=== PATIENT | female | born 2000 | race Caucasian/White ===

== ENCOUNTER 2019-08-15 07:00 | Outpatient (RCR) | payer OTHER, SELFPAY ==
[2019-08-13 15:00] LABS: Hematocrit 34.7 % (37.0-47.0); Hemoglobin 11.7 g/dL (12.0-15.0)
[2019-08-13 15:10] LABS: Glucose 1 Hour PP 50gm Dose 132 mg/dL
[2019-08-13 15:51] LABS: HIV 1/2 Ab P24 Ag Result Negative (Negative)
[2019-08-14 10:48] LABS: Rapid Plasma Reagin Non-Reactive (NonReactive)
[2019-08-15] MEDS: RHO(D) IMMUNE GLOBULIN 300 MCG SYRINGE IM (14:37)
== END 2019-11-11 23:59 | disposition home or self-care (01) ==
LOC: ANHLAB 07:00
PROVIDERS: Visit Provider Obstetrics & Gynecology
DX: Z36.89 Encounter for other specified antenatal screening (principal); Z29.13 Encounter for prophylactic Rho(D) immune globulin; O36.0990 Maternal care for other rhesus isoimmunization, unspecified trimester, not applicable or unspecified; Z3A.00 Weeks of gestation of pregnancy not specified
CPT/HCPCS: 36415; 82947; 85014; 85018; 86592; 86703; 90384; 96372; G0432; J2790

== ENCOUNTER 2019-11-01 03:20 | Inpatient (IN) | payer OTHER, SELFPAY ==
[2019-11-01] VITALS (190 sets, daily range): BP systolic 60–144; BP diastolic 40–96; PULSE 55–256; RESP 15; TEMP 36.6–38.8; O2SAT 95–100; BMI 34.4
[2019-11-01 06:09] LABS: Basophils Percent Auto 0.3 % (0.2-1.2); Eosinophils Absolute Auto 0.1 K/mm3 (0-0.3); Eosinophils Percent Auto 0.7 % (0-4.4); Hematocrit 34.1 % (37.0-47.0); Hemoglobin 11.1 g/dL (12.0-15.0); Immature Granulocyte Absolute 0.06 K/mm3 (0.00-0.031); Immature Granulocyte Percent A 0.5 % (0-0.5); Lymphocytes Absolute Auto 2.37 K/mm3 (0.9-3.2); Lymphocytes Percent Auto 20.1 % (18.3-44.2); Mean Corpuscular HGB Conc 32.6 g/dl (32-36); Mean Corpuscular Hemoglobin 27.2 pg (26-34); Mean Corpuscular Volume 83.6 fl (80-100); Mean Platelet Volume 9.8 fl (7.4-10.4); Monocytes Absolute Auto 0.9 K/mm3 (0.1-0.6); Monocytes Percent Auto 7.5 % (2.6-8.5); Neutrophils Absolute Auto 8.4 K/mm3 (1.3-6.7); Neutrophils Percent Auto 70.9 % (45.5-73.1); Platelet Count Result 259 k/mm3 (150-375); Red Blood Count 4.08 M/mm3 (4.2-5.4); Red Cell Distribution Width 13.4 % (11.5-14.5); White Blood Count 11.8 K/mm3 (4.5-10.0)
[2019-11-01 06:37] LABS: Amphetamine Screen Urine Negative (Negative); Barbiturate Screen Urine Negative (Negative); Benzodiazepines Screen Urine Negative (Negative); Cannabinoid Screen Urine Positive (Negative); Cocaine Screen Urine Negative (Negative); Methadone Screen Urine Negative (Negative); Opiate Screen Urine Negative (Negative); Phencyclidine Screen Urine Negative (Negative)
[2019-11-01] MEDS: LACTATED RINGERS 1,000 ML 125 ML IV CONT ×4 (07:47→11:30)
--- NOTE | 2019-11-01 08:18 | WPDOBADMIT ---
Obstetrics - Admit Note Admission Note: record reviewed. No pertinent additions to the history and/or any subsequent changes in the physical findings that are not consistent with the expected course of the were found. Pt admitted to , regular contractions 1 cm /80/-3. Additions to the history and/or subsequent changes in the physical findings follow. None.
[2019-11-01] MEDS: OXYTOCIN 30 UNITS/NS 500 ML 30 UNITS/500 ML BAG 6 UNITS IV CONT (08:32)
[2019-11-01] MEDS: ONDANSETRON INJ 4 MG/2 ML VIAL IV PUSH ×2 (09:01→18:30)
--- NOTE | 2019-11-01 09:47 | WPDANESEPP ---
Anes - Eval Pre Procedure Procedure: labor pain management Date/Time: 11/01/19 09:47 Surgeon: Tita Preop Diagnosis: Pain during labor Pre Op Diagnosis: Contractions Patient Data Age: 19 Gender: F Height: 5 ft 9 in Weight: 106 kg Last Vital Signs Temp 97.8 F 11/01/19 07:13 Pulse 77 11/01/19 09:01 BP 144/62 H 11/01/19 09:01 Pulse Ox 100 11/01/19 09:43 Allergies Allergy/AdvReac Type Severity Reaction Status Date / Time clarithromycin Allergy Unknown HIVES, Verified 11/01/19 06:44 HEART RASING, DIFFICULTY BREATHING Penicillins Allergy Unknown HIVES, Verified 11/01/19 06:44 HEART RACING, DIFFICULTY BREATHING Sulfa (Sulfonamide Allergy Unknown HIVES, Verified 11/01/19 06:44 Antibiotics) HEART RACING, AND DIFFICULTY BREATHING. Home Medications Medication Instructions Recorded Confirmed Type PNV cmb#95-ferrous fumarate-FA 1 tablet PO DAILY 09/25/19 09/25/19 History [] Laboratory Tests 11/01/19 11/01/19 11/01/19 05:55 05:55 05:55 WBC 11.8 K/mm3 H K/mm3 (4.5-10.0) RBC 4.08 M/mm3 L M/mm3 (4.2-5.4) Hgb 11.1 g/dL L g/dL (12.0-15.0) Hct 34.1 % L % (37.0-47.0) MCV 83.6 fl fl (80-100) MCH 27.2 pg pg (26-34) MCHC 32.6 g/dl g/dl (32-36) RDW 13.4 % % (11.5-14.5) Plt Count 259 k/mm3 k/mm3 (150-375) MPV 9.8 fl fl (7.4-10.4) Immature Gran % (Auto) 0.5 % % (0-0.5) Neut % (Auto) 70.9 % % (45.5-73.1) Lymph % (Auto) 20.1 % % (18.3-44.2) [place] % (Auto) 7.5 % % (2.6-8.5) Eos % (Auto) 0.7 % % (0-4.4) Baso % (Auto) 0.3 % % (0.2-1.2) Lymph # (Auto) 2.37 K/mm3 K/mm3 (0.9-3.2) [place] # (Auto) 0.9 K/mm3 H K/mm3 (0.1-0.6) Eos # (Auto) 0.1 K/mm3 K/mm3 (0-0.3) Baso # (Auto) 0.0 K/mm3 K/mm3 (0.0-0.1) Abs Immat Gran (auto) 0.06 K/mm3 H K/mm3 (0.00-0.031) Absolute Neuts (auto) 8.4 K/mm3 H K/mm3 (1.3-6.7) Absolute Nucleated RBC 0.0 K/mm3 K/mm3 (0.0-0.012) Nucleated RBC % 0.0 % % (0.0-0.2) Urine Opiates Screen Urine Methadone Screen Ur Barbiturates Screen Ur Phencyclidine Scrn Ur Amphetamine Screen U Benzodiazepines Scrn Urine Cocaine Screen U Cannabinoids Screen RPR Pending Blood Type O Negative Antibody Screen Negative 11/01/19 05:55 WBC RBC Hgb Hct MCV MCH MCHC RDW Plt Count MPV Immature Gran % (Auto) Neut % (Auto) Lymph % (Auto) [place] % (Auto) Eos % (Auto) Baso % (Auto) Lymph # (Auto) [place] # (Auto) Eos # (Auto) Baso # (Auto) Abs Immat Gran (auto) Absolute Neuts (auto) Absolute Nucleated RBC Nucleated RBC % Urine Opiates Screen Negative (Negative) Urine Methadone Screen Negative (Negative) Ur Barbiturates Screen Negative (Negative) Ur Phencyclidine Scrn Negative (Negative) Ur Amphetamine Screen Negative (Negative) U Benzodiazepines Scrn Negative (Negative) Urine Cocaine Screen Negative (Negative) U Cannabinoids Screen Positive A (Negative) RPR Blood Type Antibody Screen : gestational age (edc 11/02/19) Patient hx anesthesia problems: none Family hx anesthesia problems: none Prior Surgeries: myringotomy [facility] Past Medical History Medical History (Updated 11/01/19 @ 09:47 by Ngozi Lozano CRNA) History of skull fracture Surgical History Surgical History (Updated 11/01/19 @ 09:47 by Ngozi Lozano CRNA) History of myringotomy Family History Family History (Upd
--- NOTE | 2019-11-01 20:45 | PM.OBPRVD ---
OB - Delivery Note Procedure Delivery date: 11/01/19 Procedure: vaginal delivery events: No Care Intrapartal events: Febrile Induction method: AROM and per pitocin protocol Delivery monitor: external FHT and internal uterine Route of delivery: Laceration description: Perineal - 1st Degree (left) Delivery repair: vicryl Specimen: Yes Estimated blood loss (mL): 146 Anesthesia type: Epidural Narrative: mother and baby skin to skin Baby Date of : 11/01/19 Time of : 20:29 Weeks of gestation at delivery: 39 Infant gender: Female Weight (pounds): 7 Weight (ounces): 8 presentation: vertex position: Left Occiput Anterior Placenta delivery description: Spontaneous cord vessel description: 3 Vessels, Nuchal Cord, Loose, Reduced and Clamped/Cut score one minute: 8 score five minutes: 9
[2019-11-01] MEDS: OXYTOCIN 30 UNITS/NS 500 ML 30 UNITS/500 ML BAG 125 UNITS IV CONT (20:58)
[2019-11-01] MEDS: BENZOCAINE 20% AER SPR (*SP) 56 GM CAN 1 SPRAY TOPICAL (22:32)
[2019-11-01] MEDS: WITCH HAZEL 40 PADS 1 PAD TOPICAL (22:32)
[2019-11-01] MEDS: IBUPROFEN 600 MG TABLET PO (22:39)
[2019-11-02 05:17] LABS: Hematocrit 31.3 % (37.0-47.0); Hemoglobin 10.1 g/dL (12.0-15.0)
[2019-11-02] MEDS: IBUPROFEN 600 MG TABLET PO ×2 (07:25→21:01)
[2019-11-02 07:40] LABS: Rapid Plasma Reagin Non-Reactive (NonReactive)
[2019-11-02 08:10] VITALS: BP 126/53; PULSE 85; RESP 18; TEMP 36.3; O2SAT 99
--- NOTE | 2019-11-02 08:15 | P.PNOB_ITS ---
OB - PN: Subj Subjective Date/time seen: 11/02/19 08:15 Patient comments: no complaints, pain well controlled and other (Lochia similar to menses) [place] baby status: doing well OB - PN: Obj Data Labs CBC & Chem 7: 11/02/19 04:23 Labs: Laboratory Results - last 24 hr 11/01/19 11/02/19 05:55 04:23 Hgb 10.1 L Hct 31.3 L RPR Non-reactive OB - PN A/P Plan day: 1 (s/p vaginal delivery, doing well) Plan: routine care Time Spent With Patient Time: Total time spent is greater than 50% in coordination of care (as documented) at patient's floor/unit and/or counseling patient: Exam Const: General: no acute distress GI: Inspection: other (Fundus firm and nontender at umbilicus) GI Palp: Yes Soft to palpation and No Tenderness to palpation present (GI) Extrem: General: no edema
[2019-11-02] MEDS: ACETAMINOPHEN 325 MG TABLET 650 MG PO ×2 (12:16→21:01)
--- NOTE | 2019-11-02 17:35 | WPDANLDPN2 ---
Anes-Prog Note L&D Date/Time: 11/02/19 17:35 Comfortable throughout: labor and delivery Neuraxial method: epidural Epidural/Spinal procedure site: clean & non-tender Neuro status: Neuro function grossly intact. Cardiovascular status: normal Respiratory status: normal Airway patency: baseline Mental status: baseline Post-Op hydration status: normal Vital Signs: Last Vital Signs Temp 36.3 C L 11/02/19 08:10 Pulse 85 11/02/19 08:10 Resp 18 11/02/19 08:10 BP 126/53 L 11/02/19 08:10 Pulse Ox 99 11/02/19 08:10 Post-procedural complaints: none Patient feedback: Patient satisfied with anesthetic care.
[2019-11-02 20:50] VITALS: BP 135/73; PULSE 81; RESP 14; TEMP 36.6; O2SAT 96
[2019-11-03] MEDS: BENZOCAINE 20% AER SPR (*SP) 56 GM CAN 1 SPRAY TOPICAL (07:22)
[2019-11-03] MEDS: IBUPROFEN 600 MG TABLET PO (07:22)
[2019-11-03] MEDS: WITCH HAZEL 40 PADS 1 PAD TOPICAL (07:22)
--- NOTE | 2019-11-03 07:31 | PM.OBPNVD ---
OB - PN: Subj Subjective Date/time seen: 11/03/19 07:31 Patient comments: no complaints, pain well controlled and other (Lochia similar to menses) [place] baby status: doing well OB - PN: Obj Data Labs CBC & Chem 7: 11/02/19 04:23 Labs: Laboratory Results - last 24 hr 11/01/19 05:55 RPR Non-reactive OB - PN A/P Plan day: 2 (s/p vaginal delivery, doing well) Plan: routine care, discharge home and other (Follow up in office in 4 weeks) Time Spent With Patient Time: Total time spent is greater than 50% in coordination of care (as documented) at patient's floor/unit and/or counseling patient: Exam Const: General: no acute distress GI: Inspection: other (Fundus firm and nontender below umbilicus) GI Palp: Yes Soft to palpation and No Tenderness to palpation present (GI) Extrem: General: no edema
[2019-11-03 08:00] VITALS: BP 140/78; PULSE 93; RESP 18; TEMP 36.6
--- NOTE | 2019-11-03 09:58 | PC.NURSE ---
Patient viewed the discharge video Mother & Baby Care, The First Two Weeks . Patient was given the opportunity and encouraged to ask questions. Patient verbalized understanding of information shared and has been given the mother/baby guide for home reference.
--- NOTE | 2019-11-03 11:14 | PC.NURSE ---
Self care and infant care discharge instructions given including follow up visit date and time. Mother verbalized understanding. Very pleasant and cooperative. FOB at side.
[2019-11-04 11:42] VITALS: BP 111/51; PULSE 66; RESP 16; TEMP 36.9
--- NOTE | 2019-11-05 01:09 | P.DS_ITS ---
OB - DS: Summary OB Procedures : None OB Procedures Intrapartum: Spontaneous Vag Delivery OB Procedures: : None Time Spent with Patient Time attestation: Total time spent providing and/or coordinating discharge services: Discharge Plan Discharge Attending physician on discharge: Gustavo Rivers Consulting providers: Josee Vazquez Discharging Clinician: Jyoti Hernandez Patient Disposition: Home, Self-Care Activity: may shower and pelvic rest Diet: regular Discharge Instructions: Education: Mom and Baby Guide Given to: Mother Follow-Up: Call your delivering provider's office for an appointment to be seen in: 6 Weeks Mom and baby should come to the [place] [facility] for the follow-up appointment. Appointment Date/Time: November 04, 2019 at 11:00 am What to expect at your follow-up visit: Blood Pressure Check Physical Assessment Call [phone] if you are unable to keep your appointment time. BREAST CARE: 1. Wear a snug supportive bra. Bottle Feeding: A. May apply ice packs EPISIOTOMY/PERINEAL CARE: 1. Until bleeding stops, use your teresa bottle after urinating 2. Change your pad frequently throughout the day 3. You may take sitz baths several times a day (fill your bathtub with warm water and soak for 20 minutes.) Do NOT bathe in the water 4. No tub baths until seen by your physician - You may shower ACTIVITY: 1. Rest as much as possible. 2. Do not exercise or lift anything heavier than your baby (such as laundry or other children.) 3. Avoid stairs or driving as much as possible. 4. Do not put anything into the vagina. No douching, tampons, or sexual activity until seen by physician. NOTIFY PHYSICIAN IF YOU HAVE ANY QUESTIONS OR IF ANY OF THE FOLLOWING SYMPTOMS OCCUR: 1. If your episiotomy becomes red, swollen, or more painful than what you have experienced in the hospital. 2. If your vaginal bleeding becomes foul smelling. 3. If your vaginal bleeding becomes more heavy than a period or if your bleeding changes from pink to bright red. However, you may pass an occasional walnut- sized clot once or twice for the first week . 4. If you experience a sharp, shooting pain in you calves. 5. If you discover a hard, reddened area on your breast or if you experience flu-like symptoms. DIET: 1. Eat regular, well-balanced meals. 2. Drink plenty of fluids daily. If , drink to thirst. Stand Alone Forms: General Discharge Information Follow-up/Referrals: Josee Vazquez CNM [Certified Nurse Institutional Asset Manager] - 4 Weeks Discharge Medications: New ibuprofen 600 mg Tablet 600 mg PO Q6H PRN (Reason: Cramping) Qty: 60 RF: 0 Continued PNV cmb#95-ferrous fumarate-FA [] 28 mg iron- 800 mcg Tablet 1 tablet PO DAILY RF: 0 Date of admission: 11/01/19 03:20 Primary Care Provider: UNKNOWN,DOCTOR Admitting Provider: Gustavo Rivers Discharge Date/Time: 11/03/19 12:10 Attending physician on admission: Jyoti Hernandez
--- NOTE | 2019-11-06 07:15 | P.DS_ITS ---
DS: Diagnosis Admitting Diagnosis Admitting Diagnosis: Encounter for supervision of normal , unspecified, third trimester OB - DS: Summary OB Procedures : None OB Procedures Intrapartum: Spontaneous Vag Delivery OB Procedures: : None Time Spent with Patient Time attestation: Total time spent providing and/or coordinating discharge services: Discharge Plan Discharge Attending physician on discharge: Gustavo Rivers Consulting providers: Josee Vazquez Discharging Clinician: Jyoti Hernandez Patient Disposition: Home, Self-Care Activity: may shower and pelvic rest Diet: regular Discharge Instructions: Education: Mom and Baby Guide Given to: Mother Follow-Up: Call your delivering provider's office for an appointment to be seen in: 6 Weeks Mom and baby should come to the [place] [facility] for the follow-up appointment. Appointment Date/Time: November 04, 2019 at 11:00 am What to expect at your follow-up visit: Blood Pressure Check Physical Assessment Call [phone] if you are unable to keep your appointment time. BREAST CARE: 1. Wear a snug supportive bra. Bottle Feeding: A. May apply ice packs EPISIOTOMY/PERINEAL CARE: 1. Until bleeding stops, use your teresa bottle after urinating 2. Change your pad frequently throughout the day 3. You may take sitz baths several times a day (fill your bathtub with warm water and soak for 20 minutes.) Do NOT bathe in the water 4. No tub baths until seen by your physician - You may shower ACTIVITY: 1. Rest as much as possible. 2. Do not exercise or lift anything heavier than your baby (such as laundry or other children.) 3. Avoid stairs or driving as much as possible. 4. Do not put anything into the vagina. No douching, tampons, or sexual activity until seen by physician. NOTIFY PHYSICIAN IF YOU HAVE ANY QUESTIONS OR IF ANY OF THE FOLLOWING SYMPTOMS OCCUR: 1. If your episiotomy becomes red, swollen, or more painful than what you have experienced in the hospital. 2. If your vaginal bleeding becomes foul smelling. 3. If your vaginal bleeding becomes more heavy than a period or if your bleeding changes from pink to bright red. However, you may pass an occasional walnut- sized clot once or twice for the first week . 4. If you experience a sharp, shooting pain in you calves. 5. If you discover a hard, reddened area on your breast or if you experience flu-like symptoms. DIET: 1. Eat regular, well-balanced meals. 2. Drink plenty of fluids daily. If , drink to thirst. Stand Alone Forms: General Discharge Information Follow-up/Referrals: Josee Vazquez CNM [Certified Nurse Marriage And Family Therapist] - 4 Weeks Discharge Medications: New ibuprofen 600 mg Tablet 600 mg PO Q6H PRN (Reason: Cramping) Qty: 60 RF: 0 Continued PNV cmb#95-ferrous fumarate-FA [] 28 mg iron- 800 mcg Tablet 1 tablet PO DAILY RF: 0 Date of admission: 11/01/19 03:20 Primary Care Provider: UNKNOWN,DOCTOR Admitting Provider: Gustavo Rivers Discharge Date/Time: 11/03/19 12:10 Attending physician on admission: Jyoti Hernandez
== END 2019-11-03 12:10 | disposition home or self-care (01) | DRG 560 ==
LOC: ANHLDR 05:26 → ANHOB2 11-03 07:34 → ANHLDR 11-04 10:30 → ANHOB2 11-04 10:30
PROVIDERS: Advanced Practice Midwife; Admitting Provider Obstetrics & Gynecology; Visit Provider Obstetrics & Gynecology
DX: O99.52 Diseases of the respiratory system complicating childbirth (principal); Z37.0 Single live birth; Z3A.39 39 weeks gestation of pregnancy; J45.909 Unspecified asthma, uncomplicated; O70.0 First degree perineal laceration during delivery; O36.8330 Maternal care for abnormalities of the fetal heart rate or rhythm, third trimester, not applicable or unspecified; O69.81X0 Labor and delivery complicated by cord around neck, without compression, not applicable or unspecified
CPT/HCPCS: 36415; 80307; 85014; 85018; 85025; 86592; 86850; 86900; 86901; A9270; J2405; J2590; J2795; J3010; J7120

== ENCOUNTER 2020-10-19 16:46 | Outpatient (CLI) | payer OTHER, SELFPAY ==
[2020-10-19 18:04] LABS: Hematocrit 32.2 % (37.0-47.0); Hemoglobin 10.5 g/dL (12.0-15.0)
[2020-10-19 18:17] LABS: Glucose 1 Hour PP 50gm Dose 124 mg/dL
[2020-10-19 18:59] LABS: HIV 1/2 Ab P24 Ag Result Negative (Negative)
[2020-10-20 09:27] LABS: Rapid Plasma Reagin Non-Reactive (NonReactive)
[2020-10-20] MEDS: RHO(D) IMMUNE GLOBULIN 300 MCG/2 ML SYRINGE IM (18:49)
== END 2020-10-19 16:47 | disposition home or self-care (01) ==
LOC: ANHLAB 16:48
PROVIDERS: Visit Provider Obstetrics & Gynecology
DX: O36.0130 Maternal care for anti-D [Rh] antibodies, third trimester, not applicable or unspecified (principal); Z36.89 Encounter for other specified antenatal screening; Z3A.00 Weeks of gestation of pregnancy not specified
CPT/HCPCS: 36415; 82947; 85014; 85018; 85461; 86592; 86703; 90384; 96372; G0432; J2790

== ENCOUNTER 2020-12-19 13:53 | Inpatient (IN) | payer OTHER, SELFPAY ==
[2020-12-19] VITALS (79 sets, daily range): BP systolic 78–134; BP diastolic 34–93; PULSE 25–161; RESP 16; TEMP 36.6–36.7; O2SAT 81–100; BMI 32.8
[2020-12-19] MEDS: LACTATED RINGERS 1,000 ML 125 ML IV CONT ×2 (16:45→17:32)
[2020-12-19 16:59] LABS: Basophils Percent Auto 0.2 % (0.2-1.2); Eosinophils Absolute Auto 0.1 K/mm3 (0-0.3); Eosinophils Percent Auto 0.6 % (0-4.4); Hematocrit 35.8 % (37.0-47.0); Hemoglobin 11.6 g/dL (12.0-15.0); Immature Granulocyte Absolute 0.05 K/mm3 (0.00-0.031); Immature Granulocyte Percent A 0.4 % (0-0.5); Lymphocytes Absolute Auto 2.14 K/mm3 (0.9-3.2); Lymphocytes Percent Auto 16.7 % (18.3-44.2); Mean Corpuscular HGB Conc 32.4 g/dl (32-36); Mean Corpuscular Hemoglobin 27.9 pg (26-34); Mean Corpuscular Volume 86.1 fl (80-100); Mean Platelet Volume 10.4 fl (7.4-10.4); Monocytes Absolute Auto 0.9 K/mm3 (0.1-0.6); Monocytes Percent Auto 6.9 % (2.6-8.5); Neutrophils Absolute Auto 9.6 K/mm3 (1.3-6.7); Neutrophils Percent Auto 75.2 % (45.5-73.1); Platelet Count Result 210 k/mm3 (150-375); Red Blood Count 4.16 M/mm3 (4.2-5.4); Red Cell Distribution Width 13.9 % (11.5-14.5); White Blood Count 12.8 K/mm3 (4.5-10.0)
--- NOTE | 2020-12-19 17:55 | LDADM ---
This patient, Lashanda James, was admitted to Labor/Delivery/Recovery 106 on 12/19/20 at 13:53. Plans for labor, pain management and were discussed with patient. Patient/family oriented to hospital policies and general routines including ID bracelet, bed and alarms, visiting hours, pain management, procedures, bathroom and other care routines, personal items, smoking policy, room service/diet and guest tray routines, security routines, and visiting hours. Patient/Family are encouraged to report perceived risks to care and to ask questions if they do not understand what they are told or what they should do. See OBIX for further documentation.
--- NOTE | 2020-12-19 18:18 | WPDOBADMIT ---
Obstetrics - Admit Note Admission Note: 20 y/o @ 38w4d here in active labor. record reviewed. No pertinent additions to the history and/or any subsequent changes in the physical findings that are not consistent with the expected course of the were found. Additions to the history and/or subsequent changes in the physical findings follow. None.
[2020-12-19 19:08] LABS: Barbiturate Screen Urine Negative (Negative); Benzodiazepines Screen Urine Negative (Negative)
[2020-12-19 19:12] LABS: Amphetamine Screen Urine Negative (Negative); Cannabinoid Screen Urine Positive (Negative); Cocaine Screen Urine Negative (Negative); Methadone Screen Urine Negative (Negative)
[2020-12-19 19:33] LABS: Phencyclidine Screen Urine Negative (Negative)
[2020-12-19 19:42] LABS: Opiate Screen Urine Negative (Negative)
[2020-12-19] MEDS: OXYTOCIN 30 UNITS/NS 500 ML 30 UNITS/500 ML BAG 999 UNITS IV CONT (20:15)
--- NOTE | 2020-12-19 20:37 | P.PCNOB_ITS ---
OB - Delivery Note Procedure Delivery date: 12/19/20 Procedure: Intrapartal events: None Induction method: none Delivery monitor: external FHT and external uterine Route of delivery: Laceration Description: Perineal - 1st Degree Delivery repair: vicryl Quantitative Blood Loss (ml): 224 Anesthesia type: Epidural Narrative: Mother and baby in stable condition. Cord gasses collected and handed off to staff. [place] Baby Date of : 12/19/20 Weeks of gestation at delivery: 20 Infant gender: Male Weight (pounds): 9 Weight (ounces): 8 presentation: vertex position: Left Occiput Posterior Placenta delivery description: Spontaneous score one minute: 8 score five minutes: 9
[2020-12-19] MEDS: IBUPROFEN 600 MG TABLET PO (21:10)
[2020-12-19] MEDS: OXYTOCIN 30 UNITS/NS 500 ML 30 UNITS/500 ML BAG 125 UNITS IV CONT (21:11)
[2020-12-19] MEDS: LORATADINE 10 MG TABLET PO (22:54)
[2020-12-19] MEDS: BENZOCAINE 20% AER SPR (*SP) 56 GM CAN 1 SPRAY TOPICAL (22:55)
[2020-12-19] MEDS: WITCH HAZEL 40 PADS 1 PAD TOPICAL (22:56)
[2020-12-20] VITALS (7 sets, daily range): BP systolic 118–127; BP diastolic 47–72; PULSE 73–80; RESP 16–18; TEMP 36.4–36.8; O2SAT 99–100
--- NOTE | 2020-12-20 00:35 | PC.NURSE ---
This patient, Lashanda James, was received from Labor and delivery on 12/19/20 at 2312. Patient/family oriented to unit policies and routines
[2020-12-20] MEDS: IBUPROFEN 600 MG TABLET PO ×2 (04:35→17:08)
[2020-12-20] MEDS: ACETAMINOPHEN 325 MG TABLET 650 MG PO (04:36)
[2020-12-20 06:22] LABS: Hematocrit 30.4 % (37.0-47.0)
--- NOTE | 2020-12-20 07:40 | PM.OBPNVD ---
OB - PN: Subj Subjective Date/time seen: 12/20/20 07:40 Patient comments: no complaints [place] baby status: doing well OB - PN: Obj Data Labs CBC & Chem 7: 12/20/20 04:42 Labs: Laboratory Results - last 24 hr 12/19/20 12/19/20 12/19/20 16:44 16:44 18:35 WBC 12.8 H RBC 4.16 L Hgb 11.6 L Hct 35.8 L MCV 86.1 MCH 27.9 MCHC 32.4 RDW 13.9 Plt Count 210 MPV 10.4 Immature Gran % (Auto) 0.4 Neut % (Auto) 75.2 H Lymph % (Auto) 16.7 L [place] % (Auto) 6.9 Eos % (Auto) 0.6 Baso % (Auto) 0.2 Lymph # (Auto) 2.14 [place] # (Auto) 0.9 H Eos # (Auto) 0.1 Baso # (Auto) 0.0 Abs Immat Gran (auto) 0.05 H Absolute Neuts (auto) 9.6 H Absolute Nucleated RBC 0.0 Nucleated RBC % 0.0 Urine Opiates Screen Negative Urine Methadone Screen Negative Ur Barbiturates Screen Negative Ur Phencyclidine Scrn Negative Ur Amphetamine Screen Negative U Benzodiazepines Scrn Negative Urine Cocaine Screen Negative U Cannabinoids Screen Positive A Blood Type O Negative Antibody Screen Positive Antibody Identification Passive Due to RH Imm Glob Antigen Identification D Antigen - NEGATIVE ALBER, IgG Interpret Not Performed ALBER, Poly Interpret Negative ALBER, Complement Interp Not Performed 12/20/20 04:42 WBC RBC Hgb 10.0 L Hct 30.4 L MCV MCH MCHC RDW Plt Count MPV Immature Gran % (Auto) Neut % (Auto) Lymph % (Auto) [place] % (Auto) Eos % (Auto) Baso % (Auto) Lymph # (Auto) [place] # (Auto) Eos # (Auto) Baso # (Auto) Abs Immat Gran (auto) Absolute Neuts (auto) Absolute Nucleated RBC Nucleated RBC % Urine Opiates Screen Urine Methadone Screen Ur Barbiturates Screen Ur Phencyclidine Scrn Ur Amphetamine Screen U Benzodiazepines Scrn Urine Cocaine Screen U Cannabinoids Screen Blood Type Antibody Screen Antibody Identification Antigen Identification ALBER, IgG Interpret ALBER, Poly Interpret ALBER, Complement Interp OB - PN A/P Plan day: 1 Plan: routine care Time Spent With Patient Time: Total time spent is greater than 50% in coordination of care (as documented) at patient's floor/unit and/or counseling patient: Time with patient: less than 15 minutes Review of Systems Review of Systems: All systems reviewed & are unremarkable except as noted in HPI and below Exam Narrative: Exam Narrative: Fundus firm and vaginal flow controlled. No lower ext redness, warmth, or edema. Negative homans. Const: General: comfortable Chest: Breast/axilla inspection: normal inspection of the breasts Resp: Effort & Inspection: normal respiratory effort Cardio: Rate: regular rate GI: GI Palp: Yes Soft to palpation Psych: Appearance: grossly normal Affect: normal affect Attitude: cooperative Thought content: Yes Normal thought content present Judgement: Good judgement present (Psych)
[2020-12-20 10:09] LABS: Rapid Plasma Reagin Non-Reactive (NonReactive)
--- NOTE | 2020-12-20 11:04 | WPDANLDPN2 ---
Anes-Prog Note L&D Date/Time: 12/20/20 11:04 Comfortable throughout: labor and delivery Neuraxial method: epidural Epidural/Spinal procedure site: clean & non-tender Neuro status: Neuro function grossly intact. Cardiovascular status: normal Respiratory status: normal Airway patency: baseline Mental status: baseline Post-Op hydration status: normal Vital Signs: Last Vital Signs Temp 36.7 C 12/20/20 07:50 Pulse 80 12/20/20 09:15 Resp 16 12/20/20 09:15 BP 119/47 L 12/20/20 07:50 Pulse Ox 100 12/20/20 09:15 Pain score (VAS): 0/10. Patient resting in bed at time of assessment, appears comfortable. Support person at bedside. I/O: Intake & Output 12/19/20 12/20/20 12/20/20 23:59 07:59 15:59 Intake Total 1000 Output Total 302 Balance 698 Post-procedural complaints: none Patient feedback: Patient satisfied with anesthetic care.
--- NOTE | 2020-12-20 12:51 | PCCCNOTE ---
Received referral for marijuana use with . Pt. urine drug screen positive for THC. No urine drug screen ordered on baby. Meconium ordered and pending. Met with pt. and father of baby at bedside. Pt. 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 She purchases marijuana from dispensary. She denies any history with DCFS. She states having current counselor that she sees and is aware of how to reach resources if experiences post depression again. She lives with her mother, siblings, father of baby, her 1 year old child and plans to return home with baby as well. She states her mother being supportive and has support from a friend. Her grandmother recently and she becomes tearful during conversation. Provided support and encouragement; again encouraged regular counseling visits. She states being current with WIC. She has all needed items to care for baby at return home. Provided additional resources and she accepted same. Reported pt. situation to DCFS and it does not meet criteria for investigation; information to be kept on file. Nursing indicates no further concerns at this time.
[2020-12-20] MEDS: RHO(D) IMMUNE GLOBULIN 300 MCG/2 ML SYRINGE IM (13:03)
--- NOTE | 2020-12-31 10:12 | PM.OBDSVD ---
DS: Admitting Diagnosis Admitting Diagnosis Admitting Diagnosis: Labor OB - DS: Summary OB Procedures : None OB Procedures Intrapartum: Spontaneous Vag Delivery OB Procedures: : None Time Spent with Patient Time attestation: Total time spent providing and/or coordinating discharge services: Discharge Plan Discharge Consulting providers: Tiff Alvarez Discharging Clinician: Glendy Aiken Anticipated Discharge Date/Time: 12/20/20 21:30 Patient Disposition: Home, Self-Care Activity: pelvic rest Diet: regular Discharge Instructions: Education: Mom and Baby Guide Given to: Mother Follow-Up: Call your delivering provider's office for an appointment to be seen in: 4 Weeks Mom and baby should come to the [place] [facility] for the follow-up appointment. Appointment Date/Time: December 22, 2020 at 10:00 am What to expect at your follow-up visit: Physical Assessment Call [phone] if you are unable to keep your appointment time. BREAST CARE: * Wear a snug supportive bra. * For engorgement discomfort: Breast Feeding: * Apply warm moist washcloths * Express milk as needed to relieve engorgement * Wear loose clothing Bottle Feeding: * May apply ice pack EPISIOTOMY/PERINEAL CARE: * Until bleeding stops, use your teresa bottle after urinating * Change your pad frequently throughout the day * You may take sitz baths several times a day (fill your bathtub with warm water and soak for 20 minutes.) Do NOT bathe in the water * No tub baths until seen by your physician - You may shower ACTIVITY: * Rest as much as possible. * Do not exercise or lift anything heavier than your baby (such as laundry or other children.) * Avoid stairs or driving as much as possible. * Do not put anything into the vagina. No douching, tampons, or sexual activity until seen by physician. NOTIFY PHYSICIAN IF YOU HAVE ANY QUESTIONS OR IF ANY OF THE FOLLOWING SYMPTOMS OCCUR: * If your episiotomy or incision becomes red, swollen, or more painful than what you have experienced in the hospital. * If your vaginal bleeding becomes foul smelling. * If your vaginal bleeding becomes more heavy than a period or if your bleeding changes from pink to bright red. However, you may pass an occasional walnut-sized clot once or twice for the first week . * If you experience a sharp, shooting pain in you calves. * If you discover a hard, reddened area on your breast or if you experience flu-like symptoms. DIET: * Eat regular, well-balanced meals. * Drink plenty of fluids daily. If , drink to thirst. Stand Alone Forms: General Discharge Information Follow-up/Referrals: Gustavo Rivers MD [Physician] - Discharge Medications: New acetaminophen [Mapap (acetaminophen)] 325 mg Tablet 650 mg PO Q6H PRN (Reason: Mild Pain (1-3) Or Headache) RF: 0 ibuprofen 600 mg Tablet 600 mg PO Q6H PRN (Reason: Cramping) RF: 0 aripiprazole [Abilify] 5 mg Tablet 5 mg PO DAILY RF: 0 Continued ibuprofen 600 mg Tablet 600 mg PO Q6H PRN (Reason: Cramping) Qty: 60 RF: 0 escitalopram oxalate 10 mg tablet 10 mg QAM RF: 0 aripiprazole 5 mg tablet 5 mg QAM RF: 0 Discontinued PNV cmb#95-ferrous fumarate-FA [] 28 mg iron- 800 mcg Tablet 1 tablet PO DAILY RF: 0 Date of admission: 12/19/20 13:53 Primary Care Provider: PHYSICIAN,CHEMISTRY LABORATORY TECHNICIAN Admitting Provider: Gustavo Rivers Attending physician on admission: Glendy Aiken Condition: Stable
== END 2020-12-20 20:30 | disposition home or self-care (01) | DRG 560 ==
LOC: ANHOB2 12-20 20:50 → ANHLDR 12-21 10:14 → ANHOB2 12-21 10:14
PROVIDERS: Advanced Practice Midwife; Admitting Provider Obstetrics & Gynecology; Visit Provider Obstetrics & Gynecology
DX: O70.0 First degree perineal laceration during delivery (principal); Z3A.38 38 weeks gestation of pregnancy; Z37.0 Single live birth
CPT/HCPCS: 36415; 80307; 85014; 85018; 85025; 85461; 86592; 86850; 86880; 86900; 86901; 86902; 90384; A9270; J2590; J2790; J2795; J7120

== ENCOUNTER 2021-11-13 14:30 | Outpatient (RCR) | payer OTHER, SELFPAY ==
[2021-11-13 16:33] LABS: Hematocrit 29.9 % (37.0-47.0)
[2021-11-13 16:36] LABS: Glucose 1 Hour PP 50gm Dose 143 mg/dL
[2021-11-13 17:15] LABS: HIV 1/2 Ab P24 Ag Result Negative (Negative)
[2021-11-16] MEDS: RHO(D) IMMUNE GLOBULIN 300 MCG/2 ML SYRINGE IM (15:35)
== END 2022-02-11 23:59 | disposition home or self-care (01) ==
LOC: ANHLAB 14:30
PROVIDERS: Visit Provider Obstetrics & Gynecology
DX: Z11.4 Encounter for screening for human immunodeficiency virus [HIV] (principal); Z29.13 Encounter for prophylactic Rho(D) immune globulin; O36.0130 Maternal care for anti-D [Rh] antibodies, third trimester, not applicable or unspecified; Z3A.00 Weeks of gestation of pregnancy not specified
CPT/HCPCS: 36415; 82947; 85014; 85018; 85461; 86703; 90384; 96372; G0432; J2790

== ENCOUNTER 2022-01-29 06:42 | Inpatient (IN) | payer OTHER, SELFPAY ==
[2022-01-29] VITALS (73 sets, daily range): BP systolic 90–135; BP diastolic 40–92; PULSE 58–148; RESP 16; TEMP 36.4–37.2; O2SAT 92–100; BMI 33.2
--- OUTSIDE RECORDS SUMMARY | 2022-01-29 06:50 | XMS_ITS | Encounter Summary ---
:2000 Author Care Team Providers Name Role Phone Fortino Hoffman Primary Care Provider [phone] Reason for Visit None recorded. Assessment and Plan 1. Reduced movement ? non-stress test Discussion Note: None recorded.Patient educational handouts: No information available. Plan of Care Reminders Provider Appointments None recorded. ? ? Lab None recorded. ? ? Referral None recorded. ? ? Procedures None recorded. ? ? Surgeries None recorded. ? ? Imaging Non-stress Test 01/26/2022 [place] Medications Name Start Date ? ? aripiprazole 2 mg tablet ? TAKE 1 TABLET BY MOUTH EVERY DAY escitalopram 5 mg tablet ? TAKE 1 TABLET BY MOUTH EVERY DAY omeprazole 20 mg capsule,delayed release ? TAKE 1 CAPSULE BY MOUTH EVERY DAY Prilosec OTC 20 mg tablet,delayed release ? Take 1 tablet by oral route. Medications Administered None recorded. Vitals None recorded. Results Lab Results None recorded. Allergies Code Code System Name Reaction Severity Onset 723 RxNorm Amoxicillin ? ? ? Penicillins ? ? ? Sulfa (Sulfonamide Antibiotics) ? ? ? Problems Name Status Onset Date Source ? Bipolar Disorder Active 03/30/2019 History Active 08/01/2021 ? Procedures Date Name Performed by ? 07/15/2005 Tonsilectomy/adenoids Information not av ailable 07/15/2004 Adenoid Excision Information not avai lable 07/15/2001 Myringotomy and Insertion of Tympanic In formation not available
--- OUTSIDE RECORDS SUMMARY | 2022-01-29 06:50 | XMS_ITS | Encounter Summary ---
:2000 Author Care Team Providers Name Role Phone Fortino Hoffman Primary Care Provider [phone] Reason for Visit OB visit OB [id number] EDC 02/03/2022 LMP 04/26/2021 Assessment and Plan Assessment Note Patient is __36_weeks . Discuss ed plan. 1. Routine care Discussion Note: None recorded.Patient educational handouts: No information available. Plan of Care Reminders Provider Appointments None recorded. ? ? Lab None recorded. ? ? Referral None recorded. ? ? Procedures None recorded. ? ? Surgeries None recorded. ? ? Imaging None recorded. ? ? Medications Name Start Date ? ? aripiprazole 2 mg tablet ? TAKE 1 TABLET BY MOUTH EVERY DAY escitalopram 5 mg tablet ? TAKE 1 TABLET BY MOUTH EVERY DAY omeprazole 20 mg capsule,delayed release ? TAKE 1 CAPSULE BY MOUTH EVERY DAY Prilosec OTC 20 mg tablet,delayed release ? Take 1 tablet by oral route. Medications Administered None recorded. Vitals Height Weight BMI Blood Pressure 5 ft 7.25 in 222 lbs 34.5 kg/m2 99/59 mm[Hg] Results Lab Results None recorded. Allergies Code Code System Name Reaction Severity Onset 723 RxNorm Amoxicillin ? ? ? Penicillins ? ? ? Sulfa (Sulfonamide Antibiotics) ? ? ? Problems Name Status Onset Date Source ? Bipolar Disorder Active 03/30/2019 History Active 08/01/2021 ? Procedures Date Name
--- OUTSIDE RECORDS SUMMARY | 2022-01-29 06:50 | XMS_ITS | Encounter Summary ---
:2000 Author Care Team Providers Name Role Phone Fortino Hoffman Primary Care Provider [phone] Reason for Visit OB visit OB [id number] EDC 02/03/2022 LMP 04/26/2021 Assessment and Plan 1. Routine care Discussion Note: None recorded.Patient [...] BMI Blood Pressure 5 ft 7.25 in 218 lbs 33.9 kg/m2 100/58 mm[Hg] Results Lab Results None recorded. Allergies [...]
--- OUTSIDE RECORDS SUMMARY | 2022-01-29 06:50 | XMS_ITS | Encounter Summary ---
:2000 Author Care Team Providers Name Role Phone Fortino Hoffman Primary Care Provider [phone] Reason for Visit OB visit OB [id number] EDC 02/03/2022 LMP 04/26/2021 Assessment and Plan [...] BMI Blood Pressure 5 ft 7.25 in 220 lbs 34.2 kg/m2 125/68 mm[Hg] Results Lab Results None recorded. Allergies [...]
--- OUTSIDE RECORDS SUMMARY | 2022-01-29 06:50 | XMS_ITS | Encounter Summary ---
:2000 Author Care Team Providers Name Role Phone Fortino Hoffman Primary Care Provider [phone] Reason for Visit OB visit OB [id number] EDC 02/03/2022 LMP 04/26/2021 Assessment and Plan Assessment Note Patient is ___weeks . Discussed plan. Discussion Note: None recorded.Patient educational handouts: No [...] BMI Blood Pressure 5 ft 7.25 in 219 lbs 34 kg/m2 130/60 mm[Hg] Results Lab Results None recorded. Allergies Code Code System Name Reaction Severity Onset 723 RxNorm Amoxicillin ? ? ? Penicillins ? ? ? Sulfa (Sulfonamide Antibiotics) ? ? ? Problems Name Status Onset Date Source ? Bipolar Disorder Active 03/30/2019 History Active 08/01/2021 ? Procedures Date Name Performed by ? 07/15/2005 Tons
--- OUTSIDE RECORDS SUMMARY | 2022-01-29 06:50 | XMS_ITS | Encounter Summary ---
:2000 Author Care Team Providers Name Role Phone Fortino Hoffman Primary Care Provider [phone] Reason for Visit OB visit OB [id number] EDC 02/03/2022 LMP 04/26/2021 Assessment and Plan [...] BMI Blood Pressure 5 ft 7.25 in 216 lbs 33.6 kg/m2 109/64 mm[Hg] Results Lab Results None recorded. Allergies [...]
--- OUTSIDE RECORDS SUMMARY | 2022-01-29 06:50 | XMS_ITS ---
:2000 Author Care Team Providers Name Role Phone AARTI VILLA Primary Care Provider [phone] Allergies Code Code System Name Reaction Severity Status Onset 723 RxNorm Amoxicillin ? ? Active ? Penicillins ? ? Active ? Sulfa (Sulfonamide Antibiotics) ? ? Active ? Medications Name Status Start Date Stop Date ? ? Abilify Completed ? 09/08/2020 Augmentin 875 mg-125 mg tablet Active 09/23/2019 N ot available take 1 tablet by oral route every 12 hours aripiprazole 2 mg tablet Active ? Not dorothea ilable TAKE 1 TABLET BY MOUTH EVERY DAY aripiprazole 5 mg tablet Completed ? 021 TAKE 1 TABLET BY MOUTH EVERY DAY azithromycin 500 mg tablet Completed ? 08/24 TAKE 2 TABLETS BY MOUTH FOR 1 DAY escitalopram 10 mg tablet Completed ? 2020 escitalopram 5 mg tablet Active ? Not dorothea ilable TAKE 1 TABLET BY MOUTH EVERY DAY ibuprofen 600 mg tablet Completed ? 06/01/20 20 omeprazole 20 mg capsule,delayed release Active ? Not available ondansetron HCl 4 mg tablet Completed ? 08/16 Vitamins Plus Low Iron 27 mg iron-1 mg Completed ? 07/04/2021 tablet Prilosec OTC 20 mg tablet,delayed release Active ? Not available Take 1 tablet by oral route. Reglan 5 mg tablet Completed ? 08/24/2020 take 1 tablet by oral route 4 times paolo day 30 minutes before meals and at bedtime triamcinolone acetonide 0.5 % topical cream Active 09/13 Not available apply by topical route 2 times every day a thin layer to th e affected area(s)
--- NOTE | 2022-01-29 07:18 | LDADM ---
This patient, Lashanda James, was admitted to Labor/Delivery/Recovery 104 on 01/29/22 at 06:42. Plans for labor, pain management and were discussed with patient. Patient/family oriented to hospital policies and general routines including ID bracelet, bed and alarms, visiting hours, pain management, procedures, bathroom and other care routines, personal items, smoking policy, room service/diet and guest tray routines, security routines, and visiting hours. Patient/Family are encouraged to report perceived risks to care and to ask questions if they do not understand what they are told or what they should do. See OBIX for further documentation.
[2022-01-29 07:39] LABS: Basophils Percent Auto 0.3 % (0.2-1.2); Eosinophils Absolute Auto 0.1 K/mm3 (0-0.3); Eosinophils Percent Auto 0.8 % (0-4.4); Hematocrit 29.8 % (37.0-47.0); Hemoglobin 9.4 g/dL (12.0-15.0); Immature Granulocyte Absolute 0.04 K/mm3 (0.00-0.031); Immature Granulocyte Percent A 0.5 % (0-0.5); Lymphocytes Absolute Auto 1.75 K/mm3 (0.9-3.2); Lymphocytes Percent Auto 19.9 % (18.3-44.2); Mean Corpuscular HGB Conc 31.5 g/dl (32-36); Mean Corpuscular Hemoglobin 25.3 pg (26-34); Mean Corpuscular Volume 80.3 fl (80-100); Mean Platelet Volume 10.1 fl (7.4-10.4); Monocytes Absolute Auto 0.7 K/mm3 (0.1-0.6); Monocytes Percent Auto 7.5 % (2.6-8.5); Neutrophils Absolute Auto 6.2 K/mm3 (1.3-6.7); Platelet Count Result 224 k/mm3 (150-375); Red Blood Count 3.71 M/mm3 (4.2-5.4); Red Cell Distribution Width 14.5 % (11.5-14.5); White Blood Count 8.8 K/mm3 (4.5-10.0)
--- NOTE | 2022-01-29 07:46 | WPDANESEPP ---
Anes - Eval Pre Procedure Procedure: labor epidural Date/Time: 01/29/22 07:46 Surgeon: pancho Pre Op Diagnosis: Induction of Labor Patient Data Age: 21 Gender: F Height: 1.75 m Weight: 102 kg Last Vital Signs Pulse 75 01/29/22 07:30 BP 112/61 01/29/22 07:30 O2 Del Method Room Air 01/29/22 07:16 Allergies Allergy/AdvReac Type Severity Reaction Status Date / Time clarithromycin Allergy Unknown HIVES, Verified 12/16/20 12:33 HEART RASING, DIFFICULTY BREATHING Penicillins Allergy Unknown HIVES, Verified 12/16/20 12:33 HEART RACING, DIFFICULTY BREATHING Sulfa (Sulfonamide Allergy Unknown HIVES, Verified 12/16/20 12:33 Antibiotics) HEART RACING, AND DIFFICULTY BREATHING. Home Medications Medication Instructions Recorded Confirmed Type ibuprofen 600 mg tablet 600 mg PO Q6H PRN Cramping #60 tabs 11/03/19 Rx aripiprazole 5 mg tablet 5 mg QAM 12/19/20 12/19/20 History escitalopram oxalate 10 mg tablet 10 mg QAM 12/19/20 12/19/20 History acetaminophen 325 mg tablet (Mapap 650 mg PO Q6H PRN Mild Pain (1-3) 12/20/20 Rx (acetaminophen)) Or Headache aripiprazole 5 mg tablet (Abilify) 5 mg PO DAILY 12/20/20 Rx ibuprofen 600 mg tablet 600 mg PO Q6H PRN Cramping 12/20/20 Rx Laboratory Tests 01/29/22 01/29/22 07:30 07:30 WBC 8.8 K/mm3 K/mm3 (4.5-10.0) RBC 3.71 M/mm3 L M/mm3 (4.2-5.4) Hgb 9.4 g/dL L g/dL (12.0-15.0) Hct 29.8 % L % (37.0-47.0) MCV 80.3 fl fl (80-100) MCH 25.3 pg L pg (26-34) MCHC 31.5 g/dl L g/dl (32-36) RDW 14.5 % % (11.5-14.5) Plt Count 224 k/mm3 k/mm3 (150-375) MPV 10.1 fl fl (7.4-10.4) Immature Gran % (Auto) 0.5 % % (0-0.5) Neut % (Auto) 71.0 % % (45.5-73.1) Lymph % (Auto) 19.9 % % (18.3-44.2) [place] % (Auto) 7.5 % % (2.6-8.5) Eos % (Auto) 0.8 % % (0-4.4) Baso % (Auto) 0.3 % % (0.2-1.2) Lymph # (Auto) 1.75 K/mm3 K/mm3 (0.9-3.2) [place] # (Auto) 0.7 K/mm3 H K/mm3 (0.1-0.6) Eos # (Auto) 0.1 K/mm3 K/mm3 (0-0.3) Baso # (Auto) 0.0 K/mm3 K/mm3 (0.0-0.1) Abs Immat Gran (auto) 0.04 K/mm3 H K/mm3 (0.00-0.031) Absolute Neuts (auto) 6.2 K/mm3 K/mm3 (1.3-6.7) Absolute Nucleated RBC 0.0 K/mm3 K/mm3 (0.0-0.012) Nucleated RBC % 0.0 % % (0.0-0.2) RPR Pending Patient hx anesthesia problems: none Family hx anesthesia problems: none Results Review: All pre-operative results and documents have been reviewed as part of the pre-operative evaluation. [facility]LY [facility] Past Medical History Medical History (Updated 11/01/19 @ 09:47 by Ngozi Lozano CRNA) History of skull fracture Surgical History Surgical History (Updated 11/01/19 @ 09:47 by Ngozi Lozano CRNA) History of myringotomy Family History Family History Other No pertinent family history Social History Social History Smoking status: Never smoker Second hand tobacco smoke exposure: Yes Substance use: never Last use: November Gender identity (if verbalized by the patient): Female Spiritual care concerns: No Exam Day of Procedure 01/29/22 07:46
[2022-01-29] MEDS: OXYTOCIN 30 UNITS/NS 500 ML 30 UNITS/500 ML BAG IV CONT (07:54)
[2022-01-29] MEDS: LACTATED RINGERS 1,000 ML 125 ML IV CONT ×3 (07:54→12:48)
--- NOTE | 2022-01-29 08:18 | WPDOBADMIT ---
Obstetrics - Admit Note Admission Note: record reviewed. No pertinent additions to the history and/or any subsequent changes in the physical findings that are not consistent with the expected course of the were found. IOL, plan pitocin. anticipate vaginal delivery Additions to the history and/or subsequent changes in the physical findings follow. None.
[2022-01-29 09:01] LABS: Amphetamine Screen Urine Negative (Negative); Barbiturate Screen Urine Negative (Negative); Benzodiazepines Screen Urine Negative (Negative); Cannabinoid Screen Urine Positive (Negative); Cocaine Screen Urine Negative (Negative); Methadone Screen Urine Negative (Negative); Opiate Screen Urine Negative (Negative); Phencyclidine Screen Urine Negative (Negative)
--- NOTE | 2022-01-29 13:04 | P.PNAN_ITS ---
Anes - Eval Final PreProcedure Day of Procedure 01/29/22 13:04 Patient weight: obese Neurological: alert and oriented ASA classification: III Emergent: no Anesthetic plan: proceed Anesthesia type and monitoring: regional epidural and standard monitoring Other findings: obesity bipolar anemia Results Review: All pre-operative results and documents have been reviewed as part of the pre- operative evaluation. Informed Consent: The patient's anesthetic plan and its attendant risks and benefits were discussed with the patient/family/POA. Questions were solicited and answers provided to the satisfaction of the patient/family/POA.
[2022-01-29] MEDS: ONDANSETRON INJ 4 MG/2 ML VIAL IV PUSH (13:05)
--- NOTE | 2022-01-29 13:44 | PM.OBPNLAB ---
Pain Control Date/time seen: 01/29/22 13:44 sve /-2 arom moderate amount of clear odorless fluid
--- NOTE | 2022-01-29 16:41 | PM.OBPRVD ---
OB - Delivery Note Procedure Delivery date: 01/29/22 Procedure: vaginal delivery Induction method: AROM and Per Pitocin Protocol Delivery monitor: External FHT and External Uterine Route of delivery: Episiotomy description: None Laceration Description: None Specimen: No Quantitative Blood Loss (ml): 188 Anesthesia type: Epidural Baby Date of : 01/29/22 Time of : 16:30 Weeks of gestation at delivery: 39 gender: Female Weight (pounds): 8 Weight (ounces): 9 presentation: vertex position: Left Occiput Anterior Placenta delivery description: Spontaneous Cord Vessel Description: 3 Vessels, Clamped/Cut and Delayed Cord Clamping Narrative: head delivered, pt without pushing effort, anterior shoulder unable to be delivered, javier and suprapubic pressure easily resolved dystocia and pt was able to then push for delivery, mother and baby skin to skin in stable condition
[2022-01-29] MEDS: OXYTOCIN 30 UNITS/NS 500 ML 30 UNITS/500 ML BAG 125 UNITS IV CONT (17:00)
[2022-01-29] MEDS: BENZOCAINE 20% AER SPR (*SP) 56 GM CAN 1 SPRAY TOPICAL (19:02)
[2022-01-29] MEDS: WITCH HAZEL 40 PADS 1 PAD TOPICAL (19:02)
--- NOTE | 2022-01-29 19:34 | ADMGEN ---
This patient, Lashanda James, was admitted to OB 2nd Floor Room 285-00. Patient/family oriented to hospital policies and general routines including ID bracelet, bed and alarms, visiting hours, pain management, procedures, bathroom and other care routines, personal items, smoking policy, room service/diet, and visiting hours. Information on how to activate the Rapid Response Team has been discussed. Patient/Family are encouraged to report perceived risks to care and to ask questions if they do not understand what they are told or what they should do.
[2022-01-29] MEDS: ACETAMINOPHEN 325 MG TABLET 650 MG PO (19:59)
[2022-01-29] MEDS: POLYSACCHARIDE IRON COMPLEX 150 MG CAPSULE PO (19:59)
[2022-01-29] MEDS: IBUPROFEN 600 MG TABLET PO (20:00)
[2022-01-29] MEDS: LANOLIN (LANSINOH) 7.5 GM CREAM 1 APPLIC TOPICAL (20:01)
[2022-01-29] MEDS: TETANUS,DIPHTHERIA,AC PERTUSSIS ADULT (0.5 ML) BOOSTRIX IM (22:00)
[2022-01-30 03:40] VITALS: BP 113/63; PULSE 63; RESP 16; TEMP 36.6
[2022-01-30] MEDS: ACETAMINOPHEN 325 MG TABLET 650 MG PO (03:40)
[2022-01-30] MEDS: IBUPROFEN 600 MG TABLET PO ×2 (03:41→09:20)
[2022-01-30 05:12] LABS: Hematocrit 27.1 % (37.0-47.0); Hemoglobin 8.8 g/dL (12.0-15.0)
[2022-01-30 06:15] LABS: Rapid Plasma Reagin Non-Reactive (NonReactive)
[2022-01-30 07:35] VITALS: BP 95/48; PULSE 69; RESP 18; TEMP 36.5; O2SAT 100
--- NOTE | 2022-01-30 07:36 | PM.OBDSVD ---
DS: Admitting Diagnosis Discharge Date 01/30/22 Admitting Diagnosis term OB - DS: Summary OB Procedures : None OB Procedures Intrapartum: Spontaneous Vag Delivery OB Procedures: : None Time Spent with Patient Time attestation: Total time spent providing and/or coordinating discharge services: DS: Data Data Completed and Pending Labs on day of discharge: Labs from last 24 hours 01/30/22 01/30/22 01/29/22 03:31 03:31 08:25 WBC RBC Hgb 8.8 L Hct 27.1 L MCV MCH MCHC RDW Plt Count MPV Immature Gran % (Auto) Neut % (Auto) Lymph % (Auto) [place] % (Auto) Eos % (Auto) Baso % (Auto) Lymph # (Auto) [place] # (Auto) Eos # (Auto) Baso # (Auto) Abs Immat Gran (auto) Absolute Neuts (auto) Absolute Nucleated RBC Nucleated RBC % Urine Opiates Screen Negative Urine Methadone Screen Negative Ur Barbiturates Screen Negative Ur Phencyclidine Scrn Negative Ur Amphetamine Screen Negative U Benzodiazepines Scrn Negative Urine Cocaine Screen Negative U Cannabinoids Screen Positive A RPR Blood Type O Negative Antibody Screen Negative Screen Negative Baby's Blood Type O pos Baby's ALBER Negative Doses of RhIg Required 1 01/29/22 01/29/22 01/29/22 07:30 07:30 07:30 WBC 8.8 RBC 3.71 L Hgb 9.4 L Hct 29.8 L MCV 80.3 MCH 25.3 L MCHC 31.5 L RDW 14.5 Plt Count 224 MPV 10.1 Immature Gran % (Auto) 0.5 Neut % (Auto) 71.0 Lymph % (Auto) 19.9 [place] % (Auto) 7.5 Eos % (Auto) 0.8 Baso % (Auto) 0.3 Lymph # (Auto) 1.75 [place] # (Auto) 0.7 H Eos # (Auto) 0.1 Baso # (Auto) 0.0 Abs Immat Gran (auto) 0.04 H Absolute Neuts (auto) 6.2 Absolute Nucleated RBC 0.0 Nucleated RBC % 0.0 Urine Opiates Screen Urine Methadone Screen Ur Barbiturates Screen Ur Phencyclidine Scrn Ur Amphetamine Screen U Benzodiazepines Scrn Urine Cocaine Screen U Cannabinoids Screen RPR Non-reactive Blood Type O Negative Antibody Screen Negative Screen Baby's Blood Type Baby's ALBER Doses of RhIg Required Discharge Plan Discharge Discharging Clinician: Gustavo Rivers Patient Disposition: Home, Self-Care Activity: pelvic rest Diet: regular Patient Instructions: Antibiotic Form Stand Alone Forms: General Discharge Information Follow-up/Referrals: Gustavo Rivers MD [Physician] - Discharge Medications: Continued ibuprofen 600 mg Tablet 600 mg PO Q6H PRN (Reason: Cramping) Qty: 60 0RF escitalopram oxalate 10 mg tablet 10 mg QAM aripiprazole 5 mg tablet 5 mg QAM acetaminophen [Mapap (acetaminophen)] 325 mg Tablet 650 mg PO Q6H PRN (Reason: Mild Pain (1-3) Or Headache) 0RF aripiprazole [Abilify] 5 mg Tablet 5 mg PO DAILY 0RF Date of admission: 01/29/22 06:42 Primary Care Provider: UNKNOWN,DOCTOR Admitting Provider: Glendy Aiken Attending physician on admission: Glendy Aiken Condition: Stable
--- NOTE | 2022-01-30 07:42 | PM.OBPNVD ---
OB - PN: Subj Subjective Date/time seen: 01/30/22 07:42 Patient comments: no complaints, pain well controlled, incisional pain, tolerating diet and flatus present OB - PN: Obj Data Labs CBC & Chem 7: 01/30/22 03:31 Labs: Laboratory Results - last 24 hr 01/29/22 01/29/22 01/29/22 07:30 07:30 08:25 Hgb Hct Urine Opiates Screen Negative Urine Methadone Screen Negative Ur Barbiturates Screen Negative Ur Phencyclidine Scrn Negative Ur Amphetamine Screen Negative U Benzodiazepines Scrn Negative Urine Cocaine Screen Negative U Cannabinoids Screen Positive A RPR Non-reactive Blood Type O Negative Antibody Screen Negative Screen Baby's Blood Type Baby's ALBER Doses of RhIg Required 01/30/22 01/30/22 03:31 03:31 Hgb 8.8 L Hct 27.1 L Urine Opiates Screen Urine Methadone Screen Ur Barbiturates Screen Ur Phencyclidine Scrn Ur Amphetamine Screen U Benzodiazepines Scrn Urine Cocaine Screen U Cannabinoids Screen RPR Blood Type O Negative Antibody Screen Negative Screen Negative Baby's Blood Type O pos Baby's ALBER Negative Doses of RhIg Required 1 OB - PN A/P Plan day: 1 Plan: routine care Comments: No problems, routine care, to d/c Time Spent With Patient Time: Total time spent is greater than 50% in coordination of care (as documented) at patient's floor/unit and/or counseling patient: Exam Const: General: comfortable, no acute distress and alert Resp: Effort & Inspection: normal respiratory effort Auscultation: no crackles, no rales and no rhonchi Cardio: Rate: regular rate Heart sounds: no click, no murmurs and no rubs GI: Inspection: non-distended GI Palp: No Tenderness to palpation present (GI) Auscultation: normal bowel sounds Other: Incision - CDI Extrem: General: normal to inspection, no pedal edema and no calf tenderness
[2022-01-30] MEDS: DOCUSATE SODIUM 100 MG CAPSULE PO (08:25)
[2022-01-30] MEDS: MULTIVIT/MIN/PREN/FOL AC/IRON TABLET 1 TAB PO (08:25)
[2022-01-30] MEDS: POLYSACCHARIDE IRON COMPLEX 150 MG CAPSULE PO ×2 (08:26→16:36)
[2022-01-30] MEDS: RHO(D) IMMUNE GLOBULIN 300 MCG/2 ML SYRINGE IM (09:17)
[2022-01-30] MEDS: ARIPiprazole 5 MG TABLET BY MOUTH (09:23)
--- NOTE | 2022-01-30 12:00 | PCCCNOTE ---
Care Coordination met with pt., her mother, and baby. Pt. states that when she discharges from [facility], then she will D/C home with her sig other and her other two children. Pt. now has three children all under the age of three. Pt. confirms that she has everything needed to safely bring baby home. She confirms that she has a crib and car seat for baby. Pt. will continue to attempt to breast feed baby. Pt. tested positive for THC during her admission, she states that she has HX of anxiety and bipolar disorder. Pt. had concerns about taking medication while , she states that THC assisted her with her mental health symptoms. Pt. is slowly transitioning back to her usual medications, CC provided pt. with information regarding breast feeding while taking THC. Pt. has also been given resources regarding doctors accepting new pts, resources, psychiatrists, and local counselors. Pt. has been advised to call her assistant case manager through [employer] to get a better representation of providers who accept her insurance. Pt. has no other concerns, she is bonding well with baby. Since baby was not tested during hospitalization, CC will not have anything to report to DCFS at this time.
[2022-01-30 12:10] VITALS: BP 114/66; PULSE 70; RESP 18; TEMP 36.2; O2SAT 100
[2022-01-30 16:30] VITALS: BP 101/62; PULSE 92; RESP 16; TEMP 36.6; O2SAT 96
== END 2022-01-30 18:06 | disposition home or self-care (01) | DRG 560 ==
LOC: ANHLDR 06:49 → ANHOB2 01-30 07:37 → ANHLDR 01-31 12:22 → ANHOB2 01-31 12:22
PROVIDERS: Advanced Practice Midwife; Admitting Provider Obstetrics & Gynecology; Visit Provider Obstetrics & Gynecology
DX: O66.0 Obstructed labor due to shoulder dystocia (principal); Z3A.39 39 weeks gestation of pregnancy; Z37.0 Single live birth; O99.324 Drug use complicating childbirth; F12.90 Cannabis use, unspecified, uncomplicated
CPT/HCPCS: 36415; 80307; 85014; 85018; 85025; 85461; 86592; 86850; 86900; 86901; 90384; 90715; A9270; J2405; J2590; J2790; J2795; J7120

== ENCOUNTER 2024-04-18 15:07 | Outpatient (RCR) | payer OTHER, SELFPAY ==
[2024-04-15 12:56] LABS: Hematocrit 36.6 % (37.0-47.0); Hemoglobin 12.4 g/dL (12.0-15.0)
[2024-04-15 13:07] LABS: Glucose 1 Hour PP 50gm Dose 87 mg/dL
[2024-04-15 13:49] LABS: HIV 1/2 Ab P24 Ag Result Negative (Negative)
[2024-04-16 15:36] LABS: Rapid Plasma Reagin Non-Reactive (NonReactive)
[2024-04-18] MEDS: RHO(D) IMMUNE GLOBULIN 300 MCG/2 ML SYRINGE IM (14:51)
== END 2024-04-18 15:15 | disposition home or self-care (01) ==
LOC: ANHLAB 15:07
PROVIDERS: PCP Obstetrics & Gynecology; Visit Provider Obstetrics & Gynecology
DX: Z11.4 Encounter for screening for human immunodeficiency virus [HIV] (principal); Z11.3 Encounter for screening for infections with a predominantly sexual mode of transmission; Z29.13 Encounter for prophylactic Rho(D) immune globulin; O36.0130 Maternal care for anti-D [Rh] antibodies, third trimester, not applicable or unspecified; Z3A.00 Weeks of gestation of pregnancy not specified
CPT/HCPCS: 36415; 82947; 85014; 85018; 85461; 86592; 86703; 86850; 86900; 86901; 90384; 96372; G0432; J2790

== ENCOUNTER 2024-07-04 12:43 | Outpatient (CLI) | payer OTHER, SELFPAY ==
[2024-07-04 13:03] LABS: Hematocrit 37.7 % (37.0-47.0); Hemoglobin 11.9 g/dL (12.0-15.0); Mean Corpuscular HGB Conc 31.6 g/dl (32-36); Mean Corpuscular Hemoglobin 27.5 pg (26-34); Mean Corpuscular Volume 87.3 fl (80-100); Mean Platelet Volume 10.2 fl (7.4-10.4); Platelet Count Result 225 k/mm3 (150-375); Red Blood Count 4.32 M/mm3 (4.2-5.4); Red Cell Distribution Width 13.2 % (11.5-14.5); White Blood Count 7.6 K/mm3 (4.5-10.0)
[2024-07-04 16:59] LABS: Rapid Plasma Reagin Non-Reactive (NonReactive)
--- OUTSIDE RECORDS SUMMARY | 2024-07-11 19:24 | XMS_ITS | Encounter Summary ---
Author Organization [facility] Address [address] [place] [address]. [place], [place] [id number] [place] [id number] Care Team Providers Care Acid Treater Name Role Phone Rhett Rivers MD Primary Care Provider +1- [phone] Encounter Details Date Type Department Care Team (Latest Contact Info) Description 02/10/2024 Travel Social History Tobacco Use Types Packs/Day Years Used Date Smoking Tobacco: Every Day Cigarettes Smokeless Tobacco: Never Estimated Date of Delivery Comme nts Yes 08/09/2024 Sex and Gender Information Value Date Recorded Sex Assigned at Not on file Legal Sex Female 7:50 AM CDT Gender Identity Not on file Sexual Orientation Not on file documented as of this encounter Plan of Treatment Not on file documented as of this encounter Visit Diagnoses Not on filedocumented in this encounter Care Teams Acid Treater Relationship Specialty Start Date End Date Rhett Rivers MD [address] [place] [address] PCP - General CATALYST IMPREGNATOR ONCOLOGY 02/09/24 documented as of this encounter
--- OUTSIDE RECORDS SUMMARY | 2024-07-11 19:24 | XMS_ITS | Clinical Summary ---
Author Organization [facility] Address [address] [place] [address]. [place] [address] [place] [address] Care Team Providers Care Recovery Room Rn Name Role Phone Rhett Rivers MD Primary Care Provider +1- [phone] Allergies Active Allergy Reactions Criticality Noted Date Comments Clarithromycin Hives,Itching 02/23/2013 Penicillins Anaphylaxis,Unknown High 02/23/2013 Sulfa Antibiotics Anaphylaxis High 02/23/2013 Sulfamethoxazole-Trimethoprim Unknown 2015 Medications sertraline (ZOLOFT) 100 MG tablet Take 1 tablet (100 mg total) by mouth daily. Active risperiDONE (RISPERDAL) 1 MG tablet Take 1 tablet (1 mg total) by mouth daily. Active Social History Tobacco Use Types Packs/Day Years Used Date Smoking Tobacco: Every Day Cigarettes Smokeless Tobacco: Never Tobacco Cessation:Ready to Q uit: Not Asked; Counseling Given: Not Answered Estimated Date of Delivery Comme nts Yes 08/09/2024 Sex and Gender Information Value Date Recorded Sex Assigned at Not on file Legal Sex Female 7:50 AM CDT Gender Identity Not on file Sexual Orientation Not on file Last Filed Vital Signs Vital Sign Reading Time Taken Comments Blood Pressure 114/58 02/10/2024 4:24 AM CDT Pulse 81 02/10/2024 4:24 AM CDT Temperature 36.4 ??C (97.5 ??F) 02/10/2024 4:24 AM CD T Respiratory Rate 18 02/10/2024 4:24 AM CDT Oxygen Saturation 99% 02/10/2024 4:24 AM CDT Inhaled Oxygen Concentration - - Weight 75.8 kg (167 lb) 02/10/2024 4:24 AM CDT Height 175.3 cm (5' 9 ) 02/10/2024 4:24 AM CDT Body Mass Index 24.66 02/10/2024 4:24 AM CDT Plan of Treatment Health Maintenance Due Date Last Done Comments Cervical Cancer Screening Pap Smear (Age 21 to 29) Every 3 Years 1998 Cervical Cancer Screening 1998 Annual Physical 2001 Pneumococcal Vaccine: Pediatrics (0 to 5 Years) and At-Risk Patients (6 to 64 Years) (1 of 2 - PCV) 2004 Hepatitis C 2016 COVID-19 Vaccine ( - season) 2024 Influenza Adult (#1) 2024 04/18/2021, 08/27/2019, 05/19/2007, Additional history exists RSV Immunization or 60+ Years (1 - Risk 1-dose series) 06/14/2024 DTaP, Tdap and Td Vaccines (9 - Td or Tdap) 01/30/2032 01/29/2022, 08/27/2019, 06/06/2010, Additional history exists Hepatitis B Vaccines Completed 01/18/2000, 02/09/1999, 1998 HPV Vaccines Completed 02/18/2013, 05/16, 04/04/2010 Meningococcal Vaccine Completed 03/22/2016, 010 RSV Immunizations Under 20 Months Aged Out No longer eligible based on patient's age to complete this topic Insurance ROSS Care Teams Recovery Room Rn Relationship Specialty Start Date End Date Rhett Rivers MD [address] [place] [address] PCP - General RN PROVIDER RELATIONS ONCOLOGY 02/09/24
--- OUTSIDE RECORDS SUMMARY | 2024-07-11 19:24 | XMS_ITS | Encounter Summary ---
Author Organization [facility] Address [facility] [facility] [place] [address] [place] [address] Care Team Providers Care Speech And Language Specialist Name Role Phone Unavailable Primary Care Provider Unavailabl e Encounter Details Date Type Department Care Team ([facility] st Contact Info) Description 11/07/2016 Abstract [facility] [address] [place], [place] [id number] Marci Shultz CNM [address] [place] [address] Social History Tobacco Use Types Packs/Day Years Used Date Smoking Tobacco: Never Assessed Comments Unknown Sex and Gender Information Value Date Recorded Sex Assigned at Not on file Legal Sex Female 7:50 AM CDT Gender Identity Not on file Sexual Orientation Not on file documented as of this encounter Plan of Treatment Not on file documented as of this encounter Visit Diagnoses Not on filedocumented in this encounter
--- OUTSIDE RECORDS SUMMARY | 2024-07-11 19:24 | XMS_ITS | Encounter Summary ---
Author Organization [facility] Address [facility] [place] [address] [place] [address] Care Team Providers Care Gas Technician Name Role Phone Unavailable Primary Care Provider Unavailabl e Encounter Details Date Type Department Care Team (Late st Contact Info) Description 01/12/2016 Abstract [facility] [address] [place], [place] [id number] Micaela Lopez, [facility] [address] [place] [address] Social History Tobacco Use Types Packs/Day Years [...]
--- OUTSIDE RECORDS SUMMARY | 2024-07-11 19:24 | XMS_ITS | Encounter Summary ---
Author Organization [facility] Address [facility] [place] [address] [place] [address] Care Team Providers Care Crayon Painter Name Role Phone Unavailable Primary Care Provider Unavailabl e Encounter Details Date Type Department Care Team (Late st Contact Info) Description 09/07/2014 Abstract [facility] [address] [place], [place] [id number] Fanny Valiente MD [address] [place] [address] Social History Tobacco Use Types Packs/Day Years [...]
--- OUTSIDE RECORDS SUMMARY | 2024-07-11 19:24 | XMS_ITS | Encounter Summary ---
Author Organization [facility] Address [facility] [address] [place] [address] Care Team Providers Care Character Actor Name Role Phone Unavailable Primary Care Provider Unavailabl e Encounter Details Date Type Department Care Team (Late st Contact Info) Description 12/17/2014 Abstract [facility] Conversion Julia Barron, HARVEY [address] [place] [address] Social History Tobacco Use Types Packs/Day Years Used Date Smoking Tobacco: Never Assessed Comments Unknown Sex and Gender Information Value Date Recorded Sex Assigned at Not on file Legal Sex Female 7:50 AM CDT Gender Identity Not on file Sexual Orientation Not on file documented as of this encounter Last Filed Vital Signs Vital Sign Reading Time Taken Comments Blood Pressure 106/70 12/17/2014 1:07 PM CDT Pulse 70 12/17/2014 1:07 PM CDT Temperature - - Respiratory Rate - - Oxygen Saturation - - Inhaled Oxygen Concentration - - Weight 88.5 kg (195 lb) 12/17/2014 1:07 PM CDT Height - - Body Mass Index - - documented in this encounter Plan of Treatment Not on file documented as of this encounter Visit Diagnoses Not on filedocumented in this encounter
--- OUTSIDE RECORDS SUMMARY | 2024-07-11 19:24 | XMS_ITS | Encounter Summary ---
Author Organization [facility] Address [facility] [facility] [place] [address] [place] [address] Care Team Providers Care Applications Specialist Name Role Phone Unavailable Primary Care Provider Unavailabl e Encounter Details Date Type Department Care Team (Late st Contact Info) Description 05/24/2016 Abstract [facility] Emergency Services [address] [place] [address] Fortino Lugo MD Social History Tobacco Use Types Packs/Day Years [...]
--- OUTSIDE RECORDS SUMMARY | 2024-07-11 19:24 | XMS_ITS | Encounter Summary ---
Author Organization [facility] Address [address] [place] [address]. [place], [place] [id number] [place] [address] Care Team Providers Care Digital Production Manager Name Role Phone Unavailable Primary Care Provider Unavailabl e Encounter Details Date Type Department Care Team (Latest Contact Info) Description 09/01/2015 Abstract [facility] Medical Group Social History Tobacco Use Types Packs/Day Years [...]
--- OUTSIDE RECORDS SUMMARY | 2024-07-11 19:24 | XMS_ITS | Encounter Summary ---
Author Organization [facility] Address [address] [facility] [place] [address] Care Team Providers Care Ham Curer Name Role Phone Unavailable Primary Care Provider Unavailabl e Reason for Visit * Reason Onset Date Comments DRUG SCREEN 12/29/2023 Encounter Details Date Type Department Care Team (Latest Contact Info) Description 12/29/2023 9:45 AM CDT Clinical Support [facility] Express [facility] [address] [place] [address] Health examination of defined subpopulation Social History Tobacco Use Types Packs/Day Years Used Date Smoking Tobacco: Never Assessed Sex and Gender Information Value Date Recorded Sex Assigned at Not on file Gender Identity Not on file Sexual Orientation Not on file documented as of this encounter Progress Notes * Leesa Davis RT(R) - 12/29/2023 10:34 AM CDT Patient referred for [facility] drug screening. documented in this encounter Plan of Treatment Not on file documented as of this encounter Visit Diagnoses Diagnosis Health examination of defined subpopulation- Primary documented in this encounter
--- OUTSIDE RECORDS SUMMARY | 2024-07-11 19:24 | XMS_ITS | Encounter Summary ---
Author Organization [facility] Address [address] [facility] [place] [address] Care Team Providers Care Returned Goods Inspector Name Role Phone Unavailable Primary Care Provider Unavailabl e Encounter Details Date Type Department Care Team (Latest Contact Info) Description 12/29/2023 Travel Social History Tobacco Use Types Packs/Day [...]
--- OUTSIDE RECORDS SUMMARY | 2024-07-11 19:24 | XMS_ITS | Encounter Summary ---
Author Organization [facility] Address [address] [place] [address]. [place] [address] [place] [address] Care Team Providers Care Aircraft Sheet Metal Mechanic Name Role Phone Rhett Rivers MD Primary Care Provider [phone]- [phone] Reason for Visit * Reason Comments Back Pain Encounter Details Date Type Department Care Team (Late st Contact Info) Description 02/09/2024 8:08 AM CDT - 02/09/2024 8:28 AM CDT Emergency [facility] Emergency Services [facility] [place] [address] Christal Bruno MD [address] [place] [address] Back Pain Discharge Disposition: Home or Self Care (Routine Discharge) Social History Tobacco Use Types Packs/Day Years [...] Sign Reading Time Taken Comments Blood Pressure 112/83 02/09/2024 8:15 AM CDT Pulse 88 02/09/2024 8:15 AM CDT Temperature 36.6 ??C (97.8 ??F) 02/09/2024 8:15 AM CD T Respiratory Rate 18 02/09/2024 8:15 AM CDT Oxygen Saturation 98% 02/09/2024 8:15 AM CDT Inhaled Oxygen Concentration - - Weight 75.8 kg (167 lb) 02/09/2024 8:15 AM CDT Height 175.3 cm (5' 9 ) 02/09/2024 8:15 AM CDT Body Mass Index 24.66 02/09/2024 8:15 AM CDT documented in this encounter Discharge Instructions * Discharge Instructions* Christal Bruno MD - 02/09/2024 8:26 AM CDT May use lidocaine patch as needed and directed daily for back pain. May take acetaminophen/Tylenol 1000 mg every 6-8 hours as needed for pain. May use ice/cold pack to help with pain. Call DIRECTOR FAMILY office tomorrow to schedule follow- up appointment and discuss physical therapy referral. Physical therapy will be the best way to treat your back pain both short-term and long-term. May do stretches/exercises in discharge instructions to help with pain as well. * Attachments The following attachments cannot be sent through Care Everywhere. * Sacroiliac Joint Pain Discharge Instructions (Japanese) * PIRIFORMIS STRETCH, SITTING (JAPANESE) * SACROILIAC STRETCH (JAPANESE) documented in this encounter Medications at Time of Discharge risperiDONE (RISPERDAL) 1 MG tablet Take 1 tablet (1 mg total) by mouth daily. sertraline (ZOLOFT) 100 MG tablet Take 1 tablet (100 mg total) by mouth daily. lidocaine (LIDODERM) 5 % Place 1 patch onto the skin daily for 30 days. Remove & Discard patch within 12 hours or as directed by 30 patch 02/09/2024 03/10/2024 documented as of this encounter ED Notes * Gina Keen RN - 02/09/2024 8:50 AM CDT PT reviewed d/c instructions and verbalized understanding. PT ambulated to ED exit. * Christal Bruno MD - 02/09/2024 8:34 AM CDT Chief Complaint Chief Complaint Patient presents with Back Pain History of Present Illness Patient is a 23-year-old female who presents to the emergency department for evaluation of low backpain. Patient reports onset of symptoms last night when she opened the door to the refrigerator. Patient reports pain is in the low back at the midline and off to the right side. Patient states she had a hard time finding a comfortable position last night to sleep. She notes movement is quite painful. It hurts to stand up straight and she feels as though she has to walk slightly hunched over. Patient denies any numbness or weakness in her lower extremities. Patient notes she has had multiple episodes like this before in the past and states the pain usually last about a week at a time. Patienthas not had this evaluated by a physician previously. Patient reports she is currently 17 weeks . She notes she was supposed to see her OB a few days ago, but missed her appointment. She seesDr. Rivers in [place]. Medical History ALLERGIES: Review of patient's allergies indicates: Allergen Reactions Penicillins Anaphylaxis and Unknown Sulfa Antibiotics Anaphylaxis Clarithromycin Hives and Itching Sulfamethoxazole-Trimethoprim Unknown MEDICATIONS: Prior to Admission medications Medication Sig Start Date End Date Taking? Authorizing Provider lidocaine (LIDODERM) 5 % Place 1 patch onto the skin daily for 30 days. Remove & Discard patch within 12 hours or as directed by 02/09/24 03/10/24 Yes Christal Bruno MD risperiDONE (RISPERDAL) 1 MG tablet Take 1 tablet (1 mg total) by mouth daily. Default History Genericprovider sertraline (ZOLOFT) 100 MG tablet Take 1 tablet (100 mg total) by mouth daily. Default History Genericprovider PAST MEDICAL HISTORY: History reviewed. No pertinent past medical history. PAST SURGICAL HISTORY: History reviewed. No pertinent surgical history. FAMILY HISTORY: No family history on file. SOCIAL HISTORY: Social History Tobacco Use Smoking status: Every Day Types: Cigarettes Smokeless tobacco: Never Review of Systems Review of Systems Physical Exam Filed Vitals: 02/09/24 0815 BP: 112/83 Pulse: 88 Resp: 18 Temp: 97.8 ??F (36.6 ??C) TempSrc: Temporal SpO2: 98% Weight: 75.8 kg (167 lb) Height: 1.753 m (5' 9 ) Physical Exam Vitals and nursing note reviewed. Constitutional: Appearance: She is not ill-appearing or toxic-appearing. Pulmonary: Effort: Pulmonary effort is normal. Musculoskeletal: General: Normal range of motion. Comments: Tenderness over bilateral sacroiliac joints. Patient unable to stand up completely straight due to pain and spasm and does bend forward slightly when standing and walking. Skin: General: Skin is warm and dry. Neurological: Mental Status: She is alert and oriented to person, place, and time. Gait: Gait is intact. Psychiatric: Mood and Affect: Mood and affect normal. Behavior: Behavior normal. Diagnostic Studies / Procedures ELECTROCARDIOGRAMS: No results found for this visit on 02/09/24. LABORATORY STUDIES: No results found for this visit on 02/09/24. IMAGING STUDIES No orders to display ED Course / Medical Decision Making Medical Decision Making Patient with findings of sacroiliac pain and inflammation on exam. Discussed with patient conservative management with lidocaine patches and acetaminophen as no other medications currently appropriate during . Discussed importance of DIRECTOR FAMILY follow-up and to discuss physical therapy referral with DIRECTOR FAMILY. Patient given information on some stretches and exercises that she can initiate at home while arranging further care with DIRECTOR FAMILY. Problems Addressed: Sacroiliac pain during (HHS/HCC): acute illness or injury Risk OTC drugs. Prescription drug management. Medications lidocaine 4 % patch 1 patch (1 patch Transdermal Patch Applied 02/09/24 0835) acetaminophen (TYLENOL) tablet 1,000 mg (1,000 mg Oral Given 02/09/24 0835) New Prescriptions LIDOCAINE (LIDODERM) 5 % Place 1 patch onto the skin daily for 30 days. Remove & Discard patch within 12 hours or as directed by MD Clinical Impression Sacroiliac pain during (HHS/HCC) (Primary) Disposition: Discharge Christal Bruno MD 02/09/24 0846 * Gina Keen RN - 02/09/2024 8:09 AM CDT Pt comes to ED with pain to lower middle back pt reports that she opened fridge last night and sinethen back has been hurting. Pt reports being . documented in this encounter Plan of Treatment Not on file documented as of this encounter Visit Diagnoses Diagnosis Sacroiliac pain during (HHS/HCC)- Primary documented in this encounter Administered Medications Inactive Administered Medications - up to 3 most recent administrations Medication Order MAR Action Action Date Dose Rate Site acetaminophen (TYLENOL) tablet 1,000 mg 1,000 mg, Oral, Once, 1 dose, On 02/09/24 at 0830, Maximum dose of acetaminophen is 4000 mg from all sources in 24 hours. Given 02/09/2024 8:35 AM CDT 1,000 mg lidocaine 4 % patch 1 patch 1 patch, Transdermal, Administer over 12 Hours, Once, 1 dose, On 02/09/24 at 0830 Patch Applied 02/09/2024 8:35 AM CDT 1 patch Back documented in this encounter Active and Recently Administered Medications Times are shown in CDT. Scheduled Medication Order 02/07/2024 02/08/2024 02/09/2024 acetaminophen (TYLENOL) tablet 1,000 mg (COMPLETED) 1,000 mg, Oral, Once, 1 dose, On 02/09/24 at 0830, Maximum dose of acetaminophen is 4000 mg from all sources in 24 hours. 0835 (Given - Provid er: Gina Keen RN) lidocaine 4 % patch 1 patch 1 patch, Transdermal, Administer over 12 Hours, Once, 1 dose, On 02/09/24 at 0830 0835 (Patch Applied - Provider: Gina Keen RN)0836 (Due: Patch Removed - Provider: Automatic Discharge Provider - Comment: Time automatically adjusted from order being discontinued) documented in this encounter Care Teams Aircraft Sheet Metal Mechanic Relationship Specialty Start Date End Date Rhett Rivers MD [address] [employer] [place] [id number] PCP - General CONSTRUCTION FRAMER ONCOLOGY 02/09/24 documented as of this encounter
--- OUTSIDE RECORDS SUMMARY | 2024-07-11 19:24 | XMS_ITS | Encounter Summary ---
Author Organization [facility] Address [address] [place] [address]. [place] [address] [place] [address] Care Team Providers Care Junior Account Executive Name Role Phone Rhett Rivers MD Primary Care Provider +1- [phone] Reason for Visit * Reason Comments Back Pain Encounter Details Date Type Department Care Team (Late st Contact Info) Description 02/10/2024 4:14 AM CDT - 02/10/2024 4:38 AM CDT Emergency [facility] Emergency Services [facility] [place] [address] Richard Weir MD [address] [place] [address] Back Pain Discharge Disposition: Home or Self [...] Mass Index 24.66 02/10/2024 4:24 AM CDT documented in this encounter Discharge Instructions * Attachments The following attachments cannot be sent through Care Everywhere. * Low Back Pain Discharge Instructions (French) documented in this encounter Medications at Time [...] as of this encounter ED Notes * Xuan Patel RN - 02/10/2024 4:22 AM CDT Back pain. Started 2 days ago. Seen here yesterday for same. Middle low back pain. . * Richard Weir MD - 02/10/2024 4:21 AM CDT Chief Complaint Chief Complaint Patient presents with Back Pain History of Present Illness Back Pain Medical History ALLERGIES: Review of patient's allergies [...] hours or as directed by 02/09/24 03/10/24 Christal Bruno MD risperiDONE (RISPERDAL) 1 MG [...] Never Review of Systems Review of Systems Musculoskeletal: Positive for back pain. Physical Exam Filed Vitals: 02/10/24 0424 BP: 114/58 Pulse: 81 Resp: 18 Temp: 97.5 ??F (36.4 ??C) TempSrc: Temporal SpO2: 99% Weight: 75.8 kg (167 lb) Height: 1.753 m (5' 9 ) Physical Exam Vitals and nursing note reviewed. Constitutional: General: She is not in acute distress. Appearance: Normal appearance. HENT: Head: Normocephalic and atraumatic. Mouth/Throat: Mouth: Mucous membranes are moist. Cardiovascular: Rate and Rhythm: Normal rate and regular rhythm. Heart sounds: No murmur heard. Pulmonary: Effort: Pulmonary effort is normal. No respiratory distress. Breath sounds: Normal breath sounds. Abdominal: General: Abdomen is flat. Bowel sounds are normal. There is no distension. Palpations: Abdomen is soft. Tenderness: There is no abdominal tenderness. Musculoskeletal: General: Normal range of motion. Cervical back: Normal range of motion and neck supple. Comments: Back No midline tenderness Skin: General: Skin is warm and dry. Capillary Refill: Capillary refill takes less than 2 seconds. Neurological: General: No focal deficit present. Mental Status: She is alert and oriented to person, place, and time. Sensory: No sensory deficit. Motor: No weakness. Gait: Gait normal. Diagnostic Studies / Procedures ELECTROCARDIOGRAMS: No results found for this visit on 02/10/24. LABORATORY STUDIES: No results found for this visit on 02/10/24. IMAGING STUDIES No orders to display ED Course / Medical Decision Making Medical Decision Making Based on my history and physical examination I have considered life and limb threatening diseases and will order appropriate diagnostic testing to narrow my differential diagnosis and arrive at a final diagnosis. Risk OTC drugs. Prescription drug management. Decision regarding hospitalization. ED Course as of 02/10/24 0431 SatFeb 10, 2024 0429 23-year-old female presents complaining of back pain such that the other day when she reached to open her fridge. No fall or trauma. No fever chest pain abdominal pain nausea vomiting urinary complaints saddle anesthesia numbness or weakness distally. Patient is 17 weeks . Was seen here the other day and given Lidoderm without relief. [MC] ED Course User Index [MC] Richard Weir MD Clinical Impression Back pain (Primary) Disposition: Discharge Richard Weir MD 02/10/24 0431 documented in this encounter Plan of Treatment Not on file documented as of this encounter Visit Diagnoses Diagnosis Back pain- Primary Backache, unspecified documented in this encounter Care Teams Junior Account Executive Relationship Specialty Start Date End Date Rhett Rivers MD [address] [place] [phone] PCP - General SYSTEM DEVELOPMENT ENGINEER ONCOLOGY 02/09/24 documented as of this encounter
--- OUTSIDE RECORDS SUMMARY | 2024-07-11 19:24 | XMS_ITS | Encounter Summary ---
Author Organization [facility] Address [facility] [place] [place] [address] [place] [address] Care Team Providers Care Tab Builder Name Role Phone Unavailable Primary Care Provider Unavailabl e Encounter Details Date Type Department Care Team (Late st Contact Info) Description 12/12/2020 Abstract [facility] Emergency Services [address] [place] [address] Chanel Cooney MD [address] [place] [address] [place] [address] Social History Tobacco Use Types Packs/Day Years [...]
--- OUTSIDE RECORDS SUMMARY | 2024-07-11 19:24 | XMS_ITS | Encounter Summary ---
Author Organization [facility] Address [address] [place] [address]. [place], [place] [address] [place] [address] Care Team Providers Care Flight Line Service Attendant Name Role Phone Unavailable Primary Care Provider Unavailabl e Encounter Details Date Type Department Care Team (Late st Contact Info) Description 09/10/2014 Abstract [facility] Conversion Md, Generic Conversion, Social History Tobacco Use Types Packs/Day Years [...]
--- OUTSIDE RECORDS SUMMARY | 2024-07-11 19:24 | XMS_ITS | Encounter Summary ---
Author Organization [facility] Address [address] [place] [address]. [place] [address] [place] [address] Care Team Providers Care Pipe Insulator Helper Name Role Phone Unavailable Primary Care Provider Unavailabl e Encounter Details Date Type Department Care Team (Late st Contact Info) Description 09/07/2014 Abstract [facility] Conversion Fanny Valiente MD [address] [place] [address] Social History Tobacco Use Types Packs/Day Years Used Date Smoking Tobacco: Never Assessed Comments Unknown Sex and Gender Information Value Date Recorded Sex Assigned at Not on file Legal Sex Female 7:50 AM CDT Gender Identity Not on file Sexual Orientation Not on file documented as of this encounter Last Filed Vital Signs Vital Sign Reading Time Taken Comments Blood Pressure 112/62 09/07/2014 3:46 PM BISTRO SERVER Pulse 68 09/07/2014 3:46 PM BISTRO SERVER Temperature - - Respiratory Rate - - Oxygen Saturation - - Inhaled Oxygen Concentration - - Weight 87.1 kg (192 lb) 09/07/2014 3:46 PM BISTRO SERVER Height 170.2 cm (5' 7 ) 09/07/2014 3:46 PM BISTRO SERVER Body Mass Index 30.07 09/07/2014 3:46 PM BISTRO SERVER Body Mass Index Percentile 95.77% 09/07/2014 3:4 6 PM BISTRO SERVER Growth Chart: CDC (Girls, 2- 20 Years) documented in this encounter Plan of Treatment Not on file documented as of this encounter Procedures Procedure Name Priority Date/Time Associated Diagnosis Comments CULTURE ROUTINE Routine 09/07/2014 4:52 PM BISTRO SERVER SMEAR, STAIN, WET PREP Routine 09/07/2014 4:52 PM BISTRO SERVER C.TRACHOMATIS RNA TMA Routine 09/07/2014 4:52 PM BISTRO SERVER documented in this encounter Results * C.TRACHOMATIS RNA TMA (09/07/2014 4:52 PM BISTRO SERVER) CHLAMYDIA TRACHOMATIS RNA TMA NOT DETECTED NOT DETECTED [facility] TO EPIC CONVERSION N.GONORRHOEAE RNA TMA (QST) NOT DETECTED NOT DETECTED [facility] TO EPIC CONVERSION Comment: This test was performed using the APTIMA COMBO2 Assay ([employer] The analytical performance characteristics of this assay, when used to test SurePath specimens have been determined by [employer]. MARINA CAPUTODO,MPH REPORT STATUS Not required [facility] TO EPIC CONVERSION Comment: THIS TEST WAS PERFORMED AT [facility] [address] [place] [address] 09/07/2014 4:52 PM BISTRO SERVER 09/07/2014 4:52 PM BISTRO SERVER Narrative [facility] TO EPIC CONVERSION - 09/10/2014 1:49 PM BISTRO SERVER This lab was migrated from [employer] and may be missing annotations or result text, please check the Media tab for the most complete results. us Fanny Valiente MD MICROBIOLOGY - GENERAL ORDERABL ES Final Result Performing Organization Address City/State/[facility] Co de Phone Number [facility] TO EPIC CONVERSION * SMEAR, STAIN, WET PREP (09/07/2014 4:52 PM BISTRO SERVER) GARDNERELLA VAGINALIS Negative NR: NEGATIVE [facility] TO EPIC CONVERSION TRICHOMONAS Negative NR: NEGATIVE [facility] TO EPIC CONVERSION FARAZ SPECIES Negative NR: NEGATIVE [facility] TO EPIC CONVERSION lot number [id number] EXP [facility] TO EPIC CONVERSION Internal Control: passed [facility] TO EPIC CONVERSION 09/07/2014 4:52 PM BISTRO SERVER 09/07/2014 4:52 PM BISTRO SERVER Narrative [facility] TO EPIC CONVERSION - 09/07/2014 6:10 PM BISTRO SERVER This lab was migrated from [facility] and may be missing annotations or result text, please check the Media tab for the most complete results. us Fanny Valiente MD MICROBIOLOGY - GENERAL ORDERABL ES Final Result [facility] TO EPIC CONVERSION * CULTURE ROUTINE (09/07/2014 4:52 PM BISTRO SERVER) COMMENT ALSO RARE GROUP B STREP REPORTED IN CASE MIKKI [facility] TO EPIC CONVERSION Comment:ENT IS 09/07/2014 4:52 PM BISTRO SERVER 09/07/2014 4:52 PM BISTRO SERVER Narrative [facility] TO EPIC CONVERSION - 09/10/2014 4:34 PM BISTRO SERVER This lab was migrated from [facility] and may be missing annotations or result text, please check the Media tab for the most complete results. us Fanny Valiente MD MICROBIOLOGY - GENERAL ORDERABL ES Final Result Performing Organization Address [facility] Co de Phone Number [facility] TO EPIC CONVERSION documented in this encounter Visit Diagnoses Not on filedocumented in this encounter
--- OUTSIDE RECORDS SUMMARY | 2024-07-11 19:24 | XMS_ITS | Encounter Summary ---
Author Organization [facility] Address [facility] [place] [address] [place] [address] Care Team Providers Care Jukebox Operator Name Role Phone Unavailable Primary Care Provider Unavailabl e Encounter Details Date Type Department Care Team (Latest Contact Info) Description 08/25/2015 Abstract [facility] , Maru Hogan MD Social History Tobacco Use Types Packs/Day Years Used Date Smoking Tobacco: Never Assessed Comments Unknown Sex and Gender Information Value Date Recorded Sex Assigned at Not on file Legal Sex Female 7:50 AM CDT Gender Identity Not on file Sexual Orientation Not on file documented as of this encounter Progress Notes * Maru Hogan Md, MD - 08/25/2015 3:43 PM CST Message Message: Called and spoke to Mother, Dr. Robbins spoke to Dr. Acosta last night and he is not comfortable treating bipolar, would recommend seeing psychiatrist. Mother informed and appt for tomorrow w/ Dr. Acosta cancelled, mother will try to figure out different provider to see. Signatures Electronically signed by : Vidhya Matthew R.N.; Aug 25 2015 3:44PM LENS GENERATOR (Author) * Maru Hogan Md, MD - 08/25/2015 10:59 AM CST Message Message: Spoke with Gifty, Lashanda's mother, regarding Lashanda's A[employer]ODU[employer] SALES ENGINEER office visit on 08/24. Gifty states that their experience in our office was very good. She explained that Dr. Uribe believes that Lashanda's needs will best be met by Dr. Acosta because of her age and some of the medications she takes. Gifty loved that Dr. Uribe explained everything thoroughly and she felt that she had her children's best interest in mind and she loved that. Signatures Electronically signed by : Elizabeth Singh MA; Aug 25 2015 11:00AM LENS GENERATOR (Author) documented in this encounter Plan of Treatment Not on file documented as of this encounter Visit Diagnoses Not on filedocumented in this encounter
--- OUTSIDE RECORDS SUMMARY | 2024-07-11 19:24 | XMS_ITS | Encounter Summary ---
Author Organization [facility] Address [address] [place] [address]. [place], [place] [address] [place] [address] Care Team Providers Care Artificial Insemination Technician Name Role Phone Unavailable Primary Care Provider Unavailabl e Encounter Details Date Type Department Care Team (Latest Contact Info) Description 09/02/2015 Abstract [facility] Medical Group Social History Tobacco Use Types [...]
--- OUTSIDE RECORDS SUMMARY | 2024-07-11 19:24 | XMS_ITS | Encounter Summary ---
Author Organization [facility] Address [address] [place] [address]. [place], [place] [address] [place] [address] Care Team Providers Care Assistant Terminal Manager Name Role Phone Unavailable Primary Care Provider Unavailabl e Encounter Details Date Type Department Care Team (Latest Contact Info) Description 08/29/2015 Abstract [facility] Social History Tobacco Use [...]
--- OUTSIDE RECORDS SUMMARY | 2024-07-11 19:24 | XMS_ITS | Encounter Summary ---
Author Organization [facility] Address [facility] [place] [address] [place] [address] Care Team Providers Care Global Marketing Operations Manager Name Role Phone Unavailable Primary Care Provider Unavailabl e Encounter Details Date Type Department Care Team (Late st Contact Info) Description 09/09/2014 Abstract [facility] Emergency Services [address] [place] [address] Olegario Romano MD [address] [place] [id number] Social History Tobacco Use Types Packs/Day Years [...]
--- OUTSIDE RECORDS SUMMARY | 2024-07-11 19:24 | XMS_ITS | Patient Health Summary ---
Author Organization [facility] Address [address] [place] [address] Care Team Providers Care Butcher Apprentice Name Role Phone Unavailable Primary Care Provider Unavailabl e Note from [facility],non-owned Affiliates and Associated Physician Practices is amultiple site organization consisting of ambulatory clinics and hospital sitesin [place], [place], [place] and [place]. This disclosure is being madepursuant to the Care Everywhere program and may not contain all information available regarding this patient. Last updated 18.[facility] Social History Tobacco Use Types Packs/Day Years Used Date Smoking Tobacco: Never Assessed Sex and Gender Information Value Date Recorded Sex Assigned at Not on file Gender Identity Not on file Sexual Orientation Not on file
--- OUTSIDE RECORDS SUMMARY | 2024-07-11 19:24 | XMS_ITS | Clinical Summary ---
Author Organization [facility] [employer] Address [address] [place] [address] Care Team Providers Care Cement Finishing Supervisor Name Role Phone Unavailable Primary Care Provider Unavailabl e Source Comments [facility],non-owned Affiliates and Associated Physician Practices is amultiple site organization consisting of ambulatory clinics and hospital sitesin [place], [place], [place] and [place]. This disclosure is being madepursuant to the Care Everywhere program and may not contain all information available regarding this patient. Last updated 18.[facility] [employer] Social History Tobacco Use Types Packs/Day Years Used Date Smoking Tobacco: Never Assessed Sex and Gender Information Value Date Recorded Sex Assigned at Not on file Gender Identity Not on file Sexual Orientation Not on file Plan of Treatment Health Maintenance Due Date Last Done Comments PAP SMEAR 1998 HIV SCREENING 2013 HPV VACCINE (1 - 3-dose series) 2013 CHLAMYDIA/GONORRHEA SCREENING 2014 HEPATITIS C SCREENING 10/02/2016 DTAP/TDAP/TD VACCINES (1 - Tdap) 2017 HEPATITIS B VACCINE (1 of 3 - 19+ 3-dose series) 2017 DEPRESSION SCREENING 07/15/2023 COVID-19 VACCINE ( - 2023-2 5 season) 2024 INFLUENZA VACCINE (#1) 2024 ZOSTER VACCINE (1 of 2) 2048 HIB VACCINE Aged Out No longer eligi ble based on patient's age to complete this topic MENINGOCOCCAL VACCINE Aged Out No elise jose luis eligible based on patient's age to complete this topic PNEUMOCOCCAL VACCINE Aged Out No long er eligible based on patient's age to complete this topic
--- OUTSIDE RECORDS SUMMARY | 2024-07-11 19:24 | XMS_ITS | Encounter Summary ---
Author Organization [facility] Address [address] [place] [address] Care Team Providers Care Accounting Instructor Name Role Phone Unavailable Primary Care Provider Unavailabl e Reason for Visit * Reason Onset Date Comments DRUG SCREEN 09/03/2018 Encounter Details Date Type Department Care Team (Latest Contact Info) Description 09/03/2018 2:15 PM OPERATIONS INTELLIGENCE Clinical Support [id number] [place] [phone] Health examination of defined subpopulation Social History Tobacco Use Types Packs/Day Years Used Date Smoking Tobacco: Never Assessed Sex and Gender Information Value Date Recorded Sex Assigned at Not on file Gender Identity Not on file Sexual Orientation Not on file documented as of this encounter Progress Notes * Inés Garcia RT - 09/03/2018 2:59 PM CST Patient referred for drug screening for LEXIS DIRECTOR OF FOOD AND NUTRITION SERVICES. ATIONS INTELLIGENCE documented in this encounter Plan of Treatment Not on file documented as of this encounter Visit Diagnoses Diagnosis Health examination of defined subpopulation- Primary documented in this encounter
--- OUTSIDE RECORDS SUMMARY | 2024-07-11 19:24 | XMS_ITS | Encounter Summary ---
Author Organization [facility] Address [address] [place] [address]. [place] [address] [place] [address] Care Team Providers Care Interlacer Name Role Phone Unavailable Primary Care Provider Unavailabl e Encounter Details Date Type Department Care Team (Late st Contact Info) Description 08/24/2015 Abstract [facility] Family & Internal Medicine [facility] [address] [place] [address] [place] [id number] [place] [address] Social History Tobacco Use Types Packs/Day Years Used Date Smoking Tobacco: Never Assessed Comments Unknown Sex and Gender Information Value Date Recorded Sex Assigned at Not on file Legal Sex Female 7:50 AM CDT Gender Identity Not on file Sexual Orientation Not on file documented as of this encounter Last Filed Vital Signs Vital Sign Reading Time Taken Comments Blood Pressure 110/70 08/24/2015 3:02 PM FACILITY MECHANIC Pulse 71 08/24/2015 3:02 PM FACILITY MECHANIC Temperature - - Respiratory Rate - - Oxygen Saturation - - Inhaled Oxygen Concentration - - Weight 83 kg (183 lb) 08/24/2015 3:02 PM FACILITY MECHANIC Height 172.7 cm (5' 8 ) 08/24/2015 3:02 PM FACILITY MECHANIC Body Mass Index 27.83 08/24/2015 3:02 PM FACILITY MECHANIC Body Mass Index Percentile 92.61% 08/24/2015 3:0 2 PM FACILITY MECHANIC Growth Chart: [facility] (Girls, 2- 20 Years) documented in this encounter Progress Notes * Jojo Robbins MD - 08/24/2015 3:00 PM CST Reason For Visit New Patient Visit Chief Complaint pt here to get established as a new patient h/o bipolar and meds were dc. History of Present Illness HPI Free Text: A 14-year-old white female who has a long psych history of bipolar, oppositional behavior, history of suicide attempts in the past. Has been off of her medicines. The last 2 psychiatrists she quit seeing so she did not have any refills. The mother usually states that when she starts talking to the p sychiatrist and then she shuts down, does not want to see a psychiatrist but is having issues againsince she is off her medications. She wants to establish with this practice and have her primary care manage her psychiatric issues and refill her medications. She just wants to be on the Lexapro, perhaps medication for attention deficit. Active Problems 1. Bipolar affective disorder (296.80) (F31.9) Past Medical History 1. History of Bipolar depression (296.50) (F31.30) 2. History of Dyslexia (784.61) (R48.0) 3. History of attention deficit hyperactivity disorder (ADHD) (V11.8) (Z86.59) Surgical History 1. History of Inner Ear Surgery 2. History of Sinus Surgery 3. History of Tonsillectomy With Adenoidectomy Family History Mother 1. No pertinent family history Family History 2. Family history of cardiac disorder (V17.49) (Z82.49) 3. Family history of malignant neoplasm of cervix (V16.49) (Z80.49) 4. Family history of multiple sclerosis (V17.2) (Z82.0) 5. Family history of patent ductus arteriosus (V17.49) (Z82.79) Social History ?? Caffeine use (V49.89) (F15.90) ?? Former smoker (V15.82) (Z87.891) ?? No alcohol use ?? Single ?? Student Current Meds 1. No Reported Medications Recorded Allergies 1. Bactrim 2. Penicillins 3. Sulfa Drugs Vitals Recorded: [id number] 03:02PM Heart Rate 71 Systolic 110 Diastolic 70 O2 Saturation 99 Height 5 ft 8 in 2-20 Stature Percentile 93 % Weight 183 lb 2-20 Weight Percentile 96 % BMI Calculated 27.83 BMI Percentile 92 % BSA Calculated 1.97 Assessment 1. Bipolar affective disorder (296.80) (F31.9) Plan FamHx: Family history of cardiac disorder 1. Follow-up PRN Outpatient Follow-up NEEDS APPT WITH DR CRUZ (to see if he is comfortable with her medications) Status: Complete Done: 24Aug2015 03:53PM Ordered; For: FamHx: Family history of cardiac disorder; Ordered By: Jojo Robbins Performed: Due: 07Sep2015 Discussion/Summary When explained to the mother and daughter that she needs to be under the care of a specialist, thatmedications she had been on before were not appropriate for primary care and that it would also notbe appropriate care to treat someone with bipolar disease with an antidepressant or amphetamines which either one alone could trigger a manic episode, patient became belligerent stating she was too cr azy for me to manage and the mother became tearful that she is a single mother of 3, her daughter has similar psychiatric issues and she needs to find a primary care who can manage her and all her children. At the end, it was decided that I would not be the PCP for her, that also she might do better with the travel registered nurse nicu, more comfortable in managing those medications in that age group. The travel registered nurse nicu in this practice states that he would also refer to psych. No relationship established. Patient recommended to find a physician that is a better fit for them. Signatures Electronically signed by : Jojo Robbins M.D.; Aug 30 2015 5:51AM FACILITY MECHANIC (Author) documented in this encounter Plan of Treatment Not on file documented as of this encounter Visit Diagnoses Not on filedocumented in this encounter
--- OUTSIDE RECORDS SUMMARY | 2024-07-11 19:24 | XMS_ITS | Referral Summary ---
Author Organization [facility] Address [address] [facility] [place] [address] Care Team Providers Care Stock Replenisher Name Role Phone Unavailable Primary Care Provider Unavailabl e Source Comments [facility],non-owned Affiliates and Associated Physician Practices is amultiple site organization consisting of ambulatory clinics and hospital sitesin [place], [place] and [place]. This disclosure is being madepursuant to the Care Everywhere program and may not contain all information available regarding this patient. Last updated 18.[facility] [employer] Social History Tobacco Use Types Packs/Day Years Used Date Smoking Tobacco: Never Assessed Sex and Gender Information Value Date Recorded Sex Assigned at Not on file Gender Identity Not on file Sexual Orientation Not on file Plan of Treatment Not on file
--- OUTSIDE RECORDS SUMMARY | 2024-07-11 19:24 | XMS_ITS | Encounter Summary ---
Author Organization [facility] Address [address] [place] [address]. [place], [place] [address] [place] [address] Care Team Providers Care Windows Support Engineer Name Role Phone Rhett Rivers MD Primary Care Provider [phone] Encounter Details Date Type Department Care Team (Latest Contact Info) Description 02/09/2024 Travel Social History Tobacco Use Types Packs/Day [...] on filedocumented in this encounter Care Teams Windows Support Engineer Relationship Specialty Start Date End Date Rhett Rivers MD [address] [email or web address] [address] PCP - General UTILITY SYSTEMS REPAIRER OPERATOR ONCOLOGY 02/09/24 documented as of this encounter
--- OUTSIDE RECORDS SUMMARY | 2024-07-11 19:24 | XMS_ITS | Encounter Summary ---
Author Organization [facility] Address [facility] [facility] [place] [address] [place] [address] Care Team Providers Care Tube Filler Name Role Phone Unavailable Primary Care Provider Unavailabl e Encounter Details Date Type Department Care Team ([facility] st Contact Info) Description 03/06/2017 Abstract [facility] [address] [place] [address] Marci Shultz CNM [address] [place] [address] Social History Tobacco Use Types Packs/Day Years [...]
--- OUTSIDE RECORDS SUMMARY | 2024-07-11 19:25 | XMS_ITS | Encounter Summary ---
Author Organization [facility] Address [facility] [place] [address] [place] [address] Care Team Providers Care Acquisitions Analyst Name Role Phone Unavailable Primary Care Provider Unavailabl e Encounter Details Date Type Department Care Team (Late st Contact Info) Description 12/01/2013 Abstract [facility] Emergency Services [address] [place], [place] [id number] Drake Moody Jr., MD [address] [place] [address] Social History Tobacco Use Types Packs/Day Years [...]
--- OUTSIDE RECORDS SUMMARY | 2024-07-11 19:25 | XMS_ITS | Encounter Summary ---
Author Organization [facility] Address [facility] [place] [address] [place] [address] Care Team Providers Care Bar Finish Operator Name Role Phone Unavailable Primary Care Provider Unavailabl e Encounter Details Date Type Department Care Team (Late st Contact Info) Description 09/16/2001 Abstract [facility] Emergency Services [address] [place] [address] Maru Day MD Social History Tobacco Use Types Packs/Day [...]
--- OUTSIDE RECORDS SUMMARY | 2024-07-11 19:25 | XMS_ITS | Encounter Summary ---
Author Organization [facility] Address [facility] [place] [address] [place] [address] Care Team Providers Care Oven Technician Name Role Phone Unavailable Primary Care Provider Unavailabl e Encounter Details Date Type Department Care Team (Late st Contact Info) Description 08/14/2001 Abstract [facility] Diagnostic Imaging [address] [place], [place] [id number] Mariela Nuno MD [address] [place] [address], [facility] [address] [place], [place] [id number] Social History Tobacco Use Types Packs/Day Years [...]
--- OUTSIDE RECORDS SUMMARY | 2024-07-11 19:25 | XMS_ITS | Encounter Summary ---
Author Organization [facility] Address [facility] [place] [address] [place] [address] Care Team Providers Care Welfare Eligibility Worker Name Role Phone Unavailable Primary Care Provider Unavailabl e Encounter Details Date Type Department Care Team (Late st Contact Info) Description 12/05/2009 Abstract [facility] Emergency Services [address] [place] [address] Lacie Riley MD [address] [place] [address] [place] [address] Social History Tobacco Use Types Packs/Day Years [...]
--- OUTSIDE RECORDS SUMMARY | 2024-07-11 19:25 | XMS_ITS | Encounter Summary ---
Author Organization [facility] Address [facility]6 [facility] [place] [address] [place] [address] Care Team Providers Care Over The Road Driver Name Role Phone Unavailable Primary Care Provider Unavailabl e Encounter Details Date Type Department Care Team (Late st Contact Info) Description 09/01/1999 Abstract [facility] CONVERSION [address] [place] [address] Henry Ibarra MD [address] [place] [address] Social History Tobacco Use Types Packs/Day Years [...]
--- OUTSIDE RECORDS SUMMARY | 2024-07-11 19:25 | XMS_ITS | Encounter Summary ---
Author Organization [facility] Address [facility] [place] [address] [place] [address] Care Team Providers Care Linen Supply Load Builder Name Role Phone Unavailable Primary Care Provider Unavailabl e Encounter Details Date Type Department Care Team (Late st Contact Info) Description 07/06/1999 Abstract [facility] [address] [place] [address] Henry Ibarra MD [address] [place] [address] Social History Tobacco Use Types [...]
--- OUTSIDE RECORDS SUMMARY | 2024-07-11 19:25 | XMS_ITS | Encounter Summary ---
Author Organization [facility] Address [facility] [place] [address] [place] [address] Care Team Providers Care Insulating Machine Operator Name Role Phone Unavailable Primary Care Provider Unavailabl e Encounter Details Date Type Department Care Team (Late st Contact Info) Description 10/06/1999 Abstract [facility] [address] [place] [address] Henry Ibarra MD [address] [place] [address] Social History Tobacco Use Types [...]
--- OUTSIDE RECORDS SUMMARY | 2024-07-11 19:25 | XMS_ITS | Encounter Summary ---
Author Organization [facility] Address [address] [place] [address]. [place], [place] [address] [place] [address] Care Team Providers Care Sketch Artist Name Role Phone Unavailable Primary Care Provider Unavailabl e Encounter Details Date Type Department Care Team (Late st Contact Info) Description 07/30/2014 Abstract [facility] Conversion Md, Generic Conversion, Social History [...]
--- OUTSIDE RECORDS SUMMARY | 2024-07-11 19:25 | XMS_ITS | Encounter Summary ---
Author Organization [facility] Address [facility]. [place], [place] [address] [place] [address] Care Team Providers Care Director Of Strategic Sourcing Name Role Phone Unavailable Primary Care Provider Unavailabl e Encounter Details Date Type Department Care Team (Late st Contact Info) Description 09/20/2001 Abstract [facility] CONVERSION [address] [place] [address] , Generic Conversion, Social History Tobacco Use Types [...]
--- OUTSIDE RECORDS SUMMARY | 2024-07-11 19:25 | XMS_ITS | Encounter Summary ---
Author Organization [facility] Address [address] [place] [address]. [place], [place] [address] [place] [address] Care Team Providers Care Senior Dynamics Crm Developer Name Role Phone Unavailable Primary Care Provider Unavailabl e Encounter Details Date Type Department Care Team (Late st Contact Info) Description 02/24/2014 Abstract [facility] Conversion Md, Generic Conversion, Social [...]
--- OUTSIDE RECORDS SUMMARY | 2024-07-11 19:25 | XMS_ITS | Encounter Summary ---
Author Organization [facility] Address [address] [place] [address]. [place] [address] [place] [address] Care Team Providers Care Medical Office Scheduler Name Role Phone Unavailable Primary Care Provider Unavailabl e Encounter Details Date Type Department Care Team (Late st Contact Info) Description 07/30/2013 Abstract [facility] Conversion Fanny Valiente MD [address] [place] [address] Social History Tobacco Use Types Packs/Day Years Used Date Smoking Tobacco: Never Assessed Comments Unknown Sex and Gender Information Value Date Recorded Sex Assigned at Not on file Legal Sex Female 7:50 AM CDT Gender Identity Not on file Sexual Orientation Not on file documented as of this encounter Last Filed Vital Signs Vital Sign Reading Time Taken Comments Blood Pressure 116/74 07/30/2013 11:08 AM FRESH FOODS CAKE DECORATOR Pulse 80 07/30/2013 11:08 AM FRESH FOODS CAKE DECORATOR Temperature - - Respiratory Rate - - Oxygen Saturation - - Inhaled Oxygen Concentration - - Weight 83.5 kg (184 lb) 07/30/2013 11:08 AM FRESH FOODS CAKE DECORATOR Height 171.5 cm (5' 7.5 ) 07/30/2013 11:08 AM CS T Body Mass Index 28.39 07/30/2013 11:08 AM FRESH FOODS CAKE DECORATOR Body Mass Index Percentile 95.30% 07/30/2013 11: 08 AM FRESH FOODS CAKE DECORATOR Growth Chart: CDC (Girls, 2- 20 Years) documented in this encounter Plan of Treatment Not on file documented as of this encounter Visit Diagnoses Not on filedocumented in this encounter
--- OUTSIDE RECORDS SUMMARY | 2024-07-11 19:25 | XMS_ITS | Encounter Summary ---
Author Organization [facility] Address [facility]6 [facility] [place] [address] [place] [address] Care Team Providers Care Sole Layer Name Role Phone Unavailable Primary Care Provider Unavailabl e Encounter Details Date Type Department Care Team (Late st Contact Info) Description 07/31/2001 Abstract [facility] [address] [place] [address] Fortino Hoffman MD [address] [place] [address] Social History Tobacco Use Types Packs/Day Years [...]
--- OUTSIDE RECORDS SUMMARY | 2024-07-11 19:25 | XMS_ITS | Encounter Summary ---
Author Organization [facility] Address [facility]6 [facility] [place] [address] [place] [address] Care Team Providers Care Carbide Powder Processor Name Role Phone Unavailable Primary Care Provider Unavailabl e Encounter Details Date Type Department Care Team (Late st Contact Info) Description 10/11/2002 Abstract [facility] Emergency Services [address] [place] [address] Richard Villa, DO [address] [place] [address] Social History Tobacco Use Types Packs/Day Years [...]
--- OUTSIDE RECORDS SUMMARY | 2024-07-11 19:25 | XMS_ITS | Encounter Summary ---
Author Organization [facility] Address [facility] [address] [place] [address] Care Team Providers Care Grades 9 Through 12 Teacher Name Role Phone Unavailable Primary Care Provider Unavailabl e Encounter Details Date Type Department Care Team (Late st Contact Info) Description 06/22/1999 Abstract [facility] [address] [place] [address] , Maru Hogan MD Social History Tobacco [...]
--- OUTSIDE RECORDS SUMMARY | 2024-07-11 19:25 | XMS_ITS | Encounter Summary ---
Author Organization [facility] Address [facility]6 [facility] [place] [address] [place] [address] Care Team Providers Care Feed Manager Name Role Phone Unavailable Primary Care Provider Unavailabl e Encounter Details Date Type Department Care Team (Late st Contact Info) Description 09/20/2004 Abstract [facility] CONVERSION [address] [place] [address] Henry Ibarra MD [address] [place] [address] Social History Tobacco Use Types [...]
--- OUTSIDE RECORDS SUMMARY | 2024-07-11 19:25 | XMS_ITS | Encounter Summary ---
Author Organization [facility] Address [facility]6 [facility] [place] [address] [place] [address] Care Team Providers Care Manager University Name Role Phone Unavailable Primary Care Provider Unavailabl e Encounter Details Date Type Department Care Team (Late st Contact Info) Description 09/23/2007 Abstract [facility] CONVERSION [address] [place], [place] [id number] Sabine Ramirez DO [address] [address] Social History Tobacco Use Types Packs/Day Years [...]
--- OUTSIDE RECORDS SUMMARY | 2024-07-11 19:25 | XMS_ITS | Encounter Summary ---
Author Organization [facility] Address [facility]6 [facility] [place] [address] [place] [address] Care Team Providers Care Building Custodial Supervisor Name Role Phone Unavailable Primary Care Provider Unavailabl e Encounter Details Date Type Department Care Team (Late st Contact Info) Description 11/22/2009 Abstract [facility] Emergency Services [address] [place] [address] Olegario Romano MD [address] [place] [id number] Social History Tobacco Use Types Packs/Day Years [...]
--- OUTSIDE RECORDS SUMMARY | 2024-07-11 19:25 | XMS_ITS | Encounter Summary ---
Author Organization [facility] Address [facility]6 [facility] [place] [address] [place] [address] Care Team Providers Care Manager Mall Name Role Phone Unavailable Primary Care Provider Unavailabl e Encounter Details Date Type Department Care Team (Late st Contact Info) Description 10/18/2000 Abstract [facility] Surgical Services [address] [place] [address] Henry Ibarra MD [address] [place] [address] Social History Tobacco Use Types Packs/Day [...]
--- OUTSIDE RECORDS SUMMARY | 2024-07-11 19:25 | XMS_ITS | Encounter Summary ---
Author Organization [facility] Address [facility]6 [facility] [place] [address] [place] [address] Care Team Providers Care Industrial Sewer Name Role Phone Unavailable Primary Care Provider Unavailabl e Encounter Details Date Type Department Care Team (Late st Contact Info) Description 06/27/2001 Abstract [facility] [address] [place] [address] Fortino Hoffman MD [address] [place] [address] Social History Tobacco Use Types Packs/Day Years [...]
--- OUTSIDE RECORDS SUMMARY | 2024-07-11 19:25 | XMS_ITS | Encounter Summary ---
Author Organization [facility] Address [facility]6 [facility] [place] [address] [place] [address] Care Team Providers Care Air Conditioning Specialist Name Role Phone Unavailable Primary Care Provider Unavailabl e Encounter Details Date Type Department Care Team (Late st Contact Info) Description 05/18/2007 Abstract [facility] Emergency Room [address] [place] [address] Social History Tobacco Use Types Packs/Day Years [...]
--- OUTSIDE RECORDS SUMMARY | 2024-07-11 19:25 | XMS_ITS | Encounter Summary ---
Author Organization [facility] Address Critical access hospital6 [facility] [place] [address] [place] [address] Care Team Providers Care Corn Husker Name Role Phone Unavailable Primary Care Provider Unavailabl e Encounter Details Date Type Department Care Team (Late st Contact Info) Description 11/17/2002 Abstract [facility] Emergency Services [address] [place], [place] [phone] Maru Day MD Social History Tobacco Use [...]
--- OUTSIDE RECORDS SUMMARY | 2024-07-11 19:25 | XMS_ITS | Encounter Summary ---
Author Organization [facility] Address [address] [place] [address]. [place] [address] [place] [address] Care Team Providers Care Res Counselor Name Role Phone Unavailable Primary Care Provider Unavailabl e Encounter Details Date Type Department Care Team (Late st Contact Info) Description 01/07/2008 Abstract [facility] CONVERSION [address] [place] [address] Micaela Zepeda MD [address] [place] [address] Social History Tobacco Use Types Packs/Day Years [...]
--- OUTSIDE RECORDS SUMMARY | 2024-07-11 19:25 | XMS_ITS | Encounter Summary ---
Author Organization [facility] Address [facility] [place] [address] [place] [address] Care Team Providers Care Director Of Enterprise Applications Name Role Phone Unavailable Primary Care Provider Unavailabl e Encounter Details Date Type Department Care Team (Late st Contact Info) Description 12/03/2000 Abstract [facility] Emergency Services [address] [place], [place] [phone] Henry Casillas MD Social History Tobacco Use Types Packs/Day [...]
--- OUTSIDE RECORDS SUMMARY | 2024-07-11 19:25 | XMS_ITS | Encounter Summary ---
Author Organization [facility] Address [facility]6 [facility] [place] [address] [place] [address] Care Team Providers Care Tool Planer Set Up Operator Name Role Phone Unavailable Primary Care Provider Unavailabl e Encounter Details Date Type Department Care Team (Late st Contact Info) Description 06/22/1999 Abstract [facility] Medical/Surgical [address] [place], [place] [phone] Maru Day MD Social History Tobacco Use [...]
--- OUTSIDE RECORDS SUMMARY | 2024-07-11 19:25 | XMS_ITS | Encounter Summary ---
Author Organization [facility] Address [facility]6 [facility] [place] [address] [place] [address] Care Team Providers Care Trauma Nurse Name Role Phone Unavailable Primary Care Provider Unavailabl e Encounter Details Date Type Department Care Team (Late st Contact Info) Description 06/30/2007 Abstract [facility] CONVERSION [address] [place] [address] Henry Ibarra MD [address] [place] [address] Social History Tobacco Use Types [...]
--- OUTSIDE RECORDS SUMMARY | 2024-07-11 19:25 | XMS_ITS | Encounter Summary ---
Author Organization [facility] Address [facility]6 [facility] [address] [place] [address] Care Team Providers Care Sterile Products Processor Name Role Phone Unavailable Primary Care Provider Unavailabl e Encounter Details Date Type Department Care Team (Late st Contact Info) Description 08/27/2008 Abstract [facility] Emergency Services [address] [place] [address] Maru Day MD Social History Tobacco Use [...]
--- OUTSIDE RECORDS SUMMARY | 2024-07-11 19:25 | XMS_ITS | Encounter Summary ---
Author Organization [facility] Address [facility]6 [facility] [place] [address] [place] [address] Care Team Providers Care Insurance Customer Service Specialist Name Role Phone Unavailable Primary Care Provider Unavailabl e Encounter Details Date Type Department Care Team (Late st Contact Info) Description 12/24/2007 Abstract [facility] Emergency Services [address] [place] [address] Richard Rodas Jr., MD [address] [place] [address] Social History Tobacco Use Types Packs/Day Years [...]
--- OUTSIDE RECORDS SUMMARY | 2024-07-11 19:25 | XMS_ITS | Encounter Summary ---
Author Organization [facility] Address [facility]6 [facility] [place] [address] [place] [address] Care Team Providers Care Shipwright Helper Name Role Phone Unavailable Primary Care Provider Unavailabl e Encounter Details Date Type Department Care Team (Late st Contact Info) Description 08/25/2006 Abstract [facility] Emergency Services [address] [place] [address] Olegario Romano MD [address] [place] [phone] Social History Tobacco Use Types Packs/Day Years [...]
--- OUTSIDE RECORDS SUMMARY | 2024-07-11 19:25 | XMS_ITS | Encounter Summary ---
Author Organization [facility] Address Critical access hospital6 [facility] [place] [address] [place] [address] Care Team Providers Care Home Health Physical Therapist Name Role Phone Unavailable Primary Care Provider Unavailabl e Encounter Details Date Type Department Care Team (Late st Contact Info) Description 10/30/2002 Abstract [facility] Surgical Services [address] [place] [address] Henry Ibarra MD [address] [place] [phone] Social History Tobacco Use Types Packs/Day [...]
--- OUTSIDE RECORDS SUMMARY | 2024-07-11 19:25 | XMS_ITS | Encounter Summary ---
Author Organization [facility] Address [facility]6 [facility] [place] [address] [place] [address] Care Team Providers Care Mixer Operator Hot Metal Name Role Phone Unavailable Primary Care Provider Unavailabl e Encounter Details Date Type Department Care Team (Late st Contact Info) Description 01/29/2001 Abstract [facility] Medical/Surgical [address] [place] [address] Fortino Hoffman MD [address] [place] [address] Social History Tobacco Use Types Packs/Day Years [...]
--- OUTSIDE RECORDS SUMMARY | 2024-07-11 19:25 | XMS_ITS | Encounter Summary ---
Author Organization [facility] Address [address] [place] [address]. [place], [place] [address] [place] [address] Care Team Providers Care Fuselage Framer Name Role Phone Unavailable Primary Care Provider Unavailabl e Encounter Details Date Type Department Care Team (Late st Contact Info) Description 02/25/2014 Abstract [facility] Clinics Conversion Md, Generic Conversion, Social History [...]
--- OUTSIDE RECORDS SUMMARY | 2024-07-11 19:25 | XMS_ITS | Encounter Summary ---
Author Organization [facility] Address [address] [place] [address]. [place], [place] [address] [place] [address] Care Team Providers Care City Editor Name Role Phone Unavailable Primary Care Provider Unavailabl e Encounter Details Date Type Department Care Team (Late st Contact Info) Description 07/29/2014 Abstract [facility] Clinics Conversion Md, Generic Conversion, Social [...]
--- OUTSIDE RECORDS SUMMARY | 2024-07-11 19:25 | XMS_ITS | Encounter Summary ---
Author Organization [facility] Address [facility]6 [place] [address] [place] [address] Care Team Providers Care Dining Room Hostess Name Role Phone Unavailable Primary Care Provider Unavailabl e Encounter Details Date Type Department Care Team (Late st Contact Info) Description 02/23/2014 Abstract [facility] Conversion Md, Generic Conversion, Social History Tobacco [...] Sign Reading Time Taken Comments Blood Pressure 102/66 02/23/2014 10:13 AM CDT Pulse 72 02/23/2014 10:13 AM CDT Temperature - - Respiratory Rate - - Oxygen Saturation - - Inhaled Oxygen Concentration - - Weight 79.8 kg (176 lb) 02/23/2014 10:13 AM CDT Height 170.2 cm (5' 7 ) 02/23/2014 10:13 AM CDT Body Mass Index 27.57 02/23/2014 10:13 AM CDT Body Mass Index Percentile 93.88% 02/23/2014 10: 13 AM CDT Growth Chart: CDC (Girls, 2- 20 Years) documented in this encounter Plan of Treatment Not on file documented as of this encounter Procedures Procedure Name Priority Date/Time Associated Diagnosis Comments SMEAR, STAIN, WET PREP Routine 02/23/2014 2:46 PM CDT C.TRACHOMATIS RNA TMA Routine 02/23/2014 2:46 PM CDT documented in this encounter Results * C.TRACHOMATIS RNA TMA (02/23/2014 2:46 PM CDT) REPORT STATUS Not required [facility] TO EPIC CONVERSION Comment: THIS TEST WAS PERFORMED AT [facility] [address] [place] [address] 02/23/2014 2:46 PM CDT 02/23/2014 2:46 PM CDT Narrative [facility] TO EPIC CONVERSION - 02/25/2014 8:12 AM CDT This lab was migrated from [facility] and may be missing annotations or result text, please check the Media tab for the most complete results. Yudy BELLA MICROBIOLOGY - GENERAL ORD NIKA Final Result Performing Organization Address City/[facility]/ZIP Co de Phone Number [facility] TO EPIC CONVERSION * SMEAR, STAIN, WET PREP (02/23/2014 2:46 PM CDT) GARDNERELLA VAGINALIS Negative NR: NEGATIVE [facility] TO [facility] CONVERSION TRICHOMONAS Negative NR: NEGATIVE [facility] TO [facility] CONVERSION FARAZ SPECIES Negative NR: NEGATIVE [facility] TO EP[facility] CONVERSION lot number [id number] 09/10/14 [facility] TO [facility] CONVERSION Internal Control: passed [facility] TO EP[facility] CONVERSION 02/23/2014 2:46 PM CDT 02/23/2014 2:46 PM CDT Narrative [facility] TO EPIC CONVERSION - 02/24/2014 8:32 AM CDT This lab was migrated from [facility] and may be missing annotations or result text, please check the Media tab for the most complete results. Yudy BELLA MICROBIOLOGY - GENERAL ORDElisabet RABKEELEY Final Result [facility] TO EPIC CONVERSION documented in this encounter Visit Diagnoses Not on filedocumented in this encounter
--- OUTSIDE RECORDS SUMMARY | 2024-07-11 19:25 | XMS_ITS | Encounter Summary ---
Author Organization [facility] Address Critical access hospital6 [facility] [address] [place] [address] Care Team Providers Care Director Of Public Safety Name Role Phone Unavailable Primary Care Provider Unavailabl e Encounter Details Date Type Department Care Team ([facility] st Contact Info) Description 05/25/2009 Abstract [facility] Emergency Services [address] [place] [address] Brendan Singh MD [address] [phone] Social History Tobacco Use Types Packs/Day Years [...]
--- OUTSIDE RECORDS SUMMARY | 2024-07-11 19:25 | XMS_ITS | Encounter Summary ---
Author Organization [facility] Address On license of [facility]6 [facility] [place] [address] [place] [address] Care Team Providers Care Truck Despatcher Name Role Phone Unavailable Primary Care Provider Unavailabl e Encounter Details Date Type Department Care Team (Late st Contact Info) Description 07/04/2007 Abstract [facility] Surgical Services [address] [place] [address] Henry Ibarra MD [address] [place] [phone] Social History Tobacco Use Types Packs/Day [...]
--- OUTSIDE RECORDS SUMMARY | 2024-07-11 19:25 | XMS_ITS | Encounter Summary ---
Author Organization [facility] Address [facility]6 [facility] [place] [address] [place] [address] Care Team Providers Care Buffing Machine Tender Name Role Phone Unavailable Primary Care Provider Unavailabl e Encounter Details Date Type Department Care Team (Late st Contact Info) Description 06/24/2001 Abstract [facility] [address] [place], [place] [id number] Henry Ibarra MD 9 [place] [address] Social History Tobacco Use Types [...]
--- OUTSIDE RECORDS SUMMARY | 2024-07-11 19:25 | XMS_ITS | Encounter Summary ---
Author Organization [facility] Address [facility]6 [facility] [place] [address] [place] [address] Care Team Providers Care Emergency Room Nurse Name Role Phone Unavailable Primary Care Provider Unavailabl e Encounter Details Date Type Department Care Team (Late st Contact Info) Description 07/03/2009 Abstract [facility] Emergency Services [address] [place], [place] [phone] Maur Day MD Social History Tobacco Use Types [...]
--- OUTSIDE RECORDS SUMMARY | 2024-07-11 19:25 | XMS_ITS | Encounter Summary ---
Author Organization [facility] Address [facility]6 [facility] [place] [address] [place] [address] Care Team Providers Care Manager Environmental Services Name Role Phone Unavailable Primary Care Provider Unavailabl e Encounter Details Date Type Department Care Team (Late st Contact Info) Description 07/28/2014 Abstract [facility] Clinics Conversion Ayana Pastor, APNP [address] [place], [place] [phone] Social History Tobacco Use Types Packs/Day Years Used Date Smoking Tobacco: Never Assessed Comments Unknown Sex and Gender Information Value Date Recorded Sex Assigned at Not on file Legal Sex Female 7:50 AM CDT Gender Identity Not on file Sexual Orientation Not on file documented as of this encounter Last Filed Vital Signs Vital Sign Reading Time Taken Comments Blood Pressure 110/65 07/28/2014 4:40 PM CAN DOFFER Pulse 92 07/28/2014 4:40 PM CAN DOFFER Temperature - - Respiratory Rate - - Oxygen Saturation - - Inhaled Oxygen Concentration - - Weight - - Height - - Body Mass Index - - documented in this encounter Plan of Treatment Not on file documented as of this encounter Procedures Procedure Name Priority Date/Time Associated Diagnosis Comments INFLUENZA A & B Routine 07/28/2014 5:05 PM CAN DOFFER documented in this encounter Results * INFLUENZA A & B (07/28/2014 5:05 PM CAN DOFFER) INFLUENZA A Negative(Q C+) [facility] TO EPIC CONVERSION INFLUENZA B Negative(Q C+) [facility] CONVERSION 07/28/2014 5:05 PM CAN DOFFER 07/28/2014 5:05 PM CAN DOFFER Narrative [facility] TO EPIC CONVERSION - 07/28/2014 5:05 PM CAN DOFFER This lab was migrated from [facility] and may be missing annotations or result text, please check the Media tab for the most complete results. Ayana GABRIEL MICROBIOLOGY - GENERAL ORDER ANTHONY Final Result [facility] TO EPIC CONVERSION documented in this encounter Visit Diagnoses Not on filedocumented in this encounter
--- OUTSIDE RECORDS SUMMARY | 2024-07-11 19:25 | XMS_ITS | Encounter Summary ---
Author Organization [facility] Address [facility]6 [facility] [place] [address] [place] [address] Care Team Providers Care Entry Level Sales Representative Name Role Phone Unavailable Primary Care Provider Unavailabl e Encounter Details Date Type Department Care Team (Late st Contact Info) Description 02/19/2013 Abstract [facility] Emergency Services [address] [place], [place] [id number] Drake Moody Jr., MD [address] [place] [address] Social History Tobacco Use Types [...]
--- OUTSIDE RECORDS SUMMARY | 2024-07-11 19:25 | XMS_ITS | Encounter Summary ---
Author Organization [facility] Address Critical access hospital6 [facility] [place] [address] [place] [address] Care Team Providers Care Deli Manager Name Role Phone Unavailable Primary Care Provider Unavailabl e Encounter Details Date Type Department Care Team (Late st Contact Info) Description 11/04/2004 Abstract [facility] Emergency Services [address] [place] [address] Richard Villa, DO [address] [place] [phone] Social History Tobacco Use Types Packs/Day Years [...]
--- OUTSIDE RECORDS SUMMARY | 2024-07-11 19:25 | XMS_ITS | Encounter Summary ---
Author Organization [facility] Address [facility]6 [facility] [place] [address] [place] [address] Care Team Providers Care American Indian Studies Professor Name Role Phone Unavailable Primary Care Provider Unavailabl e Encounter Details Date Type Department Care Team (Late st Contact Info) Description 07/05/2007 Abstract [facility] Emergency Services [address] [place] [address] Maru Day MD Social History Tobacco Use [...]
--- OUTSIDE RECORDS SUMMARY | 2024-07-11 19:25 | XMS_ITS | Encounter Summary ---
Author Organization [facility] Address [facility]6 [place] [address] [place] [address] Care Team Providers Care Button Decorating Machine Operator Name Role Phone Unavailable Primary Care Provider Unavailabl e Encounter Details Date Type Department Care Team (Late st Contact Info) Description 02/14/2007 Abstract [facility] Emergency Services [address] [place] [address] Richard Villa, DO [address] [place] [phone] Social History Tobacco Use Types Packs/Day Years [...]
--- OUTSIDE RECORDS SUMMARY | 2024-07-11 19:25 | XMS_ITS | Encounter Summary ---
Author Organization [facility] Address [facility]6 [facility] [place] [address] [place] [address] Care Team Providers Care Windows Server Architect Name Role Phone Unavailable Primary Care Provider Unavailabl e Encounter Details Date Type Department Care Team (Late st Contact Info) Description 12/29/2006 Abstract [facility] Emergency Services [address] [place] [address] Fortino Hoffman MD [address] [place] [address] Social History Tobacco Use Types Packs/Day Years [...]
--- OUTSIDE RECORDS SUMMARY | 2024-07-11 19:25 | XMS_ITS | Encounter Summary ---
Author Organization [facility] Address [facility]6 [facility] [place] [address] [place] [address] Care Team Providers Care Cooker Helper Name Role Phone Unavailable Primary Care Provider Unavailabl e Encounter Details Date Type Department Care Team (Late st Contact Info) Description 06/27/2003 Abstract [facility] Medical/Surgical [address] [place] [address] Fortino Hoffman MD [address] [place] [address] [place] [address] Social History Tobacco Use Types Packs/Day Years [...]
--- OUTSIDE RECORDS SUMMARY | 2024-07-11 19:25 | XMS_ITS | Encounter Summary ---
Author Organization [facility] Address [facility]6 [place] [address] [place] [address] Care Team Providers Care Professor Of Marketing Name Role Phone Unavailable Primary Care Provider Unavailabl e Encounter Details Date Type Department Care Team (Late st Contact Info) Description 02/20/2014 Abstract [facility] Emergency Services [address] [place] [address] Olegario Romano MD [address] [place] [phone] Social History Tobacco Use Types Packs/Day Years [...]
--- OUTSIDE RECORDS SUMMARY | 2024-07-11 19:25 | XMS_ITS | Encounter Summary ---
Author Organization [facility] Address [facility]6 [facility] [place] [address] [place] [address] Care Team Providers Care Roof Panel Hanger Name Role Phone Unavailable Primary Care Provider Unavailabl e Encounter Details Date Type Department Care Team (Late st Contact Info) Description 12/20/2000 Abstract [facility] Diagnostic Imaging [address] [place] [address] Henry Ibarra MD [address] [place] [phone] Social History Tobacco Use Types Packs/Day [...]
--- OUTSIDE RECORDS SUMMARY | 2024-07-11 19:25 | XMS_ITS | Encounter Summary ---
Author Organization [facility] Address [facility]6 [place] [address] [place] [address] Care Team Providers Care Locum Tenens Name Role Phone Unavailable Primary Care Provider Unavailabl e Encounter Details Date Type Department Care Team (Late st Contact Info) Description 02/11/2004 Abstract [facility] Emergency Services [address] [place] [address] Richard Villa, DO [address] [place] [phone] Social History Tobacco Use Types Packs/Day Years [...]
--- OUTSIDE RECORDS SUMMARY | 2024-07-11 19:25 | XMS_ITS | Encounter Summary ---
Author Organization [facility] Address [facility]6 [facility] [place] [address] [place] [address] Care Team Providers Care General Merchandise Salesperson Name Role Phone Unavailable Primary Care Provider Unavailabl e Encounter Details Date Type Department Care Team (Late st Contact Info) Description 03/04/2008 Abstract [facility] CONVERSION [address] [place] [address] Sabine Ramirez DO [address] [phone] Social History Tobacco Use Types [...]
--- OUTSIDE RECORDS SUMMARY | 2024-07-11 19:25 | XMS_ITS | Encounter Summary ---
Author Organization [facility] Address [facility]6 [facility] [place] [address] [place] [address] Care Team Providers Care Drilling Field Professional Name Role Phone Unavailable Primary Care Provider Unavailabl e Encounter Details Date Type Department Care Team (Late st Contact Info) Description 01/21/2014 Abstract [facility] Emergency Services [address] [place] [address] Richard Villa, DO [address] [place] [phone] Social History Tobacco Use Types Packs/Day Years [...]
--- OUTSIDE RECORDS SUMMARY | 2024-07-11 19:25 | XMS_ITS | Encounter Summary ---
Author Organization [facility] Address [facility]6 [facility] [place] [address] [place] [address] Care Team Providers Care Lime Kiln Worker Helper Name Role Phone Unavailable Primary Care Provider Unavailabl e Encounter Details Date Type Department Care Team (Late st Contact Info) Description 04/19/2000 Abstract [facility] CONVERSION [address] [place] [address] Henry Ibarra MD [address] [place] [phone] Social History Tobacco Use Types [...]
--- OUTSIDE RECORDS SUMMARY | 2024-07-11 19:25 | XMS_ITS | Encounter Summary ---
Author Organization [facility] Address [facility]6 [facility] [place] [address] [place] [address] Care Team Providers Care Piece Marker Small Arms Name Role Phone Unavailable Primary Care Provider Unavailabl e Encounter Details Date Type Department Care Team (Late st Contact Info) Description 12/25/2007 Abstract [facility] CONVERSION [address] [place] [address] Sabine Ramriez DO [address] [phone] Social History Tobacco Use Types [...]
--- OUTSIDE RECORDS SUMMARY | 2024-07-11 19:25 | XMS_ITS | Encounter Summary ---
Author Organization [facility] Address [facility]6 [place] [address] [place] [address] Care Team Providers Care Social Contact Worker Name Role Phone Unavailable Primary Care Provider Unavailabl e Encounter Details Date Type Department Care Team (Late st Contact Info) Description 06/23/1999 Abstract [facility] CONVERSION [address] [place] [address] Henry Ibarra MD [address] [place] [address] Social History Tobacco Use Types [...]
--- OUTSIDE RECORDS SUMMARY | 2024-07-11 19:25 | XMS_ITS | Encounter Summary ---
Author Organization [facility] Address [facility]6 [facility] [place] [address] [place] [address] Care Team Providers Care Manager Diesel Name Role Phone Unavailable Primary Care Provider Unavailabl e Encounter Details Date Type Department Care Team (Late st Contact Info) Description 07/29/2001 Abstract [facility] Emergency Services [address] [place] [address] Maru Day MD Social History Tobacco Use [...]
--- OUTSIDE RECORDS SUMMARY | 2024-07-11 19:25 | XMS_ITS | Encounter Summary ---
Author Organization [facility] Address [facility]6 [place] [address] [place] [address] Care Team Providers Care Clerical Investigator Name Role Phone Unavailable Primary Care Provider Unavailabl e Encounter Details Date Type Department Care Team (Late st Contact Info) Description 02/23/2014 Abstract [facility] [address] [place], [place] [id number] Yudy Carpenter, [facility] [address] [place] [address] Social History Tobacco Use Types Packs/Day Years [...]
--- OUTSIDE RECORDS SUMMARY | 2024-07-11 19:25 | XMS_ITS | Encounter Summary ---
Author Organization [facility] Address [facility]6 [facility] [place] [address] [place] [address] Care Team Providers Care Book Cleaner Name Role Phone Unavailable Primary Care Provider Unavailabl e Encounter Details Date Type Department Care Team (Late st Contact Info) Description 11/25/2007 Abstract [facility] CONVERSION [address] [place], [place] [id number] Sabine Ramirez DO [address] [phone] Social History Tobacco Use Types [...]
--- OUTSIDE RECORDS SUMMARY | 2024-07-11 19:25 | XMS_ITS | Encounter Summary ---
Author Organization [facility] Address [facility]6 [place] [address] [place] [address] Care Team Providers Care Top Printing Press Operator Name Role Phone Unavailable Primary Care Provider Unavailabl e Encounter Details Date Type Department Care Team (Late st Contact Info) Description 09/14/1999 Abstract [facility] Emergency Services [address] [place] [address] Elliot Ibarra MD [address] [place] [address] [place], [place] [id number] Social History Tobacco Use Types Packs/Day Years [...]
--- OUTSIDE RECORDS SUMMARY | 2024-07-11 19:25 | XMS_ITS | Encounter Summary ---
Author Organization [facility] Address [facility] [place] [address] [place] [address] Care Team Providers Care Qa Lead Name Role Phone Unavailable Primary Care Provider Unavailabl e Encounter Details Date Type Department Care Team (Late st Contact Info) Description 06/30/1999 Abstract [facility] Surgical Services [address] [place] [address] Henry Ibarra MD [address] [place] [phone] Social History Tobacco Use Types Packs/Day [...]
--- OUTSIDE RECORDS SUMMARY | 2024-07-11 19:25 | XMS_ITS | Encounter Summary ---
Author Organization [facility] Address [facility]6 [place] [address] [place] [address] Care Team Providers Care Seam Sewer Name Role Phone Unavailable Primary Care Provider Unavailabl e Encounter Details Date Type Department Care Team (Late st Contact Info) Description 09/22/2004 Abstract [facility] Surgical Services [address] [place] [address] Henry Ibarra MD [address] [place] [phone] Social History Tobacco Use Types Packs/Day [...]
--- OUTSIDE RECORDS SUMMARY | 2024-07-11 19:25 | XMS_ITS | Encounter Summary ---
Author Organization [facility] Address On license of [facility]6 [place] [address] [place] [address] Care Team Providers Care Vasc Tech Name Role Phone Unavailable Primary Care Provider Unavailabl e Encounter Details Date Type Department Care Team (Late st Contact Info) Description 05/19/2012 Abstract [facility] Emergency Services [address] [place] [address] Catina Pickett MD [address] [address] Social History Tobacco Use Types Packs/Day Years [...]
--- OUTSIDE RECORDS SUMMARY | 2024-07-11 19:25 | XMS_ITS | Encounter Summary ---
Author Organization [facility] Address [facility] [place] [address] [place] [address] Care Team Providers Care Wire Spiral Binder Name Role Phone Unavailable Primary Care Provider Unavailabl e Encounter Details Date Type Department Care Team (Late st Contact Info) Description 01/19/2008 Abstract [facility] CONVERSION [address] [place] [address] Sabine Ramirez DO [address] [phone] Social History Tobacco Use Types [...]
--- OUTSIDE RECORDS SUMMARY | 2024-07-11 19:25 | XMS_ITS | Encounter Summary ---
Author Organization [facility] Address [facility] [place] [address] [place] [address] Care Team Providers Care Call Center Manager Name Role Phone Unavailable Primary Care Provider Unavailabl e Encounter Details Date Type Department Care Team (Late st Contact Info) Description 11/07/2009 Abstract [facility] Emergency Services [address] [place] [address] Richard Villa, DO [address] [place] [id number] Social History Tobacco Use Types Packs/Day Years [...]
--- OUTSIDE RECORDS SUMMARY | 2024-07-11 19:25 | XMS_ITS | Encounter Summary ---
Author Organization [facility] Address [address] [place] [address]. [place] [address] [place] [address] Care Team Providers Care Cigarette Inspector Name Role Phone Unavailable Primary Care Provider Unavailabl e Encounter Details Date Type Department Care Team (Late st Contact Info) Description 02/23/2013 Abstract [facility] Conversion Dalila Vickers MD [address] [facility] [place] [address] Social History Tobacco Use Types Packs/Day Years Used Date Smoking Tobacco: Never Assessed Comments Unknown Sex and Gender Information Value Date Recorded Sex Assigned at Not on file Legal Sex Female 7:50 AM CDT Gender Identity Not on file Sexual Orientation Not on file documented as of this encounter Last Filed Vital Signs Vital Sign Reading Time Taken Comments Blood Pressure 100/76 02/23/2013 1:20 PM CDT Pulse 72 02/23/2013 1:20 PM CDT Temperature - - Respiratory Rate - - Oxygen Saturation - - Inhaled Oxygen Concentration - - Weight 79.8 kg (176 lb) 02/23/2013 1:20 PM CDT Height 171.5 cm (5' 7.5 ) 02/23/2013 1:20 PM CDT Body Mass Index 27.16 02/23/2013 1:20 PM CDT Body Mass Index Percentile 94.47% 02/23/2013 1:2 0 PM CDT Growth Chart: CDC (Girls, 2- 20 Years) documented in this encounter Plan of Treatment Not on file documented as of this encounter Visit Diagnoses Not on filedocumented in this encounter
--- OUTSIDE RECORDS SUMMARY | 2024-07-11 19:25 | XMS_ITS | Encounter Summary ---
Author Organization [facility] Address [facility] [place] [address] [place] [address] Care Team Providers Care Magnaflux Operator Name Role Phone Unavailable Primary Care Provider Unavailabl e Encounter Details Date Type Department Care Team (Late st Contact Info) Description 10/15/2004 Abstract [facility] Emergency Services [address] [place] [address] Maru Day MD Social History Tobacco Use [...]
--- OUTSIDE RECORDS SUMMARY | 2024-07-11 19:25 | XMS_ITS | Encounter Summary ---
Author Organization [facility] Address [facility] [place] [address] [place] [address] Care Team Providers Care Seam Hammerer Name Role Phone Unavailable Primary Care Provider Unavailabl e Encounter Details Date Type Department Care Team (Late st Contact Info) Description 10/20/2000 Abstract [facility] Emergency Services [address] [place] [address] Jerel Wiggins MD Social History Tobacco Use Types Packs/Day [...]
--- OUTSIDE RECORDS SUMMARY | 2024-07-11 19:25 | XMS_ITS | Encounter Summary ---
Author Organization [facility] Address [facility]6 [place] [address] [place] [address] Care Team Providers Care Breaker Up Machine Operator Name Role Phone Unavailable Primary Care Provider Unavailabl e Encounter Details Date Type Department Care Team (Late st Contact Info) Description 02/08/2000 Abstract [facility] Emergency Services [address] [place], [place] [id number] Henry Casillas MD Social History Tobacco Use [...]
--- OUTSIDE RECORDS SUMMARY | 2024-07-11 19:25 | XMS_ITS | Encounter Summary ---
Author Organization [facility] Address [facility] [place] [address] [place] [address] Care Team Providers Care Flight Surgeon Name Role Phone Unavailable Primary Care Provider Unavailabl e Encounter Details Date Type Department Care Team (Late st Contact Info) Description 11/20/2007 Abstract [facility] CONVERSION [address] [place] [address] Sabine Ramirez DO [address] [phone] Social History Tobacco Use Types [...]
--- OUTSIDE RECORDS SUMMARY | 2024-07-11 19:25 | XMS_ITS | Encounter Summary ---
Author Organization [facility] Address [facility]6 [place] [address] [place] [address] Care Team Providers Care Journalism Instructor Name Role Phone Unavailable Primary Care Provider Unavailabl e Encounter Details Date Type Department Care Team (Late st Contact Info) Description 05/29/2007 Abstract [facility] Diagnostic Imaging [address] [place] [address] Henry Ibarra MD [address] [place] [phone] Social History Tobacco Use Types Packs/Day [...]
--- OUTSIDE RECORDS SUMMARY | 2024-07-11 19:25 | XMS_ITS | Encounter Summary ---
Author Organization [facility] Address [facility]6 [place] [address] [place] [address] Care Team Providers Care Consumer Loan Officer Name Role Phone Unavailable Primary Care Provider Unavailabl e Encounter Details Date Type Department Care Team (Late st Contact Info) Description 09/08/2006 Abstract [facility] Emergency Services [address] [place] [address] John Elena MD [address] [place] [address] Social History Tobacco Use Types Packs/Day Years [...]
--- OUTSIDE RECORDS SUMMARY | 2024-07-11 19:25 | XMS_ITS | Encounter Summary ---
Author Organization [facility] Address [facility]6 [facility] [place] [address] [place] [address] Care Team Providers Care Purchasing Agent Name Role Phone Unavailable Primary Care Provider Unavailabl e Encounter Details Date Type Department Care Team (Late st Contact Info) Description 04/12/2005 Abstract [facility] Emergency Services [address] [place], [place] [id number] Maru Day MD Social History Tobacco Use [...]
--- OUTSIDE RECORDS SUMMARY | 2024-07-11 19:25 | XMS_ITS | Encounter Summary ---
Author Organization [facility] Address [facility]6 [facility] [place] [address] [place] [address] Care Team Providers Care Live Truck Operator Name Role Phone Unavailable Primary Care Provider Unavailabl e Encounter Details Date Type Department Care Team (Late st Contact Info) Description 10/20/1999 Abstract [facility] CONVERSION [address] [place] [address] Henry Ibarra MD [address] [place] [address] Social History Tobacco Use Types [...]
--- OUTSIDE RECORDS SUMMARY | 2024-07-11 19:25 | XMS_ITS | Encounter Summary ---
Author Organization [facility] Address [facility]6 [place] [address] [place] [address] Care Team Providers Care Health Care / Medical Job Titles Name Role Phone Unavailable Primary Care Provider Unavailabl e Encounter Details Date Type Department Care Team (Late st Contact Info) Description 12/29/2013 Abstract [facility] Emergency Services [address] [place] [address] Danis Ni MD [place] [address] Social History Tobacco Use Types Packs/Day Years [...]
--- OUTSIDE RECORDS SUMMARY | 2024-07-11 19:25 | XMS_ITS | Encounter Summary ---
Author Organization [facility] Address [facility]6 [facility] [place] [address] [place] [address] Care Team Providers Care Card Sorter Name Role Phone Unavailable Primary Care Provider Unavailabl e Encounter Details Date Type Department Care Team (Late st Contact Info) Description 06/27/2001 Abstract [facility] Surgical Services [address] [place] [address] Henry Ibarra MD [address] [place] [phone] Social History Tobacco Use Types Packs/Day [...]
--- OUTSIDE RECORDS SUMMARY | 2024-07-11 19:26 | XMS_ITS | Encounter Summary ---
Author Organization [facility] Address [facility]6 [place] [address] [place] [address] Care Team Providers Care Back Hanger Name Role Phone Unavailable Primary Care Provider Unavailabl e Encounter Details Date Type Department Care Team (Late st Contact Info) Description 06/21/1999 Abstract [facility] Emergency Services [address] [place] [address] Maru Day MD Social History Tobacco Use [...]
--- OUTSIDE RECORDS SUMMARY | 2024-07-11 19:26 | XMS_ITS | Encounter Summary ---
Author Organization [facility] Address [facility]6 [facility] [place] [address] [place] [address] Care Team Providers Care Tuna Purse Seiner Name Role Phone Unavailable Primary Care Provider Unavailabl e Encounter Details Date Type Department Care Team (Late st Contact Info) Description 1998 Abstract [facility] CONVERSION [address] [place] [address] , Generic Conversion, Social History Tobacco Use [...]
--- OUTSIDE RECORDS SUMMARY | 2024-07-11 19:31 | XMS_ITS | Continuity of Care Document ---
Author Organization [facility] Address [address] [place] [address] Assessment No assessment recorded. Plan of Treatment Reminders Order Date Submit Date Provider Last Modified By Organization Details Last Modified Time Details Appointments SURG POST OP 025 11:45AM LINDSEY ESTRADA MD Not available Not available Not available Lab None record ed. Referral None record ed. Procedures None record ed. Surgeries None record ed. Imaging None record ed. Medication Orders None record ed. Patient TargetsNo targets recorded. Patient InstructionsNo instructions recorded. Reason for Referral None Reported. Results Created Date Observation Date Name Description Value Unit Range Abnormal Flag Note LastModifiedBy Organization Detail LastModifiedTime 01/02/20 24 01/02/2024 US, obste tric, nucha l trans lucen cy No observ ation record ed. [facility] [address], [place], [address], 01/02/2024 17:39:14 01/02/20 24 01/02/2024 US, obste tric, nucha l trans lucen cy No observ ation record ed. [email or web address] [address], [place], [address], 01/02/2024 19:40:21 02/27/20 24 02/27/2024 US, obste tric, 2nd or 3rd trime ster No observ ation record ed. [facility] [address], [place], [address], 02/27/2024 18:06:05 02/27/20 24 02/27/2024 US, obste tric, follo w-up No observ ation record ed. [email or web address] [address], [place], [address], 02/28/2024 13:07:39 03/26/20 24 03/26/2024 US, obste tric, follo w-up No observ ation record ed. [email or web address] [facility] [address], [place], [address], 03/26/2024 13:46:07 03/26/20 24 03/26/2024 US, obste tric, follo w-up No observ ation record ed. JOHNNIE [address], [place], [address], 04/03/2024 14:52:29 04/23/20 24 04/23/2024 US, obste tric, follo w-up No observ ation record ed. [email or web address] [facility] [address], [place], [address], 04/23/2024 12:39:24 04/23/20 24 04/23/2024 US, obste tric, follo w-up No observ ation record ed. JOHNNIE [address], [place], [address], 04/24/2024 11:29:28 05/18/20 24 05/18/2024 US, obste tric, follo w-up No observ ation record ed. [email or web address] [facility] [address], [place], [address], 05/18/2024 10:41:38 05/18/20 24 05/18/2024 US, obste tric, follo w-up No observ ation record ed. [email or web address] [address], [place], [address], 05/18/2024 13:10:19 Result Notes None recorded. Problems Name Problem SNOMED Code Status Onset Date Resolution Date Notes Provider Name and Address Organization Details Recorded Time Normal pregnanc y in multigra bautista 2928223866 10190 Completed 201908/24/2020 Encounte r for suprvsn of normal pregnanc y, third trimeste r;Record ed Elsewher e: No Locat ion: [facility] S ource: EHR Physical Fitness Teacher yulia: N Benedictoti ce ID: 0001 Olaf lable Time: 10:45:00 AM Tamra jennings, [facility] 17:20:59 Antenata l screenin g Completed 201808/24/2020 Encounte r for antenata l screenin g for nuchal transluc ency;Rec orded Elsewher e: No Locat ion: [facility] S ource: EHR Physical Fitness Teacher yulia: N Benedictoti ce ID: 0001 Olaf lable Time: 10:30:00 AM Tamra Malik jennings, [facility] 17:20:51 Pregnanc y, childbir th and puerperi um finding Completed 201908/24/2020 Encounte r for supervis ion of normal 1st pregnanc y;Record ed Elsewher e: No Locat ion: [facility] S ource: EHR Physical Fitness Teacher yulia: N Benedictoti ce ID: 0001 Olaf lable Time: 09:30:00 AM Tamra jennings, [facility] 17:21:03 Gestatio n period, 9 weeks 244610 Completed 201808/24/2020 9 weeks gestatio n of pregnanc y;Record ed Elsewher e: No Locat ion: [facility] S ource: EHR Physical Fitness Teacher yulia: N Benedictoti ce ID: 0001 Olaf lable Time: 11:00:00 AM Tamra jennings [facility] 17:20:57 Malforma tion of central nervous system of fetus [id number] 107 Completed 201908/24/2020 Maternal care for (suspect ed) cnsl malform in fetus, unsp;Rec orded Elsewher e: No Locat ion: [facility] S ource: EHR Physical Fitness Teacher yulia: Tom Roe ce ID: 0001 Olaf lable Time: 09:15:00 AM Tamra Gan [facility], [facility] 17:20:58 Pregnanc y detectio n examinat ion Completed 201808/24/2020 Encounte r for pregnanc y test, result positive ;Recorde d Elsewher e: No Locat ion: [facility] S ource: EHR Physical Fitness Teacher yulia: Tom Roe ce ID: 0001 Olaf lable Time: 11:00:00 AM Tamra Gan [facility], [facility] 17:21:01 Gestatio n period, 25 weeks 71893785 Completed 201908/24/2020 25 weeks gestatio n of pregnanc y;Record ed Elsewher e: No Locat ion: [facility] S ource: EHR Physical Fitness Teacher yulia: Tom Roe ce ID: 0001 Olaf lable Time: 09:15:00 AM Tamra Gan [facility], [facility] 17:20:55 Antenata l screenin g for malforma tion Completed 201808/24/2020 Encounte r for antenata l screenin g for malforma tions;Re corded Elsewher e: No Locat ion: [facility] S ource: EHR Physical Fitness Teacher yulia: Tom Roe ce ID: 0001 Olaf lable Time: 10:45:00 AM Tamra Gan [facility], [facility] 17:20:53 Bipolar disorder 42345057 Active 2018 lexapro and abilify ok per [facility] Ayana brambila [facility], [facility] 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 1 17:21:08 Pregnanc y, childbir th and puerperi um finding Completed 201908/24/2020 Encntr for suprvsn of normal first preg, third trimeste r;Record ed Elsewher e: No Locat ion: [facility] S ource: EHR Physical Fitness Teacher yulia: N Practi ce ID: 0001 Olaf lable Time: 09:35:53 AM Tamra jennings, [facility] 1 17:21:05 Pregnanc y 49858139 Completed 201905/27/2020 Lisa jennings, [facility] 4 17:32:23 Pregnanc y 02157332 Completed 202008/24/2020 Lisa jennings, [facility] 4 17:32:23 Corpus luteum cyst 792660394 Completed 2019 RIGHT Ayana jennings [facility] 1 12:38:16 Chlamydi al infectio n [id number] Completed 2020 + - tx'd sent on 07/21 . Neg TREY 08/25/20 Ayana jennings [facility] 1 12:38:16 Pregnanc y 10186261 Completed 202012/23/2020 Lisa jennings [facility] 4 17:32:23 Depressi ve disorder 64933618 Completed Restarte d Abilify & Lexapro 09/12/20. 11/01/20 RPT EPDS 4 Ayana brambila null, [facility] 1 12:38:16 Pregnanc y 05795537 Completed 202103/02/2022 Lisa Rahul [facility], [facility] 4 17:32:23 Bipolar disorder 78385505 Completed 2018 lexapro and abilify ok per [facility] Ayana brambila [facility], [facility] 2 14:23:05 Asthma 242468801 Completed Ayana brambila [facility], [facility] 2 14:23:05 Gastroes ophageal reflux disease 680165237 Completed Ayana brambila [facility], [facility] 2 14:23:05 RhD negative 328726397 Completed ok with Rhogam? Ayana brambila null, [facility] 2 14:23:05 Mixed anxiety and depressi ve disorder 206545540 Active 2023 Dalila Noyola null, [facility] 4 13:06:17 Pregnanc y 51064321 Active 2023 Lisa Rahul [facility], [facility] 4 17:32:23 Shoulder girdle dystocia 64109477 Active With injury to the baby, to perform Shanta Samayoa [facility], [facility] 4 17:53:31 section Active to do for previous shoulder dystocia with injury Rhett Rivers MD [address], [place], [address], [facility] 4 12:21:16 Blood group O Rh(D) negative 911824653 Active Rhogam received 04/18/24 [facility] 4 13:19:07 Problem Notes None recorded. Procedures Surgical History Date Name Laterality Status Provider Name and Address Organization Details Recorded Time 12/11/19 24 Date of Last Pap Smear completed [facility] 12/11/2023 13:10:59 07/15/19 06 tonsilectomy/ad enoids completed [facility] 09/22/2021 16:07:20 07/15/[address] [facility] 09/22/2021 16:07:11 07/15/19 02 myringotomy and insertion of tympanic ventilation tube completed [facility] 09/22/2021 16:07:37 Imaging Results None recorded. Procedure Notes None recorded. Medical Equipment None Reported. Allergies Allergen ID Allergen Name Allergen Category Reaction Reaction Severity Criticality Documentation Date Start Date Code Code System Note Provider Name and Address Organization Details Recorded Time 106 Substance with sulfonami de structure and antibacte rial mechanism of action (substanc e) medicatio n Not available Not available Not available 10/27/2019 43529 8003 SNOMED Dalilamitali Noyola [facility] 0 12:37:04 2772 Medicinal product containin g penicilli n and acting as antibacte rial agent (product) medicatio n Not available Not available Not available 06/01/2020 12859 05 SNOMED Celine Barney [facility] 0 12:54:54 2773 amoxicill in medicatio n Not available Not available Not available 06/01/2020 723 RxNorm Celine Barney [facility] 0 12:54:59 Medications Name Sig Start Date Stop Date Status Note LastModified by Organization Details LastModified Time cyclobenz aprine 10 mg tablet TAKE 1 TABLET 3 TIMES A DAY BY ORAL ROUTE. 03/26 completed Not Available Not Available Not Available triamcino lone acetonide 0.5 % topical cream apply by topical route 2 times every day a thin layer to the affected area(s) 06/01 completed Not Available Not Available Not Available hydrocodo ne 5 mg-acetam inophen 325 mg tablet 2023 active Not Available Not Available Not Avai lable ondansetr on HCl 4 mg tablet Take 1 tablet twice a day by oral route. 09/08 completed Not Available Not Available Not Available famotidin e 20 mg tablet TAKE 1 TABLET BY MOUTH EVERY DAY active Not Available Not Available No t Available lidocaine 5 % topical patch 03/26 completed Not Available Not Available Not Available omeprazol e 20 mg capsule,d elayed release TAKE 1 CAPSULE BY MOUTH EVERY DAY 12/10 completed Not Available Not Available Not Available ibuprofen 600 mg tablet 06/01 completed Not Available Not Available Not Available amoxicill in 875 mg-potass ium clavulana te 125 mg tablet take 1 tablet by oral route every 12 hours 10/26 completed Not Available Not Available Not Available Reglan 5 mg tablet take 1 tablet by oral route 4 times every day 30 minutes before meals and at bedtime 08/24 completed Prescrib ed Elsewher e: Yes Loca tion: [facility] M odify By: hansa zhao DateTime : 04/27/20 11:15:00 AM Not Available Not Available Not Available azithromy alba 500 mg tablet TAKE 2 TABLETS BY MOUTH FOR 1 DAY 08/24 completed Not Available Not Available Not Available medroxypr ogesteron e 150 mg/mL intramusc ular syringe INJECT 1 INTRAMUS CULARLY ONCE EVERY 3 MONTHS 12/10 completed Not Available Not Available Not Available escitalop castillo 10 mg tablet TAKE 1 TABLET BY MOUTH EVERY DAY 07/04 completed Not Available Not Available Not Available aripipraz ole 5 mg tablet TAKE 1 TABLET BY MOUTH EVERY DAY 07/04 completed Not Available Not Available Not Available Prilosec OTC 20 mg tablet,de layed release Take 1 tablet by oral route. 12/10 completed Not Available Not Available Not Available escitalop castillo 5 mg tablet TAKE 1 TABLET BY MOUTH EVERY DAY 12/10 completed Not Available Not Available Not Available nitrofura ntoin monohydra te/macroc rystals 100 mg capsule TAKE 1 CAPSULE BY MOUTH EVERY 12 HOURS 02/26 completed Not Available Not Available Not Available active Not Available Not Avai lable Not Available Abilify 09/08 completed Not Available Not Available Not Available aripipraz ole 2 mg tablet TAKE 1 TABLET BY MOUTH EVERY DAY 12/10 completed Not Available Not Available Not Available Triveen-D uo DHA 29 mg-1 mg-400 mg oral pack TAKE 1 TABLET BY MOUTH DAILY 08/24 completed Not Available Not Available Not Available Vitamins Plus Low Iron 27 mg iron-1 mg tablet TAKE 1 TABLET BY MOUTH EVERY DAY 07/04 completed Not Available Not Available Not Available Vitals Date Recorded Body height Body mass index (BMI) Body weight Systolic blood pressure Diastolic blood pressure Provider Name and Address Organization Details Last Updated DateTime 07/01/2024 170.82 cm 32.8 kg/m2 94882.99 g 107 mm[Hg] 71 mm[Hg] Anu Thompson [facility] 4 10:50:37 Social History Question Answer Notes LastModified by Organizat ion Details LastModified Time Tobacco Smoking Status Former Smoker Dalila jennings, [facility] 10/27/2019 12:41:22 What Is Your Level Of Alcohol Consumption? None [email or web address] Information not available 12/14/2021 If You Are , What Was Your Level Of Alcohol Consumption Prior To ? Occasional [email or web address] Information not available 06/27/2020 Are You Blind Or Do You Have Difficulty Seeing? No [email or web address] Information not available 11/16/2021 What Is Your Level Of Caffeine Consumption? Occasional [email or web address] Information not available 11/16/2021 In The 14 Days Before Symptom Onset, Have You Had Close Contact With A Laboratory-confir med COVID-19 While That Case Was Ill? No [email or web address] Information not available 11/16/2021 In The 14 Days Before Symptom Onset, Have You Had Close Contact With A Person Who Is Under Investigation For COVID-19 While That Person Was Ill? No [email or web address] Information not available 11/16/2021 Have You Been To An Area Known To Be High Risk For COVID-19? No [email or web address] Information not available 11/16/2021 Are You Deaf Or Do You Have Serious Difficulty Hearing? No [email or web address] Information not available 11/16/2021 What Type Of Diet Are You Following? REGULAR [email or web address] Information not available 11/16/2021 Which Illicit Or Recreational Drugs Have You Used? [place] [email or web address] Information not available 10/27/2019 Do You Use Your Seat Belt Or Car Seat Routinely? Yes [email or web address] Information not available 11/16/2021 Do You Have Smoke And Carbon Monoxide Detectors In Your Home? Yes [email or web address] Information not available 11/16/2021 Do You Feel Stressed (tense, Restless, Nervous, Or Anxious, Or Unable To Sleep At Night)? [id number] [email or web address] Information not available 11/16/2021 Do You Use Sunscreen Routinely? Yes [email or web address] Information not available 11/16/2021 Has Tobacco Cessation Counseling Been Provided? No [email or web address] Information not available 11/16/2021 Do You Or Have You Ever Used Any Other Forms Of Tobacco Or Nicotine? No Information not available 11/16/2021 Sex: Unknown Functional Status Question Answer Note LastModified by Organizat ion Details LastModified Time Do you have difficulty walking or climbing stairs? No [email or web address] Information not available 11/16/2021 Are you able to walk? YESWOREST [email or web address] Information not available 11/16/2021 Are you able to care for yourself? Yes [email or web address] Information not available 11/16/2021 Do you have difficulty dressing or bathing? No [email or web address] Information not available 11/16/2021 What is your exercise level? Occasional [email or web address] Information not available 10/27/2019 Mental Status None recorded. Family History Relationship Description Onset Age of this Age Resolved Age Notes LastModified by Organization Details LastModified Time Mother Malignant tumor of cervix [email or web address] Not available 2020 10:18:56 Mother Malignant tumor of ovary [email or web address] Not available 2020 10:18:56 Maternal Grandmother Malignant tumor of colon [email or web address] Not available 2020 10:18:56 Medical History Condition Response Allergies (Food, seasonal, environmental ) N Other Y Breast Cancer N Drug/Latex Allergies/Reactions Y Blood Transfusion N Dermatologic Disorders N Lung Disease N Defects or Inherited Disease N Breast Problem N Gestational Diabetes N Hematologic disorders N Anesthesia Complications N History of STI N Deep Vein Thrombosis N Polycystic ovary syndrome N Anxiety Disorder Y Autoimmune disease N Arthritis N Infertility N Polyps N Acid Reflux (GERD) N History of abnormal pap N Cancer N Stroke N Varicosities N Neurologic/Epilepsy Y Endometriosis N High Cholesterol N Headaches N Fibromyalgia N Kidney Disease N Heart Problems N Kidney or Bladder Problems N Thyroid Problems N GI Problems N Eating Disorder N Anemia N Art (IVF or FET) N Psychiatric Illness Y Ovarian Cancer N Diabetes N Pulmonary (TB, Asthma) N Hepatitis/Liver Disease N No Past Medical History N Eczema N Urinary Tract Infection N Abuse/Domestic Violence N Asthma Y Trauma/Violence N Depression/ depression Y Heart Disease N Pre-Eclampsia N Hypertension N Osteoporosis N Thrombophilias N Gynecological History Statement/Question Response Abnormal Pap N Flow Moderate Date of LMP On BCP's at Conception? N Was last menstrual period normal Y STIs/STDs N HPV Vaccine N Current Control Method Are cycles usually normal Y Sexually Active? Y Menses Monthly Y Date of Last Pap Smear 12/11/2023 Sexual Problems? N Desired Control Method None LMP Unknown Obstetrics History GPAL:G 4 P 3 0 0 3 Type Value Full Term 3 Living 3 Total 4 Past Encounters Encounter ID Performer Location Encounter Start Date Encounter Closed Date Diagnosis/Indication Diagnosis SNOMED-CT Code Diagnosis ICD10 Code [id number] MD Yudith OSCAR [address] [address] 06/02/2024 10:41:46 06/02/2024 11:29:38 Bipolar disorder 65702786 F31.9 Deliveries by [id number] O82 Shoulder g irdle dystocia 61193395 O66.0 Gestation period, 34 weeks 84460896 Z3A.34 [id number] LINDSEY ESTRADA MD [facility] [address],[place] [address] 06/17/2024 10:19:34 06/18/2024 11:31:11 Shoulder girdle dystocia 48321988 O66.0 Gestation period, 36 weeks 17912075 Z3A.36 [id number] LINDSEY ESTRADA MD [facility] [address],[place] [address] 06/23/2024 10:52:40 06/23/2024 11:27:25 Shoulder girdle dystocia 45163339 O66.0 Gestation period, 37 weeks 93283312 Z3A.37 [id number] LINDSEY ESTRADA MD [facility] [address],[place] [address] 07/01/2024 10:45:04 07/01/2024 11:10:41 Shoulder girdle dystocia 92418244 O66.0 Bipolar disorder 6201501 4 F31.9 Gestation period, 38 weeks 64163506 Z3A.38 Health Concerns Section Related Observation LastModified by Organization Detai ls LastModified Time None Recorded Concern Status LastModified by Organization Details LastModified Time None Recorded Payers Encounter Date Sequence Insurance Name Policy Number Policy Kwok Covered Member ID Kwok Member ID Guarantor Name 07/01/2024 1 [facility] (MEDICAID HMO) [id number] Lashanda James [id number] Lashanda James OBGyn Episode Ob Episode Information Episode Created Date Number of Fetuses Patient Bloodtype Patient rh Status Prepregnancy Weight lbs Domestic Partner Domestic Partner Phone Father Name Historical Interpreter Status 01/02/20 24 1 O Negative 164 OPEN Fetus Data First Name Last Name Admitted to NICU Weight (g) Sex Living Outcome Pediatric Complications Fetus ID Race Codes Race Delivery Type [id number] Problems Problem Notes Problem Name Start Date End Date Resolution Snomed Code Not e Blood group O Rh(D) negative 354415940 Rhogam received 04/18/24 Shoulder girdle dystocia 73728398 With injury to the baby, to perform section 57331552 to do for previous shoulder dystocia with injury Balaji Calculation BALAJI Calculation Method Initial Balaji Date Initial Exam Date Initial Exam Provider Initial Ultrasound Date Last Menstrual Period Date Ultra Sound Weeks Gestation Conception by IVF Embryo Age at Transfer Date of Transfer 07/12/20 24 01/02/20 24 11/23/2023 6 Eighteen To Twenty Week Balaji Update Ultra Sound Date Fundal Height At Umbil Quickening Date Ultra Sound Latest Weeks Gestation Final Balaji Confirmed By Final Balaji Confirmed Date Final Balaji Date Ultra Sound Latest Days Gestation 0 07/12/20 24 0 Pre-zoë Flowsheet Flowsheet Date 01/02/2024 Springer Score Blood Edema Fundus Height Fundus Units Glucose Ketones Leukocytes Nitrite Labor Signs Protein Cervic Dilation Cervic Effacement Cervic Station neg none 12 Type Weight in lbs Pre/Post Dialysis Refused Weight 164.10183152697 BP Diastolic BP Location Tested BP Systolic BP Type 75 L arm 114 sitting Fetus Heart Rate Present A 145 Fetus Movement A No Comments this patient is a 23-year-ol d multiparous female at 12 weeks' gestation who presents for initial care. She has a history of term vaginal births. Her medical, surgical, obstetric history is unremarkable. She is vaccinated. She was given precautions recommendations for . We talked about vaccines in . Talked about care in detail. She is having genetic testing. She had a normal 12 week ultrasound. To begin routine care. history of shoulder dystocia with injury to the infant. Clavicle fracture. Oddly she had a 9 lb with no complications. This shoulder dystocia was an 8 lb plus baby Flowsheet Date 02/10/2024 Springer Score Blood Edema Fundus Height Fundus Units Glucose Ketones Leukocytes Nitrite Labor Signs Protein Cervic Dilation Cervic Effacement Cervic Station Type Weight in lbs Pre/Post Dialysis Refused 179.610313132238 BP Diastolic BP Location Tested BP Systolic BP Type 68 L arm 115 sitting Fetus Heart Rate Present A 145 Fetus Movement A No Comments 23-year-old female reports s evere back pain. She was in the emergency department for back pain. She has very strongly positive urine for urinary tract infection. We sent out antibiotics for treatment of urinary tract infection. She was given precautions and instructions on low back pain. We talked about 10s unit. We talked about muscle relaxers. She was prescribed muscle relaxers on these medications. The risks, benefits, and alternatives were explained to the patient. She was given precautions and instructions. The medication for prescribed. Flowsheet Date 02/27/2024 Springer Score Blood Edema Fundus Height Fundus Units Glucose Ketones Leukocytes Nitrite Labor Signs Protein Cervic Dilation Cervic Effacement Cervic Station Type Weight in lbs Pre/Post Dialysis Refused BP Diastolic BP Location Tested BP Systolic BP Type Fetus Heart Rate Present Fetus Movement Comments Flowsheet Date 02/27/2024 Springer Score Blood Edema Fundus Height Fundus Units Glucose Ketones Leukocytes Nitrite Labor Signs Protein Cervic Dilation Cervic Effacement Cervic Station Type Weight in lbs Pre/Post Dialysis Refused 182.688060241523 BP Diastolic BP Location Tested BP Systolic BP Type 57 L arm 122 sitting Fetus Heart Rate Present A 145 Fetus Movement A Yes Comments no complaints, no problems, routine care, no contractions, no vaginal bleeding, no loss of fluid, no cramping, incomplete ultrasound, to repeat in 4 weeks. Flowsheet Date 03/26/2024 Springer Score Blood Edema Fundus Height Fundus Units Glucose Ketones Leukocytes Nitrite Labor Signs Protein Cervic Dilation Cervic Effacement Cervic Station Type Weight in lbs Pre/Post Dialysis Refused BP Diastolic BP Location Tested BP Systolic BP Type Fetus Heart Rate Present Fetus Movement Comments Flowsheet Date 03/26/2024 Springer Score Blood Edema Fundus Height Fundus Units Glucose Ketones Leukocytes Nitrite Labor Signs Protein Cervic Dilation Cervic Effacement Cervic Station Type Weight in lbs Pre/Post Dialysis Refused 188.077763079708 BP Diastolic BP Location Tested BP Systolic BP Type 59 L arm 100 sitting Fetus Heart Rate Present A 144 Fetus Movement A Yes Comments no complaints, no problems, routine care, no contractions, no vaginal bleeding, no loss of fluid, no cramping Flowsheet Date 04/23/2024 Springer Score Blood Edema Fundus Height Fundus Units Glucose Ketones Leukocytes Nitrite Labor Signs Protein Cervic Dilation Cervic Effacement Cervic Station Type Weight in lbs Pre/Post Dialysis Refused BP Diastolic BP Location Tested BP Systolic BP Type Fetus Heart Rate Present Fetus Movement Comments Flowsheet Date 04/23/2024 Springer Score Blood Edema Fundus Height Fundus Units Glucose Ketones Leukocytes Nitrite Labor Signs Protein Cervic Dilation Cervic Effacement Cervic Station 28 cm Type Weight in lbs Pre/Post Dialysis Refused 195.464816284819 BP Diastolic BP Location Tested BP Systolic BP Type 72 L arm 113 sitting Fetus Heart Rate Present A 132 Fetus Movement A Yes Comments no complaints, no problems, routine care, no contractions, no vaginal bleeding, no loss of fluid, no cramping Flowsheet Date 05/18/2024 Springer Score Blood Edema Fundus Height Fundus Units Glucose Ketones Leukocytes Nitrite Labor Signs Protein Cervic Dilation Cervic Effacement Cervic Station Type Weight in lbs Pre/Post Dialysis Refused BP Diastolic BP Location Tested BP Systolic BP Type Fetus Heart Rate Present Fetus Movement Comments Flowsheet Date 06/02/2024 Springer Score Blood Edema Fundus Height Fundus Units Glucose Ketones Leukocytes Nitrite Labor Signs Protein Cervic Dilation Cervic Effacement Cervic Station neg none none trace Type Weight in lbs Pre/Post Dialysis Refused Weight 203.152547862994 BP Diastolic BP Location Tested BP Systolic BP Type 64 L arm 115 sitting Fetus Heart Rate Present A 150 Fetus Movement A Yes Comments Good movement. No cram ping or bleeding. Planning PCS for hx of shoulder dystocia, discussed 07/06 or 07/09 in 39th week. Discussed RSV and Tdap vaccines. Passed GCT and labs at 28 weeks, received Rhogam. RTC 2 weeks. Flowsheet Date 06/17/2024 Springer Score Blood Edema Fundus Height Fundus Units Glucose Ketones Leukocytes Nitrite Labor Signs Protein Cervic Dilation Cervic Effacement Cervic Station neg none Type Weight in lbs Pre/Post Dialysis Refused Weight 207.092598363410 BP Diastolic BP Location Tested BP Systolic BP Type 64 L arm 98 sitting Fetus Heart Rate Present A 145 Fetus Movement A Yes Comments Patient c/o of lower pressur e and cramping. Good movement. No bleeding, LOF, or ctx. Would like PCS on 07/06. GBS collected today. RTC 1 week. Flowsheet Date 06/23/2024 Springer Score Blood Edema Fundus Height Fundus Units Glucose Ketones Leukocytes Nitrite Labor Signs Protein Cervic Dilation Cervic Effacement Cervic Station neg none Type Weight in lbs Pre/Post Dialysis Refused Weight 209.937892167644 BP Diastolic BP Location Tested BP Systolic BP Type 63 L arm 103 sitting Fetus Heart Rate Present A 155 Fetus Movement A Yes Comments Good movement. No cram ping or bleeding. PCS scheduled. GBS negative. Labor precautions reviewed. RTC 1 week. Flowsheet Date 07/01/2024 Springer Score Blood Edema Fundus Height Fundus Units Glucose Ketones Leukocytes Nitrite Labor Signs Protein Cervic Dilation Cervic Effacement Cervic Station neg none Type Weight in lbs Pre/Post Dialysis Refused Weight 211.246523591543 BP Diastolic BP Location Tested BP Systolic BP Type 71 L arm 107 sitting Fetus Heart Rate Present A 140 Fetus Movement A Yes Comments Patient c/o of slight cramps . Good movement. No bleeding or LOF. PCS Saturday. Labor precautions reviewed. Menstrual History Last Menstrual Date Menses Monthly On Bcp Conception Prior Menses Frequency Hcg Plus Date Menarche Onset Age Genetic Screening And Infection History Question Response Note Mental Retardation/Autism false Patient's Age Will Be 35 Years Or Older At Estim ated Date of Delivery false Thalassemia ([place] Citizen, Upper Sorbian, Mediterranean, Or Background): MCV < 80 false Neural Tube Defect (Meningomyelocele, Spina Bifi da, Or Anencephaly) false Congenital Heart Defect false Down Syndrome false Dane-Sachs (eg, Mandaen, Cajun, Azeri-Pierce) f alse Juancarlos Disease false Sickle Cell Disease Or Trait () false Hemophilia Or Other Blood Disorders false Muscular Dystrophy false Cystic Fibrosis false Eulalia's Chorea false Intellectual Disability/Autism false If Yes, Was Person Tested For Fragile X? false Other Inherited Genetic Or Chromosomal Disorder false Maternal Metabolic Disorder (eg, Type 1 Diabetes , PKU) false Patient Or Baby's Father Had A Child With Defects Not Listed Above false Recurrent Loss, Or A Stillbirth false Medications (including Suppl ements, Vitamins, Herbs, OTC Drugs), Illicit/Recreational Drugs, Alcohol false If Yes, Agent(s) And Strength/Dosage false Any Other Genetic History false Live With Someone With TB Or Exposed To TB false Patient Or Partner Has History Of Genital Herpes false Rash Or Viral Illness Since Last Menstrual Perio d false History Of STD, Gonorrhea, Chlamydia, HPV, Syphi lis false Other Infection History false History of HIV false History of Hepatitis false Prior GBS-infected child false Hemoglobinopathy Or Carrier false Other Structural Defect false Recent Travel History Outside of Country false Delivery Information Delivery Date Delivery Type Labor Anesthesia Weeks Gestation Incision Type Labor Labor Length Hrs Delivered By Post Complications Tubal Sterilization Discharge Date Comments Discharge Information Feeding Method Contraceptive Method Maternal HG B and HCT Levels
--- OUTSIDE RECORDS SUMMARY | 2024-07-11 19:31 | XMS_ITS | Continuity of Care Document ---
Author Organization [facility] [place] Address [address] [place] [address] Assessment No assessment recorded. Plan of Treatment [...] lucen cy No observ ation record ed. [facility] [address], [place], [address], 01/02/2024 17:39:14 01/02/20 24 01/02/2024 US, obste tric, nucha l trans lucen cy No observ ation record ed. [email or web address] [address], [place], [address], 01/02/2024 19:40:21 02/27/20 24 02/27/2024 US, obste tric, 2nd or 3rd trime ster No observ ation record ed. [facility] [address], [place], [address], 02/27/2024 18:06:05 02/27/20 24 02/27/2024 US, obste tric, follo w-up No observ ation record ed. [address], [place], [address], 02/28/2024 13:07:39 03/26/20 24 03/26/2024 US, obste tric, follo w-up No observ ation record ed. [email or web address] [place] [address], [place], [address], 03/26/2024 13:46:07 03/26/20 24 03/26/2024 US, obste tric, follo w-up No observ ation record ed. JOHNNIE [address], [place], [address], 04/03/2024 14:52:29 04/23/20 24 04/23/2024 US, obste tric, follo w-up No observ ation record ed. [email or web address] [place] [address], [place], [address], 04/23/2024 12:39:24 04/23/20 24 04/23/2024 US, obste tric, follo w-up No observ ation record ed. JOHNNIE [address], [place], [address], 04/24/2024 11:29:28 05/18/20 24 05/18/2024 US, obste tric, follo w-up No observ ation record ed. [email or web address] [place] [address], [place], [address], 05/18/2024 10:41:38 05/18/20 24 05/18/2024 US, obste tric, follo w-up No observ ation record ed. [email or web address] [address], [place], [address], 05/18/2024 13:10:19 Result Notes None recorded. Problems Name Problem SNOMED Code Status Onset Date Resolution Date Notes Provider Name and Address Organization Details Recorded Time Normal pregnanc y in multigra bautista [id number] 21966 Completed 201908/24/2020 Encounte r for suprvsn of normal pregnanc y, third trimeste r;Record ed Elsewher e: No Locat ion: [facility] S ource: EHR Candy Cutter Hand yulia: N Benedictoti ce ID: 0001 Olaf lable Time: 10:45:00 AM Tamra jennings, [facility] 17:20:59 Antenata l screenin g Completed 201808/24/2020 Encounte r for antenata l screenin g for nuchal transluc ency;Rec orded Elsewher e: No Locat ion: [facility] S ource: E[facility] Candy Cutter Hand yulia: N Benedictoti ce ID: 0001 Olaf lable Time: 10:30:00 AM Tamra Malik jennings, [facility] 17:20:51 Pregnanc y, childbir th and puerperi um finding Completed 201908/24/2020 Encounte r for supervis ion of normal 1st pregnanc y;Record ed Elsewher e: No Locat ion: [facility] S ource: E[facility] Candy Cutter Hand yulia: N Benedictoti ce ID: 0001 Olaf lable Time: 09:30:00 AM Tamra jennings, [facility] 17:21:03 Gestatio n period, 9 weeks 404881 Completed 201808/24/2020 9 weeks gestatio n of pregnanc y;Record ed Elsewher e: No Locat ion: [facility] S ource: EHR Candy Cutter Hand yulia: N Benedictoti ce ID: 0001 Olaf lable Time: 11:00:00 AM Tamra jennings [facility] 17:20:57 Malforma tion of central nervous system of fetus 2444495043 107 Completed 201908/24/2020 Maternal care for (suspect ed) cnsl malform in fetus, unsp;Rec orded Elsewher e: No Locat ion: [facility] S ource: EHR Candy Cutter Hand yulia: Tom Roe ce ID: 0001 Olaf lable Time: 09:15:00 AM Tamra Gan [facility], [facility] 17:20:58 Pregnanc y detectio n examinat ion Completed 201808/24/2020 Encounte r for pregnanc y test, result positive ;Recorde d Elsewher e: No Locat ion: [facility] S ource: EHR Candy Cutter Hand yulia: Tom Roe ce ID: 0001 Olaf lable Time: 11:00:00 AM Tamra Gan [facility], [facility] 17:21:01 Gestatio n period, 25 weeks 07731847 Completed 201908/24/2020 25 weeks gestatio n of pregnanc y;Record ed Elsewher e: No Locat ion: [facility] S ource: E[facility] Candy Cutter Hand yulia: Tom Roe ce ID: 0001 Olaf lable Time: 09:15:00 AM Tamra Gan [facility], [facility] 17:20:55 Antenata l screenin g for malforma tion Completed 201808/24/2020 Encounte r for antenata l screenin g for malforma tions;Re corded Elsewher e: No Locat ion: [facility] S ource: EHR Candy Cutter Hand yulia: Tom Roe ce ID: 0001 Olaf lable Time: 10:45:00 AM Tamra Gan [facility], [facility] 17:20:53 Bipolar disorder 99885149 Active 2018 lexapro and abilify ok per [facility] Ayana brambila [facility], [facility] [address] 14:23:[address] Concept Completed 201808/24/2020 Encntr for hot braider exam (general ) (routine ) w/o abn findings ;Recorde d Elsewher e: No [facility]at [facility] EHR Candy Cutter Hand yulia: N Practi ce ID: 0001 Olaf lable Time: 03:00:00 PM Tamra jennings, [facility] 1 17:21:08 Pregnanc y, childbir th and puerperi um finding Completed 201908/24/2020 Encntr for suprvsn of normal first preg, third trimeste r;Record ed Elsewher e: No Locat ion: [facility] S ource: EHR Candy Cutter Hand yulia: N Practi ce ID: 0001 Olaf lable Time: 09:35:53 AM Tamra jennings, [facility] 1 17:21:05 Pregnanc y 18791556 Completed 201905/27/2020 Lisa jennings, [facility] 4 17:32:23 Pregnanc y 26048727 Completed 202008/24/2020 Lisa jennings, [facility] 4 17:32:23 Corpus luteum cyst 078193240 Completed 2019 RIGHT Ayana jennings [facility] 1 12:38:16 Chlamydi al infectio n [id number] Completed 2020 + - tx'd sent on 07/21 . Neg TREY 08/25/20 Ayana jennings [facility] 1 12:38:16 Pregnanc y 92323248 Completed 202012/23/2020 Lisa jennings [facility] 4 17:32:23 Depressi ve disorder 88199766 Completed Restarte d Abilify & Lexapro 09/12/20. 11/01/20 RPT EPDS 4 Ayana brambila null, [facility] 1 12:38:16 Pregnanc y 66293961 Completed 202103/02/2022 Lisa Rahul [facility], [facility] 4 17:32:23 Bipolar disorder 32786596 Completed 2018 lexapro and abilify ok per [facility] Ayana brambila [facility], [facility] 2 14:23:05 Asthma 404381421 Completed Ayana brambila [facility], [facility] 2 14:23:05 Gastroes ophageal reflux disease 496505096 Completed Ayana brambila [facility], [facility] 2 14:23:05 RhD negative 172199307 Completed ok with Rhogam? Ayana brambila null, [facility] 2 14:23:05 Mixed anxiety and depressi ve disorder 364911927 Active 2023 Dalila Noyola null, [facility] 4 13:06:17 Pregnanc y 28926160 Active 2023 Lisa Rahul [facility], [facility] 4 17:32:23 Shoulder girdle dystocia 70730677 Active With injury to the baby, to perform Shanta Samayoa [facility], [facility] 4 17:53:31 section Active to do for previous shoulder dystocia with injury Rhett Rivers MD [address], [place], [address], [facility] 4 12:21:16 Blood group O Rh(D) negative 062683551 Active Rhogam received 04/18/24 Sanaz Infante [facility] 4 13:19:07 Problem Notes None recorded. Procedures Surgical History Date Name Laterality Status Provider Name and Address Organization Details Recorded Time 12/11/19 24 Date of Last Pap Smear completed [facility] 12/11/2023 13:10:59 07/15/19 06 tonsilectomy/ad enoids completed [facility] 09/22/2021 16:07:20 07/15/19 05 adenoid excision completed [facility] 09/22/2021 16:07:11 07/15/19 02 myringotomy and insertion of tympanic ventilation tube completed [facility] 09/22/2021 16:07:37 Imaging Results None recorded. [...] Not available Not available Not available 10/27/2019 65003 8003 SNOMED Dalilamitali Noyola [facility] 0 12:37:04 2772 Medicinal product containin g penicilli n and acting as antibacte rial agent (product) medicatio n Not available Not available Not available 06/01/2020 73787 05 SNOMED Celine Barney [facility] 0 12:54:54 2773 amoxicill in medicatio n Not available Not available Not available 06/01/2020 723 RxNorm Celine Barney [facility] 0 12:54:59 Medications Name Sig Start [...] Prescrib ed Elsewher e: Yes Loca tion: [facility] M odify By: hansa zhao DateTime [...] and Address Organization Details Last Updated DateTime 06/23/2024 170.82 cm 32.5 kg/m2 45416.81 g 103 mm[Hg] 63 mm[Hg] Anu Thompson [facility] 4 11:01:08 Social History Question Answer Notes LastModified by Organizat ion Details LastModified Time Tobacco Smoking Status Former Smoker Dalila jennings, [facility] 10/27/2019 12:41:22 What Is Your Level Of Alcohol Consumption? None [email or web address] Information not available 12/14/2021 If You Are , What Was Your Level Of Alcohol Consumption Prior To ? Occasional [email or web address] Information not available 06/27/2020 Are You Blind Or Do You Have Difficulty Seeing? No Information not available 11/16/2021 What Is Your Level Of Caffeine Consumption? Occasional [email or web address] Information not available 11/16/2021 In The 14 Days Before Symptom Onset, Have You Had Close Contact With A Laboratory-confir med COVID-19 While That Case Was Ill? No [email or web address] Information not available 11/16/2021 In The 14 Days Before Symptom Onset, Have You Had Close Contact With A Person Who Is Under Investigation For COVID-19 While That Person Was Ill? No [email or web address] Information not available 11/16/2021 Have You Been To An Area Known To Be High Risk For COVID-19? No [email or web address] Information not available 11/16/2021 Are You Deaf Or Do You Have Serious Difficulty Hearing? No [email or web address] Information not available 11/16/2021 What Type Of Diet Are You Following? REGULAR [email or web address] Information not available 11/16/2021 Which Illicit Or Recreational Drugs Have You Used? [place] [email or web address] Information not available 10/27/2019 Do You Use Your Seat Belt Or Car Seat Routinely? Yes [email or web address] Information not available 11/16/2021 Do You Have Smoke And Carbon Monoxide Detectors In Your Home? Yes [email or web address] Information not available 11/16/2021 Do You Feel Stressed (tense, Restless, Nervous, Or Anxious, Or Unable To Sleep At Night)? [id number] [email or web address] Information not available 11/16/2021 Do You Use Sunscreen Routinely? Yes [email or web address] Information not available 11/16/2021 Has Tobacco Cessation Counseling Been Provided? No [email or web address] Information not available 11/16/2021 Do You Or Have You Ever Used Any Other Forms Of Tobacco Or Nicotine? No [email or web address] Information not available 11/16/2021 Sex: Unknown Functional Status Question Answer Note LastModified by Organizat ion Details LastModified Time Do you have difficulty walking or climbing stairs? No [email or web address] Information not available 11/16/2021 Are you able to walk? YESWOREST [email or web address] Information not available 11/16/2021 Are you able to care for yourself? Yes [email or web address] Information not available 11/16/2021 Do you have difficulty dressing or bathing? No [email or web address] Information not available 11/16/2021 What is your exercise level? Occasional [email or web address] Information not available 10/27/2019 Mental Status None [...] (Food, seasonal, environmental ) N Other Y Blood Transfusion N Drug/Latex Allergies/Reactions Y Breast Cancer N Dermatologic Disorders N Lung Disease N [...] Diagnosis/Indication Diagnosis SNOMED-CT Code Diagnosis ICD10 Code [id number] LINDSEY ESTRADA MD [place] [address] [address] 06/02/2024 10:41:46 06/02/2024 11:29:38 Bipolar disorder 66126452 F31.9 Deliveries by [id number] O82 Shoulder g irdle dystocia 51500227 O66.0 Gestation period, 34 weeks 06963625 Z3A.34 [id number] LINDSEY ESTRADA MD [place] [address] [address] 06/17/2024 10:19:34 06/18/2024 11:31:11 Shoulder girdle dystocia 86775341 O66.0 Gestation period, 36 weeks 52132799 Z3A.36 [id number] LINDSEY ESTRADA MD [place] [address] [address] 06/23/2024 10:52:40 06/23/2024 11:27:25 Shoulder girdle dystocia 94333263 O66.0 Gestation period, 37 weeks 79489053 Z3A.37 Health Concerns Section Related Observation LastModified by Organization Detai ls LastModified Time None Recorded Concern Status LastModified by Organization Details LastModified Time None Recorded Payers Encounter Date Sequence Insurance Name Policy Number Policy Kwok Covered Member ID Kwok Member ID Guarantor Name 06/23/2024 1 [facility] (MEDICAID HMO) [id number] Lashanda James [id number] Lashanda James OBGyn Episode Ob Episode Information Episode Created Date Number of Fetuses Patient Bloodtype Patient rh Status Prepregnancy Weight lbs Domestic Partner Domestic Partner Phone Father Name Operator Engineer Status 01/02/20 24 1 O Negative 164 OPEN Fetus Data First Name Last Name Admitted to NICU Weight (g) Sex Living Outcome Pediatric Complications Fetus ID Race Codes Race Delivery Type [id number] Problems Problem Notes Problem Name Start Date End Date Resolution Snomed Code Not e Blood group O Rh(D) negative 733153336 Rhogam received 04/18/24 Shoulder girdle dystocia 74502555 With injury to the baby, to perform section 88892225 to do for previous shoulder dystocia with [...] Weight in lbs Pre/Post Dialysis Refused Weight 164.82827102560 BP Diastolic BP Location Tested BP Systolic [...] Type Weight in lbs Pre/Post Dialysis Refused 179.401496161316 BP Diastolic BP Location Tested BP Systolic [...] Type Weight in lbs Pre/Post Dialysis Refused 182.844089209775 BP Diastolic BP Location Tested BP Systolic [...] Type Weight in lbs Pre/Post Dialysis Refused 188.898710545273 BP Diastolic BP Location Tested BP Systolic [...] Type Weight in lbs Pre/Post Dialysis Refused 195.954740270259 BP Diastolic BP Location Tested BP Systolic [...] Weight in lbs Pre/Post Dialysis Refused Weight 203.284526511200 BP Diastolic BP Location Tested BP Systolic [...] Weight in lbs Pre/Post Dialysis Refused Weight 207.911142093416 BP Diastolic BP Location Tested BP Systolic [...] Weight in lbs Pre/Post Dialysis Refused Weight 209.665211242638 BP Diastolic BP Location Tested BP Systolic [...] Weight in lbs Pre/Post Dialysis Refused Weight 211.696644835533 BP Diastolic BP Location Tested BP Systolic BP Type 71 L arm 107 sitting Fetus Heart Rate Present A 140 Fetus Movement A Yes Comments Patient c/o of slight cramps . Good movement. No bleeding or LOF. PCS Mike. Labor precautions reviewed. Menstrual History Last Menstrual Date Menses Monthly On Bcp Conception Prior Menses Frequency Hcg Plus Date Menarche Onset Age Genetic Screening And Infection History Question Response Note Mental Retardation/Autism false Patient's Age Will Be 35 Years Or Older At Estim ated Date of Delivery false Thalassemia (Bangladeshi, Armenian, Mediterranean, Or Background): MCV < 80 false Neural Tube Defect (Meningomyelocele, Spina Bifi da, Or Anencephaly) false Congenital Heart Defect false Down Syndrome false Dane-Sachs (eg, Buddhist, Cajun, Burundian-[place]) f alse Juancarlos Disease false Sickle Cell Disease Or Trait () false Hemophilia Or Other Blood Disorders false Muscular Dystrophy false Cystic Fibrosis false [place]'s Chorea false Intellectual Disability/Autism false If Yes, [...]
--- OUTSIDE RECORDS SUMMARY | 2024-07-11 19:31 | XMS_ITS | Data Portability ---
Author Organization [facility] Address [address] [place] [address] [place] [address] Assessment Encounter Date Assessment Date Assessment LastModified by Organization Details LastModified Time 06/17/2024 06/17/2024 Patient is ___weeks . Discussed plan. [email or web address] Not available 06/17/2024 10:26:07 Plan of Treatment Reminders Order Date Submit Date Provider Last Modified By Organization Details Last Modified Time Details Appointments SURG POST OP 2024 11:45A Reji ESTRADA MD Not available Not available Not available Lab None recorded. Referral None recorded. Procedures None recorded. Surgeries section (SURG) 2023 024 [facility] [place] [facility], [facility] [address], [place], [address], 06/18/2024 09:48:49 Imaging US, obstetric , follow-up 2023 024 [email or web address] [place], [facility] [address], [place], [address], 05/18/2024 17:52:16 Medication Orders None recorded. Patient TargetsNo targets recorded. Patient InstructionsNo instructions recorded. Reason for Referral None Reported. Results Created Date Observation Date Name Description Value Unit Range Abnormal Flag Note LastModifiedBy Organization Detail LastModifiedTime 06/17/20 24 06/17/2024 CULTU RE: GROUP B STREP SCREE N, REFLE X SUSCE PTIBI LITY result report SEE RESULT S BELOW Test: Cultu re: Group B Strep , Refle x Susce ptibi lity ([facility]/ [facility]/K H/[facility] ) Speci men Sourc e: Vagin a/Rec edwin Speci men Type: Vagin al/Re ctal Speci men Date: 2023 1019 Resul t Date: 2023 1410 Resul t Statu s: Final resul t Abnor mal: No Resul ting Lab: [facility] [address] [facility] [address] Tel: CULTU RE ----- ----- ----- --- No Group B strep isola danelle at 2 days (anjali ctive broth enhan cemen t) Not Available [facility] (Lab) [address], [place], [address], 06/20/2024 15:13:33 04/23/20 24 04/23/2024 US, obste tric, follo w-up No observ ation record ed. [email or web address] [place] [address], [place], [address], 04/23/2024 12:39:24 04/23/20 24 04/23/2024 US, obste tric, follo w-up No observ ation record ed. JOHNNIE Kate [address], [place], [address], 04/24/2024 11:29:28 05/18/20 24 05/18/2024 US, obste tric, follo w-up No observ ation record ed. [email or web address] [place] [address], [place], [address], 05/18/2024 10:41:38 05/18/20 24 05/18/2024 US, obste tric, follo w-up No observ ation record ed. [email or web address] [address], [place], [address], 05/18/2024 13:10:19 Result Notes None recorded. Problems Name Problem SNOMED Code Status Onset Date Resolution Date Notes Provider Name and Address Organization Details Recorded Time Normal pregnanc y in nikolaygra bautista [id number] 73672 Completed 201908/24/2020 Encounte r for suprvsn of normal pregnanc y, third trimeste r;Record ed Elsewher e: No [facility] EHR Wire Winding Machine Tender yulia: N Benedictoti ce ID: 0001 Olaf lable Time: 10:45:00 AM Tamra Malik jennings [facility] 17:20:59 Antenata l screenin g Completed 201808/24/2020 Encounte r for antenata l screenin g for nuchal transluc ency;Rec orded Elsewher e: No Locat ion: [facility] S ource: EHR Wire Winding Machine Tender yulia: N Benedictoti ce ID: 0001 Olaf lable Time: 10:30:00 AM Tamra Malik jennings, [facility] 17:20:51 Pregnanc y, childbir th and puerperi um finding Completed 201908/24/2020 Encounte r for supervis ion of normal 1st pregnanc y;Record ed Elsewher e: No Locat ion: [facility] S ource: EHR Wire Winding Machine Tender yulia: N Benedictoti ce ID: 0001 Olaf lable Time: 09:30:00 AM Tamra Malik jennings, [facility] 17:21:03 Gestatio n period, 9 weeks 329777 Completed 201808/24/2020 9 weeks gestatio n of pregnanc y;Record ed Elsewher e: No Locat ion: [facility] S ource: EHR Wire Winding Machine Tender yulia: N Practi ce ID: 0001 Olaf lable Time: 11:00:00 AM Tamra Malik jennings [facility] 17:20:57 Malforma tion of central nervous system of fetus [id number] 107 Completed 01/07/ 2020 08/24/2020 Maternal care for (suspect ed) cnsl malform in fetus, unsp;Rec orded Elsewher e: No Locat ion: [facility] S ource: EHR Wire Winding Machine Tender yulia: N Practi ce ID: 0001 Olaf lable Time: 09:15:00 AM Tamra jennings, [facility] 17:20:58 Pregnanc y detectio n examinat ion Completed 201808/24/2020 Encounte r for pregnanc y test, result positive ;Recorde d Elsewher e: No Locat ion: [facility] S ource: EHR Wire Winding Machine Tender yulia: N Practi ce ID: 0001 Olaf lable Time: 11:00:00 [facility] 17:21:01 Gestatio n period, 25 weeks 12331905 Completed 201908/24/2020 25 weeks gestatio n of pregnanc y;Record ed Elsewher e: No Locat ion: [facility] S ource: EHR Wire Winding Machine Tender yulia: N Practi ce ID: 0001 Olaf lable Time: 09:15:00 AM Tamra jennings, [facility] 17:20:55 Antenata l screenin g for malforma tion Completed 201808/24/2020 Encounte r for antenata l screenin g for malforma tions;Re corded Elsewher e: No Locat ion: [facility] S ource: EHR Wire Winding Machine Tender yulia: N Practi ce ID: 0001 Olaf lable Time: 10:45:00 AM Tamra Gan [facility], [facility] 17:20:53 Bipolar disorder 69629772 Active 2018 lexapro and abikyra ok per M Ayana brambila [facility], [facility] 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 1 17:21:08 Pregnanc y, childbir th and puerperi um finding Completed 201908/24/2020 Encntr for suprvsn of normal first preg, third trimeste r;Record ed Elsewher e: No Locat ion: Sylvia payne [facility] S ource: EHR Wire Winding Machine Tender yulia: N Practi ce ID: 0001 Olaf lable Time: 09:35:53 AM Tamra Gan michaela, [facility] 1 17:21:05 Pregnanc y 23321192 Completed 201905/27/2020 Lisa Rahul jennings, [facility] 4 17:32:23 Pregnanc y 09331430 Completed 202008/24/2020 Lisa jennings, [facility] 4 17:32:23 Corpus luteum cyst 466703312 Completed 2019 RIGHT Ayana jennings [facility] 1 12:38:16 Chlamydi al infectio n 125545861 Completed 2020 + - tx'd sent on 07/21 . Neg TREY 08/25/20 Ayana jennings, [facility] 1 12:38:16 Pregnanc y 06794574 Completed 202012/23/2020 Lisa jennings, [facility] 4 17:32:23 Depressi ve disorder 06360335 Completed Restarte d Abilify & Lexapro 3/1/21. 11/01/20 RPT EPDS 4 Ayana brambila null, [facility] 1 12:38:16 Pregnanc y 01647353 Completed 202103/02/2022 Lisa Abner null, [facility] 4 17:32:23 Bipolar disorder 17526488 Completed 2018 lexapro and abilify ok per [facility] Ayana brambila null, [facility] 2 14:23:05 Asthma 975646946 Completed Ayana brambila null, [facility] 2 14:23:05 Gastroes ophageal reflux disease 649954514 Completed Ayana brambila null, [facility] 2 14:23:05 RhD negative 911622660 Completed ok with Rhogam? Ayana brambila null, [facility] 2 14:23:05 Mixed anxiety and depressi ve disorder 695001410 Active 2023 Dalila Noyola null, [facility] 4 13:06:17 Pregnanc y 59681417 Active 2023 Lisa Rahul null, [facility] 4 17:32:23 Shoulder girdle dystocia 48887564 Active With injury to the baby, to perform Shanta Samayoa null, [facility] 4 17:53:31 section Active to do for previous shoulder dystocia with injury Rhett Rivers MD [address], [place], [address], [facility] 4 12:21:16 Blood group O Rh(D) negative 747398759 Active Rhogam received 04/18/24 Sanaz jennings [facility] 13:19:07 Problem Notes None recorded. Procedures Surgical History Date Name Laterality Status Provider Name and Address Organization Details Recorded Time 12/11/19 24 Date [facility] 12/11/2023 13:10:59 07/15/19 06 tonsilectomy/ad enoids completed [facility] 09/22/2021 16:07:20 07/15/19 05 adenoid excision completed [facility] 09/22/2021 16:07:11 07/15/19 02 myringotomy and insertion of tympanic ventilation tube completed [facility] 09/22/2021 16:07:37 Imaging Results Imaging Date Name Status LastModified by Organiz ation Details LastModified Time 04/23/2024 US, obstetric, follow-up completed [email or web address] [place] [address], [place], [address], 04/23/2024 12:39:24 04/23/2024 US, obstetric, follow-up completed JOHNNIE Kate [address], [place], [address], 04/24/2024 11:29:28 05/18/2024 US, obstetric, follow-up completed [email or web address] [place] [address], [place], [address], 05/18/2024 10:41:38 05/18/2024 US, obstetric, follow-up completed [email or web address] [address], [place], [address], 05/18/2024 13:10:19 Procedure Notes None recorded. Medical Equipment None Reported. Allergies Allergen ID Allergen Name Allergen Category Reaction Reaction Severity Criticality Documentation Date Start Date Code Code System Note Provider Name and Address Organization Details Recorded Time 106 Substance with sulfonami de structure and antibacte rial mechanism of action (substanc e) medicatio n Not available Not available Not available 10/27/2019 14795 8003 SNOMED Dalila Noyola [facility], [facility] 0 12:37:04 2772 Medicinal product containin g penicilli n and acting as antibacte rial agent (product) medicatio n Not available Not available Not available 06/01/2020 82156 05 SNOMED Celine Barney [facility], [facility] 0 12:54:54 2773 amoxicill in medicatio n Not available Not available Not available 06/01/2020 723 RxNorm Celine Barney [facility] 0 12:54:59 Medications Name Sig Start [...] meals and at bedtime 08/24 completed Prescrib chitra Enriquez e: Yes Loca tion: Mitchellpao kerry [facility] Reji odfredo By: [email or web address] Encounte r DateTime : 04/27/20 11:15:00 AM Not Available [...] and Address Organization Details Last Updated DateTime 06/02/2024 170.82 cm 31.6 kg/m2 74676.25 g 115 mm[Hg] 64 mm[Hg] [facility] 4 10:53:25 Date Recorded Body height Body mass index (BMI) Body weight Systolic blood pressure Diastolic blood pressure Provider Name and Address Organization Details Last Updated DateTime 06/17/2024 170.82 cm 32.2 kg/m2 08127.62 g 98 mm[Hg] 64 mm[Hg] [facility] 4 10:27:03 Date Recorded Body height Body mass index (BMI) Body weight Systolic blood pressure Diastolic blood pressure Provider Name and Address Organization Details Last Updated DateTime 06/23/2024 170.82 cm 32.5 kg/m2 68536.81 g 103 mm[Hg] 63 mm[Hg] [facility] 4 11:01:08 Date Recorded Body height Body mass index (BMI) Body weight Systolic blood pressure Diastolic blood pressure Provider Name and Address Organization Details Last Updated DateTime 07/01/2024 170.82 cm 32.8 kg/m2 25884.99 g 107 mm[Hg] 71 mm[Hg] [facility] 4 10:50:37 Social History Question Answer Notes LastModified by Organizat ion Details LastModified Time Tobacco Smoking Status Former Smoker Dalila jennings, [facility] 10/27/2019 12:41:22 What Is Your Level Of Alcohol Consumption? None [email or web address] Information not available 12/14/2021 If You Are , What Was Your Level Of Alcohol Consumption Prior To ? Occasional [email or web address] Information not available 06/27/2020 Are You Blind Or Do You Have Difficulty Seeing? No Information not available 11/16/2021 What Is Your Level Of Caffeine Consumption? Occasional [email or web address] Information not available 11/16/2021 In The 14 Days Before Symptom Onset, Have You Had Close Contact With A Laboratory-confir med COVID-19 While That Case Was Ill? No [email or web address] Information not available 11/16/2021 In The 14 Days Before Symptom Onset, Have You Had Close Contact With A Person Who Is Under Investigation For COVID-19 While That Person Was Ill? No [email or web address] Information not available 11/16/2021 Have You Been To An Area Known To Be High Risk For COVID-19? No Information not available 11/16/2021 Are You Deaf Or Do You Have Serious Difficulty Hearing? No [email or web address] Information not available 11/16/2021 What Type Of Diet Are You Following? REGULAR [email or web address] Information not available 11/16/2021 Which Illicit Or Recreational Drugs Have You Used? [place] [email or web address] Information not available 10/27/2019 Do You Use Your Seat Belt Or Car Seat Routinely? Yes [email or web address] Information not available 11/16/2021 Do You Have Smoke And Carbon Monoxide Detectors In Your Home? Yes [email or web address] Information not available 11/16/2021 Do You Feel Stressed (tense, Restless, Nervous, Or Anxious, Or Unable To Sleep At Night)? [id number] [email or web address] Information not available 11/16/2021 Do You Use Sunscreen Routinely? Yes [email or web address] Information not available 11/16/2021 Has Tobacco Cessation Counseling Been Provided? No [email or web address] Information not available 11/16/2021 Do You Or Have You Ever Used Any Other Forms Of Tobacco Or Nicotine? No [email or web address] Information not available 11/16/2021 Sex: Unknown Functional Status Question Answer Note LastModified by Organizat ion Details LastModified Time Do you have difficulty walking or climbing stairs? No [email or web address] Information not available 11/16/2021 Are you able to walk? YESWOREST [email or web address] Information not available 11/16/2021 Are you able to care for yourself? Yes [email or web address] Information not available 11/16/2021 Do you have difficulty dressing or bathing? No [email or web address] Information not available 11/16/2021 What is your exercise level? Occasional [email or web address] Information not available 10/27/2019 Mental Status None [...] N Drug/Latex Allergies/Reactions Y Blood Transfusion N Lung Disease N Dermatologic Disorders N Defects or Inherited Disease N Breast [...] Diagnosis/Indication Diagnosis SNOMED-CT Code Diagnosis ICD10 Code 656 Josee Vazquez CNM [place] [address] [address] 10/27/2019 10:51:33 10/28/2019 15:18:53 67755 Tiff Alvarez [place] [address] [address] 06/01/2020 11:58:26 06/01/2020 17:05:51 test positive 954892701 Z32.01 Gynecologi c examination 04212942 Z01.419 Amenorrhea 20051184 N91. 2 Mixed anxi ety and depressive disorder 075312841 F41.8 00238 [facility]3] [address],[place] [address] 06/01/2020 11:58:59 06/02/2020 10:32:51 23609 Vidhya Kaufman [place] [address],[place] [address] 06/27/2020 14:02:09 06/27/2020 14:39:03 screening 531616168 Z36.82 Z36.89 Z36.0 96093 Shelley Alva [place] [address],[place] [address] 07/18/2020 09:37:43 07/19/2020 10:03:28 89384 Rhett Rivers MD [place] [address],[place] [address] 07/18/2020 09:38:14 07/18/2020 14:23:42 Routine care 798499505 Z34.92 05580 [facility] [address],[place] [address] 08/25/2020 12:29:16 08/29/2020 15:05:17 73483918 Z33.1 Mixed anxi ety and depressive disorder 405497798 F41.8 94056 [facility] [address],[place] [address] 09/08/2020 09:26:35 09/09/2020 15:33:11 Routine care 144561747 Z34.92 97012 [facility]3] [address],[place] [address] 09/08/2020 09:27:14 09/08/2020 10:52:26 screening for malformation 893519944 Z36.3 23404 [facility] [address],[place] [address] 10/17/2020 16:25:47 10/17/2020 16:55:56 Routine care 538722631 Z34.92 [id number] [facility] [address],[place] [address] 11/01/2020 12:55:01 11/01/2020 13:48:37 Routine care 392272770 Z34.92 63775 [facility] [address],[place] [address] 11/01/2020 14:18:06 11/01/2020 15:02:48 Uterine size for dates discrepancy 500230351 O26.843 O40.3XX0 Z3A.31 78717 [facility] [address],[place] [address] 11/10/2020 14:53:14 11/10/2020 16:08:28 Routine care 393344328 Z34.92 13113 [facility] [address],[place] [address] 11/10/2020 14:52:49 11/10/2020 15:30:17 Polyhydramnios 42303203 O40.3XX0 Z3A.33 70697 [facility]3] [address],[place] [address] 11/17/2020 10:04:14 11/17/2020 11:04:48 Polyhydramnios 06907076 O40.3XX0 Z3A.34 00808 [facility]3] [address],[place] [address] 11/24/2020 15:58:53 11/24/2020 16:51:03 Polyhydramnios 67160964 O40.3XX0 O36.63X0 Z3A.35 78858 Rhett Rivres MD [place] [address],[place] [address] 11/24/2020 15:59:32 11/25/2020 10:54:01 Routine care 364076409 Z34.92 97118 Glendy Aiken MD [place] [address],[place] [address] 12/02/2020 14:34:02 12/02/2020 15:19:47 Routine care 983006980 Z34.83 Depressive disorder 3548 9007 F32.9 95405 [facility] [address],[place] [address] 12/15/2020 12:06:30 12/15/2020 12:46:02 Routine care 273953029 Z34.92 16139 [facility] [address],[place] [address] 07/04/2021 13:53:20 07/05/2021 19:08:38 Acid reflux 565117449 K21.9 Gynecologi c examination 05078546 Z01.419 Z11.3 Z11.8 test positive 956821312 Z32.01 Mixed anxi ety and depressive disorder 479348885 F41.8 11678 [facility] [address],[place] [address] 07/04/2021 13:52:52 07/04/2021 14:14:14 69610 Gifty Irving [place] [address],[place] [address] 08/01/2021 14:45:26 08/01/2021 15:38:53 screening 685309960 Z36.82 50424 Glendy Aiken MD [place] [address],[place] [address] 08/01/2021 14:45:54 08/02/2021 16:09:18 Routine care 498196288 Z34.83 50695 [facility] [address],[place] [address] 09/22/2021 15:00:10 09/26/2021 20:03:12 Routine care 435897762 Z34.92 06518 [facility] [address],[place] [address] 09/22/2021 14:59:12 09/22/2021 16:07:07 screening for malformation 404187525 Z36.3 16040 Glendy Aiken MD [place] [address],[place] [address] 10/24/2021 15:04:55 10/24/2021 17:20:45 Routine care 175534908 Z34.83 RhD negative 988748793 Z 01.83 84404 Vidhya Kaufman [place] [address],[place] [address] 10/24/2021 15:05:47 10/24/2021 15:34:01 screening 777889692 Z36.2 29773 [facility] [address],[place] [address] 11/16/2021 14:56:50 11/17/2021 16:00:25 Routine care 613975796 Z34.92 [id number] [facility] [address],[place] [address] 11/28/2021 11:47:15 11/29/2021 17:11:16 [id number] [facility] [address],[place] [address] 12/14/2021 13:41:35 12/15/2021 16:38:44 Routine care 777906673 Z34.92 [id number] [facility] [address],[place] [address] 12/25/2021 11:39:07 12/25/2021 12:40:22 Routine care 394267997 Z34.92 [id number] Josee Vazquez CNM [place] [address],[place] [address] 01/10/2022 11:52:29 01/10/2022 12:54:00 Routine care 160033228 Z34.92 375624 Josee Vazquez CNM [place] [address],[place] [address] 01/26/2022 09:24:00 01/26/2022 10:08:04 Routine care 616952587 Z34.92 [id number] Ciera Leslie [place] [address],[place] [address] 01/26/2022 10:24:23 01/26/2022 11:07:13 Reduced movement 246666982 O36.8199 [id number] [facility]3] [address],[place] [address] 11/22/2023 12:06:11 11/22/2023 12:32:07 Uterine size for dates discrepancy 914966016 O26.841 Z3A.01 [id number] [facility]3] [address],[place] [address] 12/11/2023 12:10:47 12/11/2023 13:54:35 [id number] Josee Vazquez [facility] [address],[place] [address] 12/11/2023 12:11:12 12/11/2023 13:30:30 Amenorrhea 31906239 N91.2 Venereal d isease screening 781379530 Z11.3 [id number] Vidhya [facility] [address],[place] [address] 01/02/2024 16:59:34 01/02/2024 17:28:02 screening 728153000 Z36.82 Z3A.12 [id number] Rhett Rivers MD [place] [address],[place] [address] 01/02/2024 17:00:54 01/02/2024 18:00:33 screening 150981869 Z36.89 Routine an tenatal care 328613236 Z34.92 [id number] Rhett Rivers MD [place] [address],[place] [address] 02/10/2024 16:52:54 02/10/2024 17:26:06 Urinary symptoms 983835474 R39.9 Spasm 81260838 R25.2 Low back pain 654425305 M54.50 [id number] [facility]3] [address],[place] [address] 02/27/2024 10:02:50 02/27/2024 11:16:10 screening for malformation 257023844 Z36.3 Z3A.20 285172 Rhett Rivers MD [place] [address],[place] [address] 02/27/2024 10:03:09 02/27/2024 12:14:28 Routine care 990894001 Z34.92 768309 [facility] [address],[place] [address] 03/26/2024 11:28:44 03/26/2024 13:45:56 screening 454048035 Z36.2 Z3A.24 957693 Rhett Rivers MD [place] [address],[place] [address] 03/26/2024 11:26:32 03/26/2024 13:45:39 Routine care 572766422 Z34.92 [id number] [facility] [address],[place] [address] 04/23/2024 12:09:12 04/23/2024 12:41:35 condition affecting obstetrical care of mother 836706561 O35.00X0 Z3A.28 843808 Rhett Rivers MD [place] [address],[place] [address] 04/23/2024 12:09:28 04/23/2024 14:54:09 Routine care 489449600 Z34.92 186086 [facility] [address],[place] [address] 05/18/2024 09:41:39 05/18/2024 10:10:12 Medical examination for suspected condition 218399232 Z03.74 Z3A.32 [id number] MD Yudith OSCAR [address],[place] [address] 06/02/2024 10:41:46 06/02/2024 11:29:38 Bipolar disorder 51848808 F31.9 Deliveries by 845221171 O82 Shoulder g irdle dystocia 37681421 O66.0 Gestation period, 34 weeks 51297274 Z3A.34 [id number] LINDSEY ESTRADA MD [facility] [address],[place] [address] 06/17/2024 10:19:34 06/18/2024 11:31:11 Shoulder girdle dystocia [id number] O66.0 Gestation period, 36 weeks 10168469 Z3A.36 [id number] MD Yudith OSCAR [address],[place] [address] 06/23/2024 10:52:40 06/23/2024 11:27:25 Shoulder girdle dystocia 87511738 O66.0 Gestation period, 37 weeks [id number] Z3A.37 [id number] LINDSEY ESTRADA MD [facility] [address],[place] [address] 07/01/2024 10:45:04 07/01/2024 11:10:41 Shoulder girdle dystocia 87419047 O66.0 Bipolar disorder 7781636 4 F31.9 Gestation period, 38 weeks 43960196 Z3A.38 Health Concerns Section Related Observation LastModified by Organization Detai ls LastModified Time None Recorded Concern Status LastModified by Organization Details LastModified Time None Recorded Advance Directives Directive None Recorded Payers Encounter Date Sequence Insurance Name Policy Number Policy Kwok Covered Member ID Kwok Member ID Guarantor Name 05/18/2024 1 [facility] ([employer] H[facility]) [id number] Lashanda James [id number] Lashanda James 06/02/2024 1 [facility] ([employer] HMO) [id number] Adamason James [id number] Lashanda James 06/17/2024 1 [facility] ([employer] HMO) [id number] Lashanda James [id number] Lashanda James 06/23/2024 1 [facility] ([employer] HMO) [id number] Lashanda James [id number] Lashanda James 07/01/2024 1 [facility] ([employer] HMO) [id number] Lashanda James [id number] Lashanda James OBGyn Episode Ob Episode Information Episode Created Date Number of Fetuses Patient Bloodtype Patient rh Status Prepregnancy Weight lbs Domestic Partner Domestic Partner Phone Father Name Accounts Specialist Status 10/27/19 20 1 208 CLOSED Fetus Data First Name Last Name Admitted to NICU Weight (g) Sex Living Outcome Pediatric Complications Fetus ID Race Codes Race Delivery Type 328 Balaji Calculation BALAJI Calculation Method Initial Balaji Date Initial Exam Date Initial Exam Provider Initial Ultrasound Date Last Menstrual Period Date Ultra Sound Weeks Gestation Conception by IVF Embryo Age at Transfer Date of Transfer 11/02/19 20 10/27/19 20 01/26/2019 0 Eighteen To Twenty Week Balaji Update Ultra Sound Date Fundal Height At Umbil Quickening Date Ultra Sound Latest Weeks Gestation Final Balaji Confirmed By Final Balaji Confirmed Date Final Balaji Date Ultra Sound Latest Days Gestation 0 10/27/2019 11/02/19 20 0 Pre- Flowsheet Flowsheet Date 10/27/2019 Springer Score Blood Edema Fundus Height Fundus Units Glucose Ketones Leukocytes Nitrite Labor Signs Protein Cervic Dilation Cervic Effacement Cervic Station trace trace Type Weight in lbs Pre/Post Dialysis Refused Weight 236.259885229805 BP Diastolic BP Location Tested BP Systolic BP Type 70 130 Fetus Heart Rate Present Fetus Movement Comments pt states that having back p ain and swelling in feet Menstrual History Last Menstrual Date Menses Monthly On Bcp Conception Prior Menses Frequency Hcg Plus Date Menarche Onset Age 0701/26/2019 Delivery Information Delivery Date Delivery Type Labor Anesthesia Weeks Gestation Incision Type Labor Labor Length Hrs Delivered By Post Complications Tubal Sterilization Discharge Date Comments 0 39.6 [id number] Discharge Information Feeding Method Contraceptive Method Maternal HG B and HCT Levels Ob Episode Information Episode Created Date Number of Fetuses Patient Bloodtype Patient rh Status Prepregnancy Weight lbs Domestic Partner Domestic Partner Phone Father Name Accounts Specialist Status 12/10/19 20 1 DELETED Balaji Calculation BALAJI Calculation Method Initial Balaji Date Initial Exam Date Initial Exam Provider Initial Ultrasound Date Last Menstrual Period Date Ultra Sound Weeks Gestation Conception by IVF Embryo Age at Transfer Date of Transfer 0 Eighteen To Twenty Week Balaji Update Ultra Sound Date Fundal Height At Umbil Quickening Date Ultra Sound Latest Weeks Gestation Final Balaji Confirmed By Final Balaji Confirmed Date Final Balaji Date Ultra Sound Latest Days Gestation 0 0 Menstrual History Last Menstrual Date Menses Monthly On Bcp Conception Prior Menses Frequency Hcg Plus Date Menarche Onset Age Delivery Information Delivery Date Delivery Type Labor Anesthesia Weeks Gestation Incision Type Labor Labor Length Hrs Delivered By Post Complications Tubal Sterilization Discharge Date Comments 0 39.6 Discharge Information Feeding Method Contraceptive Method Maternal HG B and HCT Levels Ob Episode Information Episode Created Date Number of Fetuses Patient Bloodtype Patient rh Status Prepregnancy Weight lbs Domestic Partner Domestic Partner Phone Father Name Accounts Specialist Status 07/18/19 21 1 O Negative 202 CLOSED Fetus Data First Name Last Name Admitted to NICU Weight (g) Sex Living Outcome Pediatric Complications Fetus ID Race Codes Race Delivery Type 4309.12 4 M true Full Term 6797 Vaginal Delivery Problems Problem Notes Problem Name Start Date End Date Resolution Snomed Code Not e Corpus luteum cyst 06/01/2020 810020731 RIGHT Chlamydial infection 07/18/2020 07455817 0 + - tx'd sent on 07/21 . Neg TREY 08/25/20 Depressive disorder [id number] Restarted Abilify & Lexapro 09/12/20. 11/01/20 RPT EPDS 4 Balaji Calculation BALAJI Calculation Method Initial Balaji Date Initial Exam Date Initial Exam Provider Initial Ultrasound Date Last Menstrual Period Date Ultra Sound Weeks Gestation Conception by IVF Embryo Age at Transfer Date of Transfer 12/30/19 19 07/18/19 21 06/01/2020 9 Eighteen To Twenty Week Balaji Update Ultra Sound Date Fundal Height At Umbil Quickening Date Ultra Sound Latest Weeks Gestation Final Balaji Confirmed By Final Balaji Confirmed Date Final Balaji Date Ultra Sound Latest Days Gestation 0 [email or web address] 07/18/2020 12/30/19 21 0 Pre-zoë Flowsheet Flowsheet Date 07/18/2020 Springer Score Blood Edema Fundus Height Fundus Units Glucose Ketones Leukocytes Nitrite Labor Signs Protein Cervic Dilation Cervic Effacement Cervic Station Type Weight in lbs Pre/Post Dialysis Refused BP Diastolic BP Location Tested BP Systolic BP Type Fetus Heart Rate Present Fetus Movement Comments Flowsheet Date 07/18/2020 Springer Score Blood Edema Fundus Height Fundus Units Glucose Ketones Leukocytes Nitrite Labor Signs Protein Cervic Dilation Cervic Effacement Cervic Station 16 Type Weight in lbs Pre/Post Dialysis Refused Weight 204.082063616119 BP Diastolic BP Location Tested BP Systolic BP Type 69 L arm 124 sitting Fetus Heart Rate Present A 156 Fetus Movement Comments Patient is a 19-year-old gra bautista 2 para 1001 at 16 weeks gestation who presents for initial visit. She was treated for Chlamydia. Test of cure performed today. We will begin routine care. She had a term vaginal delivery previously. she will begin routine care. Flowsheet Date 08/25/2020 Springer Score Blood Edema Fundus Height Fundus Units Glucose Ketones Leukocytes Nitrite Labor Signs Protein Cervic Dilation Cervic Effacement Cervic Station neg Type Weight in lbs Pre/Post Dialysis Refused Weight 208.496368424919 BP Diastolic BP Location Tested BP Systolic BP Type 72 136 Fetus Heart Rate Present Fetus Movement A Yes Comments Flowsheet Date 09/08/2020 Springer Score Blood Edema Fundus Height Fundus Units Glucose Ketones Leukocytes Nitrite Labor Signs Protein Cervic Dilation Cervic Effacement Cervic Station trace Type Weight in lbs Pre/Post Dialysis Refused Weight 211.521879654841 BP Diastolic BP Location Tested BP Systolic BP Type 67 108 Fetus Heart Rate Present Fetus Movement A Yes Comments Pt did not go to [facility] for p sych evaluation as she had agreed to at her last visit. States her mother told her they would not let her leave and would keep her there for 14-30 days. I explained that is not true. They would evaluate her and discuss options. Her epds has improved this week and she is feeling better but does want to restart her lexapro and abilify. States she did take them last but wanted to try without this time. She feels the biggest stressor at this time is her mother. She feels that her mother is trying to help but has her own problems to deal with. She feels safe and denies any suicidal/homicidal thoughts. I have expressed my concerns to Lashanda and her friend who was present at this visit and the last visit. I have explained if she has any thoughts of harming herself or others she absolutely needs to be evaluated in the ER even if it means calling 911. They have again verbalized understanding. We have discussed importance of psych eval and Lashanda agrees. Will have OB nurse send a referral. I have still strongly encouraged going to [facility]. Flowsheet Date 09/08/2020 Springer Score Blood Edema Fundus Height Fundus Units Glucose Ketones Leukocytes Nitrite Labor Signs Protein Cervic Dilation Cervic Effacement Cervic Station Type Weight in lbs Pre/Post Dialysis Refused BP Diastolic BP Location Tested BP Systolic BP Type Fetus Heart Rate Present Fetus Movement Comments Flowsheet Date 10/17/2020 Springer Score Blood Edema Fundus Height Fundus Units Glucose Ketones Leukocytes Nitrite Labor Signs Protein Cervic Dilation Cervic Effacement Cervic Station trace 30 neg Type Weight in lbs Pre/Post Dialysis Refused Weight 217.551222108979 BP Diastolic BP Location Tested BP Systolic BP Type 72 106 Fetus Heart Rate Present A 135 Fetus Movement A Yes Comments Pt states she is doing much better since restarting medication. EPDS 3. Her mood seems very appropriate. Order given for 28 week labs. She will go tomorrow. Flowsheet Date 11/01/2020 Springer Score Blood Edema Fundus Height Fundus Units Glucose Ketones Leukocytes Nitrite Labor Signs Protein Cervic Dilation Cervic Effacement Cervic Station none 36 Type Weight in lbs Pre/Post Dialysis Refused Weight 224.092716256373 BP Diastolic BP Location Tested BP Systolic BP Type 77 121 Fetus Heart Rate Present A 145 Fetus Movement A Yes Comments Doing well. Occasional braxt on reed. Discussed precautions. Encouraged tdap. Size greater than dates. U/S to be scheduled. Pt has started counseling. Feels like it is helping. EPDS 4. Pt states she did have her labs and Rhogam. Flowsheet Date 11/01/2020 Springer Score Blood Edema Fundus Height Fundus Units Glucose Ketones Leukocytes Nitrite Labor Signs Protein Cervic Dilation Cervic Effacement Cervic Station Type Weight in lbs Pre/Post Dialysis Refused BP Diastolic BP Location Tested BP Systolic BP Type Fetus Heart Rate Present Fetus Movement Comments Flowsheet Date 11/10/2020 Springer Score Blood Edema Fundus Height Fundus Units Glucose Ketones Leukocytes Nitrite Labor Signs Protein Cervic Dilation Cervic Effacement Cervic Station Type Weight in lbs Pre/Post Dialysis Refused BP Diastolic BP Location Tested BP Systolic BP Type Fetus Heart Rate Present Fetus Movement Comments Flowsheet Date 11/10/2020 Springer Score Blood Edema Fundus Height Fundus Units Glucose Ketones Leukocytes Nitrite Labor Signs Protein Cervic Dilation Cervic Effacement Cervic Station trace 35 trace Type Weight in lbs Pre/Post Dialysis Refused Weight 229.665856516159 BP Diastolic BP Location Tested BP Systolic BP Type 66 110 Fetus Heart Rate Present A 146 Fetus Movement A Yes Comments Doing well. Considering 39 w [place] induction. Labor precautions discussed. Flowsheet Date 11/17/2020 Springer Score Blood Edema Fundus Height Fundus Units Glucose Ketones Leukocytes Nitrite Labor Signs Protein Cervic Dilation Cervic Effacement Cervic Station Type Weight in lbs Pre/Post Dialysis Refused BP Diastolic BP Location Tested BP Systolic BP Type Fetus Heart Rate Present Fetus Movement Comments Flowsheet Date 11/24/2020 Springer Score Blood Edema Fundus Height Fundus Units Glucose Ketones Leukocytes Nitrite Labor Signs Protein Cervic Dilation Cervic Effacement Cervic Station Type Weight in lbs Pre/Post Dialysis Refused BP Diastolic BP Location Tested BP Systolic BP Type Fetus Heart Rate Present Fetus Movement Comments Flowsheet Date 11/24/2020 Springer Score Blood Edema Fundus Height Fundus Units Glucose Ketones Leukocytes Nitrite Labor Signs Protein Cervic Dilation Cervic Effacement Cervic Station 35 2cm 40% -3 Type Weight in lbs Pre/Post Dialysis Refused Weight 228.025386193043 BP Diastolic BP Location Tested BP Systolic BP Type 68 R arm 112 sitting Fetus Heart Rate Present A 145 Fetus Movement A Yes Comments gbs done Flowsheet Date 12/02/2020 Springer Score Blood Edema Fundus Height Fundus Units Glucose Ketones Leukocytes Nitrite Labor Signs Protein Cervic Dilation Cervic Effacement Cervic Station neg none 36 trace 2cm 40% Type Weight in lbs Pre/Post Dialysis Refused Weight 224.959902065339 BP Diastolic BP Location Tested BP Systolic BP Type 67 114 Fetus Heart Rate Present A 155 Fetus Movement A Yes Comments Doing well. Some BH, nothing regular GBS neg. Mood is good on meds. Will get Tdap this week. Flowsheet Date 12/15/2020 Springer Score Blood Edema Fundus Height Fundus Units Glucose Ketones Leukocytes Nitrite Labor Signs Protein Cervic Dilation Cervic Effacement Cervic Station none 39 trace 2cm 50% -3 Type Weight in lbs Pre/Post Dialysis Refused Weight 228.561599660677 BP Diastolic BP Location Tested BP Systolic BP Type 81 106 Fetus Heart Rate Present A 146 Fetus Movement A Yes Comments 2-3cm. Pt desires 39 week el ective induction. Labor precautions discussed. Menstrual History Last Menstrual Date Menses Monthly On Bcp Conception Prior Menses Frequency Hcg Plus Date Menarche Onset Age Genetic Screening And Infection History Question Response Note Mental Retardation/Autism false Patient's Age Will Be 35 Years Or Older At Estim ated Date of Delivery false Thalassemia (Grenadian, Cameroonian, Mediterranean, Or Background): MCV < 80 false Neural Tube Defect (Meningomyelocele, Spina Bifi da, Or Anencephaly) false Congenital Heart Defect false Down Syndrome false Dane-Sachs (eg, Shinto, Cajun, South Sudanese-Tajik) f alse Juancarlos Disease false Sickle Cell [...] Post Complications Tubal Sterilization Discharge Date Comments [facility] idural 38.4 false T[facility]varez [facility] Discharge Information Feeding Method Contraceptive Method Maternal HG B and HCT Levels Ob Episode Information Episode Created Date Number of Fetuses Patient Bloodtype Patient rh Status Prepregnancy Weight lbs Domestic Partner Domestic Partner Phone Father Name Accounts Specialist Status 08/01/19 22 1 O Negative 194 CLOSED Fetus Data First Name Last Name Admitted to NICU Weight (g) Sex Living Outcome Pediatric Complications Fetus ID Race Codes Race Delivery Type 3883.88 15 F true Full Term terminal meconium 33040 Vaginal Delivery Problems Problem Notes CF/SMA - Negative Jul 2020no blood products Problem Name Start Date End Date Resolution Snomed Code Not e Bipolar disorder 03/30/2019 [id number] le xapro and abilify ok per [facility] Asthma 236185673 Gastroesophageal reflux disease [id number] RhD negative 232554924 ok with Rhogam? Balaji Calculation BALAJI Calculation Method Initial Balaji Date Initial Exam Date Initial Exam Provider Initial Ultrasound Date Last Menstrual Period Date Ultra Sound Weeks Gestation Conception by IVF Embryo Age at Transfer Date of Transfer 02/04/2008/01/19 20 07/04/2021 04/29/2021 9 Eighteen To Twenty Week Balaji Update Ultra Sound Date Fundal Height At Umbil Quickening Date Ultra Sound Latest Weeks Gestation Final Balaji Confirmed By Final Balaji Confirmed Date Final Balaji Date Ultra Sound Latest Days Gestation 0 [email or web address] 08/02/2021 02/04/20 22 0 Pre-zoë Flowsheet Flowsheet Date 08/01/2021 Springer Score Blood Edema Fundus Height Fundus Units Glucose Ketones Leukocytes Nitrite Labor Signs Protein Cervic Dilation Cervic Effacement Cervic Station neg none none trace Type Weight in lbs Pre/Post Dialysis Refused Weight 195.197988182061 BP Diastolic BP Location Tested BP Systolic BP Type 74 115 Fetus Heart Rate Present A 150 Fetus Movement A No Comments Lashanda is a 20yo at 13.4 for care. She has bipolar and per M may stay on her lexapro and abilify. She also has asthma, stable, and GERD- discussed OTCs. US today normal NT. her previous pregnancies were uncomplicated except having poly last . DOing NIPT and labs today. Mood precautions given. Flowsheet Date 09/22/2021 Springer Score Blood Edema Fundus Height Fundus Units Glucose Ketones Leukocytes Nitrite Labor Signs Protein Cervic Dilation Cervic Effacement Cervic Station Type Weight in lbs Pre/Post Dialysis Refused BP Diastolic BP Location Tested BP Systolic BP Type Fetus Heart Rate Present Fetus Movement Comments Flowsheet Date 09/22/2021 Springer Score Blood Edema Fundus Height Fundus Units Glucose Ketones Leukocytes Nitrite Labor Signs Protein Cervic Dilation Cervic Effacement Cervic Station neg none trace Type Weight in lbs Pre/Post Dialysis Refused Weight 201.018024778550 BP Diastolic BP Location Tested BP Systolic BP Type 74 131 Fetus Heart Rate Present Fetus Movement A Yes Comments anatomy scan incomplete EFW 33%, reviewed precautions , tsh drawn today f/u 4 weeks Flowsheet Date 10/24/2021 Springer Score Blood Edema Fundus Height Fundus Units Glucose Ketones Leukocytes Nitrite Labor Signs Protein Cervic Dilation Cervic Effacement Cervic Station Type Weight in lbs Pre/Post Dialysis Refused BP Diastolic BP Location Tested BP Systolic BP Type Fetus Heart Rate Present Fetus Movement Comments Flowsheet Date 10/24/2021 Springer Score Blood Edema Fundus Height Fundus Units Glucose Ketones Leukocytes Nitrite Labor Signs Protein Cervic Dilation Cervic Effacement Cervic Station 27 none trace Type Weight in lbs Pre/Post Dialysis Refused Weight 209.983487542460 BP Diastolic BP Location Tested BP Systolic BP Type 65 111 Fetus Heart Rate Present A 150 Fetus Movement A Yes Comments Doing well. RH neg, given or ders for Rhogam and GCT for 28w. US today anatomy now complete and wnl. Good FM. Precautions given. Flowsheet Date 11/16/2021 Springer Score Blood Edema Fundus Height Fundus Units Glucose Ketones Leukocytes Nitrite Labor Signs Protein Cervic Dilation Cervic Effacement Cervic Station neg none 30 none trace Type Weight in lbs Pre/Post Dialysis Refused Weight 216.459664979601 BP Diastolic BP Location Tested BP Systolic BP Type 64 109 Fetus Heart Rate Present A 145 Fetus Movement A Yes Comments Doing well. 1 hour gtt quiana [place]. Will schedule 3 hour gtt. Going for rhogam after visit. Encouraged TDAP. Flowsheet Date 11/28/2021 Springer Score Blood Edema Fundus Height Fundus Units Glucose Ketones Leukocytes Nitrite Labor Signs Protein Cervic Dilation Cervic Effacement Cervic Station neg none 31 none trace Type Weight in lbs Pre/Post Dialysis Refused Weight 219.587389601670 BP Diastolic BP Location Tested BP Systolic BP Type 60 130 Fetus Heart Rate Present A 142 Fetus Movement A Yes Comments Doing well. Occasional contr actions. precautions given. States mood is good. Flowsheet Date 12/14/2021 Springer Score Blood Edema Fundus Height Fundus Units Glucose Ketones Leukocytes Nitrite Labor Signs Protein Cervic Dilation Cervic Effacement Cervic Station neg none 33 none trace Type Weight in lbs Pre/Post Dialysis Refused Weight 218.356085836139 BP Diastolic BP Location Tested BP Systolic BP Type 58 100 Fetus Heart Rate Present A 141 Fetus Movement A Yes Comments Doing well. Encouraged to sc hedule pre admit. States mood is good. Flowsheet Date 12/25/2021 Springer Score Blood Edema Fundus Height Fundus Units Glucose Ketones Leukocytes Nitrite Labor Signs Protein Cervic Dilation Cervic Effacement Cervic Station neg none 35 none trace Type Weight in lbs Pre/Post Dialysis Refused Weight 220.236855901305 BP Diastolic BP Location Tested BP Systolic BP Type 68 125 Fetus Heart Rate Present A 135 Fetus Movement A Yes Comments Doing good. No contractions. Labor precautions. Mood is good. Flowsheet Date 01/10/2022 Springer Score Blood Edema Fundus Height Fundus Units Glucose Ketones Leukocytes Nitrite Labor Signs Protein Cervic Dilation Cervic Effacement Cervic Station neg none none trace 1cm 50% -3 Type Weight in lbs Pre/Post Dialysis Refused Weight 222.93296733752 BP Diastolic BP Location Tested BP Systolic BP Type 59 99 Fetus Heart Rate Present A 140 Fetus Movement A Yes Comments doing well, gbs today no com plaints, desires 39 week IOL, will schedule at next visit precautions reviewed Flowsheet Date 01/26/2022 Springer Score Blood Edema Fundus Height Fundus Units Glucose Ketones Leukocytes Nitrite Labor Signs Protein Cervic Dilation Cervic Effacement Cervic Station neg none none trace 2cm 50% -2 Type Weight in lbs Pre/Post Dialysis Refused Weight 225.881277606442 BP Diastolic BP Location Tested BP Systolic BP Type 65 107 Fetus Heart Rate Present Fetus Movement A Yes Comments patient is having pain, pres sure, and contractions. precautions reviewed, IOL 01/29, NST for decreased movement Flowsheet Date 01/26/2022 Springer Score Blood Edema Fundus Height Fundus Units Glucose Ketones Leukocytes Nitrite Labor Signs Protein Cervic Dilation Cervic Effacement Cervic Station Type Weight in lbs Pre/Post Dialysis Refused BP Diastolic BP Location Tested BP Systolic BP Type Fetus Heart Rate Present Fetus Movement Comments Menstrual History Last Menstrual Date Menses Monthly On Bcp Conception Prior Menses Frequency Hcg Plus Date Menarche Onset Age 1004/29/2021 Genetic Screening And Infection History Question Response Note Mental Retardation/Autism false Patient's Age Will Be 35 Years Or Older At Estim ated Date of Delivery false Thalassemia (Grenadian, Cameroonian, Mediterranean, Or Background): MCV < 80 false Neural Tube Defect (Meningomyelocele, Spina Bifi da, Or Anencephaly) false Congenital Heart Defect false Down Syndrome false Dane-Sachs (eg, Shinto, Cajun, South Sudanese-Tajik) f alse Juancarlos Disease false Sickle Cell [...] Post Complications Tubal Sterilization Discharge Date Comments 2 Induce d [facility] idural 39.2 false Josee Vazquez CNM +UDS Discharge Information Feeding Method Contraceptive Method Maternal HG B and HCT Levels Breast Ob Episode Information Episode Created Date Number of Fetuses Patient Bloodtype Patient rh Status Prepregnancy Weight lbs Domestic Partner Domestic Partner Phone Father Name Accounts Specialist Status 01/02/20 24 1 O Negative 164 OPEN Fetus Data First Name Last Name Admitted to NICU Weight (g) Sex Living Outcome Pediatric Complications Fetus ID Race Codes Race Delivery Type 76099 Problems Problem Notes Problem Name Start Date End Date Resolution Snomed Code Not e Blood group O Rh(D) negative 866280458 Rhogam received 04/18/24 Shoulder girdle dystocia 27998611 With injury to the baby, to perform section 94984745 to do for previous shoulder dystocia with injury Balaji Calculation BALAJI Calculation Method Initial Balaji Date Initial Exam Date Initial Exam Provider Initial Ultrasound Date Last Menstrual Period Date Ultra Sound Weeks Gestation Conception by IVF Embryo Age at Transfer Date of Transfer 07/12/2001/02/2011/23/2023 6 Eighteen To Twenty Week Balaji Update Ultra Sound Date Fundal Height At Umbil Quickening Date Ultra Sound Latest Weeks Gestation Final Balaji Confirmed By Final Balaji Confirmed Date Final Balaji Date Ultra Sound Latest Days Gestation 0 07/12/20 24 0 Pre- Flowsheet Flowsheet Date 01/02/2024 Springer Score Blood Edema Fundus Height Fundus Units Glucose Ketones Leukocytes Nitrite Labor Signs Protein Cervic Dilation Cervic Effacement Cervic Station neg none 12 Type Weight in lbs Pre/Post Dialysis Refused Weight 164.49433970998 BP Diastolic BP Location Tested BP Systolic [...] of shoulder dystocia with injury to the . Clavicle fracture. Oddly she had a 9 lb with no complications. This shoulder dystocia was an 8 lb plus baby Flowsheet Date 02/10/2024 Springer Score Blood Edema Fundus Height Fundus Units Glucose Ketones Leukocytes Nitrite Labor Signs Protein Cervic Dilation Cervic Effacement Cervic Station Type Weight in lbs Pre/Post Dialysis Refused 179.049875285755 BP Diastolic BP Location Tested BP Systolic [...] Type Weight in lbs Pre/Post Dialysis Refused 182.364895539459 BP Diastolic BP Location Tested BP Systolic [...] Type Weight in lbs Pre/Post Dialysis Refused 188.388742791725 BP Diastolic BP Location Tested BP Systolic BP Type 59 L arm 100 sitting Fetus Heart Rate Present A 144 Fetus Movement A Yes Comments no complaints, no problems, routine care, no contractions, no vaginal bleeding, no loss of fluid, no cramping Flowsheet Date 04/23/2024 Sprniger Score Blood Edema Fundus Height Fundus Units [...] Type Weight in lbs Pre/Post Dialysis Refused 195.087510117330 BP Diastolic BP Location Tested BP Systolic [...] Weight in lbs Pre/Post Dialysis Refused Weight 203.295726774304 BP Diastolic BP Location Tested BP Systolic [...] Weight in lbs Pre/Post Dialysis Refused Weight 207.925136823679 BP Diastolic BP Location Tested BP Systolic [...] Weight in lbs Pre/Post Dialysis Refused Weight 209.483156262118 BP Diastolic BP Location Tested BP Systolic [...] Weight in lbs Pre/Post Dialysis Refused Weight 211.328754021937 BP Diastolic BP Location Tested BP Systolic [...] Estim ated Date of Delivery false Thalassemia (Grenadian, Cameroonian, Mediterranean, Or Background): MCV < 80 false Neural Tube Defect (Meningomyelocele, Spina Bifi da, Or Anencephaly) false Congenital Heart Defect false Down Syndrome false Dane-Sachs (eg, Shinto, Cajun, South Sudanese-Tajik) f alse Juancarlos Disease false Sickle Cell Disease Or Trait () false Hemophilia Or Other Blood Disorders false Muscular Dystrophy false Cystic Fibrosis false Cabell's Chorea false Intellectual Disability/Autism false If Yes, [...]
--- OUTSIDE RECORDS SUMMARY | 2024-07-11 19:32 | XMS_ITS | Continuity of Care Document ---
Author Organization [facility] Address [address] [place] [address] Assessment No assessment recorded. Plan of Treatment [...] lucen cy No observ ation record ed. [facility] [address], [place], [address], 01/02/2024 17:39:14 01/02/20 24 01/02/2024 US, obste tric, nucha l trans lucen cy No observ ation record ed. [email or web address] [address], [place], [address], 01/02/2024 19:40:21 02/27/20 24 02/27/2024 US, obste tric, 2nd or 3rd trime ster No observ ation record ed. [facility] [address], [place], [address], 02/27/2024 18:06:05 02/27/20 24 02/27/2024 US, obste tric, follo w-up No observ ation record ed. [email or web address] [address], [place], [address], 02/28/2024 13:07:39 03/26/20 24 03/26/2024 US, obste tric, follo w-up No observ ation record ed. [email or web address] [facility] [address], [place], [address], 03/26/2024 13:46:07 03/26/20 24 03/26/2024 US, obste tric, follo w-up No observ ation record ed. JOHNNIE [address], [place], [address], 04/03/2024 14:52:29 04/23/20 24 04/23/2024 US, obste tric, follo w-up No observ ation record ed. [email or web address] [facility] [address], [place], [address], 04/23/2024 12:39:24 04/23/20 24 04/23/2024 US, obste tric, follo w-up No observ ation record ed. JOHNNIE [address], [place], [address], 04/24/2024 11:29:28 05/18/20 24 05/18/2024 US, obste tric, follo w-up No observ ation record ed. [email or web address] [facility] [address], [place], [address], 05/18/2024 10:41:38 05/18/20 24 05/18/2024 US, obste tric, follo w-up No observ ation record ed. [email or web address] [address], [place], [address], 05/18/2024 13:10:19 Result Notes None recorded. Problems Name Problem SNOMED Code Status Onset Date Resolution Date Notes Provider Name and Address Organization Details Recorded Time Normal pregnanc y in multigra bautista [id number] 65896 Completed 201908/24/2020 Encounte r for suprvsn of normal pregnanc y, third trimeste r;Record ed Elsewher e: No [facility] EHR Dermatology Sales Representative yulia: N Benedictoti ce ID: 0001 Olaf lable Time: 10:45:00 AM Tamra jennings, [facility] 17:20:59 Antenata l screenin g Completed 201808/24/2020 Encounte r for antenata l screenin g for nuchal transluc ency;Rec orded Elsewher e: No [facility]: EHR Dermatology Sales Representative yulia: N Benedictoti ce ID: 0001 Olaf lable Time: 10:30:00 AM Tamra Malik jennings, [facility] 17:20:51 Pregnanc y, childbir th and puerperi um finding Completed 201908/24/2020 Encounte r for supervis ion of normal 1st pregnanc y;Record ed Elsewher e: No [facility]: EHR Dermatology Sales Representative yulia: N Benedictoti ce ID: 0001 Olaf lable Time: 09:30:00 AM Tamra jennings, [facility] 17:21:03 Gestatio n period, 9 weeks 082528 Completed 201808/24/2020 9 weeks gestatio n of pregnanc y;Record ed Elsewher e: No [facility]: EHR Dermatology Sales Representative yulia: N Benedictoti ce ID: 0001 Olaf lable Time: 11:00:00 AM Tamra jennings [facility] 17:20:57 Malforma tion of central nervous system of fetus 7407681270 107 Completed 201908/24/2020 Maternal care for (suspect ed) cnsl malform in fetus, unsp;Rec orded Elsewher e: No [facility]: EHR Dermatology Sales Representative yulia: Tom Roe ce ID: 0001 Olaf lable Time: 09:15:00 AM Tamra Gan [facility], [facility] 17:20:58 Pregnanc y detectio n examinat ion Completed 201808/24/2020 Encounte r for pregnanc y test, result positive ;Recorde d Elsewher e: No [facility]: EHR Dermatology Sales Representative yulia: Tom Roe ce ID: 0001 Olaf lable Time: 11:00:00 AM Tamra Gan [facility], [facility] 17:21:01 Gestatio n period, 25 weeks 66337361 Completed 201908/24/2020 25 weeks gestatio n of pregnanc y;Record ed Elsewher e: No [facility]: EHR Dermatology Sales Representative yulia: Tom Roe ce ID: 0001 Olaf lable Time: 09:15:00 AM Tamra Gan [facility], [facility] 17:20:55 Antenata l screenin g for malforma tion Completed 201808/24/2020 Encounte r for antenata l screenin g for malforma tions;Re corded Elsewher e: No [facility]: EHR Dermatology Sales Representative yulia: Tom Roe ce ID: 0001 Olaf lable Time: 10:45:00 AM Tamra Gan [facility], [facility] 17:20:53 Bipolar disorder 11679668 Active 2018 lexapro and abilify ok per [facility] Ayana brambila [facility], [facility] 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 1 17:21:08 Pregnanc y, childbir th and puerperi um finding Completed 201908/24/2020 Encntr for suprvsn of normal first preg, third trimeste r;Record ed Elsewher e: No [facility]: EHR Dermatology Sales Representative yulia: N Practi ce ID: 0001 Olaf lable Time: 09:35:53 AM Tamra jennings, [facility] 1 17:21:05 Pregnanc y 02732427 Completed 201905/27/2020 Lisa jennings, [facility] 4 17:32:23 Pregnanc y 55565596 Completed 202008/24/2020 Lisa jennings, [facility] 4 17:32:23 Corpus luteum cyst 099895468 Completed 2019 RIGHT Ayana jennings [facility] 1 12:38:16 Chlamydi al infectio n [id number] Completed 2020 + - tx'd sent on 07/21 . Neg TREY 08/25/20 Ayana jennings [facility] 1 12:38:16 Pregnanc y 69494062 Completed 202012/23/2020 Lisa jennings [facility] 4 17:32:23 Depressi ve disorder 46954574 Completed Restarte d Abilify & Lexapro 09/12/20. 11/01/20 RPT EPDS 4 Ayana brambila null, [facility] 1 12:38:16 Pregnanc y 83232573 Completed 202103/02/2022 Lisa Rahul [facility], [facility] 4 17:32:23 Bipolar disorder 55227130 Completed 2018 lexapro and abilify ok per [facility] Ayana brambila [facility], [facility] 2 14:23:05 Asthma 467143310 Completed Ayana brambila [facility], [facility] 2 14:23:05 Gastroes ophageal reflux disease 878184402 Completed Ayana brambila [facility], [facility] 2 14:23:05 RhD negative 402092683 Completed ok with Rhogam? Ayana brambila null, [facility] 2 14:23:05 Mixed anxiety and depressi ve disorder 737006439 Active 2023 Dalila Noyola null, [facility] 4 13:06:17 Pregnanc y 54998620 Active 2023 Lisa Rahul [facility], [facility] 4 17:32:23 Shoulder girdle dystocia 25696841 Active With injury to the baby, to perform Shanta Samayoa [facility], [facility] 4 17:53:31 section Active to do for previous shoulder dystocia with injury Rhett Rivers MD [address], [place], [address], , P.C[facility] 4 12:21:16 Blood group O Rh(D) negative 943358333 Active Rhogam received 04/18/24 Sanaz Infante [facility] 4 13:19:07 Problem Notes None recorded. Procedures Surgical History Date Name Laterality Status Provider Name and Address Organization Details Recorded Time 12/11/19 24 Date of Last Pap Smear completed [facility] 12/11/2023 13:10:59 07/15/19 06 tonsilectomy/ad enoids completed [facility] 09/22/2021 16:07:20 07/15/19 05 adenoid excision completed [facility] 09/22/2021 16:07:11 07/15/19 02 myringotomy and insertion of tympanic ventilation tube completed [facility] 09/22/2021 16:07:37 Imaging Results None recorded. [...] Not available Not available Not available 10/27/2019 41251 8003 SNOMED Dalilamitali Noyola [facility] 0 12:37:04 2772 Medicinal product containin g penicilli n and acting as antibacte rial agent (product) medicatio n Not available Not available Not available 06/01/2020 85316 05 SNOMED Celine Barney [facility] 0 12:54:54 2773 amoxicill in medicatio n Not available Not available Not available 06/01/2020 723 RxNorm Celnie Barney [facility] 0 12:54:59 Medications Name [...] Prescrib ed Elsewher e: Yes [facility] By: hansa zhao DateTime : [...] Updated DateTime 06/02/2024 170.82 cm 31.6 kg/m2 17586.25 g 115 mm[Hg] 64 mm[Hg] Anu Thompson [facility] 4 10:53:25 Social History Question Answer Notes LastModified by Organizat ion Details LastModified Time Tobacco Smoking Status Former Smoker Dalila jennings, [facility] 10/27/2019 12:41:22 What Is Your Level Of Alcohol Consumption? None [email or web address] Information not available 12/14/2021 If You Are , What Was Your Level Of Alcohol Consumption Prior To ? Occasional [email or web address] Information not available 06/27/2020 Are You Blind Or Do You Have Difficulty Seeing? No [email or web address] Information not available 11/16/2021 What Is Your Level Of Caffeine Consumption? Occasional [email or web address] Information not available 11/16/2021 In The 14 Days Before Symptom Onset, Have You Had Close Contact With A Laboratory-confir med COVID-19 While That Case Was Ill? No [email or web address] Information not available 11/16/2021 In The 14 Days Before Symptom Onset, Have You Had Close Contact With A Person Who Is Under Investigation For COVID-19 While That Person Was Ill? No [email or web address] Information not available 11/16/2021 Have You Been To An Area Known To Be High Risk For COVID-19? No [email or web address] Information not available 11/16/2021 Are You Deaf Or Do You Have Serious Difficulty Hearing? No [email or web address] Information not available 11/16/2021 What Type Of Diet Are You Following? REGULAR [email or web address] Information not available 11/16/2021 Which Illicit Or Recreational Drugs Have You Used? [place] [email or web address] Information not available 10/27/2019 Do You Use Your Seat Belt Or Car Seat Routinely? Yes [email or web address] Information not available 11/16/2021 Do You Have Smoke And Carbon Monoxide Detectors In Your Home? Yes [email or web address] Information not available 11/16/2021 Do You Feel Stressed (tense, Restless, Nervous, Or Anxious, Or Unable To Sleep At Night)? [id number] [email or web address] Information not available 11/16/2021 Do You Use Sunscreen Routinely? Yes [email or web address] Information not available 11/16/2021 Has Tobacco Cessation Counseling Been Provided? No [email or web address] Information not available 11/16/2021 Do You Or Have You Ever Used Any Other Forms Of Tobacco Or Nicotine? No [email or web address] Information not available 11/16/2021 Sex: Unknown Functional Status Question Answer Note LastModified by Organizat ion Details LastModified Time Do you have difficulty walking or climbing stairs? No [email or web address] Information not available 11/16/2021 Are you able to walk? YESWOREST [email or web address] Information not available 11/16/2021 Are you able to care for yourself? Yes [email or web address] Information not available 11/16/2021 Do you have difficulty dressing or bathing? No [email or web address] Information not available 11/16/2021 What is your exercise level? Occasional [email or web address] Information not available 10/27/2019 Mental Status None [...] Diagnosis/Indication Diagnosis SNOMED-CT Code Diagnosis ICD10 Code 315410 Cherelle Quiroz [facility] [address] [address] 05/18/2024 09:41:39 05/18/2024 10:10:12 Medical examination for suspected condition 684676909 Z03.74 Z3A.32 [id number] LINDSEY ESTRADA MD [facility] [address] [address] 06/02/2024 10:41:46 06/02/2024 11:29:38 Bipolar disorder 61180836 F31.9 Deliveries by [id number] O82 Shoulder g irdle dystocia 71289265 O66.0 Gestation period, 34 weeks 31023056 Z3A.34 Health Concerns Section Related Observation LastModified by Organization Detai ls LastModified Time None Recorded Concern Status LastModified by Organization Details LastModified Time None Recorded Payers Encounter Date Sequence Insurance Name Policy Number Policy Kwok Covered Member ID Kwok Member ID Guarantor Name 06/02/2024 1 [facility] (MEDICAID HMO) [id number] Lashanda James [id number] Lashanda James OBGyn Episode Ob Episode Information Episode Created Date Number of Fetuses Patient Bloodtype Patient rh Status Prepregnancy Weight lbs Domestic Partner Domestic Partner Phone Father Name Window And Siding Craftsman Status 01/02/20 24 1 O Negative 164 OPEN Fetus Data First Name Last Name Admitted to NICU Weight (g) Sex Living Outcome Pediatric Complications Fetus ID Race Codes Race Delivery Type [id number] Problems Problem Notes Problem Name Start Date End Date Resolution Snomed Code Not e Blood group O Rh(D) negative 800329497 Rhogam received 04/18/24 Shoulder girdle dystocia 41659840 With injury to the baby, to perform section 00534883 to do for previous shoulder dystocia with [...] Weight in lbs Pre/Post Dialysis Refused Weight 164.10981328429 BP Diastolic BP Location Tested BP Systolic [...] Type Weight in lbs Pre/Post Dialysis Refused 179.471949371748 BP Diastolic BP Location Tested BP Systolic [...] Type Weight in lbs Pre/Post Dialysis Refused 182.277288454533 BP Diastolic BP Location Tested BP Systolic [...] Type Weight in lbs Pre/Post Dialysis Refused 188.200883401604 BP Diastolic BP Location Tested BP Systolic [...] Type Weight in lbs Pre/Post Dialysis Refused 195.588802246716 BP Diastolic BP Location Tested BP Systolic [...] Weight in lbs Pre/Post Dialysis Refused Weight 203.010519705106 BP Diastolic BP Location Tested BP Systolic [...] Weight in lbs Pre/Post Dialysis Refused Weight 207.483268228639 BP Diastolic BP Location Tested BP Systolic [...] Weight in lbs Pre/Post Dialysis Refused Weight 209.152923760818 BP Diastolic BP Location Tested BP Systolic [...] Weight in lbs Pre/Post Dialysis Refused Weight 211.037062196882 BP Diastolic BP Location Tested BP Systolic [...] Estim ated Date of Delivery false Thalassemia (Mosotho, Uzbek, Mediterranean, Or Background): MCV < 80 false Neural Tube Defect (Meningomyelocele, Spina Bifi da, Or Anencephaly) false Congenital Heart Defect false Down Syndrome false Dane-Sachs (eg, Adventism, Cajun, Nigerian-Circle) f alse Juancarlos Disease false Sickle Cell [...]
--- OUTSIDE RECORDS SUMMARY | 2024-07-11 19:32 | XMS_ITS | Continuity of Care Document ---
Author Organization [facility] Address [address] [place] [address] Assessment Encounter Date Assessment Date Assessment LastModified by Organization Details LastModified Time 06/17/2024 06/17/2024 Patient is ___weeks . Discussed plan. [email or web address] Not available 06/17/2024 10:26:07 Plan of Treatment Reminders Order Date Submit Date Provider Last Modified By Organization Details Last Modified Time Details Appointments SURG POST OP 2024 11:45A M LINDSEY ESTRADA MD Not available Not available Not available Lab None recorded. Referral None recorded. Procedures None recorded. Surgeries section (SURG) [address] [address], [place], [address], 06/18/2024 09:48:49 Imaging None recorded. Medication Orders None recorded. Patient TargetsNo targets recorded. Patient InstructionsNo instructions recorded. Reason for Referral None Reported. Results Created Date Observation Date Name Description Value Unit Range Abnormal Flag Note LastModifiedBy Organization Detail LastModifiedTime 01/02/2001/02/2024 US, obste tric, nucha l trans lucen cy No observ ation record ed. [facility] [address], [place], [address], 01/02/2024 17:39:14 01/02/20 24 01/02/2024 US, obste tric, nucha l trans lucen cy No observ ation record ed. [email or web address] [address], [place], [address], 01/02/2024 19:40:21 02/27/20 24 02/27/2024 US, obste tric, 2nd or 3rd trime ster No observ ation record ed. [email or web address] [facility] [address], [place], [address], 02/27/2024 18:06:05 02/27/20 24 02/27/2024 US, obste tric, follo w-up No observ ation record ed. [email or web address] [address], [place], [address], 02/28/2024 13:07:39 03/26/20 24 03/26/2024 US, obste tric, follo w-up No observ ation record ed. [email or web address] [facility] [address], [place], [address], 03/26/2024 13:46:07 03/26/20 24 03/26/2024 US, obste tric, follo w-up No observ ation record ed. JOHNNIE [address], [place], [address], 04/03/2024 14:52:29 04/23/20 24 04/23/2024 US, obste tric, follo w-up No observ ation record ed. [email or web address] [facility] [address], [place], [address], 04/23/2024 12:39:24 04/23/20 24 04/23/2024 US, obste tric, follo w-up No observ ation record ed. JOHNNIE [address], [place], [address], 04/24/2024 11:29:28 05/18/20 24 05/18/2024 US, obste tric, follo w-up No observ ation record ed. [email or web address] [facility] [address], [place], [address], 05/18/2024 10:41:38 05/18/20 24 05/18/2024 US, obste tric, follo w-up No observ ation record ed. [email or web address] [address], [place], [address], 05/18/2024 13:10:19 Result Notes None recorded. Problems Name Problem SNOMED Code Status Onset Date Resolution Date Notes Provider Name and Address Organization Details Recorded Time Normal pregnanc y in multigra bautista [id number] 96564 Completed 201908/24/2020 Encounte r for suprvsn of normal pregnanc y, third trimeste r;Record ed Elsewher e: No Locat ion: [facility] S ource: EHR Account General Manager yulia: N Jytohi ce ID: 0001 Olaf lable Time: 10:45:00 AM Tamra jennings, [facility] 17:20:59 Antenata l screenin g Completed 201808/24/2020 Encounte r for antenata l screenin g for nuchal transluc ency;Rec orded Elsewher e: No Locat ion: [facility] S ource: EHR Account General Manager yulia: N Benedictoti ce ID: 0001 Olaf lable Time: 10:30:00 AM Tamra jennings, [facility] 17:20:51 Pregnanc y, childbir th and puerperi um finding Completed 201908/24/2020 Encounte r for supervis ion of normal 1st pregnanc y;Record ed Elsewher e: No Locat ion: [facility] S ource: EHR Account General Manager yulia: N Benedictoti ce ID: 0001 Olaf lable Time: 09:30:00 AM Tamra jennings [facility] 17:21:03 Gestatio n period, 9 weeks [id number] Completed 201808/24/2020 9 weeks gestatio n of pregnanc y;Record ed Elsewher e: No Locat ion: [facility] S ource: EHR Account General Manager yulia: N Jyothi ce ID: 0001 Olaf lable Time: 11:00:00 AM Tamra jennings, [facility] 17:20:57 Malforma tion of central nervous system of fetus [id number] 107 Completed 201908/24/2020 Maternal care for (suspect ed) cnsl malform in fetus, unsp;Rec orded Elsewher e: No Locat ion: [facility] S ource: EHR Account General Manager yulia: N Benedictoti ce ID: 0001 Olaf lable Time: 09:15:00 AM Tamra Gan [facility] 17:20:58 Pregnanc y detectio n examinat ion Completed 201808/24/2020 Encounte r for pregnanc y test, result positive ;Recorde d Elsewher e: No Locat ion: [facility] S ource: EHR Account General Manager yulia: Tom Roe ce ID: 0001 Olaf lable Time: 11:00:00 AM Tamra jennings, [facility] 17:21:01 Gestatio n period, 25 weeks [id number] Completed 201908/24/2020 25 weeks gestatio n of pregnanc y;Record ed Elsewher e: No Locat ion: [facility] S ource: EHR Account General Manager yulia: N Benedictoti ce ID: 0001 Olaf lable Time: 09:15:00 AM Tamra jennings, [facility] 17:20:55 Antenata l screenin g for malforma tion Completed 201808/24/2020 Encounte r for antenata l screenin g for malforma tions;Re corded Elsewher e: No Locat ion: [facility] S ource: EHR Account General Manager yulia: N Jyothi ce ID: 0001 Olaf lable Time: 10:45:00 AM Tamra jennings, [facility] 17:20:53 Bipolar disorder 03686489 Active 2018 lexapro and abilify ok per MFM Ayana Sethjen brambila michaela, [facility] [address] 14:23:[address] Concept Completed 201808/24/2020 Encntr for polisher balance screwhead exam (general ) (routine ) w/o abn findings ;Recorde d Elsewher e: No Locat ion: [facility] S ource: EHR Account General Manager yulia: N Jyothi ce ID: 0001 Olaf lable Time: 03:00:00 PM Tamra jennings, [facility] 1 17:21:08 Pregnanc y, childbir th and puerperi um finding Completed 201908/24/2020 Encntr for suprvsn of normal first preg, third trimeste r;Record ed Elsewher e: No Locat ion: [facility] S ource: EHR Account General Manager yulia: N Jyothi ce ID: 0001 Olaf lable Time: 09:35:53 AM Tamra jennings, [facility] 1 17:21:05 Pregnanc y 90444303 Completed 201905/27/2020 Lisa Rahul jennings, [facility] 4 17:32:23 Pregnanc y 26869271 Completed 202008/24/2020 Lisa jennings, [facility] 4 17:32:23 Corpus luteum cyst 536626725 Completed 2019 RIGHT Ayana Jai jennings, [facility] 1 12:38:16 Chlamydi al infectio n [id number] Completed 2020 + - tx'd sent on 07/21 . Neg TREY 08/25/20 Ayana jennings, [facility] 1 12:38:16 Pregnanc y 37781626 Completed 202012/23/2020 Lisa Kay [facility], [facility] 4 17:32:23 Depressi ve disorder 66870486 Completed Restarte d Abilify & Lexapro 09/12/20. 11/01/20 RPT EPDS 4 Ayana brambila null, [facility] 1 12:38:16 Pregnanc y 89440999 Completed 202103/02/2022 Lisa Kay [facility], [facility] 4 17:32:23 Bipolar disorder 10571956 Completed 2018 lexapro and abilify ok per [facility] Ayana brambila null, [facility] 2 14:23:05 Asthma 036680388 Completed Ayana brambila null, [facility] 2 14:23:05 Gastroes ophageal reflux disease 124326121 Completed Ayana brambila null, [facility] 2 14:23:05 RhD negative 901864281 Completed ok with Rhogam? Ayana brambila null, [facility] 2 14:23:05 Mixed anxiety and depressi ve disorder 243261821 Active 2023 Dalila Noyola null, [facility] 4 13:06:17 Pregnanc y 29399349 Active 2023 Lisa Kay [facility], [facility] 4 17:32:23 Shoulder girdle dystocia 35165952 Active With injury to the baby, to perform Shanta Quintana [facility], [facility] 4 17:53:31 section Active to do for previous shoulder dystocia with injury Rhett Rivers MD [address], [place], [address], [facility] 4 12:21:16 Blood group O Rh(D) negative 026604996 Active Rhogam received 04/18/24 Sanaz Infante [facility] 4 13:19:07 Problem Notes None recorded. Procedures Surgical History Date Name Laterality Status Provider Name and Address Organization Details Recorded Time 12/11/19 24 Date of Last Pap Smear completed Dalilamitali Noyola [facility] 12/11/2023 13:10:59 07/15/19 06 tonsilectomy/ad enoids completed [facility] 09/22/2021 16:07:20 07/15/19 05 adenoid excision completed [facility] 09/22/2021 16:07:11 07/15/19 02 myringotomy and insertion of tympanic ventilation tube completed [facility] 09/22/2021 16:07:37 Imaging Results None [...] Not available Not available Not available 10/27/2019 83026 8003 SNOMED Dalila Noyola [facility], [facility] 0 12:37:04 2772 Medicinal product containin g penicilli n and acting as antibacte rial agent (product) medicatio n Not available Not available Not available 06/01/2020 28461 05 SNOMED Celine jennings, [facility] 0 12:54:54 2773 amoxicill in medicatio n Not available Not available Not available 06/01/2020 723 RxNorm Celine jennings, [facility] 0 12:54:59 Medications Name Sig Start [...] Prescrib ed Elsewher e: Yes Loca tion: Sylvia [facility] M odify By: [email or web address] Herson r DateTime : 04/27/20 11:15:00 AM Not [...] completed Not Available Not Available Not Available Mikey-Maximilian uo DHA 29 mg-1 mg-400 mg oral [...] Updated DateTime 06/17/2024 170.82 cm 32.2 kg/m2 00798.62 g 98 mm[Hg] 64 mm[Hg] Anu Thompson [facility] 10:27:03 Social History Question Answer Notes LastModified by Organizat ion Details LastModified Time Tobacco Smoking Status Former Smoker Dalila jennings, [facility] 10/27/2019 12:41:22 What Is Your Level Of Alcohol Consumption? None [email or web address] Information not available 12/14/2021 If You Are , What Was Your Level Of Alcohol Consumption Prior To ? Occasional phewitt Information not available 06/27/2020 Are You Blind Or Do You Have Difficulty Seeing? No [email or web address] Information not available 11/16/2021 What Is Your Level Of Caffeine Consumption? Occasional [email or web address] Information not available 11/16/2021 In The 14 Days Before Symptom Onset, Have You Had Close Contact With A Laboratory-confir med COVID-19 While That Case Was Ill? No Information not available 11/16/2021 In The 14 Days Before Symptom Onset, Have You Had Close Contact With A Person Who Is Under Investigation For COVID-19 While That Person Was Ill? No [email or web address] Information not available 11/16/2021 Have You Been To An Area Known To Be High Risk For COVID-19? No Information not available 11/16/2021 Are You Deaf Or Do You Have Serious Difficulty Hearing? No [email or web address] Information not available 11/16/2021 What Type Of Diet Are You Following? REGULAR [email or web address] Information not available 11/16/2021 Which Illicit Or Recreational Drugs Have You Used? Cord [email or web address] Information not available 10/27/2019 Do You Use Your Seat Belt Or Car Seat Routinely? Yes [email or web address] Information not available 11/16/2021 Do You Have Smoke And Carbon Monoxide Detectors In Your Home? Yes [email or web address] Information not available 11/16/2021 Do You Feel Stressed (tense, Restless, Nervous, Or Anxious, Or Unable To Sleep At Night)? [id number] [email or web address] Information not available 11/16/2021 Do You Use Sunscreen Routinely? Yes [email or web address] Information not available 11/16/2021 Has Tobacco Cessation Counseling Been Provided? No [email or web address] Information not available 11/16/2021 Do You Or Have You Ever Used Any Other Forms Of Tobacco Or Nicotine? No [email or web address] Information not available 11/16/2021 Sex: Unknown Functional Status Question Answer Note LastModified by Organizat ion Details LastModified Time Do you have difficulty walking or climbing stairs? No [email or web address] Information not available 11/16/2021 Are you able to walk? YESWOREST [email or web address] Information not available 11/16/2021 Are you able to care for yourself? Yes [email or web address] Information not available 11/16/2021 Do you have difficulty dressing or bathing? No Information not available 11/16/2021 What is your exercise level? Occasional [email or web address] Information not available 10/27/2019 Mental Status None [...] ) N Other Y Breast Cancer N Blood Transfusion N Drug/Latex Allergies/Reactions Y Dermatologic Disorders N Lung Disease N Defects or Inherited Disease N Breast Problem N Gestational Diabetes N Hematologic disorders N Anesthesia Complications N History of STI N Deep Vein Thrombosis N Polycystic ovary syndrome N Anxiety Disorder Y Autoimmune disease N Arthritis N Polyps N Infertility N Acid Reflux (GERD) N History of abnormal pap N Cancer N Varicosities N Stroke N Neurologic/Epilepsy Y Endometriosis N High Cholesterol N Fibromyalgia N Headaches N Kidney Disease N Heart Problems N Thyroid Problems N Kidney or Bladder Problems N GI Problems N Eating Disorder [...] Diagnosis/Indication Diagnosis SNOMED-CT Code Diagnosis ICD10 Code [id number] Cherelle Quiroz [facility] [address] [address] 05/18/2024 09:41:39 05/18/2024 10:10:12 Medical examination for suspected condition 260262968 Z03.74 Z3A.32 [id number] LINDSEY ESTRADA MD [facility] [address] [address] 06/02/2024 10:41:46 06/02/2024 11:29:38 Bipolar disorder 32722082 F31.9 Deliveries by [id number] O82 Shoulder g irdle dystocia 24163861 O66.0 Gestation period, 34 weeks 67080910 Z3A.34 [id number] LINDSEY ESTRADA MD [facility] [address] [address] 06/17/2024 10:19:34 06/18/2024 11:31:11 Shoulder girdle dystocia 55163669 O66.0 Gestation period, 36 weeks 44238939 Z3A.36 Health Concerns Section Related Observation LastModified by Organization Detai ls LastModified Time None Recorded Concern Status LastModified by Organization Details LastModified Time None Recorded Payers Encounter Date Sequence Insurance Name Policy Number Policy Kwok Covered Member ID Kwok Member ID Guarantor Name 06/17/2024 1 [facility] (MEDICAID HMO) [id number] Lashanda James [id number] Lashanda James OBGyn Episode Ob Episode Information Episode Created Date Number of Fetuses Patient Bloodtype Patient rh Status Prepregnancy Weight lbs Domestic Partner Domestic Partner Phone Father Name Child Care Centre Manager Status 01/02/20 24 1 O Negative 164 OPEN Fetus Data First Name Last Name Admitted to NICU Weight (g) Sex Living Outcome Pediatric Complications Fetus ID Race Codes Race Delivery Type [id number] Problems Problem Notes Problem Name Start Date End Date Resolution Snomed Code Not e Blood group O Rh(D) negative 700718300 Rhogam received 04/18/24 Shoulder girdle dystocia 38667652 With injury to the baby, to perform section 21322443 to do for previous shoulder dystocia with [...] Weight in lbs Pre/Post Dialysis Refused Weight 164.58204297741 BP Diastolic BP Location Tested BP Systolic [...] Type Weight in lbs Pre/Post Dialysis Refused 179.759869068830 BP Diastolic BP Location Tested BP Systolic [...] Type Weight in lbs Pre/Post Dialysis Refused 182.076998109645 BP Diastolic BP Location Tested BP Systolic [...] Type Weight in lbs Pre/Post Dialysis Refused 188.485090265021 BP Diastolic BP Location Tested BP Systolic [...] Type Weight in lbs Pre/Post Dialysis Refused 195.783367916890 BP Diastolic BP Location Tested BP Systolic [...] Weight in lbs Pre/Post Dialysis Refused Weight 203.919215177875 BP Diastolic BP Location Tested BP Systolic [...] Weight in lbs Pre/Post Dialysis Refused Weight 207.981972674689 BP Diastolic BP Location Tested BP Systolic [...] Weight in lbs Pre/Post Dialysis Refused Weight 209.365800731085 BP Diastolic BP Location Tested BP Systolic [...] Weight in lbs Pre/Post Dialysis Refused Weight 211.943813829790 BP Diastolic BP Location Tested BP Systolic [...] Estim ated Date of Delivery false Thalassemia (Tuvaluan, Slovenian, Mediterranean, Or Background): MCV < 80 false Neural Tube Defect (Meningomyelocele, Spina Bifi da, Or Anencephaly) false Congenital Heart Defect false Down Syndrome false Dane-Sachs (eg, Buddhist, Cajun, Finnish-[place]) f alse Juancarlos Disease false Sickle Cell [...]
--- OUTSIDE RECORDS SUMMARY | 2024-07-11 19:32 | XMS_ITS | Continuity of Care Document ---
Author Organization [facility] Address [address] [place] [address] Assessment Encounter Date Assessment Date Assessment LastModified by Organization Details LastModified Time 04/23/2024 04/23/2024 Patient is ___weeks . Discussed plan. [email or web address] Not available 04/23/2024 12:58:55 Plan of Treatment Reminders Order Date Submit [...] lucen cy No observ ation record ed. [facility] [address], [place], [address], 01/02/2024 17:39:14 01/02/20 24 01/02/2024 US, obste tric, nucha l trans lucen cy No observ ation record ed. [email or web address] Ka[address], [place], [address], 01/02/2024 19:40:21 02/27/20 24 02/27/2024 US, obste tric, 2nd or 3rd trime ster No observ ation record ed. kyck [place] [address], [place], [address], 02/27/2024 18:06:05 02/27/20 24 02/27/2024 US, obste tric, follo w-up No observ ation record ed. [email or web address] [address], [place], [address], 02/28/2024 13:07:39 03/26/20 24 03/26/2024 US, obste tric, follo w-up No observ ation record ed. [email or web address] [place] [address], [place], [address], 03/26/2024 13:46:07 03/26/20 24 03/26/2024 US, obste tric, follo w-up No observ ation record ed. JOHNNIE [address], [place], [address], 04/03/2024 14:52:29 04/23/20 24 04/23/2024 US, obste tric, follo w-up No observ ation record ed. [email or web address] [place] [address], [place], [address], 04/23/2024 12:39:24 04/23/20 24 04/23/2024 US, obste tric, follo w-up No observ ation record ed. JOHNNIE [address], [place], [address], 04/24/2024 11:29:28 05/18/20 24 05/18/2024 US, obste tric, follo w-up No observ ation record ed. [email or web address] [place] [address], [place], [address], 05/18/2024 10:41:38 11/0405/18/2024 US, obste tric, follo w-up No observ ation record ed. [email or web address] [address], [place], [address], 05/18/2024 13:10:19 Result Notes None recorded. Problems Name Problem SNOMED Code Status Onset Date Resolution Date Notes Provider Name and Address Organization Details Recorded Time Normal pregnanc y in multigra bautista [id number] 64617 Completed 201908/24/2020 Encounte r for suprvsn of normal pregnanc y, third trimeste r;Record ed Elsewher e: No Locat ion: [facility] [address] S ource: EHR Senior Medical Billing Specialist yulia: Tom Roe ce ID: 0001 Olaf lable Time: 10:45:00 AM Tamra jennings [facility] 17:20:59 Antenata l screenin g Completed 201808/24/2020 Encounte r for antenata l screenin g for nuchal transluc ency;Rec orded Elsewher e: No Locat ion: [facility] [address] S ource: EHR Senior Medical Billing Specialist yulia: N Jyothi ce ID: 0001 Olaf lable Time: 10:30:00 AM Tamra jennings [facility] 17:20:51 Pregnanc y, childbir th and puerperi um finding Completed 201908/24/2020 Encounte r for supervis ion of normal 1st pregnanc y;Record ed Elsewher e: No Locat ion: [facility] [address] S ource: EHR Senior Medical Billing Specialist yulia: N Jyothi ce ID: 0001 Olaf lable Time: 09:30:00 AM Tamra jennings [facility] 17:21:03 Gestatio n period, 9 weeks 645898 Completed 201808/24/2020 9 weeks gestatio n of pregnanc y;Record ed Elsewher e: No Locat ion: [facility] [address] S ource: EHR Senior Medical Billing Specialist yulia: N Practi ce ID: 0001 Olaf lable Time: 11:00:00 AM Tamra jennings [facility] 17:20:57 Malforma tion of central nervous system of fetus [id number] 107 Completed 201908/24/2020 Maternal care for (suspect ed) cnsl malform in fetus, unsp;Rec orded Elsewher e: No Locat ion: [facility] [address] S ource: EHR Senior Medical Billing Specialist yulia: N Bendeictoti ce ID: 0001 Olaf lable Time: 09:15:00 AM Tamra jennings, [facility] 17:20:58 Pregnanc y detectio n examinat ion Completed 201808/24/2020 Encounte r for pregnanc y test, result positive ;Recorde d Elsewher e: No Locat ion: [facility] [address] S ource: EHR Senior Medical Billing Specialist yulia: N Benedictoti ce ID: 0001 Olaf lable Time: 11:00:00 AM Tamra jennings, [facility] 17:21:01 Gestatio n period, 25 weeks 29465466 Completed 201908/24/2020 25 weeks gestatio n of pregnanc y;Record ed Elsewher e: No Locat ion: [facility] [address] S ource: EHR Senior Medical Billing Specialist yulia: N Benedictoti ce ID: 0001 Olaf lable Time: 09:15:00 AM Tamra jennings, [facility] 17:20:55 Antenata l screenin g for malforma tion Completed 201808/24/2020 Encounte r for antenata l screenin g for malforma tions;Re corded Elsewher e: No Locat ion: [facility] [address] S ource: EHR Senior Medical Billing Specialist yulia: N Benedictoti ce ID: 0001 Olaf lable Time: 10:45:00 AM Tamra jennings [facility] 02/10/202 1 17:20:53 Bipolar disorder 75433944 Active 2018 lexapro and abilify ok per MFM Ayana jennings [facility] 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 1 17:21:08 Pregnanc y, childbir th and puerperi um finding Completed 201908/24/2020 Encntr for suprvsn of normal first preg, third trimeste r;Record ed Elsewher e: No Locat ion: Sylvia payne [facility] S ource: EHR Senior Medical Billing Specialist yulia: N Practi ce ID: 0001 Olaf lable Time: 09:35:53 AM Tamra jennings [facility] 1 17:21:05 Pregnanc y 64383434 Completed 201905/27/2020 Lisa jennings, [facility] 4 17:32:23 Pregnanc y 79287578 Completed 202008/24/2020 Lisa jennings, [facility] 4 17:32:23 Corpus luteum cyst 146343521 Completed 2019 RIGHT Ayana jennings [facility] 1 12:38:16 Chlamydi al infectio n [id number] Completed 2020 + - tx'd sent on 07/21 . Neg TREY 08/25/20 Ayana jennings [facility] 1 12:38:16 Pregnanc y 93735611 Completed 202012/23/2020 Lisa Rahul null, [facility] 4 17:32:23 Depressi ve disorder 79820205 Completed Restarte d Abilify & Lexapro 09/12/20. 11/01/20 RPT EPDS 4 Ayana brambila null, [facility] 1 12:38:16 Pregnanc y 57110966 Completed 202103/02/2022 Lisa Rahul null, [facility] 4 17:32:23 Bipolar disorder 27404911 Completed 2018 lexapro and abilify ok per [facility] Ayana brambila null, [facility] 2 14:23:05 Asthma 902142828 Completed Ayana brambila null, [facility] 2 14:23:05 Gastroes ophageal reflux disease 294781072 Completed Ayana brambila null, [facility] 2 14:23:05 RhD negative 726998000 Completed ok with Rhogam? Ayana brambila null, [facility] 2 14:23:05 Mixed anxiety and depressi ve disorder 082392024 Active 2023 Dalila Noyola null, [facility] 4 13:06:17 Pregnanc y 49502855 Active 2023 Lisa Rahul null, [facility] 4 17:32:23 Shoulder girdle dystocia 53855450 Active With injury to the baby, to perform Shanta Samayoa null, [facility] 4 17:53:31 section Active to do for previous shoulder dystocia with injury Rhett Rivers MD [address], [place], [address], [place] [facility] 4 12:21:16 Blood group O Rh(D) negative 504503141 Active Rhogam received 04/18/24 Sanaz Infante [facility], [facility] 4 13:19:07 Problem Notes None recorded. Procedures Surgical History Date Name Laterality Status Provider Name and Address Organization Details Recorded Time 12/11/19 24 Date of Last Pap Smear completed [facility] 12/11/2023 13:10:59 07/15/19 06 tonsilectomy/ad enoids completed [facility] 09/22/2021 16:07:20 07/15/19 05 adenoid excision completed [facility] 09/22/2021 16:07:11 07/15/19 02 myringotomy and insertion of tympanic ventilation tube completed [facility] 09/22/2021 16:07:37 Imaging Results [...] Not available Not available Not available 10/27/2019 32947 8003 SNOMED Dalila Noyola [facility] 0 12:37:04 2772 Medicinal product containin g penicilli n and acting as antibacte rial agent (product) medicatio n Not available Not available Not available 06/01/2020 57938 05 SNOMED Celine Barney [facility] 0 12:54:54 2773 amoxicill in medicatio n Not available Not available Not available 06/01/2020 723 RxNorm Celine Savita [facility], [place] [facility] 0 12:54:59 Medications Name Sig Start [...] Prescrib ed Elsewher e: Yes Loca tion: [facility] [address] [facility] M odify By: [email or web address] Encounte r DateTime : 04/27/20 [...] Not Available Not Avai lable Not Available Abiliy 09/08 completed Not Available Not Available Not [...] and Address Organization Details Last Updated DateTime 04/23/2024 170.82 cm 30.3 kg/m2 13039.51 215 g 113 mm[Hg] 72 mm[Hg] Lisa Kay [facility] 12:59:40 Social History Question Answer Notes LastModified by Organizat ion Details LastModified Time Tobacco Smoking Status Former Smoker Dalila jennings, [facility] 10/27/2019 12:41:22 What Is Your Level Of Alcohol Consumption? None [email or web address] Information not available 12/14/2021 If You Are , What Was Your Level Of Alcohol Consumption Prior To ? Occasional [email or web address] Information not available 06/27/2020 Are You Blind Or Do You Have Difficulty Seeing? No [email or web address] Information not available 11/16/2021 What Is Your Level Of Caffeine Consumption? Occasional [email or web address] Information not available 11/16/2021 In The 14 Days Before Symptom Onset, Have You Had Close Contact With A Laboratory-confir med COVID-19 While That Case Was Ill? No [email or web address] Information not available 11/16/2021 In The 14 Days Before Symptom Onset, Have You Had Close Contact With A Person Who Is Under Investigation For COVID-19 While That Person Was Ill? No [email or web address] Information not available 11/16/2021 Have You Been To An Area Known To Be High Risk For COVID-19? No [email or web address] Information not available 11/16/2021 Are You Deaf Or Do You Have Serious Difficulty Hearing? No [email or web address] Information not available 11/16/2021 What Type Of Diet Are You Following? REGULAR [email or web address] Information not available 11/16/2021 Which Illicit Or Recreational Drugs Have You Used? [place] [email or web address] Information not available 10/27/2019 Do You Use Your Seat Belt Or Car Seat Routinely? Yes [email or web address] Information not available 11/16/2021 Do You Have Smoke And Carbon Monoxide Detectors In Your Home? Yes [email or web address] Information not available 11/16/2021 Do You Feel Stressed (tense, Restless, Nervous, Or Anxious, Or Unable To Sleep At Night)? [id number] [email or web address] Information not available 11/16/2021 Do You Use Sunscreen Routinely? Yes [email or web address] Information not available 11/16/2021 Has Tobacco Cessation Counseling Been Provided? No [email or web address] Information not available 11/16/2021 Do You Or Have You Ever Used Any Other Forms Of Tobacco Or Nicotine? No [email or web address] Information not available 11/16/2021 Sex: Unknown Functional Status Question Answer Note LastModified by Organizat ion Details LastModified Time Do you have difficulty walking or climbing stairs? No [email or web address] Information not available 11/16/2021 Are you able to walk? YESWOREST [email or web address] Information not available 11/16/2021 Are you able to care for yourself? Yes [email or web address] Information not available 11/16/2021 Do you have difficulty dressing or bathing? No [email or web address] Information not available 11/16/2021 What is your exercise level? Occasional [email or web address] Information not available 10/27/2019 Mental Status None recorded. Family History Relationship Description Onset Age of this Age Resolved Age Notes LastModified by Organization Details LastModified Time Mother Malignant tumor of cervix [email or web address] Not available 2020 10:18:56 Mother Malignant tumor of ovary [email or web address] Not available 2020 10:18:56 Maternal Grandmother Malignant tumor of colon [email or web address] Not available 2020 10:18:56 Medical History Condition Response Other Y Blood Transfusion N Dermatologic Disorders N Gestational Diabetes N Anxiety Disorder Y Autoimmune disease N Arthritis N Polyps N Infertility N Acid Reflux (GERD) N Cancer N Varicosities N Stroke N Neurologic/Epilepsy Y Fibromyalgia N Headaches N Kidney Disease N Heart Problems N Kidney or Bladder Problems N Eating Disorder N Art (IVF or FET) N Hepatitis/Liver Disease N No Past Medical History N Urinary Tract Infection N Asthma Y Trauma/Violence N Thrombophilias N Allergies (Food, seasonal, environmental ) N Breast Cancer N Drug/Latex Allergies/Reactions Y Lung Disease N Defects or Inherited Disease N Breast Problem N Hematologic disorders N Anesthesia Complications N History of STI N Deep Vein Thrombosis N Polycystic ovary syndrome N History of abnormal pap N Endometriosis N High Cholesterol N Thyroid Problems N GI Problems N Anemia N Psychiatric Illness Y Ovarian Cancer N Diabetes N Pulmonary (TB, Asthma) N Eczema N Abuse/Domestic Violence N Depression/ depression Y Heart Disease N Pre-Eclampsia N Hypertension N Osteoporosis N Gynecological History Statement/Question Response Abnormal Pap [...] Diagnosis/Indication Diagnosis SNOMED-CT Code Diagnosis ICD10 Code 651973 Vidhya [facility] [address] [address] 03/26/2024 11:28:44 03/26/2024 13:45:56 screening 297004589 Z36.2 Z3A.24 [id number] Rhett Rivers MD [place] [address],[place] [address] 03/26/2024 11:26:32 03/26/2024 13:45:39 Routine care 802120333 Z34.92 [id number] Vidhya Kaufman [place] [address],[place] [address] 04/23/2024 12:09:12 04/23/2024 12:41:35 condition affecting obstetrical care of mother 385482117 O35.00X0 Z3A.28 [id number] Rhett Rivers MD [place] [address],[place] [address] 04/23/2024 12:09:28 04/23/2024 14:54:09 Routine care 451477436 Z34.92 Health Concerns Section Related Observation LastModified by Organization Detai ls LastModified Time None Recorded Concern Status LastModified by Organization Details LastModified Time None Recorded Payers Encounter Date Sequence Insurance Name Policy Number Policy Kwok Covered Member ID Kwok Member ID Guarantor Name 04/23/2024 1 [facility] (MEDICAID HMO) [id number] Lashanda James [id number] Lashanda James OBGyn Episode Ob Episode Information Episode Created Date Number of Fetuses Patient Bloodtype Patient rh Status Prepregnancy Weight lbs Domestic Partner Domestic Partner Phone Father Name Manager Surgical Status 01/02/20 24 1 O Negative 164 OPEN Fetus Data First Name Last Name Admitted to NICU Weight (g) Sex Living Outcome Pediatric Complications Fetus ID Race Codes Race Delivery Type [id number] Problems Problem Notes Problem Name Start Date End Date Resolution Snomed Code Not e Blood group O Rh(D) negative 607225567 Rhogam received 04/18/24 Shoulder girdle dystocia 78013112 With injury to the baby, to perform section 83540504 to do for previous shoulder dystocia with [...] Weight in lbs Pre/Post Dialysis Refused Weight 164.12731140231 BP Diastolic BP Location Tested BP Systolic [...] Type Weight in lbs Pre/Post Dialysis Refused 179.399389223678 BP Diastolic BP Location Tested BP Systolic [...] Type Weight in lbs Pre/Post Dialysis Refused 182.439946825011 BP Diastolic BP Location Tested BP Systolic [...] Type Weight in lbs Pre/Post Dialysis Refused 188.379188466090 BP Diastolic BP Location Tested BP Systolic [...] Type Weight in lbs Pre/Post Dialysis Refused 195.732528587347 BP Diastolic BP Location Tested BP Systolic [...] Weight in lbs Pre/Post Dialysis Refused Weight 203.504742396667 BP Diastolic BP Location Tested BP Systolic [...] Weight in lbs Pre/Post Dialysis Refused Weight 207.872155064884 BP Diastolic BP Location Tested BP Systolic [...] Weight in lbs Pre/Post Dialysis Refused Weight 209.532932134885 BP Diastolic BP Location Tested BP Systolic [...] Weight in lbs Pre/Post Dialysis Refused Weight 211.711875123327 BP Diastolic BP Location Tested BP Systolic [...] Estim ated Date of Delivery false Thalassemia (Thai, Lithuanian, Mediterranean, Or Background): MCV < 80 false Neural Tube Defect (Meningomyelocele, Spina Bifi da, Or Anencephaly) false Congenital Heart Defect false Down Syndrome false Dane-Sachs (eg, Jainism, Cajun, Wolof-Archer) f alse Juancarlos Disease false Sickle Cell [...]
--- OUTSIDE RECORDS SUMMARY | 2024-07-11 19:32 | XMS_ITS | Continuity of Care Document ---
Author Organization [facility] [place] Address [address] [place] [address] Assessment No assessment recorded. Plan of Treatment Reminders Order Date Submit Date Provider Last Modified By Organization Details Last Modified Time Details Appointments SURG POST OP 025 11:45AM LINDSEY ESTRADA MD Not available Not available Not available Lab None record ed. Referral None record ed. Procedures None record ed. Surgeries None record ed. Imaging US, obstet gabriela, follow -up 024 04/23/20 24 [email or web address] [place] [facility] [address], [address] [place], [address], 04/23/2024 14:34:58 Medication Orders None record ed. Patient TargetsNo targets recorded. Patient InstructionsNo instructions recorded. Reason for Referral None Reported. Results Created Date Observation Date Name Description Value Unit Range Abnormal Flag Note LastModifiedBy Organization Detail LastModifiedTime 01/02/20 24 01/02/2024 US, obste tric, nucha l trans lucen cy No observ ation record ed. [facility] [address] [place], [address], 01/02/2024 17:39:14 01/02/20 24 01/02/2024 US, obste tric, nucha l trans lucen cy No observ ation record ed. [email or web address] [address], [place], [address], 01/02/2024 19:40:21 08/15/02/27/2024 US, obste tric, 2nd or 3rd trime ster No observ ation record ed. [facility] [address], [place], [address], 02/27/2024 18:06:05 02/27/20 24 02/27/2024 US, obste tric, follo w-up No observ ation record ed. [email or web address] [address], [place], [address], 02/28/2024 13:07:39 03/26/20 24 03/26/2024 US, obste tric, follo w-up No observ ation record ed. [email or web address] [place] [address], [place], [address], 03/26/2024 13:46:07 03/26/20 24 03/26/2024 US, obste tric, follo w-up No observ ation record ed. JOHNNIE [address], [place], [address], 04/03/2024 14:52:29 04/23/20 24 04/23/2024 US, obste tric, follo w-up No observ ation record ed. [email or web address] [place] [address], [place], [address], 04/23/2024 12:39:24 04/23/20 24 04/23/2024 US, obste tric, follo w-up No observ ation record ed. JOHNNIE [address], [place], [address], 04/24/2024 11:29:28 05/18/20 24 05/18/2024 US, obste tric, follo w-up No observ ation record ed. [email or web address] [place] [address], [place], [address], 05/18/2024 10:41:38 05/18/20 24 05/18/2024 US, obste tric, follo w-up No observ ation record ed. [email or web address] [address], [place], [address], 05/18/2024 13:10:19 Result Notes None recorded. Problems Name Problem SNOMED Code Status Onset Date Resolution Date Notes Provider Name and Address Organization Details Recorded Time Normal pregnanc y in multigra bautista 5746018758 88540 Completed 201908/24/2020 Encounte r for suprvsn of normal pregnanc y, third trimeste r;Record ed Elsewher e: No Locat ion: [facility] S ource: EHR [employer] yulia: N Jyothi ce ID: 0001 Olaf lable Time: 10:45:00 AM Tamra Gan [facility] 17:20:59 Antenata l screenin g Completed 201808/24/2020 Encounte r for antenata l screenin g for nuchal transluc ency;Rec orded Elsewher e: No Locat ion: [facility] S ource: EHR [employer] yulia: Tom Roe ce ID: 0001 Olaf lable Time: 10:30:00 AM Tamra Gan [facility] 17:20:51 Pregnanc y, childbir th and puerperi um finding Completed 201908/24/2020 Encounte r for supervis ion of normal 1st pregnanc y;Record ed Elsewher e: No Locat ion: [facility] S ource: EHR [employer] yulia: N Jyothi ce ID: 0001 Olaf lable Time: 09:30:00 AM Tamra Gan [facility] 17:21:03 Gestatio n period, 9 weeks 645180 Completed 201808/24/2020 9 weeks gestatio n of pregnanc y;Record ed Elsewher e: No Locat ion: [facility] S ource: EHR [employer] yulia: N Practi ce ID: 0001 Olaf lable Time: 11:00:00 AM Tamra jennings, [facility] 17:20:57 Malforma tion of central nervous system of fetus 6488739134 107 Completed 201908/24/2020 Maternal care for (suspect ed) cnsl malform in fetus, unsp;Rec orded Elsewher e: No Locat ion: [facility] S ource: EHR [employer] yulia: N Practi ce ID: 0001 Olaf lable Time: 09:15:00 AM Tamra Gan [facility], [facility] 17:20:58 Pregnanc y detectio n examinat ion Completed 201808/24/2020 Encounte r for pregnanc y test, result positive ;Recorde d Elsewher e: No Locat ion: [facility] S ource: EHR [employer] yulia: N Practi ce ID: 0001 Olaf lable Time: 11:00:00 AM Tamra Gan [facility], [facility] 17:21:01 Gestatio n period, 25 weeks 55580734 Completed 201908/24/2020 25 weeks gestatio n of pregnanc y;Record ed Elsewher e: No Locat ion: [facility] S ource: EHR [employer] yulia: N Practi ce ID: 0001 Olaf lable Time: 09:15:00 AM Tmara jennings, [facility] 17:20:55 Antenata l screenin g for malforma tion Completed 201808/24/2020 Encounte r for antenata l screenin g for malforma tions;Re corded Elsewher e: No Locat ion: [facility] S ource: EHR [employer] yulia: N Practi ce ID: 0001 Olaf lable Time: 10:45:00 AM Tamra jennings, [facility] 1 17:20:53 Bipolar disorder 60374953 Active 2018 lexapro and trevin ok per M Ayana jennings, [facility] 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 1 17:21:08 Pregnanc y, childbir th and puerperi um finding Completed 201908/24/2020 Encntr for suprvsn of normal first preg, third trimeste r;Record ed Elsewher e: No Locat ion: [facility] S ource: EHR [employer] yulia: N Practi ce ID: 0001 Olaf lable Time: 09:35:53 AM Tamra [place] michaela, [facility] 1 17:21:05 Pregnanc y 65366551 Completed 201905/27/2020 Lisa jennings, [facility] 4 17:32:23 Pregnanc y 59180970 Completed 202008/24/2020 Lisa jennings, [facility] 4 17:32:23 Corpus luteum cyst 825580948 Completed 2019 RIGHT Ayana jennings, [facility] 1 12:38:16 Chlamydi al infectio n 926869060 Completed 2020 + - tx'd sent on 07/21 . Neg TREY 08/25/20 Ayana jennings, [facility] 1 12:38:16 Pregnanc y 44524921 Completed 202012/23/2020 Lisa Kay null, [facility] 4 17:32:23 Depressi ve disorder 21855972 Completed Restarte d Abilify & Lexapro 09/12/20. 11/01/20 RPT EPDS 4 Ayana brambila null, [facility] 1 12:38:16 Pregnanc y 30913262 Completed 202103/02/2022 Lisa Kay [facility], [facility] 4 17:32:23 Bipolar disorder 54502965 Completed 2018 lexapro and abilify ok per [facility] Ayana brambila null, [facility] 2 14:23:05 Asthma 843359107 Completed Ayana brambila null, [facility] 2 14:23:05 Gastroes ophageal reflux disease 009588291 Completed [facility] 14:23:05 RhD negative 081043516 Completed ok with Rhogam? Aayna brambila null, [facility] 2 14:23:05 Mixed anxiety and depressi ve disorder 461395385 Active 2023 Dalila Noyola null, [facility] 4 13:06:17 Pregnanc y 13975794 Active 2023 Lisaelvin Kay [facility], [facility] 4 17:32:23 Shoulder girdle dystocia 05374761 Active With injury to the baby, to perform Shanta Samayoa null, [facility] 4 17:53:31 section Active to do for previous shoulder dystocia with injury Rhett Rivers MD [address], [place], [address], [facility] 4 12:21:16 Blood group O Rh(D) negative 229922933 Active Rhogam received 04/18/24 Sanaz Infante null, [facility] 4 13:19:07 Problem Notes None recorded. Procedures Surgical History Date Name Laterality Status Provider Name and Address Organization Details Recorded Time 12/11/19 24 Date of Last Pap Smear completed [facility] 12/11/2023 13:10:59 07/15/19 06 tonsilectomy/ad enoids completed [facility] 09/22/2021 16:07:20 07/15/19 05 adenoid excision completed [facility] 09/22/2021 16:07:11 07/15/19 02 myringotomy and insertion of tympanic ventilation tube completed [facility] 09/22/2021 16:07:37 Imaging Results Imaging Date Name Status LastModified by Organiz ation Details LastModified Time 04/23/2024 US, obstetric, follow-up completed [email or web address] [place] [address] [place], [address], 04/23/2024 12:39:24 04/23/2024 US, obstetric, follow-up completed JOHNNIE [address], [place], [address], 04/24/2024 11:29:28 Procedure Notes None recorded. Medical Equipment None Reported. Allergies Allergen ID Allergen Name Allergen Category Reaction Reaction Severity Criticality Documentation Date Start Date Code Code System Note Provider Name and Address Organization Details Recorded Time 106 Substance with sulfonami de structure and antibacte rial mechanism of action (substanc e) medicatio n Not available Not available Not available 10/27/2019 36552 8003 SNOMED Dalila Noyola [facility] 0 12:37:04 2772 Medicinal product containin g penicilli n and acting as antibacte rial agent (product) medicatio n Not available Not available Not available 06/01/2020 69219 05 SNOMED Celine Barney [facility] 0 12:54:54 2773 amoxicill in medicatio n Not available Not available Not available 06/01/2020 723 RxNorm Celine Barney [facility] 0 12:54:59 Medications Name Sig [...] Prescrib ed Elsewher e: Yes [facility] By: hansa Bains r DateTime : 04/27/20 11:15:00 AM Not [...] Updated DateTime 04/23/2024 170.82 cm 30.3 kg/m2 06180.51 215 g 113 mm[Hg] 72 mm[Hg] Lisa Rahul [facility] 4 12:59:40 Social History Question Answer Notes LastModified by Organizat ion Details LastModified Time Tobacco Smoking Status Former Smoker Dalila Noyola michaela, [facility] 10/27/2019 12:41:22 What Is Your Level Of Alcohol Consumption? None [email or web address] Information not available 12/14/2021 If You Are , What Was Your Level Of Alcohol Consumption Prior To ? Occasional phewitt Information not available 06/27/2020 Are You Blind Or Do You Have Difficulty Seeing? No [email or web address] Information not available 11/16/2021 What Is Your Level Of Caffeine Consumption? Occasional [email or web address] Information not available 11/16/2021 In The 14 Days Before Symptom Onset, Have You Had Close Contact With A Laboratory-confir med COVID-19 While That Case Was Ill? No [email or web address] Information not available 11/16/2021 In The 14 Days Before Symptom Onset, Have You Had Close Contact With A Person Who Is Under Investigation For COVID-19 While That Person Was Ill? No [email or web address] Information not available 11/16/2021 Have You Been To An Area Known To Be High Risk For COVID-19? No [email or web address] Information not available 11/16/2021 Are You Deaf Or Do You Have Serious Difficulty Hearing? No [email or web address] Information not available 11/16/2021 What Type Of Diet Are You Following? REGULAR [email or web address] Information not available 11/16/2021 Which Illicit Or Recreational Drugs Have You Used? [place] [email or web address] Information not available 10/27/2019 Do You Use Your Seat Belt Or Car Seat Routinely? Yes [email or web address] Information not available 11/16/2021 Do You Have Smoke And Carbon Monoxide Detectors In Your Home? Yes [email or web address] Information not available 11/16/2021 Do You Feel Stressed (tense, Restless, Nervous, Or Anxious, Or Unable To Sleep At Night)? [id number] [email or web address] Information not available 11/16/2021 Do You Use Sunscreen Routinely? Yes Information not available 11/16/2021 Has Tobacco Cessation Counseling Been Provided? No Information not available 11/16/2021 Do You Or Have You Ever Used Any Other Forms Of Tobacco Or Nicotine? No [email or web address] Information not available 11/16/2021 Sex: Unknown Functional Status Question Answer Note LastModified by Organizat ion Details LastModified Time Do you have difficulty walking or climbing stairs? No [email or web address] Information not available 11/16/2021 Are you able to walk? YESWOREST [email or web address] Information not available 11/16/2021 Are you able to care for yourself? Yes [email or web address] Information not available 11/16/2021 Do you have difficulty dressing or bathing? No [email or web address] Information not available 11/16/2021 What is your exercise level? Occasional [email or web address] Information not available 10/27/2019 Mental Status None [...] (Food, seasonal, environmental ) N Other Y Drug/Latex Allergies/Reactions Y Breast Cancer N Blood Transfusion N Dermatologic Disorders N Lung [...] Diagnosis/Indication Diagnosis SNOMED-CT Code Diagnosis ICD10 Code [id number] [facility] [address],[place] [address] 03/26/2024 11:28:44 03/26/2024 13:45:56 screening 748015730 Z36.2 Z3A.24 [id number] Rhett Rivers MD [place] [address],[place] [address] 03/26/2024 11:26:32 03/26/2024 13:45:39 Routine care 976532031 Z34.92 [id number] [facility] [address],[place] [address] 04/23/2024 12:09:12 04/23/2024 12:41:35 condition affecting obstetrical care of mother 434421232 O35.00X0 Z3A.28 [id number] Rhett Rivers MD [place] [address],[place] [address] 04/23/2024 12:09:28 04/23/2024 14:54:09 Routine care 662929921 Z34.92 Health Concerns Section Related Observation LastModified by Organization Detai ls LastModified Time None Recorded Concern Status LastModified by Organization Details LastModified Time None Recorded Payers Encounter Date Sequence Insurance Name Policy Number Policy Kwok Covered Member ID Kwok Member ID Guarantor Name 04/23/2024 1 [facility] (MEDICAID HMO) [id number] Lashanda James [id number] Lashanda James OBGyn Episode Ob Episode Information Episode Created Date Number of Fetuses Patient Bloodtype Patient rh Status Prepregnancy Weight lbs Domestic Partner Domestic Partner Phone Father Name 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 Status 01/02/20 24 1 O Negative 164 OPEN Fetus Data First Name Last Name Admitted to NICU Weight (g) Sex Living Outcome Pediatric Complications Fetus ID Race Codes Race Delivery Type [id number] Problems Problem Notes Problem Name Start Date End Date Resolution Snomed Code Not e Blood group O Rh(D) negative 814677026 Rhogam received 04/18/24 Shoulder girdle dystocia 28740702 With injury to the baby, to perform section 23211471 to do for previous shoulder dystocia with [...] Weight in lbs Pre/Post Dialysis Refused Weight 164.46065308505 BP Diastolic BP Location Tested BP Systolic [...] Type Weight in lbs Pre/Post Dialysis Refused 179.815723138126 BP Diastolic BP Location Tested BP Systolic [...] Type Weight in lbs Pre/Post Dialysis Refused 182.955936402625 BP Diastolic BP Location Tested BP Systolic [...] Type Weight in lbs Pre/Post Dialysis Refused 188.753013316389 BP Diastolic BP Location Tested BP Systolic [...] Type Weight in lbs Pre/Post Dialysis Refused 195.215889216006 BP Diastolic BP Location Tested BP Systolic [...] Weight in lbs Pre/Post Dialysis Refused Weight 203.337856640038 BP Diastolic BP Location Tested BP Systolic [...] Rhogam. RTC 2 weeks. Flowsheet Date 06/17/2024 Springre Score Blood Edema Fundus Height Fundus Units Glucose Ketones Leukocytes Nitrite Labor Signs Protein Cervic Dilation Cervic Effacement Cervic Station neg none Type Weight in lbs Pre/Post Dialysis Refused Weight 207.627538025173 BP Diastolic BP Location Tested BP Systolic [...] Weight in lbs Pre/Post Dialysis Refused Weight 209.252704097001 BP Diastolic BP Location Tested BP Systolic [...] Weight in lbs Pre/Post Dialysis Refused Weight 211.072078883222 BP Diastolic BP Location Tested BP Systolic [...] Estim ated Date of Delivery false Thalassemia (Korean, Turkmen, Mediterranean, Or Background): MCV < 80 false Neural Tube Defect (Meningomyelocele, Spina Bifi da, Or Anencephaly) false Congenital Heart Defect false Down Syndrome false Dane-Sachs (eg, Adventist, Cajun, Swedish-Sunburst) f alse Juancarlos Disease false Sickle Cell Disease Or Trait () false Hemophilia Or Other Blood Disorders false Muscular Dystrophy false Cystic Fibrosis false Monroe's Chorea false Intellectual Disability/Autism false If Yes, [...]
--- OUTSIDE RECORDS SUMMARY | 2024-07-11 19:32 | XMS_ITS | Continuity of Care Document ---
Author Organization [facility] [place] Address [address] [place] [address] [place] [address] Assessment No assessment recorded. Plan of Treatment Reminders Order Date Submit Date Provider Last Modified By Organization Details Last Modified Time Details Appointments SURG POST OP 025 11:45AM LINDSEY ESTRADA MD Not available Not available Not available Lab None record ed. Referral None record ed. Procedures None record ed. Surgeries None record ed. Imaging US, obstet gabriela, follow -up 024 05/18/20 24 [email or web address] [place], [address], [place], [address], 05/18/2024 17:52:16 Medication Orders None record ed. Patient TargetsNo targets recorded. Patient InstructionsNo instructions recorded. Reason for Referral None Reported. Results Created Date Observation Date Name Description Value Unit Range Abnormal Flag Note LastModifiedBy Organization Detail LastModifiedTime 01/02/20 24 01/02/2024 US, obste tric, nucha l trans lucen cy No observ ation record ed. [facility] [address], [place], [address], 01/02/2024 17:39:14 01/02/20 24 01/02/2024 US, obste tric, nucha l trans lucen cy No observ ation record ed. [email or web address] [address], [place], [address], 01/02/2024 19:40:21 02/27/20 24 02/27/2024 US, obste tric, 2nd or 3rd trime ster No observ ation record ed. [facility] [address], [place], [address], 02/27/2024 18:06:05 02/27/20 24 02/27/2024 US, obste tric, follo w-up No observ ation record ed. [email or web address] [address], [place], [address], 02/28/2024 13:07:39 03/26/20 24 03/26/2024 US, obste tric, follo w-up No observ ation record ed. [email or web address] [place] [address], [place], [address], 03/26/2024 13:46:07 03/26/20 24 03/26/2024 US, obste tric, follo w-up No observ ation record ed. JOHNNIE [address], [place], [address], 04/03/2024 14:52:29 04/23/2004/23/2024 US, obste tric, follo w-up No observ ation record ed. [email or web address] [place] [address], [place], [address], 04/23/2024 12:39:24 04/23/2004/23/2024 US, obste tric, follo w-up No observ ation record ed. JOHNNIE [address], [place], [address], 04/24/2024 11:29:28 05/18/20 24 05/18/2024 US, obste tric, follo w-up No observ ation record ed. [email or web address] [place] [address], [place], [address], 05/18/2024 10:41:38 05/18/20 24 05/18/2024 US, obste tric, follo w-up No observ ation record ed. [email or web address] [address], [place], [address], 05/18/2024 13:10:19 Result Notes None recorded. Problems Name Problem SNOMED Code Status Onset Date Resolution Date Notes Provider Name and Address Organization Details Recorded Time Normal pregnanc y in multigra bautista [id number] 58653 Completed 201908/24/2020 Encounte r for suprvsn of normal pregnanc y, third trimeste r;Record ed Elsewher e: No Locat ion: [facility] S ource: EHR Sodium Chlorite Operator yulia: N Jyothi ce ID: 0001 Olaf lable Time: 10:45:00 AM Tamra Gan [facility] 17:20:59 Antenata l screenin g Completed 201808/24/2020 Encounte r for antenata l screenin g for nuchal transluc ency;Rec orded Elsewher e: No Locat ion: [facility] S ource: EHR Sodium Chlorite Operator yulia: N Jyothi ce ID: 0001 Olaf lable Time: 10:30:00 AM Tamra Malik [facility] 17:20:51 Pregnanc y, childbir th and puerperi um finding Completed 201908/24/2020 Encounte r for supervis ion of normal 1st pregnanc y;Record ed Elsewher e: No Locat ion: [facility] S ource: EHR Sodium Chlorite Operator yulia: N Benedictoti ce ID: 0001 Olaf lable Time: 09:30:00 AM Tamra Malik [facility] 17:21:03 Gestatio n period, 9 weeks 925869 Completed 201808/24/2020 9 weeks gestatio n of pregnanc y;Record ed Elsewher e: No Locat ion: [facility] S ource: EHR Sodium Chlorite Operator yulia: N Practi ce ID: 0001 Olaf lable Time: 11:00:00 AM Tamra jennings, [facility] 17:20:57 Malforma tion of central nervous system of fetus [id number] 107 Completed 201908/24/2020 Maternal care for (suspect ed) cnsl malform in fetus, unsp;Rec orded Elsewher e: No [facility] Sodium Chlorite Operator yulia: N Practi ce ID: 0001 Olaf lable Time: 09:15:00 AM Tamra Gan [facility], [facility] 17:20:58 Pregnanc y detectio n examinat ion Completed 201808/24/2020 Encounte r for pregnanc y test, result positive ;Recorde d Elsewher e: No Locat ion: [facility] S ource: EHR Sodium Chlorite Operator yulia: N Benedictoti ce ID: 0001 Olaf lable Time: 11:00:00 AM Tamra Gan [facility], [facility] 17:21:01 Gestatio n period, 25 weeks 01402150 Completed 201908/24/2020 25 weeks gestatio n of pregnanc y;Record ed Elsewher e: No [facility]: EHR Sodium Chlorite Operator yulia: N Practi ce ID: 0001 Olaf lable Time: 09:15:00 AM Tamra jennings, [facility] 17:20:55 Antenata l screenin g for malforma tion Completed 201808/24/2020 Encounte r for antenata l screenin g for malforma tions;Re corded Elsewher e: No [facility]: EHR Sodium Chlorite Operator yulia: N Practi ce ID: 0001 Olaf lable Time: 10:45:00 AM Tamra jennings [facility] 1 17:20:53 Bipolar disorder 37573428 Active 2018 lexapro and abikyra ok per MFM Ayana brambila [facility], [facility] [address] 14:23:[address] Concept Completed 201808/24/2020 Encntr for analog ic design engineer exam (general ) (routine ) w/o abn findings ;Recorde d Elsewher e: No Locat ion: [facility] S ource: EHR Sodium Chlorite Operator yulia: N Practi ce ID: 0001 Olaf lable Time: 03:00:00 PM Tamra jennings, [facility] 1 17:21:08 Pregnanc y, childbir th and puerperi um finding Completed 201908/24/2020 Encntr for suprvsn of normal first preg, third trimeste r;Record ed Elsewher e: No Locat ion: [facility] S ource: EHR Sodium Chlorite Operator yulia: N Practi ce ID: 0001 Olaf lable Time: 09:35:53 AM Tamra jennings, [facility] 1 17:21:05 Pregnanc y 35924552 Completed 201905/27/2020 Lisa Rahul [facility], [facility] 4 17:32:23 Pregnanc y 78502037 Completed 202008/24/2020 Lisa jennings, [facility] 4 17:32:23 Corpus luteum cyst 409050037 Completed 2019 RIGHT Ayana brambila [facility] 1 12:38:16 Chlamydi al infectio n [id number] Completed 2020 + - tx'd sent on 07/21 . Neg TREY 08/25/20 Ayana jennings [facility] 1 12:38:16 Pregnanc y 56778045 Completed 202012/23/2020 Lisa Kay null, [facility] 4 17:32:23 Depressi ve disorder 58593846 Completed Restarte d Abilify & Lexapro 09/12/20. 11/01/20 RPT EPDS 4 Ayana brambila null, [facility] 1 12:38:16 Pregnanc y 94096342 Completed 202103/02/2022 Lisa Kay null, [facility] 4 17:32:23 Bipolar disorder 29419287 Completed 2018 lexapro and abilify ok per [facility] Ayana brambila null, [facility] 2 14:23:05 Asthma 618582464 Completed Ayana brambila null, [facility] 2 14:23:05 Gastroes ophageal reflux disease 015777730 Completed Ayana brambila null, [facility] 2 14:23:05 RhD negative 865000569 Completed ok with Rhogam? Ayana brambila null, [facility] 2 14:23:05 Mixed anxiety and depressi ve disorder 555495183 Active 2023 Dalila Noyola null, [facility] 4 13:06:17 Pregnanc y 19604536 Active 2023 Lisaelvin Kay null, [facility] 4 17:32:23 Shoulder girdle dystocia 36326923 Active With injury to the baby, to perform Shanta jennings, [facility] 4 17:53:31 section Active to do for previous shoulder dystocia with injury Rhett Rivers MD [address], [place], [address], [facility] 4 12:21:16 Blood group O Rh(D) negative 035639419 Active Rhogam received 04/18/24 Sanaz Infante null, [facility] 4 13:19:07 Problem Notes None recorded. Procedures Surgical History Date Name Laterality Status Provider Name and Address Organization Details Recorded Time 12/11/19 24 Date of Last Pap Smear completed [facility] 12/11/2023 13:10:59 07/15/19 06 tonsilectomy/ad enoids completed [facility] 09/22/2021 16:07:20 07/15/19 05 adenoid excision completed [facility] 09/22/2021 16:07:11 07/15/19 02 myringotomy and insertion of tympanic ventilation tube completed [facility] 09/22/2021 16:07:37 Imaging Results Imaging Date Name Status LastModified by Organiz ation Details LastModified Time 05/18/2024 US, obstetric, follow-up completed [email or web address] [place] [address], [place], [address], 05/18/2024 10:41:38 05/18/2024 US, obstetric, follow-up completed [email or web address] [address], [place], [address], 05/18/2024 13:10:19 Procedure Notes None recorded. Medical Equipment None Reported. Allergies Allergen ID Allergen Name Allergen Category Reaction Reaction Severity Criticality Documentation Date Start Date Code Code System Note Provider Name and Address Organization Details Recorded Time 106 Substance with sulfonami de structure and antibacte rial mechanism of action (substanc e) medicatio n Not available Not available Not available 10/27/2019 05079 8003 SNOMED Dalila Noyola [facility] 0 12:37:04 2772 Medicinal product containin g penicilli n and acting as antibacte rial agent (product) medicatio n Not available Not available Not available 06/01/2020 96619 05 SNOMED Celine Barney [facility] 0 12:54:54 2773 amoxicill in medicatio n Not available Not available Not available 06/01/2020 723 RxNorm Celine Barney [facility] 0 12:54:59 Medications Name Sig [...] Prescrib ed Elsewher e: Yes Loca tion: [facility] M odify By: hansa Bains r DateTime [...] Not Available Not Available Not Available Vitals None Recorded Social History Question Answer Notes LastModified by Organizat ion Details LastModified Time Tobacco Smoking Status Former Smoker Dalila Noyola [facility] [place] - [facility] 10/27/2019 12:41:22 What Is Your Level Of Alcohol Consumption? None Information not available 12/14/2021 If You Are , What Was Your Level Of Alcohol Consumption Prior To ? Occasional phewitt Information not available 06/27/2020 Are You Blind Or Do You Have Difficulty Seeing? No [email or web address] Information not available 11/16/2021 What Is Your Level Of Caffeine Consumption? Occasional [email or web address] Information not available 11/16/2021 In The 14 Days Before Symptom Onset, Have You Had Close Contact With A Laboratory-confir med COVID-19 While That Case Was Ill? No [email or web address] Information not available 11/16/2021 In The 14 Days Before Symptom Onset, Have You Had Close Contact With A Person Who Is Under Investigation For COVID-19 While That Person Was Ill? No [email or web address] Information not available 11/16/2021 Have You Been To An Area Known To Be High Risk For COVID-19? No [email or web address] Information not available 11/16/2021 Are You Deaf Or Do You Have Serious Difficulty Hearing? No [email or web address] Information not available 11/16/2021 What Type Of Diet Are You Following? REGULAR Information not available 11/16/2021 Which Illicit Or Recreational Drugs Have You Used? [place] [email or web address] Information not available 10/27/2019 Do You Use Your Seat Belt Or Car Seat Routinely? Yes [email or web address] Information not available 11/16/2021 Do You Have Smoke And Carbon Monoxide Detectors In Your Home? Yes [email or web address] Information not available 11/16/2021 Do You Feel Stressed (tense, Restless, Nervous, Or Anxious, Or Unable To Sleep At Night)? [id number] [email or web address] Information not available 11/16/2021 Do You Use Sunscreen Routinely? Yes [email or web address] Information not available 11/16/2021 Has Tobacco Cessation Counseling Been Provided? No [email or web address] Information not available 11/16/2021 Do You Or Have You Ever Used Any Other Forms Of Tobacco Or Nicotine? No Information not available 11/16/2021 Sex: Unknown Functional Status Question Answer Note LastModified by Organizat ion Details LastModified Time Do you have difficulty walking or climbing stairs? No [email or web address] Information not available 11/16/2021 Are you able to walk? YESWOREST [email or web address] Information not available 11/16/2021 Are you able to care for yourself? Yes [email or web address] Information not available 11/16/2021 Do you have difficulty dressing or bathing? No [email or web address] Information not available 11/16/2021 What is your exercise level? Occasional Information not available 10/27/2019 Mental Status None [...] ) N Other Y Blood Transfusion N Breast Cancer N Drug/Latex Allergies/Reactions Y Dermatologic Disorders N [...] Diagnosis/Indication Diagnosis SNOMED-CT Code Diagnosis ICD10 Code [id number] Vidhya Kaufman [place] [address],[facility] [place] [address] 04/23/2024 12:09:12 04/23/2024 12:41:35 condition affecting obstetrical care of mother 138087035 O35.00X0 Z3A.28 [id number] Rhett Rivers MD [place] [address],[facility] [place] [address] 04/23/2024 12:09:28 04/23/2024 14:54:09 Routine care 351586160 Z34.92 [id number] Cherelle Quiroz [place] [address],[facility] [place] [address] 05/18/2024 09:41:39 05/18/2024 10:10:12 Medical examination for suspected condition 172819331 Z03.74 Z3A.32 Health Concerns Section Related Observation LastModified by Organization Detai ls LastModified Time None Recorded Concern Status LastModified by Organization Details LastModified Time None Recorded Payers Encounter Date Sequence Insurance Name Policy Number Policy Kwok Covered Member ID Kwok Member ID Guarantor Name 05/18/2024 1 [facility] (MEDICAID HMO) [id number] Lashanda James [id number] Lashanda James OBGyn Episode Ob Episode Information Episode Created Date Number of Fetuses Patient Bloodtype Patient rh Status Prepregnancy Weight lbs Domestic Partner Domestic Partner Phone Father Name Shim Plug Cutter Status 01/02/20 24 1 O Negative 164 OPEN Fetus Data First Name Last Name Admitted to NICU Weight (g) Sex Living Outcome Pediatric Complications Fetus ID Race Codes Race Delivery Type [id number] Problems Problem Notes Problem Name Start Date End Date Resolution Snomed Code Not e Blood group O Rh(D) negative 500894566 Rhogam received 04/18/24 Shoulder girdle dystocia 27971715 With injury to the baby, to perform section 09700751 to do for previous shoulder dystocia with [...] Weight in lbs Pre/Post Dialysis Refused Weight 164.93601193167 BP Diastolic BP Location Tested BP Systolic [...] Type Weight in lbs Pre/Post Dialysis Refused 179.209095999402 BP Diastolic BP Location Tested BP Systolic [...] Type Weight in lbs Pre/Post Dialysis Refused 182.190944664870 BP Diastolic BP Location Tested BP Systolic [...] Type Weight in lbs Pre/Post Dialysis Refused 188.981947773804 BP Diastolic BP Location Tested BP Systolic [...] Type Weight in lbs Pre/Post Dialysis Refused 195.563476950593 BP Diastolic BP Location Tested BP Systolic [...] Weight in lbs Pre/Post Dialysis Refused Weight 203.842563201904 BP Diastolic BP Location Tested BP Systolic [...] Weight in lbs Pre/Post Dialysis Refused Weight 207.289443684761 BP Diastolic BP Location Tested BP Systolic [...] Weight in lbs Pre/Post Dialysis Refused Weight 209.311906770022 BP Diastolic BP Location Tested BP Systolic [...] Weight in lbs Pre/Post Dialysis Refused Weight 211.839328147320 BP Diastolic BP Location Tested BP Systolic [...] Estim ated Date of Delivery false Thalassemia (Monegasque, Liberian, Mediterranean, Or Background): MCV < 80 false Neural Tube Defect (Meningomyelocele, Spina Bifi da, Or Anencephaly) false Congenital Heart Defect false Down Syndrome false Dane-Sachs (eg, Hoahaoism, Cajun, Northern Irish-Luxembourger) f alse Juancarlos Disease false Sickle Cell Disease Or Trait () false Hemophilia Or Other Blood Disorders false Muscular Dystrophy false Cystic Fibrosis false Leon's Chorea false Intellectual Disability/Autism false If Yes, [...]
== END 2024-07-04 12:44 | disposition home or self-care (01) ==
LOC: ANHLAB 12:44
PROVIDERS: PCP Obstetrics & Gynecology; Visit Provider Obstetrics & Gynecology
DX: Z01.818 Encounter for other preprocedural examination (principal)
CPT/HCPCS: 36415; 85027; 86592; 86850; 86880; 86900; 86901

== ENCOUNTER 2024-07-06 05:20 | Inpatient (IN) | payer OTHER, SELFPAY ==
[2024-07-06] VITALS (61 sets, daily range): BP systolic 65–124; BP diastolic 30–90; PULSE 53–138; RESP 16–19; TEMP 36.2–36.8; O2SAT 94–100; BMI 31.1
[2024-07-06] MEDS: ACETAMINOPHEN 500 MG TABLET 1000 MG PO (06:04)
[2024-07-06] MEDS: LACTATED RINGERS 1,000 ML 125 ML IV CONT ×2 (06:06→06:40)
--- NOTE | 2024-07-06 06:28 | LDADM ---
This patient, Lashanda James, was admitted to Labor/Delivery/Recovery 119 on 07/06/24 at 05:20. Plans for labor, pain management and were discussed with patient. Patient/family oriented to hospital policies and general routines including ID bracelet, bed and alarms, visiting hours, pain management, procedures, bathroom and other care routines, personal items, smoking policy, room service/diet and guest tray routines, security routines, and visiting hours. Patient/Family are encouraged to report perceived risks to care and to ask questions if they do not understand what they are told or what they should do. See OBIX for further documentation.
[2024-07-06] MEDS: CLINDAMYCIN 900 MG/D5W 50 ML 900 MG/50 ML PIGGYBACK 50 MG IVPB (06:44)
[2024-07-06 07:03] LABS: HIV 1/2 Ab P24 Ag Result Negative (Negative)
[2024-07-06] MEDS: ONDANSETRON INJ 4 MG/2 ML VIAL IV PUSH (07:11)
[2024-07-06] MEDS: FAMOTIDINE 20 MG/2 ML VIAL IV PUSH (07:13)
[2024-07-06] MEDS: DEXTROSE 5% IVPB (07:15)
[2024-07-06] MEDS: GENTAMICIN SULFATE IVPB (07:15)
--- NOTE | 2024-07-06 07:25 | WPDANESEPPF ---
Anes - Initial Pre Proc Eval Procedure: Operation Date: 07/06/24 07:30 Proposed Procedures p Section - Khai Sheth MD Date/Time: 07/06/24 07:25 Surgeon: Khai Sheth MD Pre Op Diagnosis: C/S Patient Data Age: 23 Gender: F Height: 1.75 m Weight: 95.5 kg Last Vital Signs Pulse 70 07/06/24 07:15 BP 104/53 L 07/06/24 07:15 Allergies Allergy/AdvReac Type Severity Reaction Status Date / Time clarithromycin Allergy Unknown HIVES, Verified 12/16/20 12:33 HEART RASING, DIFFICULTY BREATHING Penicillins Allergy Unknown HIVES, Verified 12/16/20 12:33 HEART RACING, DIFFICULTY BREATHING Sulfa (Sulfonamide Allergy Unknown HIVES, Verified 12/16/20 12:33 Antibiotics) HEART RACING, AND DIFFICULTY BREATHING. Home Medications ?Medication ?Instructions ?Recorded ?Confirmed ?Type ibuprofen 600 mg tablet 600 mg PO Q6H PRN Cramping #60 tabs 11/03/19 07/06/24 Rx aripiprazole 5 mg tablet 5 mg QAM 12/19/20 01/29/22 History escitalopram oxalate 10 mg tablet 10 mg QAM 12/19/20 01/29/22 History acetaminophen 325 mg tablet (Mapap 650 mg (2 x 325 mg) PO Q6H PRN 12/20/20 07/06/24 Rx (acetaminophen)) Mild Pain (1-3) Or Headache aripiprazole 5 mg tablet (Abilify) 5 mg PO DAILY 12/20/20 07/06/24 Rx Laboratory Tests 07/06/24 06:06 HIV 1&2 Ab/P24 Ag 4thGn Negative (Negative) Patient hx anesthesia problems: none Family hx anesthesia problems: none Results Review: All pre-operative results and documents have been reviewed as part of the pre-operative evaluation. FORMERLY [facility] Past Medical History Medical History (Updated 11/01/19 @ 09:47 by Ngozi Lozano CRNA) History of skull fracture Surgical History Surgical History (Updated 11/01/19 @ 09:47 by Ngozi Lozano CRNA) History of myringotomy Family History Family History (Updated 06/24/24 @ 14:51 by Hao Dukes RN) Son Asthma Sickle cell trait Social History Social History Smoking status: Current every day smoker Tobacco type: e-cigarettes/vaping Second hand tobacco smoke exposure: Yes Substance use: current Last use: November Do You Feel Safe in your Home?: Yes Lack of Transportation: No Lack of Food: Never True Current Housing: I Have Housing Concerned About Future Housing: No Difficulty Paying Gas/Electric Bills: No Difficulty Paying for Meds: No Currently Unemployed: No Education: Trade/Vocational Certificate Difficulty w/ Childcare or Family Care: No Gender identity (if verbalized by the patient): Female Spiritual care concerns: No Anes - Eval Final PreProcedure Day of Procedure 07/06/24 07:25 Patient weight: obese Heart: regular rate and rhythm Lungs: clear to auscultation Airway: Mallampati scale class II Neurological: alert and oriented Last oral intake: >/= 8 hours ASA classification: II Emergent: no Anesthetic plan: proceed Anesthesia type and monitoring: regional Results Review: All pre-operative results and documents have been reviewed as part of the pre-operative evaluation. Informed Consent: The patient's anesthetic plan and its attendant risks and benefits were discussed with the patient/family/POA. Questions were solicited and answers provided to the satisfaction of the patient/family/POA.
--- NOTE | 2024-07-06 07:26 | PM.IMHP ---
H&P: HPI History of Present Illness Date/Time: 07/06/24 07:26 Chief Complaint: primary c section, hx of shoulder dystocia Narrative: Patient is a 23 year old at 39 weeks who presents for primary c section, indicated for hx of shoulder dystocia in her most recent vaginal delivery with clavicle fracture. Risks of recurrent shoulder dystocia vs risks and benefits of primary c section discussed with patient who desires to proceed with primary c section. She denies strong contractions, leakage of fluid, or vaginal bleeding. Good movement. otherwise uncomplicated. Review of Systems Review of Systems: All systems reviewed & are unremarkable except as noted in HPI and below PMFSH Past Medical History Medical History History of skull fracture Surgical History Surgical History History of myringotomy Family History Family History Son Asthma Sickle cell trait Social History Social History Smoking status: Current every day smoker Tobacco type: e-cigarettes/vaping Second hand tobacco smoke exposure: Yes Substance use: current Last use: November Do You Feel Safe in your Home?: Yes Lack of Transportation: No Lack of Food: Never True Current Housing: I Have Housing Concerned About Future Housing: No Difficulty Paying Gas/Electric Bills: No Difficulty Paying for Meds: No Currently Unemployed: No Education: Trade/Vocational Certificate Difficulty w/ Childcare or Family Care: No Gender identity (if verbalized by the patient): Female Spiritual care concerns: No Meds Home Medications and Allergies Home Medications ?Medication ?Instructions ?Recorded ?Confirmed ?Type ibuprofen 600 mg tablet 600 mg PO Q6H PRN Cramping #60 tabs 11/03/19 07/06/24 Rx aripiprazole 5 mg tablet 5 mg QAM 12/19/20 01/29/22 History escitalopram oxalate 10 mg tablet 10 mg QAM 12/19/20 01/29/22 History acetaminophen 325 mg tablet (Mapap 650 mg (2 x 325 mg) PO Q6H PRN 12/20/20 07/06/24 Rx (acetaminophen)) Mild Pain (1-3) Or Headache aripiprazole 5 mg tablet (Abilify) 5 mg PO DAILY 12/20/20 07/06/24 Rx Allergies Allergy/AdvReac Type Severity Reaction Status Date / Time clarithromycin Allergy Unknown HIVES, Verified 12/16/20 12:33 HEART RASING, DIFFICULTY BREATHING Penicillins Allergy Unknown HIVES, Verified 12/16/20 12:33 HEART RACING, DIFFICULTY BREATHING Sulfa (Sulfonamide Allergy Unknown HIVES, Verified 12/16/20 12:33 Antibiotics) HEART RACING, AND DIFFICULTY BREATHING. Vital Signs Vital Signs - 24 hr 07/06/24 06:07 07/06/24 06:16 07/06/24 06:32 Pulse Rate 73 77 82 Blood Pressure 99/55 L 71/54 L 113/58 L 07/06/24 06:45 07/06/24 07:00 07/06/24 07:15 Pulse Rate 77 69 70 Blood Pressure 117/71 104/57 L 104/53 L Exam Const: General: comfortable and no acute distress HENMT: Mouth: Yes moist mucous membranes Resp: Effort & Inspection: normal respiratory effort Cardio: Rate: regular rate Rhythm: regular rhythm GI: GI Palp: Yes Soft to palpation and No Tenderness to palpation present (GI) Skin: General skin exam: normal color Extrem: General: normal to inspection Psych: Mental Status: mental status grossly normal Assessment and Plan Assessment and plan (1) Hx of shoulder dystocia with result of fractured clavicle of infant in prior , currently : Code(s): O09.299 - Supervision of with other poor reproductive or obstetric history, unspecified trimester Status: Acute Assessment and Plan: - risks of recurrent shoulder dystocia vs risks and benefits of primary c section discussed with patient who voices understanding - desires to proceed with primary c section - gent/clinda for severe PCN allergy - FHR category I
--- NOTE | 2024-07-06 07:31 | WPDHPUPDATE1 ---
History and Physical Update Update Date/Time: 07/06/24 07:31 History and Physical has been reviewed, including an updated exam of the patient. There are NO changes in the patient's condition. Risks, benefits, and alternatives have been discussed and questions answered. Patient agrees to proceed with procedure.
--- NOTE | 2024-07-06 07:33 | W.PM.OBCSD ---
OB - Delivery Note Procedure Delivery date: 07/06/24 Pre-op diagnosis: Other (hx of shoulder dystocia) Post-op Diagnosis: Same Delivery monitor: External FHT Prior to decision for section, ACOG/SMFM labor guidelines were considered and discussed with the patient and staff. Decision made to proceed with the section.: Yes Procedure Performed: Primary Primary branch: low cervical, transverse Surgeon: Khai Sheth MD Anesthesia type: Epidural Description of Procedure/Findings: The patient was taken to the operating room where she was placed in the dorsal supine position with a leftward tilt. The electronic monitor was placed and heart rate was found to be reassuring. She was prepped and draped in the normal sterile fashion, and anesthesia was checked to be adequate. A Pfannenstiel skin incision was made with the scalpel and carried through to the underlying layer of fascia with the scalpel. The fascia was incised in the midline and the incision extended laterally with the Wnag scissors. The superior aspect of the fascial incision was then grasped with Estrada clamps, elevated, and the underlying rectus muscles dissected off bluntly and with Wang scissors. Attention was then turned to the inferior aspect of the fascial incision, which in similar fashion was grasped, elevated, and the rectus muscles dissected off.? The rectus muscles were then in the midline, and the peritoneum entered bluntly. The peritoneal incision was extended superiorly and inferiorly with good visualization of the bladder. With the bladder blade providing retraction and visualization, the lower uterine segment was incised in a transverse fashion with the scalpel. The uterine incision was then extended laterally. The bladder blade was removed and the infant's head was elevated and delivered atraumatically. The remainder of the infant was then delivered without difficulty, and the infant's nose and mouth were suctioned with the bulb suction. The umbilical cord was doubly clamped and cut. The infant was then handed off to the waiting nursing staff. Specimens then obtained as listed below. The placenta was then removed manually and the uterus was exteriorized and cleared of all clots and debris. The uterine incision was repaired with 0-Monocryl in a running, interlocked fashion. A second layer of the same suture imbricated the incision and ensured hemostasis. The posterior cul-de-sac was manually cleared of all clots and debris. The uterus was returned to the abdomen. The gutters were then manually cleared of all clots and debris.? The uterine incision was visualized to be hemostatic. The fascia was reapproximated with 0-Vicryl in a running fashion. The subcutaneous tissues were irrigated with warmed normal saline, and hemostasis was assured. The skin was closed with 4-0 monocryl in a running subcuticular stitch. Fundal pressure was applied to express remaining intrauterine clots and debris. The patient tolerated the procedure well. Sponge, lap, and needle counts were correct times three per nursing. The patient was taken to the recovery room in stable condition. Specimen: No Estimated Blood Loss: 820 Pathology: None sent Complications: No immediate complications Condition: Stable Disposition: Floor Fischer Baby Date of : 07/06/24 Gestational Age by Date: 39 presentation: vertex Placenta delivery description: Expressed
[2024-07-06] MEDS: OXYTOCIN 30 UNITS/NS 500 ML 30 UNITS/500 ML BAG 125 UNITS IV CONT (09:16)
[2024-07-06] MEDS: LIDOCAINE 5% PATCH 1 PATCH TRANSDERM (09:55)
[2024-07-06] MEDS: HYDROmorphone HCL INJ (*CRX) 1 MG/ML SYR 0.5 MG IV PUSH (10:33)
[2024-07-06] MEDS: DEXTROSE 5%/0.45% SOD CHL 1,000 ML 125 ML IV CONT (12:14)
[2024-07-06] MEDS: KETOROLAC 15 MG/ML VIAL (*BKC) IV PUSH ×2 (12:15→17:34)
[2024-07-06] MEDS: MULTIVIT/MIN/PREN/FOL AC/IRON TABLET 1 TAB PO (12:15)
[2024-07-06] MEDS: ACETAMINOPHEN 325 MG TABLET 650 MG PO ×2 (12:15→17:32)
[2024-07-06] MEDS: SIMETHICONE 80 MG TAB.CHEW PO ×2 (12:16→17:35)
--- NOTE | 2024-07-06 15:00 | OBPPTRN ---
Patient transferred to post room #285 via (stretcher ). Support person present. Oriented to unit, room, information board, rooming in, admission packet and security measures. Patient verbalizes understanding.
--- NOTE | 2024-07-06 17:05 | PC.NURSE ---
1430. Called to patient room to assist with feeding . Mom reports she is bottle feeding and was only able to get infant to take 5ml, and her last feeding was at time of at 0830. is taking enfamil. Infant was fed by nurse using the paced bottle feeding method. took 13ml with ease, and was burped after. mom was given education on proper bottle feeding technique using the paced bottle feeding method. She verbalized understanding after education. Reported to primary RN .
[2024-07-06] MEDS: HYDROcodone/acetaminophen (*CRX) 5-325 MG TABLET 1 TAB PO (17:32)
[2024-07-07] MEDS: ACETAMINOPHEN 325 MG TABLET 650 MG PO ×4 (00:15→17:34)
[2024-07-07] MEDS: KETOROLAC 15 MG/ML VIAL (*BKC) IV PUSH ×2 (00:16→05:23)
[2024-07-07 01:58] VITALS: BP 98/60; PULSE 69; RESP 16; TEMP 36.4; O2SAT 100
[2024-07-07 05:39] LABS: Basophils Percent Auto 0.2 % (0.2-1.2); Eosinophils Absolute Auto 0.1 K/mm3 (0-0.3); Eosinophils Percent Auto 1.5 % (0-4.4); Hematocrit 28.6 % (37.0-47.0); Hemoglobin 9.3 g/dL (12.0-15.0); Immature Granulocyte Absolute 0.05 K/mm3 (0.00-0.031); Immature Granulocyte Percent A 0.5 % (0-0.5); Lymphocytes Absolute Auto 1.63 K/mm3 (0.9-3.2); Lymphocytes Percent Auto 17.6 % (18.3-44.2); Mean Corpuscular HGB Conc 32.5 g/dl (32-36); Mean Corpuscular Hemoglobin 28.5 pg (26-34); Mean Corpuscular Volume 87.7 fl (80-100); Mean Platelet Volume 10.8 fl (7.4-10.4); Monocytes Absolute Auto 0.6 K/mm3 (0.1-0.6); Monocytes Percent Auto 6.1 % (2.6-8.5); Neutrophils Absolute Auto 6.8 K/mm3 (1.3-6.7); Neutrophils Percent Auto 74.1 % (45.5-73.1); Platelet Count Result 179 k/mm3 (150-375); Red Blood Count 3.26 M/mm3 (4.2-5.4); Red Cell Distribution Width 13.5 % (11.5-14.5); White Blood Count 9.2 K/mm3 (4.5-10.0)
[2024-07-07 07:55] VITALS: BP 103/55; PULSE 68; RESP 16; TEMP 36.6; O2SAT 100
--- NOTE | 2024-07-07 08:13 | PM.OBPNVD ---
OB - PN: Subj Subjective Date/time seen: 07/07/24 08:13 Interval history: pp day 1 voiding and passing flatus doing well OB - PN: Obj Data Labs 07/07/24 04:22 Labs: Laboratory Results - last 24 hr 07/07/24 04:22 WBC 9.2 RBC 3.26 L Hgb 9.3 L Hct 28.6 L MCV 87.7 MCH 28.5 MCHC 32.5 RDW 13.5 Plt Count 179 MPV 10.8 H Immature Gran % (Auto) 0.5 Neut % (Auto) 74.1 H Lymph % (Auto) 17.6 L Pennington % (Auto) 6.1 Eos % (Auto) 1.5 Baso % (Auto) 0.2 Lymph # (Auto) 1.63 Pennington # (Auto) 0.6 Eos # (Auto) 0.1 Baso # (Auto) 0.0 Abs Immat Gran (auto) 0.05 H Absolute Neuts (auto) 6.8 H Absolute Nucleated RBC 0.000 Nucleated RBC % 0.0 Blood Type O Negative Antibody Screen TNP OB - PN A/P Time Spent With Patient Time: Total time spent is greater than 50% in coordination of care (as documented) at patient's floor/unit and/or counseling patient: Exam Const: General: cooperative and healthy appearing Chest: Chest palpation & inspection: normal inspection of the chest Resp: Effort & Inspection: normal respiratory effort Cardio: Rate: regular rate GI: Other: incision CDI Back/Spine/Pelvis: Back: no CVA tenderness Neuro: General: patient oriented x3 Psych: Appearance: grossly normal
[2024-07-07] MEDS: POLYSACCHARIDE IRON COMPLEX 150 MG CAPSULE PO ×2 (09:55→17:34)
[2024-07-07] MEDS: SIMETHICONE 80 MG TAB.CHEW PO ×2 (09:56→13:56)
[2024-07-07] MEDS: IBUPROFEN 600 MG TABLET PO ×2 (11:41→17:34)
[2024-07-07] MEDS: HYDROcodone/acetaminophen (*CRX) 5-325 MG TABLET 1 TAB PO (13:56)
[2024-07-07] MEDS: RHO(D) IMMUNE GLOBULIN 300 MCG/2 ML SYRINGE IM (14:33)
[2024-07-07] MEDS: DOCUSATE SODIUM 100 MG CAPSULE PO (17:34)
[2024-07-07] MEDS: HYDROcodone/acetaminophen (*CRX) 10-325 MG TABLET 1 TAB PO (17:34)
[2024-07-07 19:26] VITALS: BP 116/68; PULSE 72; RESP 16; TEMP 36.8; O2SAT 100
[2024-07-08] MEDS: IBUPROFEN 600 MG TABLET PO ×2 (00:54→07:19)
[2024-07-08] MEDS: ACETAMINOPHEN 325 MG TABLET 650 MG PO ×2 (00:54→07:19)
[2024-07-08] MEDS: HYDROcodone/acetaminophen (*CRX) 5-325 MG TABLET 1 TAB PO (06:10)
--- NOTE | 2024-07-08 06:16 | P.PNOB_ITS ---
OB - PN: Subj Subjective Date/time seen: 07/08/24 06:16 Interval history: pp day 2 voiding and passing flatus doing well OB - PN: Obj Data Labs 07/07/24 04:22 Labs: Laboratory Results - last 24 hr 07/07/24 04:22 Blood Type O Negative Antibody Screen TNP Screen Negative Baby's Blood Type O pos Baby's ALBER Negative Doses of RhIg Required 1 OB - PN A/P Plan day: 2 Plan: routine care and discharge home Time Spent With Patient Time: Total time spent is greater than 50% in coordination of care (as documented) at patient's floor/unit and/or counseling patient: Review of Systems 2 Review of Systems: All systems reviewed & are unremarkable except as noted in HPI and below Exam 2 Const: General: cooperative and healthy appearing GI: Other: incision CDI Skin: General skin exam: normal color Neuro: General: patient oriented x3
--- NOTE | 2024-07-08 06:20 | PM.OBDSVD ---
DS: Admitting Diagnosis Discharge Date 07/08/24 Admitting Diagnosis section DS: Discharge Diagnosis Discharge Diagnosis (1) Delivery by section: Status: Acute OB - DS: Summary OB Procedures : None OB Procedures Intrapartum: OB Procedures: : None Peripartum Data Procedures: Procedures Operation Date: 07/06/24 07:30 Actual Procedure Side Surgeon p Section Khai Sheth MD Time Spent with Patient Time attestation: Total time spent providing and/or coordinating discharge services: DS: Data Data Completed and Pending Labs on day of discharge: Labs from last 24 hours 07/07/24 04:22 Blood Type O Negative Antibody Screen TNP Screen Negative Baby's Blood Type O pos Baby's ALBER Negative Doses of RhIg Required 1 Discharge Plan Discharge Attending physician on discharge: Khai Sheth Discharging Clinician: Josee Vazquez Activity: pelvic rest Diet: regular Patient Language: Setswana Follow-up/Referrals: Khai Sheth MD [Physician] - 1 Week Discharge Medications: New hydrocodone-acetaminophen 5-325 mg Tablet 1 tablet PO Q3H PRN (Reason: Breakthrough Pain Rated 4-6) Qty: 25 0RF Discontinued escitalopram oxalate 10 mg tablet 10 mg QAM aripiprazole 5 mg tablet 5 mg QAM acetaminophen [Mapap (acetaminophen)] 325 mg Tablet 650 mg PO Q6H PRN (Reason: Mild Pain (1-3) Or Headache) 0RF aripiprazole [Abilify] 5 mg Tablet 5 mg PO DAILY 0RF No Action ibuprofen 600 mg Tablet 600 mg PO Q6H PRN (Reason: Cramping) Qty: 60 0RF Date of admission: 07/06/24 05:20 Primary Care Provider: UNKNOWN,DOCTOR Admitting Provider: Khai Sheth Attending physician on admission: Khai Sheth Condition: Stable
[2024-07-08] MEDS: SIMETHICONE 80 MG TAB.CHEW PO (07:19)
[2024-07-08] MEDS: DOCUSATE SODIUM 100 MG CAPSULE PO (07:19)
[2024-07-08] MEDS: POLYSACCHARIDE IRON COMPLEX 150 MG CAPSULE PO (07:19)
[2024-07-08] MEDS: LIDOCAINE 5% PATCH 1 PATCH TRANSDERM (07:19)
[2024-07-08 07:20] VITALS: BP 105/58; PULSE 65; RESP 18; TEMP 36.7; O2SAT 99
[2024-07-08] MEDS: MULTIVIT/MIN/PREN/FOL AC/IRON TABLET 1 TAB PO (07:20)
--- NOTE | 2024-07-08 08:25 | WPDANLDPN2 ---
Anes-Prog Note L&D Date/Time: 07/08/24 08:25 Comfortable throughout: section Neuraxial method: spinal Epidural/Spinal procedure site: clean & non-tender Neuro status: Neuro function grossly intact. Cardiovascular status: normal Respiratory status: normal Airway patency: baseline Mental status: baseline Post-Op hydration status: normal Vital Signs: Last Vital Signs Temp 36.7 C 07/08/24 07:20 Pulse 65 07/08/24 07:20 Resp 18 07/08/24 07:20 BP 105/58 L 07/08/24 07:20 Pulse Ox 99 07/08/24 07:20 O2 Del Method Room Air 07/07/24 19:26 Pain score (VAS): 0/10 Post-procedural complaints: none Patient feedback: Patient satisfied with anesthetic care.
--- NOTE | 2024-07-08 08:25 | WPDANLDNPN2 ---
Anes-Prog Note L&D-Neuraxial Date/Time: 07/08/24 08:25 Neuraxial medications: intrathecal PF morphine Opiod-related complaints: none Patient feedback: Patient satisfied with post-operative pain management.
[2024-07-11 10:19] VITALS: BP 122/67; PULSE 85; RESP 18; TEMP 36.4; O2SAT 100
--- OUTSIDE RECORDS SUMMARY | 2024-07-13 06:12 | XMS_ITS | Encounter Summary ---
Author Organization [facility] Address [address] [place] [address] Care Team Providers Care Radiotelegraphist Name Role Phone Unavailable Primary Care Provider [...]
--- OUTSIDE RECORDS SUMMARY | 2024-07-13 06:12 | XMS_ITS | Encounter Summary ---
Author Organization [facility] Address [address] [place] [address]. [place] [address] [place] [address] Care Team Providers Care Client Relationship Manager Name Role Phone Unavailable Primary Care Provider Unavailabl e Encounter Details Date Type Department Care Team (Late st Contact Info) Description 08/24/2015 Abstract [facility] Family & Internal Medicine [facility] [address] [place] [address] [place] [id number] [place] [address] Social History Tobacco Use Types Packs/Day [...] Comments Blood Pressure 110/70 08/24/2015 3:02 PM MOVE COORDINATOR Pulse 71 08/24/2015 3:02 PM MOVE COORDINATOR Temperature - - Respiratory Rate - - Oxygen Saturation - - Inhaled Oxygen Concentration - - Weight 83 kg (183 lb) 08/24/2015 3:02 PM MOVE COORDINATOR Height 172.7 cm (5' 8 ) 08/24/2015 3:02 PM MOVE COORDINATOR Body Mass Index 27.83 08/24/2015 3:02 PM MOVE COORDINATOR Body Mass Index Percentile 92.61% 08/24/2015 3:0 2 PM MOVE COORDINATOR Growth Chart: [facility] (Girls, 2- 20 Years) documented in this [...] 2. Penicillins 3. Sulfa Drugs Vitals Recorded: [id number] 03:02PM Heart Rate 71 Systolic 110 Diastolic [...] also she might do better with the lime mixer tender, more comfortable in managing those medications in that age group. The lime mixer tender in this practice states that he would also refer to psych. No relationship established. Patient recommended to find a physician that is a better fit for them. Signatures Electronically signed by : Jojo Robbins M.D.; Aug 30 2015 5:51AM MOVE COORDINATOR (Author) documented in this encounter Plan of Treatment Not on file documented as of this encounter Visit Diagnoses Not on filedocumented in this encounter
--- OUTSIDE RECORDS SUMMARY | 2024-07-13 06:12 | XMS_ITS | Encounter Summary ---
Author Organization [facility] Address [address] [place] [address]. [place], [place] [address] [place] [address] Care Team Providers Care Tire Builder Heavy Service Name Role Phone Unavailable Primary Care Provider Unavailabl e Encounter Details Date Type Department Care Team (Latest Contact Info) Description 09/02/2015 Abstract [facility] Social History Tobacco Use Types [...]
--- OUTSIDE RECORDS SUMMARY | 2024-07-13 06:12 | XMS_ITS | Encounter Summary ---
Author Organization [facility] Address [address] [place] [address]. [place] [address] [place] [address] Care Team Providers Care Academic Vice President Name Role Phone Unavailable Primary Care Provider Unavailabl e Encounter Details Date Type Department Care Team (Latest Contact Info) Description 09/01/2015 Abstract [facility] Medical [facility] Social [...]
--- OUTSIDE RECORDS SUMMARY | 2024-07-13 06:12 | XMS_ITS | Encounter Summary ---
Author Organization [facility] Address [facility] [facility] [place] [address] [place] [address] Care Team Providers Care Nnp Name Role Phone Unavailable Primary Care Provider Unavailabl e Encounter Details Date Type Department Care Team (Late st Contact Info) Description 12/12/2020 Abstract [facility] Emergency Services [address] [place] [address] Chanel Cooney MD [address] [place] [address] Social History Tobacco Use Types Packs/Day [...]
--- OUTSIDE RECORDS SUMMARY | 2024-07-13 06:12 | XMS_ITS | Patient Health Summary ---
Author Organization [facility] [employer] Address [address] [place] [address] Care Team Providers Care Crack Off Person Name Role Phone Unavailable Primary Care Provider Unavailabl e Note from [facility],non-owned Affiliates and Associated Physician Practices is amultiple site organization consisting of ambulatory clinics and hospital sitesin [place], [place], [place] and [place]. This disclosure is being madepursuant to the Care Everywhere program and may not contain all information available regarding this patient. Last updated 18.[facility] [employer] Social History Tobacco Use Types Packs/Day Years Used Date Smoking Tobacco: Never Assessed Sex and Gender Information Value Date Recorded Sex Assigned at Not on file Gender Identity Not on file Sexual Orientation Not on file
--- OUTSIDE RECORDS SUMMARY | 2024-07-13 06:12 | XMS_ITS | Encounter Summary ---
Author Organization [facility] Address [facility] [facility] [place] [address] [place] [address] Care Team Providers Care Mica Washer Gluer Name Role Phone Unavailable Primary Care Provider Unavailabl e Encounter Details Date Type Department Care Team (Latest Contact Info) Description 08/25/2015 Abstract [facility] Medical Group , Maru Hogan MD [...] Vidhya Matthew R.N.; Aug 25 2015 3:44PM MOTION PICTURE SET GRIP (Author) * Maru Hogan Md, MD - 08/25/2015 10:59 AM CST Message Message: Spoke with Gifty, Lashanda's mother, regarding Lashanda's FOOD SERVICE COORDINATOR office visit on 08/24. Gifty states that [...] Elizabeth Singh MA; Aug 25 2015 11:00AM MOTION PICTURE SET GRIP (Author) documented in this encounter Plan of Treatment Not on file documented as of this encounter Visit Diagnoses Not on filedocumented in this encounter
--- OUTSIDE RECORDS SUMMARY | 2024-07-13 06:12 | XMS_ITS | Referral Summary ---
Author Organization [facility] Address [address] [facility] [place] [address] Care Team Providers Care Retail Assistant Store Manager Name Role Phone Unavailable Primary Care Provider Unavailabl e Source Comments [facility],non-owned Affiliates and Associated Physician Practices is amultiple site organization consisting of ambulatory clinics and hospital sitesin [place], [place], [place] and [place]. This disclosure is being madepursuant to the Care Everywhere program and may not contain all information available regarding this patient. Last updated 18.[facility] [employer] Social History Tobacco Use Types Packs/Day Years Used Date Smoking Tobacco: Never Assessed Sex and Gender Information Value Date Recorded Sex Assigned at Not on file Gender Identity Not on file Sexual Orientation Not on file Plan of Treatment Not on file
--- OUTSIDE RECORDS SUMMARY | 2024-07-13 06:12 | XMS_ITS | Encounter Summary ---
Author Organization [facility] Address [address] [place] [address]. [place], [place] [address] [place] [address] Care Team Providers Care Intercell Connector Placer Name Role Phone Rhett Rivers MD Primary Care Provider +1- [phone] Encounter Details Date Type Department Care Team [...] on filedocumented in this encounter Care Teams Intercell Connector Placer Relationship Specialty Start Date End Date Rhett Rivers MD [address] [place] [address] PCP - General X RAY NURSE ONCOLOGY 02/09/24 documented as of this encounter
--- OUTSIDE RECORDS SUMMARY | 2024-07-13 06:12 | XMS_ITS | Encounter Summary ---
Author Organization [facility] Address [address] [place] [address]. [place] [address] [place] [address] Care Team Providers Care Video Production Coordinator Name Role Phone Rhett Rivers MD Primary Care Provider +1- [phone] Reason for Visit * Reason Comments Back Pain Encounter Details Date Type Department Care Team (Late st Contact Info) Description 02/10/2024 4:14 AM CDT - 02/10/2024 4:38 AM CDT Emergency [facility] Emergency Services [facility] [place] [address] Richard Weir MD [address] [place] [address] Back Pain Discharge Disposition: Home or [...] Everywhere. * Low Back Pain Discharge Instructions (Egyptian) documented in this encounter Medications at Time [...] unspecified documented in this encounter Care Teams Video Production Coordinator Relationship Specialty Start Date End Date Rhett Rivers MD [address] [place] [id number] PCP - General SENIOR MANAGING DIRECTOR ONCOLOGY 02/09/24 documented as of this encounter
--- OUTSIDE RECORDS SUMMARY | 2024-07-13 06:12 | XMS_ITS | Clinical Summary ---
Author Organization [facility] Address [address] [place] [address] Care Team Providers Care Educational Programming Director Name Role Phone Unavailable Primary Care Provider Unavailabl e Source Comments [facility],non-owned Affiliates and Associated Physician Practices is amultiple site organization consisting of ambulatory clinics and hospital sitesin [place], [place] and [place]. This disclosure is being madepursuant to the Care Everywhere program and may not contain all information available regarding this patient. Last updated 18.[facility] Social History Tobacco Use Types Packs/Day Years [...]
--- OUTSIDE RECORDS SUMMARY | 2024-07-13 06:12 | XMS_ITS | Encounter Summary ---
Author Organization [facility] Address [facility] [place] [address] [place] [address] Care Team Providers Care Business Info Consultant Name Role Phone Unavailable Primary Care Provider Unavailabl e Encounter Details Date Type Department Care Team (Late st Contact Info) Description 01/12/2016 Abstract [facility] Laboratory [address] [facility] [place], [place] [id number] Micaela Lopez, [facility] [address] [place] [address] Social History Tobacco Use Types [...]
--- OUTSIDE RECORDS SUMMARY | 2024-07-13 06:12 | XMS_ITS | Encounter Summary ---
Author Organization [facility] Address [address] [place] [address]. [place], [place] [address] [place] [address] Care Team Providers Care Hide Buffer Name Role Phone Unavailable Primary Care Provider Unavailabl e Encounter Details Date Type Department Care Team (Latest Contact Info) Description 08/29/2015 Abstract [facility] Social History Tobacco Use Types [...]
--- OUTSIDE RECORDS SUMMARY | 2024-07-13 06:12 | XMS_ITS | Clinical Summary ---
Author Organization [facility] Address [address] [place] [address]. [place] [address] [place] [address] Care Team Providers Care Principal Secretary Name Role Phone Rhett Rivers MD Primary Care Provider +1- [phone] Allergies Active Allergy Reactions Criticality Noted Date [...] complete this topic Insurance ROSS Care Teams Principal Secretary Relationship Specialty Start Date End Date Rhett Rivers MD [address] [place] [address] PCP - General NEUROPHYSIOLOGIST ONCOLOGY 02/09/24
--- OUTSIDE RECORDS SUMMARY | 2024-07-13 06:12 | XMS_ITS | Encounter Summary ---
Author Organization [facility] Address [address] 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 FACTURING ASSOCIATE documented in this encounter Plan of Treatment Not on file documented as of this encounter Visit Diagnoses Diagnosis Health examination of defined subpopulation- Primary documented in this encounter
--- OUTSIDE RECORDS SUMMARY | 2024-07-13 06:12 | XMS_ITS | Encounter Summary ---
Author Organization [facility] Address [address] [place] [address]. [place], [place] [address] [place] [address] Care Team Providers Care Classroom Assistant Name Role Phone Rhett Rivers MD Primary Care Provider +1- [phone] Encounter Details Date Type Department Care Team [...] on filedocumented in this encounter Care Teams Classroom Assistant Relationship Specialty Start Date End Date Rhett Rivers MD [address] [place] [address] PCP - General SHOES HAND SEWER ONCOLOGY 02/09/24 documented as of this encounter
--- OUTSIDE RECORDS SUMMARY | 2024-07-13 06:12 | XMS_ITS | Encounter Summary ---
Author Organization [facility] Address [facility] [place] [address] [place] [address] Care Team Providers Care Labor Employment Associate Name Role Phone Unavailable Primary Care Provider Unavailabl e Encounter Details Date Type Department Care Team ([facility] st Contact Info) Description 11/07/2016 Abstract [facility] Laboratory [address] [facility] [place], [place] [id number] Marci Shultz CNM [address] [place] [address] Social History Tobacco Use Types Packs/Day Years [...]
--- OUTSIDE RECORDS SUMMARY | 2024-07-13 06:12 | XMS_ITS | Encounter Summary ---
Author Organization [facility] Address [address] [facility] [place] [address] Care Team Providers Care Department Manager Name Role Phone Unavailable Primary Care Provider Unavailabl e Reason for Visit * Reason Onset Date Comments DRUG SCREEN 12/29/2023 Encounter Details Date Type Department Care Team (Latest Contact Info) Description 12/29/2023 9:45 AM CDT Clinical Support [facility] [address] [place] [address] Health examination of defined subpopulation Social History Tobacco Use Types Packs/Day Years Used Date Smoking Tobacco: Never Assessed Sex and Gender Information Value Date Recorded Sex Assigned at Not on file Gender Identity Not on file Sexual Orientation Not on file documented as of this encounter Progress Notes * Leesa Davis RT(R) - 12/29/2023 10:34 AM CDT Patient referred for [facility] drug screening. documented in this encounter Plan of Treatment Not on file documented as of this encounter Visit Diagnoses Diagnosis Health examination of defined subpopulation- Primary documented in this encounter
--- OUTSIDE RECORDS SUMMARY | 2024-07-13 06:12 | XMS_ITS | Encounter Summary ---
Author Organization [facility] Address [facility]6 [facility] [place] [address] [place] [address] Care Team Providers Care Treater Helper Name Role Phone Unavailable Primary Care Provider Unavailabl e Encounter Details Date Type Department Care Team ([facility] st Contact Info) Description 03/06/2017 Abstract [facility] Laboratory [address] [place] [address] Marci Shultz CNM [address] [place] [address] Social History Tobacco Use Types Packs/Day Years [...]
--- OUTSIDE RECORDS SUMMARY | 2024-07-13 06:12 | XMS_ITS | Encounter Summary ---
Author Organization [facility] Address [address] [place] [address]. [place] [address] [place] [address] Care Team Providers Care Breakdown Man Name Role Phone Rhett Rivers MD Primary Care Provider +1- [phone] Reason for Visit * Reason Comments Back Pain Encounter Details Date Type Department Care Team (Late st Contact Info) Description 02/09/2024 8:08 AM CDT - 02/09/2024 8:28 AM CDT Emergency [facility] Emergency Services [facility] [place] [address] Christal Bruno MD [address] [place] [address] Back Pain Discharge Disposition: Home or Self [...] ice/cold pack to help with pain. Call PROCUREMENT DIRECTOR office tomorrow to schedule follow- up appointment and discuss physical therapy referral. Physical therapy will be the best way to treat your back pain both short-term and long-term. May do stretches/exercises in discharge instructions to help with pain as well. * Attachments The following attachments cannot be sent through Care Everywhere. * Sacroiliac Joint Pain Discharge Instructions (Kinyarwanda) * PIRIFORMIS STRETCH, SITTING (HEBREW) * SACROILIAC STRETCH (HEBREW) documented in this encounter Medications at Time [...] PT ambulated to ED exit. * Christal Brnuo MD - 02/09/2024 8:34 AM CDT Chief [...] missed her appointment. She seesDr. Rivers in [place]. Medical History ALLERGIES: Review of patient's allergies [...] currently appropriate during . Discussed importance of PROCUREMENT DIRECTOR follow-up and to discuss physical therapy referral with PROCUREMENT DIRECTOR. Patient given information on some stretches and exercises that she can initiate at home while arranging further care with PROCUREMENT DIRECTOR. Problems Addressed: Sacroiliac pain during (HHS/HCC): acute [...] discontinued) documented in this encounter Care Teams Breakdown Man Relationship Specialty Start Date End Date Rhett Rivers MD [address] [employer] [place] [id number] PCP - General AUTOMOBILE BODY WORKER ONCOLOGY 02/09/24 documented as of this encounter
--- OUTSIDE RECORDS SUMMARY | 2024-07-13 06:12 | XMS_ITS | Encounter Summary ---
Author Organization [facility] Address [facility]6 [facility] [place] [address] [place] [address] Care Team Providers Care Manager Business Banking Name Role Phone Unavailable Primary Care Provider Unavailabl e Encounter Details Date Type Department Care Team (Late st Contact Info) Description 05/24/2016 Abstract [facility] Emergency Services [address] [place] [address] Fortino Lugo MD Social History Tobacco Use [...]
--- OUTSIDE RECORDS SUMMARY | 2024-07-13 06:13 | XMS_ITS | Encounter Summary ---
Author Organization [facility] Address [facility] [place] [address] [place] [address] Care Team Providers Care Auction Assistant Name Role Phone Unavailable Primary Care Provider Unavailabl e Encounter Details Date Type Department Care Team (Late st Contact Info) Description 04/12/2005 Abstract [facility] Emergency Services [address] [facility] [place], [place] [id number] Maru Day MD Social History Tobacco Use [...]
--- OUTSIDE RECORDS SUMMARY | 2024-07-13 06:13 | XMS_ITS | Encounter Summary ---
Author Organization [facility] Address [facility] [place] [address] [place] [address] Care Team Providers Care Study Director Name Role Phone Unavailable Primary Care Provider Unavailabl e Encounter Details Date Type Department Care Team (Late st Contact Info) Description 09/23/2007 Abstract [facility] CONVERSION [address] [place], [place] [id number] Sabine Ramirez DO [address] [address] Social History Tobacco Use Types [...]
--- OUTSIDE RECORDS SUMMARY | 2024-07-13 06:13 | XMS_ITS | Encounter Summary ---
Author Organization [facility] Address [facility] [place] [address] [place] [address] Care Team Providers Care Fancy Sewer Name Role Phone Unavailable Primary Care Provider Unavailabl e Encounter Details Date Type Department Care Team (Late st Contact Info) Description 01/19/2008 Abstract [facility] CONVERSION [address] [place] [address] Sabine Ramirez DO [address] [address] Social History Tobacco Use Types [...]
--- OUTSIDE RECORDS SUMMARY | 2024-07-13 06:13 | XMS_ITS | Encounter Summary ---
Author Organization [facility] Address [facility]6 [place] [address] [place] [address] Care Team Providers Care Mechanical Adjuster Name Role Phone Unavailable Primary Care Provider Unavailabl e Encounter Details Date Type Department Care Team (Late st Contact Info) Description 07/28/2014 Abstract [facility] Conversion Ayana Pastor, APNP [address] [place], [place] [id number] Social History Tobacco Use Types Packs/Day Years [...] Comments Blood Pressure 110/65 07/28/2014 4:40 PM FUNERAL SERVICE MANAGER Pulse 92 07/28/2014 4:40 PM FUNERAL SERVICE MANAGER Temperature - - Respiratory Rate - - Oxygen Saturation - - Inhaled Oxygen Concentration - - Weight - - Height - - Body Mass Index - - documented in this encounter Plan of Treatment Not on file documented as of this encounter Procedures Procedure Name Priority Date/Time Associated Diagnosis Comments INFLUENZA A & B Routine 07/28/2014 5:05 PM FUNERAL SERVICE MANAGER documented in this encounter Results * INFLUENZA A & B (07/28/2014 5:05 PM FUNERAL SERVICE MANAGER) INFLUENZA A Negative(Q C+) [facility] CONVERSION INFLUENZA B Negative(Q C+) [facility] CONVERSION 07/28/2014 5:05 PM FUNERAL SERVICE MANAGER 07/28/2014 5:05 PM FUNERAL SERVICE MANAGER Narrative [facility] CONVERSION - 07/28/2014 5:05 PM FUNERAL SERVICE MANAGER This lab was migrated from [facility] and may be missing annotations or result text, please check the Media tab for the most complete results. Ayana GABRIEL MICROBIOLOGY - GENERAL ORDER ANTHONY Final Result [facility] CONVERSION documented in this encounter Visit Diagnoses Not on filedocumented in this encounter
--- OUTSIDE RECORDS SUMMARY | 2024-07-13 06:13 | XMS_ITS | Encounter Summary ---
Author Organization [facility] Address [address] [place] [address]. [place], [place] [address] [place] [address] Care Team Providers Care Side Hemmer Name Role Phone Unavailable Primary Care Provider Unavailabl e Encounter Details Date Type Department Care Team (Late st Contact Info) Description 02/24/2014 Abstract [facility] Conversion Md, Generic Conversion, Social [...]
--- OUTSIDE RECORDS SUMMARY | 2024-07-13 06:13 | XMS_ITS | Encounter Summary ---
Author Organization [facility] Address [facility]6 [facility] [place] [address] [place] [address] Care Team Providers Care President Ceo & Founder Name Role Phone Unavailable Primary Care Provider Unavailabl e Encounter Details Date Type Department Care Team ([facility] st Contact Info) Description 05/25/2009 Abstract [facility] Emergency Services [address] [place] [address] Brendan Singh MD [address] [id number] Social History Tobacco Use Types Packs/Day Years [...]
--- OUTSIDE RECORDS SUMMARY | 2024-07-13 06:13 | XMS_ITS | Encounter Summary ---
Author Organization [facility] Address [facility] [place] [address] [place] [address] Care Team Providers Care Appliance Painter And Refinisher Name Role Phone Unavailable Primary Care Provider Unavailabl e Encounter Details Date Type Department Care Team (Late st Contact Info) Description 10/15/2004 Abstract [facility] Emergency Services [address] [place] [address] Maru Day MD Social History Tobacco Use [...]
--- OUTSIDE RECORDS SUMMARY | 2024-07-13 06:13 | XMS_ITS | Encounter Summary ---
Author Organization [facility] Address [facility]6 [facility] [place] [address] [place] [address] Care Team Providers Care Electromechanical Assembler Name Role Phone Unavailable Primary Care Provider Unavailabl e Encounter Details Date Type Department Care Team (Late st Contact Info) Description 02/11/2004 Abstract [facility] Emergency Services [address] [place] [address] Richard Villa, DO [address] [place] [id number] Social History Tobacco Use Types Packs/Day Years [...]
--- OUTSIDE RECORDS SUMMARY | 2024-07-13 06:13 | XMS_ITS | Encounter Summary ---
Author Organization [facility] Address [address] [place] [address]. [place] [address] [place] [address] Care Team Providers Care Tool Crib Attendant Name Role Phone Unavailable Primary Care Provider Unavailabl e Encounter Details Date Type Department Care Team (Late st Contact Info) Description 02/23/2013 Abstract [facility] Conversion Dalila Vickers MD [address] [facility] [place] [address] Social History Tobacco Use Types [...]
--- OUTSIDE RECORDS SUMMARY | 2024-07-13 06:13 | XMS_ITS | Encounter Summary ---
Author Organization [facility] Address [facility]6 [facility] [place] [address] [place] [address] Care Team Providers Care Certified Medical Transcriptionist Name Role Phone Unavailable Primary Care Provider Unavailabl e Encounter Details Date Type Department Care Team (Late st Contact Info) Description 09/16/2001 Abstract [facility] Emergency Services [address] [place] [address] Maru Day MD Social History Tobacco Use [...]
--- OUTSIDE RECORDS SUMMARY | 2024-07-13 06:13 | XMS_ITS | Encounter Summary ---
Author Organization [facility] Address [facility]6 [place] [address] [place] [address] Care Team Providers Care Car Stereo Installer Name Role Phone Unavailable Primary Care Provider Unavailabl e Encounter Details Date Type Department Care Team (Late st Contact Info) Description 03/04/2008 Abstract [facility] CONVERSION [address] [place] [address] Sabine Ramirez DO [address] [address] Social History Tobacco Use Types [...]
--- OUTSIDE RECORDS SUMMARY | 2024-07-13 06:13 | XMS_ITS | Encounter Summary ---
Author Organization [facility] Address [facility]6 [facility] [place] [address] [place] [address] Care Team Providers Care Electrical Power Engineer Name Role Phone Unavailable Primary Care Provider Unavailabl e Encounter Details Date Type Department Care Team (Late st Contact Info) Description 02/19/2013 Abstract [facility] Emergency Services [address] [facility] [place], [place] [id number] Drake Moody Jr., MD [address] [place] [address] Social History Tobacco Use Types [...]
--- OUTSIDE RECORDS SUMMARY | 2024-07-13 06:13 | XMS_ITS | Encounter Summary ---
Author Organization [facility] Address [facility]6 [facility] [place] [address] [place] [address] Care Team Providers Care Ultrasonic Seaming Machine Operator Name Role Phone Unavailable Primary Care Provider Unavailabl e Encounter Details Date Type Department Care Team (Late st Contact Info) Description 11/25/2007 Abstract [facility] CONVERSION [address] [place], [place] [phone] Sabine Ramirez DO [address] [address] Social History Tobacco Use Types [...]
--- OUTSIDE RECORDS SUMMARY | 2024-07-13 06:13 | XMS_ITS | Encounter Summary ---
Author Organization [facility] Address [facility]6 [facility] [address] [place] [address] Care Team Providers Care Luncheonette Manager Name Role Phone Unavailable Primary Care Provider Unavailabl e Encounter Details Date Type Department Care Team (Late st Contact Info) Description 12/29/2006 Abstract [facility] Emergency Services [address] [place] [address] Fortino Hoffman MD [address] [place] [address] Social History Tobacco Use Types Packs/Day Years [...]
--- OUTSIDE RECORDS SUMMARY | 2024-07-13 06:13 | XMS_ITS | Encounter Summary ---
Author Organization [facility] Address [facility] [place] [address] [place] [address] Care Team Providers Care Security Chief Museum Name Role Phone Unavailable Primary Care Provider Unavailabl e Encounter Details Date Type Department Care Team (Late st Contact Info) Description 05/29/2007 Abstract [facility] Diagnostic Imaging [address] [place] [address] Henry Ibarra MD [address] [place] [address] Social History Tobacco Use Types Packs/Day [...]
--- OUTSIDE RECORDS SUMMARY | 2024-07-13 06:13 | XMS_ITS | Encounter Summary ---
Author Organization [facility] Address [facility]6 [facility] [place] [address] [place] [address] Care Team Providers Care Control Panel Operator Crude Unit Name Role Phone Unavailable Primary Care Provider Unavailabl e Encounter Details Date Type Department Care Team (Late st Contact Info) Description 10/11/2002 Abstract [facility] Emergency Services [address] [place] [address] Richard Villa, DO [address] [place] [id number] Social History Tobacco Use Types Packs/Day Years [...]
--- OUTSIDE RECORDS SUMMARY | 2024-07-13 06:13 | XMS_ITS | Encounter Summary ---
Author Organization [facility] Address [facility] hospital6 [facility] [place] [address] [place] [address] Care Team Providers Care Model Dresser Name Role Phone Unavailable Primary Care Provider Unavailabl e Encounter Details Date Type Department Care Team (Late st Contact Info) Description 09/08/2006 Abstract [facility] Emergency Services [address] [place] [address] John Elena MD [address] [place] [address] Social History Tobacco Use Types Packs/Day Years [...]
--- OUTSIDE RECORDS SUMMARY | 2024-07-13 06:13 | XMS_ITS | Encounter Summary ---
Author Organization [facility] Address [address] [place] [address]. [place] [address] [place] [address] Care Team Providers Care Home Care Assistant Name Role Phone Unavailable Primary Care Provider Unavailabl e Encounter Details Date Type Department Care Team (Late st Contact Info) Description 07/30/2013 Abstract [facility] Conversion Fanny Valiente MD [address] [place] [address] Social History Tobacco Use Types [...] Comments Blood Pressure 116/74 07/30/2013 11:08 AM FILLING STATION ATTENDANT Pulse 80 07/30/2013 11:08 AM FILLING STATION ATTENDANT Temperature - - Respiratory Rate - - Oxygen Saturation - - Inhaled Oxygen Concentration - - Weight 83.5 kg (184 lb) 07/30/2013 11:08 AM FILLING STATION ATTENDANT Height 171.5 cm (5' 7.5 ) 07/30/2013 11:08 AM CS T Body Mass Index 28.39 07/30/2013 11:08 AM FILLING STATION ATTENDANT Body Mass Index Percentile 95.30% 07/30/2013 11: 08 AM FILLING STATION ATTENDANT Growth Chart: CDC (Girls, 2- 20 Years) documented in this encounter Plan of Treatment Not on file documented as of this encounter Visit Diagnoses Not on filedocumented in this encounter
--- OUTSIDE RECORDS SUMMARY | 2024-07-13 06:13 | XMS_ITS | Encounter Summary ---
Author Organization [facility] Address [facility] [place] [address] [place] [address] Care Team Providers Care Fisher Gill Net Name Role Phone Unavailable Primary Care Provider Unavailabl e Encounter Details Date Type Department Care Team (Late st Contact Info) Description 07/03/2009 Abstract [facility] Emergency Services [address] [place], [place] [id number] Maru Day MD Social History Tobacco Use [...]
--- OUTSIDE RECORDS SUMMARY | 2024-07-13 06:13 | XMS_ITS | Encounter Summary ---
Author Organization [facility] Address [address] [place] [address]. [place], [place] [address] [place] [address] Care Team Providers Care Carbon Printer Name Role Phone Unavailable Primary Care Provider Unavailabl e Encounter Details Date Type Department Care Team (Late st Contact Info) Description 07/30/2014 Abstract [facility] Conversion Md, Generic Conversion, Social [...]
--- OUTSIDE RECORDS SUMMARY | 2024-07-13 06:13 | XMS_ITS | Encounter Summary ---
Author Organization [facility] Address [facility]6 [facility] [place] [address] [place] [address] Care Team Providers Care Microstrategy Architect Developer Name Role Phone Unavailable Primary Care Provider Unavailabl e Encounter Details Date Type Department Care Team (Late st Contact Info) Description 12/17/2014 Abstract [facility] Conversion Julia Barron, HARVEY [address] [place] [address] Social History Tobacco Use Types Packs/Day Years [...]
--- OUTSIDE RECORDS SUMMARY | 2024-07-13 06:13 | XMS_ITS | Encounter Summary ---
Author Organization [facility] Address Critical access hospital6 [facility] [place] [address] [place] [address] Care Team Providers Care Chainstitch Binder Name Role Phone Unavailable Primary Care Provider Unavailabl e Encounter Details Date Type Department Care Team (Late st Contact Info) Description 05/19/2012 Abstract [facility] Emergency Services [address] [place] [address] Catina Pickett MD [address] [address] Social History Tobacco Use Types [...]
--- OUTSIDE RECORDS SUMMARY | 2024-07-13 06:13 | XMS_ITS | Encounter Summary ---
Author Organization [facility] Address [facility]6 [facility] [place] [address] [place] [address] Care Team Providers Care Stockkeeper Name Role Phone Unavailable Primary Care Provider Unavailabl e Encounter Details Date Type Department Care Team (Late st Contact Info) Description 06/30/2007 Abstract [facility] CONVERSION [address] [place] [address] Henry Ibarra MD [address] [place] [address] Social History Tobacco Use Types [...]
--- OUTSIDE RECORDS SUMMARY | 2024-07-13 06:13 | XMS_ITS | Encounter Summary ---
Author Organization [facility] Address [address] [place] [address]. [place], [place] [address] [place] [address] Care Team Providers Care Wind Energy Project Manager Name Role Phone Unavailable Primary Care Provider Unavailabl e Encounter Details Date Type Department Care Team (Late st Contact Info) Description 02/25/2014 Abstract [facility] Conversion Md, Generic Conversion, Social [...]
--- OUTSIDE RECORDS SUMMARY | 2024-07-13 06:13 | XMS_ITS | Encounter Summary ---
Author Organization [facility] Address [facility]6 [facility] [place] [address] [place] [address] Care Team Providers Care Retention Representative Name Role Phone Unavailable Primary Care Provider Unavailabl e Encounter Details Date Type Department Care Team (Late st Contact Info) Description 12/24/2007 Abstract [facility] Emergency Services [address] [place] [address] Richard Rodas Jr., MD [address] [place] [address] Social History Tobacco Use Types Packs/Day Years [...]
--- OUTSIDE RECORDS SUMMARY | 2024-07-13 06:13 | XMS_ITS | Encounter Summary ---
Author Organization [facility] Address [address] [place] [address]. [place] [address] [place] [address] Care Team Providers Care Shop Tailor Apprentice Name Role Phone Unavailable Primary Care Provider Unavailabl e Encounter Details Date Type Department Care Team (Late st Contact Info) Description 01/07/2008 Abstract [facility] CONVERSION [address] [place] [address] Micaela Zepeda MD [address] [place] [address] Social History Tobacco Use Types Packs/Day [...]
--- OUTSIDE RECORDS SUMMARY | 2024-07-13 06:13 | XMS_ITS | Encounter Summary ---
Author Organization [facility] Address [facility]6 [facility] [place] [address] [place] [address] Care Team Providers Care Jailer/Training Officer Name Role Phone Unavailable Primary Care Provider Unavailabl e Encounter Details Date Type Department Care Team (Late st Contact Info) Description 02/23/2014 Abstract [facility] [address] [place], [place] [id number] Yudy Carpenter, [facility] [address] [place] [address] Social History Tobacco Use Types Packs/Day Years [...]
--- OUTSIDE RECORDS SUMMARY | 2024-07-13 06:13 | XMS_ITS | Encounter Summary ---
Author Organization [facility] Address [facility]6 [place] [address] [place] [address] Care Team Providers Care Fabric Lay Out Worker Name Role Phone Unavailable Primary Care Provider Unavailabl e Encounter Details Date Type Department Care Team (Late st Contact Info) Description 01/21/2014 Abstract [facility] Emergency Services [address] [place] [address] Richard Villa, DO [address] [place] [phone] Social History Tobacco Use Types Packs/Day Years [...]
--- OUTSIDE RECORDS SUMMARY | 2024-07-13 06:13 | XMS_ITS | Encounter Summary ---
Author Organization [facility] Address [facility]6 [facility] [place] [address] [place] [address] Care Team Providers Care Plant Controls Specialist Name Role Phone Unavailable Primary Care Provider Unavailabl e Encounter Details Date Type Department Care Team (Late st Contact Info) Description 11/07/2009 Abstract [facility] Emergency Services [address] [place] [address] Richard Villa, DO [address] [place] [phone] Social History Tobacco Use Types Packs/Day Years [...]
--- OUTSIDE RECORDS SUMMARY | 2024-07-13 06:13 | XMS_ITS | Encounter Summary ---
Author Organization [facility] Address [facility]6 [place] [address] [place] [address] Care Team Providers Care Vp Mobile Products Name Role Phone Unavailable Primary Care Provider Unavailabl e Encounter Details Date Type Department Care Team (Late st Contact Info) Description 02/20/2014 Abstract [facility] Emergency Services [address] [place] [address] Olegario Romano MD [address] [place] [phone] Social History Tobacco Use Types Packs/Day Years [...]
--- OUTSIDE RECORDS SUMMARY | 2024-07-13 06:13 | XMS_ITS | Encounter Summary ---
Author Organization [facility] Address [facility]6 [place] [address] [place] [address] Care Team Providers Care Specifications Checker Name Role Phone Unavailable Primary Care Provider Unavailabl e Encounter Details Date Type Department Care Team (Late st Contact Info) Description 08/27/2008 Abstract [facility] Emergency Services [address] [place] [address] Maru Day MD Social History Tobacco Use [...]
--- OUTSIDE RECORDS SUMMARY | 2024-07-13 06:13 | XMS_ITS | Encounter Summary ---
Author Organization [facility] Address [facility]6 [facility] [place] [address] [place] [address] Care Team Providers Care Property Disposal Officer Name Role Phone Unavailable Primary Care Provider Unavailabl e Encounter Details Date Type Department Care Team (Late st Contact Info) Description 11/22/2009 Abstract [facility] Emergency Services [address] [place] [address] Olegario Romano MD [address] [place] [phone] Social History Tobacco Use Types Packs/Day Years [...]
--- OUTSIDE RECORDS SUMMARY | 2024-07-13 06:13 | XMS_ITS | Encounter Summary ---
Author Organization [facility] Address Critical access hospital6 [facility] [place] [address] [place] [address] Care Team Providers Care It Systems Analyst Consultant Name Role Phone Unavailable Primary Care Provider Unavailabl e Encounter Details Date Type Department Care Team (Late st Contact Info) Description 09/07/2014 Abstract [facility] [address] [place], [place] [id number] Fanny Valiente MD [address] [place] [address] Social History Tobacco Use Types [...]
--- OUTSIDE RECORDS SUMMARY | 2024-07-13 06:13 | XMS_ITS | Encounter Summary ---
Author Organization [facility] Address [address] [place] [address]. [place], [place] [address] [place] [address] Care Team Providers Care Cisco Certified Internetwork Expert Name Role Phone Unavailable Primary Care Provider Unavailabl e Encounter Details Date Type Department Care Team (Late st Contact Info) Description 07/29/2014 Abstract [facility] Conversion Md, Generic Conversion, Social History [...]
--- OUTSIDE RECORDS SUMMARY | 2024-07-13 06:13 | XMS_ITS | Encounter Summary ---
Author Organization [facility] Address [facility]6 [facility] [place] [address] [place] [address] Care Team Providers Care Resident Care Coordinator Name Role Phone Unavailable Primary Care Provider Unavailabl e Encounter Details Date Type Department Care Team (Late st Contact Info) Description 11/20/2007 Abstract [facility] CONVERSION [address] [place] [address] Sabine Ramirez DO [address] [address] Social History Tobacco Use Types [...]
--- OUTSIDE RECORDS SUMMARY | 2024-07-13 06:13 | XMS_ITS | Encounter Summary ---
Author Organization [facility] Address [facility] [facility] [place] [place] [address] [place] [address] Care Team Providers Care Rag Cutting Machine Feeder Name Role Phone Unavailable Primary Care Provider Unavailabl e Encounter Details Date Type Department Care Team (Late st Contact Info) Description 12/01/2013 Abstract [facility] Emergency Services [address] [place], [place] [id number] Drake Moody Jr., MD [address] [place] [address] Social History Tobacco Use Types [...]
--- OUTSIDE RECORDS SUMMARY | 2024-07-13 06:13 | XMS_ITS | Encounter Summary ---
Author Organization [facility] Address [facility] [address] [place] [address] Care Team Providers Care Body Art Technician Name Role Phone Unavailable Primary Care Provider Unavailabl e Encounter Details Date Type Department Care Team (Late st Contact Info) Description 07/05/2007 Abstract [facility] Emergency Services [address] [place] [address] Maru Day MD Social History Tobacco Use [...]
--- OUTSIDE RECORDS SUMMARY | 2024-07-13 06:13 | XMS_ITS | Encounter Summary ---
Author Organization [facility] Address [facility]6 [facility] [place] [address] [place] [address] Care Team Providers Care Snack Stewardess Name Role Phone Unavailable Primary Care Provider Unavailabl e Encounter Details Date Type Department Care Team (Late st Contact Info) Description 09/20/2004 Abstract [facility] CONVERSION [address] [place] [address] Henry Ibarra MD [address] [place] [address] Social History Tobacco Use Types [...]
--- OUTSIDE RECORDS SUMMARY | 2024-07-13 06:13 | XMS_ITS | Encounter Summary ---
Author Organization [facility] Address [facility]6 [facility] [place] [address] [place] [address] Care Team Providers Care Application Integration Architect Name Role Phone Unavailable Primary Care Provider Unavailabl e Encounter Details Date Type Department Care Team (Late st Contact Info) Description 12/29/2013 Abstract [facility] Emergency Services [address] [place] [address] Danis Ni [place] [address] Social History Tobacco Use Types Packs/Day Years [...]
--- OUTSIDE RECORDS SUMMARY | 2024-07-13 06:13 | XMS_ITS | Encounter Summary ---
Author Organization [facility] Address [address] [place] [address]. [place] [address] [place] [address] Care Team Providers Care Plan Examiner Name Role Phone Unavailable Primary Care Provider Unavailabl e Encounter Details Date Type Department Care Team (Late st Contact Info) Description 09/07/2014 Abstract [facility] Conversion Fanny Valiente MD [address] [place] [address] Social History Tobacco Use Types [...] Comments Blood Pressure 112/62 09/07/2014 3:46 PM SALES MARKETING MANAGER Pulse 68 09/07/2014 3:46 PM SALES MARKETING MANAGER Temperature - - Respiratory Rate - - Oxygen Saturation - - Inhaled Oxygen Concentration - - Weight 87.1 kg (192 lb) 09/07/2014 3:46 PM SALES MARKETING MANAGER Height 170.2 cm (5' 7 ) 09/07/2014 3:46 PM SALES MARKETING MANAGER Body Mass Index 30.07 09/07/2014 3:46 PM SALES MARKETING MANAGER Body Mass Index Percentile 95.77% 09/07/2014 3:4 6 PM SALES MARKETING MANAGER Growth Chart: CDC (Girls, 2- 20 Years) documented in this encounter Plan of Treatment Not on file documented as of this encounter Procedures Procedure Name Priority Date/Time Associated Diagnosis Comments CULTURE ROUTINE Routine 09/07/2014 4:52 PM SALES MARKETING MANAGER SMEAR, STAIN, WET PREP Routine 09/07/2014 4:52 PM SALES MARKETING MANAGER C.TRACHOMATIS RNA TMA Routine 09/07/2014 4:52 PM SALES MARKETING MANAGER documented in this encounter Results * C.TRACHOMATIS RNA TMA (09/07/2014 4:52 PM SALES MARKETING MANAGER) CHLAMYDIA TRACHOMATIS RNA TMA NOT DETECTED NOT DETECTED [facility] TO [facility] CONVERSION N.GONORRHOEAE RNA TMA (QST) NOT DETECTED NOT DETECTED [facility] TO [facility] CONVERSION Comment: This test was performed using the APTIMA COMBO2 Assay ([employer] The analytical performance characteristics of this assay, when used to test SurePath specimens have been determined by [employer]. MARINA CAPUTODO,MPH REPORT STATUS Not required [facility] TO EPIC CONVERSION Comment: THIS TEST WAS PERFORMED AT [facility] [address] [place] [address] 09/07/2014 4:52 PM SALES MARKETING MANAGER 09/07/2014 4:52 PM SALES MARKETING MANAGER Narrative [facility] TO EP[facility] CONVERSION - 09/10/2014 1:49 PM SALES MARKETING MANAGER This lab was migrated from [employer] and may be missing annotations or result text, please check the Media tab for the most complete results. us Fanny Valiente MD MICROBIOLOGY - GENERAL ORDERABL ES Final Result Performing Organization Address City/State/[facility] Co de Phone Number [facility] TO EPIC CONVERSION * SMEAR, STAIN, WET PREP (09/07/2014 4:52 PM SALES MARKETING MANAGER) GARDNERELLA VAGINALIS Negative NR: NEGATIVE [facility] TO [facility]IC CONVERSION TRICHOMONAS Negative NR: NEGATIVE [facility] TO [facility]IC CONVERSION FARAZ SPECIES Negative NR: NEGATIVE [facility] TO [facility]IC CONVERSION lot number [id number] EXP [facility] TO [facility]IC CONVERSION Internal Control: passed [facility] TO EPIC CONVERSION 09/07/2014 4:52 PM SALES MARKETING MANAGER 09/07/2014 4:52 PM SALES MARKETING MANAGER Narrative [facility] TO EPIC CONVERSION - 09/07/2014 6:10 PM SALES MARKETING MANAGER This lab was migrated from [facility] and may be missing annotations or result text, please check the Media tab for the most complete results. us Fanny Valiente MD MICROBIOLOGY - GENERAL ORDERABL ES Final Result [facility] TO [facility] CONVERSION * CULTURE ROUTINE (09/07/2014 4:52 PM SALES MARKETING MANAGER) COMMENT ALSO RARE GROUP B STREP REPORTED IN CASE MIKKI [facility] TO EPIC CONVERSION Comment:ENT IS 09/07/2014 4:52 PM SALES MARKETING MANAGER 09/07/2014 4:52 PM SALES MARKETING MANAGER Narrative [facility] TO EPIC CONVERSION - 09/10/2014 4:34 PM SALES MARKETING MANAGER This lab was migrated from [facility] and may be missing annotations or result text, please check the Media tab for the most complete results. us Fanny Valiente MD MICROBIOLOGY - GENERAL ORDERABL ES Final Result Performing Organization Address [facility] Co de Phone Number [facility] TO EPIC CONVERSION documented in this encounter Visit Diagnoses Not on filedocumented in this encounter
--- OUTSIDE RECORDS SUMMARY | 2024-07-13 06:13 | XMS_ITS | Encounter Summary ---
Author Organization [facility] Address [address] [place] [address]. [place], [place] [address] [place] [address] Care Team Providers Care Claims Manager Name Role Phone Unavailable Primary Care Provider Unavailabl e Encounter Details Date Type Department Care Team (Late st Contact Info) Description 09/10/2014 Abstract [facility] Conversion Md, Generic Conversion, Social History [...]
--- OUTSIDE RECORDS SUMMARY | 2024-07-13 06:13 | XMS_ITS | Encounter Summary ---
Author Organization [facility] Address [facility]6 [facility] [place] [address] [place] [address] Care Team Providers Care Healthcare Project Manager Name Role Phone Unavailable Primary Care Provider Unavailabl e Encounter Details Date Type Department Care Team (Late st Contact Info) Description 02/14/2007 Abstract [facility] Emergency Services [address] [place] [address] Richard Villa, DO [address] [place] [phone] Social History Tobacco Use Types Packs/Day Years [...]
--- OUTSIDE RECORDS SUMMARY | 2024-07-13 06:13 | XMS_ITS | Encounter Summary ---
Author Organization [facility] Address [facility]6 [facility] [place] [address] [place] [address] Care Team Providers Care Truck Caterer Name Role Phone Unavailable Primary Care Provider Unavailabl e Encounter Details Date Type Department Care Team (Late st Contact Info) Description 09/09/2014 Abstract [facility] Emergency Services [address] [place] [address] Olegario Romano MD [address] [place] [phone] Social History Tobacco Use Types Packs/Day Years [...]
--- OUTSIDE RECORDS SUMMARY | 2024-07-13 06:13 | XMS_ITS | Encounter Summary ---
Author Organization [facility] Address [facility]6 [facility] [place] [address] [place] [address] Care Team Providers Care Systems Programmer Analyst Name Role Phone Unavailable Primary Care Provider Unavailabl e Encounter Details Date Type Department Care Team (Late st Contact Info) Description 08/14/2001 Abstract [facility] [address] [place], [place] [id number] Mariela Nuno MD [address] [place] [address], [facility] [address] [place], [place] [id number] Social History Tobacco Use Types Packs/Day Years [...]
--- OUTSIDE RECORDS SUMMARY | 2024-07-13 06:13 | XMS_ITS | Encounter Summary ---
Author Organization [facility] Address [facility]6 [facility] [place] [address] [place] [address] Care Team Providers Care Clinical Biostatistician Name Role Phone Unavailable Primary Care Provider Unavailabl e Encounter Details Date Type Department Care Team (Late st Contact Info) Description 07/31/2001 Abstract [facility] [address] [place] [address] Fortino Hoffman MD [address] [place] [address] Social History Tobacco Use Types Packs/Day Years [...]
--- OUTSIDE RECORDS SUMMARY | 2024-07-13 06:13 | XMS_ITS | Encounter Summary ---
Author Organization [facility] Address [facility]6 [facility] [place] [address] [place] [address] Care Team Providers Care Machine Long Goods Helper Name Role Phone Unavailable Primary Care Provider Unavailabl e Encounter Details Date Type Department Care Team (Late st Contact Info) Description 10/30/2002 Abstract [facility] Services [address] [place] [address] Henry Ibarra MD [address] [place] [phone] Social History Tobacco Use Types Packs/Day [...]
--- OUTSIDE RECORDS SUMMARY | 2024-07-13 06:13 | XMS_ITS | Encounter Summary ---
Author Organization [facility] Address [address] [place] [address]. [place] [address] [place] [address] Care Team Providers Care Internet Technology Manager Name Role Phone Unavailable Primary Care Provider Unavailabl e Encounter Details Date Type Department Care Team (Late st Contact Info) Description 05/18/2007 Abstract [facility] Emergency Room [address] [place] [address] Social History Tobacco Use Types Packs/Day Years [...]
--- OUTSIDE RECORDS SUMMARY | 2024-07-13 06:13 | XMS_ITS | Encounter Summary ---
Author Organization [facility] Address [facility]6 [facility] [place] [address] [place] [address] Care Team Providers Care Patents Examiner Name Role Phone Unavailable Primary Care Provider Unavailabl e Encounter Details Date Type Department Care Team (Late st Contact Info) Description 11/04/2004 Abstract [facility] Emergency Services [address] [place] [address] Richard Villa, DO [address] [place] [phone] Social History Tobacco Use Types Packs/Day Years [...]
--- OUTSIDE RECORDS SUMMARY | 2024-07-13 06:13 | XMS_ITS | Encounter Summary ---
Author Organization [facility] System Address [facility]6 [place] [address] [place] [address] Care Team Providers Care Skiver Welt End Name Role Phone Unavailable Primary Care Provider Unavailabl e Encounter Details Date Type Department Care Team (Late st Contact Info) Description 09/22/2004 Abstract [facility] Surgical Services [address] [place] [address] Henry Ibarra MD [address] [place] [phone] Social History Tobacco Use Types Packs/Day [...]
--- OUTSIDE RECORDS SUMMARY | 2024-07-13 06:13 | XMS_ITS | Encounter Summary ---
Author Organization [facility] System Address [facility]6 [facility]. [place], [place] [address] [place] [address] Care Team Providers Care Cytology Supervisor Name Role Phone Unavailable Primary Care Provider Unavailabl e Encounter Details Date Type Department Care Team (Late st Contact Info) Description 09/20/2001 Abstract [facility] CONVERSION [address] [place] [address] , Generic Conversion, Social History Tobacco Use [...]
--- OUTSIDE RECORDS SUMMARY | 2024-07-13 06:13 | XMS_ITS | Encounter Summary ---
Author Organization [facility] Address [facility] [place] [address] [place] [address] Care Team Providers Care Industrial Engineering Technician Name Role Phone Unavailable Primary Care Provider Unavailabl e Encounter Details Date Type Department Care Team (Late st Contact Info) Description 06/27/2003 Abstract [facility] Medical/Surgical [address] [place] [address] Fortino Hoffman MD [address] [place] [address] [place] [address] Social History Tobacco Use Types Packs/Day Years [...]
--- OUTSIDE RECORDS SUMMARY | 2024-07-13 06:13 | XMS_ITS | Encounter Summary ---
Author Organization [facility] Address [facility]6 [facility] [place] [address] [place] [address] Care Team Providers Care Data Security Coordinator Name Role Phone Unavailable Primary Care Provider Unavailabl e Encounter Details Date Type Department Care Team (Late st Contact Info) Description 11/17/2002 Abstract [facility] Emergency Services [address] [place], [place] [id number] Maru Day MD Social History Tobacco Use [...]
--- OUTSIDE RECORDS SUMMARY | 2024-07-13 06:13 | XMS_ITS | Encounter Summary ---
Author Organization [facility] Address [facility]6 [facility] [place] [address] [place] [address] Care Team Providers Care Caseworker Name Role Phone Unavailable Primary Care Provider Unavailabl e Encounter Details Date Type Department Care Team (Late st Contact Info) Description 12/05/2009 Abstract [facility] Emergency Services [address] [place] [address] Lacie Riley MD [address] [place] [address] [place] [address] Social History Tobacco Use Types Packs/Day Years [...]
--- OUTSIDE RECORDS SUMMARY | 2024-07-13 06:13 | XMS_ITS | Encounter Summary ---
Author Organization [facility] Address [facility]6 [facility] [place] [address] [place] [address] Care Team Providers Care Telegraph Printer Mechanic Name Role Phone Unavailable Primary Care Provider Unavailabl e Encounter Details Date Type Department Care Team (Late st Contact Info) Description 08/25/2006 Abstract [facility] Emergency Services [address] [place] [address] Olegario Romano MD [address] [place] [id number] Social History Tobacco Use Types Packs/Day Years [...]
--- OUTSIDE RECORDS SUMMARY | 2024-07-13 06:13 | XMS_ITS | Encounter Summary ---
Author Organization [facility] Address [facility]6 [facility] [place] [address] [place] [address] Care Team Providers Care [place] Name Role Phone Unavailable Primary Care Provider Unavailabl e Encounter Details Date Type Department Care Team (Late st Contact Info) Description 12/25/2007 Abstract [facility] CONVERSION [address] [place] [address] Sabine Ramirez DO [address] [phone] Social History Tobacco Use Types [...]
--- OUTSIDE RECORDS SUMMARY | 2024-07-13 06:13 | XMS_ITS | Encounter Summary ---
Author Organization [facility] Address [facility] [place] [address] [place] [address] Care Team Providers Care Solar Panel Technician Name Role Phone Unavailable Primary Care Provider Unavailabl e Encounter Details Date Type Department Care Team (Late st Contact Info) Description 07/04/2007 Abstract [facility] Surgical Services [address] [place] [address] Henry Ibarra MD [address] [place] [phone] Social History Tobacco Use Types Packs/Day [...]
--- OUTSIDE RECORDS SUMMARY | 2024-07-13 06:13 | XMS_ITS | Encounter Summary ---
Author Organization [facility] Address [facility]6 [place] [address] [place] [address] Care Team Providers Care Regional Extension Service Specialist Name Role Phone Unavailable Primary Care Provider Unavailabl e Encounter Details Date Type Department Care Team (Late st Contact Info) Description 02/23/2014 Abstract [facility] Conversion Md, Generic Conversion, Social History [...] CONVERSION Comment: THIS TEST WAS PERFORMED AT [facility] [address] [place] [address] 02/23/2014 2:46 PM CDT 02/23/2014 2:46 PM CDT Narrative [facility] TO EPIC CONVERSION - 02/25/2014 8:12 AM CDT This lab was migrated from [facility] and may be missing annotations or result text, please check the Media tab for the most complete results. Yudy BELLA MICROBIOLOGY - GENERAL ORD NIKA Final Result Performing Organization Address City/[facility]/ZIP Co de Phone Number [facility] TO EPIC CONVERSION * SMEAR, STAIN, WET PREP (02/23/2014 2:46 PM CDT) GARDNERELLA VAGINALIS Negative NR: NEGATIVE [facility] TO EPIC CONVERSION TRICHOMONAS Negative NR: NEGATIVE [facility] TO EPIC CONVERSION FARAZ SPECIES Negative NR: NEGATIVE [facility] TO EPIC CONVERSION lot number [id number] 09/10/14 [facility] TO EP[facility] CONVERSION Internal Control: passed [facility] TO EPIC CONVERSION 02/23/2014 2:46 PM CDT 02/23/2014 2:46 PM CDT Narrative [facility] TO EPIC CONVERSION - 02/24/2014 8:32 AM CDT This lab was migrated from [facility] and may be missing annotations or result text, please check the Media tab for the most complete results. Yudy BELLA MICROBIOLOGY - GENERAL ORDElisabet RABKEELEY Final Result [facility] TO EPIC CONVERSION documented in this encounter Visit Diagnoses Not on filedocumented in this encounter
--- OUTSIDE RECORDS SUMMARY | 2024-07-13 06:14 | XMS_ITS | Encounter Summary ---
Author Organization [facility] Address [facility]6 [facility] [place] [address] [place] [address] Care Team Providers Care Bleacher Sulfite Pulp Name Role Phone Unavailable Primary Care Provider Unavailabl e Encounter Details Date Type Department Care Team (Late st Contact Info) Description 1998 Abstract [facility] CONVERSION [address] [place] [address] , Generic Conversion, Social History [...]
--- OUTSIDE RECORDS SUMMARY | 2024-07-13 06:14 | XMS_ITS | Encounter Summary ---
Author Organization [facility] Address [facility] access hospital6 [place] [address] [place] [address] Care Team Providers Care Automotive Parts Coordinator Name Role Phone Unavailable Primary Care Provider Unavailabl e Encounter Details Date Type Department Care Team (Late st Contact Info) Description 07/29/2001 Abstract [facility] Emergency Services [address] [place] [address] Maru Day MD Social History Tobacco Use [...]
--- OUTSIDE RECORDS SUMMARY | 2024-07-13 06:14 | XMS_ITS | Encounter Summary ---
Author Organization [facility] Address [facility] [place] [address] [place] [address] Care Team Providers Care Line Installer Repairer Name Role Phone Unavailable Primary Care Provider Unavailabl e Encounter Details Date Type Department Care Team (Late st Contact Info) Description 06/21/1999 Abstract [facility] Emergency Services [address] [place] [address] Maru Day MD Social History Tobacco Use [...]
--- OUTSIDE RECORDS SUMMARY | 2024-07-13 06:14 | XMS_ITS | Encounter Summary ---
Author Organization [facility] Address [facility]6 [facility] [place] [address] [place] [address] Care Team Providers Care Mangle Operator Garments Name Role Phone Unavailable Primary Care Provider Unavailabl e Encounter Details Date Type Department Care Team (Late st Contact Info) Description 06/23/1999 Abstract [facility]VERSION [address] [place] [address] Henry Ibarar MD [address] [place] [address] Social History Tobacco Use Types [...]
--- OUTSIDE RECORDS SUMMARY | 2024-07-13 06:14 | XMS_ITS | Encounter Summary ---
Author Organization [facility] Address [facility]6 [place] [address] [place] [address] Care Team Providers Care Mix Technician Name Role Phone Unavailable Primary Care Provider Unavailabl e Encounter Details Date Type Department Care Team (Late st Contact Info) Description 06/27/2001 Abstract [facility] Laboratory [address] [place] [address] Fortino Hoffman MD [address] [place] [address] Social History Tobacco Use Types Packs/Day Years [...]
--- OUTSIDE RECORDS SUMMARY | 2024-07-13 06:14 | XMS_ITS | Encounter Summary ---
Author Organization [facility] System Address [facility]6 [facility] [place] [address] [place] [address] Care Team Providers Care Profile Grinder Name Role Phone Unavailable Primary Care Provider Unavailabl e Encounter Details Date Type Department Care Team (Late st Contact Info) Description 02/08/2000 Abstract [facility] Emergency Services [address] [place] [address] Henry Casillas MD Social History Tobacco Use [...]
--- OUTSIDE RECORDS SUMMARY | 2024-07-13 06:14 | XMS_ITS | Encounter Summary ---
Author Organization [facility] Address [facility]6 [facility] [place] [address] [place] [address] Care Team Providers Care Diesel Engine I Pipe Fitter Name Role Phone Unavailable Primary Care Provider Unavailabl e Encounter Details Date Type Department Care Team (Late st Contact Info) Description 01/29/2001 Abstract [facility] Medical/Surgical [address] [place] [address] Fortino Hoffman MD [address] [place] [address] Social History Tobacco Use Types Packs/Day Years [...]
--- OUTSIDE RECORDS SUMMARY | 2024-07-13 06:14 | XMS_ITS | Encounter Summary ---
Author Organization [facility] Address [facility]6 [facility] [place] [address] [place] [address] Care Team Providers Care Gear Roller Name Role Phone Unavailable Primary Care Provider Unavailabl e Encounter Details Date Type Department Care Team (Late st Contact Info) Description 10/20/1999 Abstract [facility] CONVERSION [address] [place] [address] Henry Ibarra MD [address] [place] [address] Social History Tobacco Use Types [...]
--- OUTSIDE RECORDS SUMMARY | 2024-07-13 06:14 | XMS_ITS | Encounter Summary ---
Author Organization [facility] Address [facility]6 [facility] [place] [address] [place] [address] Care Team Providers Care Cyber Software Engineer Name Role Phone Unavailable Primary Care Provider Unavailabl e Encounter Details Date Type Department Care Team (Late st Contact Info) Description 10/20/2000 Abstract [facility] Emergency Services [address] [place] [address] Jerel Wiggins MD Social History Tobacco Use [...]
--- OUTSIDE RECORDS SUMMARY | 2024-07-13 06:14 | XMS_ITS | Encounter Summary ---
Author Organization [facility] Address [facility]6 [facility] [place] [address] [place] [address] Care Team Providers Care Assembly Member Name Role Phone Unavailable Primary Care Provider Unavailabl e Encounter Details Date Type Department Care Team (Late st Contact Info) Description 06/22/1999 Abstract [facility] Laboratory [address] [place] [address] , Maru Hogan MD Social [...]
--- OUTSIDE RECORDS SUMMARY | 2024-07-13 06:14 | XMS_ITS | Encounter Summary ---
Author Organization [facility] Address [facility]6 [facility] [place] [address] [place] [address] Care Team Providers Care Cast Iron Dipper Name Role Phone Unavailable Primary Care Provider Unavailabl e Encounter Details Date Type Department Care Team (Late st Contact Info) Description 06/24/2001 Abstract [facility] Laboratory [address] [place], [place] [address] Henry Ibarra MD [address] [place] [address] Social History Tobacco Use Types [...]
--- OUTSIDE RECORDS SUMMARY | 2024-07-13 06:14 | XMS_ITS | Encounter Summary ---
Author Organization [facility] Address [facility]6 [facility] [place] [address] [place] [address] Care Team Providers Care Hospital Mortician Name Role Phone Unavailable Primary Care Provider Unavailabl e Encounter Details Date Type Department Care Team (Late st Contact Info) Description 10/18/2000 Abstract [facility] Surgical Services [address] [place] [address] Henry Ibarra MD [address] [place] [phone] Social History Tobacco Use Types Packs/Day [...]
--- OUTSIDE RECORDS SUMMARY | 2024-07-13 06:14 | XMS_ITS | Encounter Summary ---
Author Organization [facility] Address [facility] [place] [address] [place] [address] Care Team Providers Care Co Founder And Chairman Name Role Phone Unavailable Primary Care Provider Unavailabl e Encounter Details Date Type Department Care Team (Late st Contact Info) Description 10/06/1999 Abstract [facility] CONVERSION [address] [place] [address] Henry Ibarra MD [address] [place] [address] Social History Tobacco Use Types [...]
--- OUTSIDE RECORDS SUMMARY | 2024-07-13 06:14 | XMS_ITS | Encounter Summary ---
Author Organization [facility] Address [facility]6 [facility] [place] [address] [place] [address] Care Team Providers Care Cotton Classer Name Role Phone Unavailable Primary Care Provider Unavailabl e Encounter Details Date Type Department Care Team (Late st Contact Info) Description 12/20/2000 Abstract [facility] Diagnostic Imaging [address] [place] [address] Henry Ibarra MD [address] [place] [phone] Social History Tobacco Use Types Packs/Day [...]
--- OUTSIDE RECORDS SUMMARY | 2024-07-13 06:14 | XMS_ITS | Encounter Summary ---
Author Organization [facility] Address [facility]6 [place] [address] [place] [address] Care Team Providers Care Toy Assembler Wood Name Role Phone Unavailable Primary Care Provider Unavailabl e Encounter Details Date Type Department Care Team (Late st Contact Info) Description 07/06/1999 Abstract [facility] CONVERSION [address] [place] [address] Henry Ibarra MD [address] [place] [phone] Social History Tobacco Use Types [...]
--- OUTSIDE RECORDS SUMMARY | 2024-07-13 06:14 | XMS_ITS | Encounter Summary ---
Author Organization [facility] Address [facility]6 [place] [address] [place] [address] Care Team Providers Care Corporate Counsel Name Role Phone Unavailable Primary Care Provider Unavailabl e Encounter Details Date Type Department Care Team (Late st Contact Info) Description 09/14/1999 Abstract [facility] Emergency Services [address] [place] [address] Elliot Ibarra MD [address] [place] [address] [place], [place] [address] Social History Tobacco Use Types Packs/Day Years [...]
--- OUTSIDE RECORDS SUMMARY | 2024-07-13 06:14 | XMS_ITS | Encounter Summary ---
Author Organization [facility] Address [facility]6 [facility] [place] [address] [place] [address] Care Team Providers Care Radio News Anchor Name Role Phone Unavailable Primary Care Provider Unavailabl e Encounter Details Date Type Department Care Team (Late st Contact Info) Description 06/27/2001 Abstract [facility] Surgical Services [address] [place] [address] Henry Ibarra MD [address] [place] [phone] Social History Tobacco Use Types Packs/Day [...]
--- OUTSIDE RECORDS SUMMARY | 2024-07-13 06:14 | XMS_ITS | Encounter Summary ---
Author Organization [facility] Address [facility]6 [facility] [place] [address] [place] [address] Care Team Providers Care Panama Hat Blocker Name Role Phone Unavailable Primary Care Provider Unavailabl e Encounter Details Date Type Department Care Team (Late st Contact Info) Description 06/22/1999 Abstract [facility] Medical/Surgical [address] [place], [place] [id number] Maru Day MD Social History Tobacco Use [...]
--- OUTSIDE RECORDS SUMMARY | 2024-07-13 06:14 | XMS_ITS | Encounter Summary ---
Author Organization [facility] Address [facility]6 [facility] [place] [address] [place] [address] Care Team Providers Care Mobile Service Rv Technician Name Role Phone Unavailable Primary Care Provider Unavailabl e Encounter Details Date Type Department Care Team (Late st Contact Info) Description 12/03/2000 Abstract [facility] Emergency Services [address] [place], [place] [id number] Henry Casillas MD Social History Tobacco Use [...]
--- OUTSIDE RECORDS SUMMARY | 2024-07-13 06:14 | XMS_ITS | Encounter Summary ---
Author Organization [facility] Address Counts include 234 beds at the [facility]6 [facility] [place] [address] [place] [address] Care Team Providers Care Bullion Weigher Name Role Phone Unavailable Primary Care Provider Unavailabl e Encounter Details Date Type Department Care Team (Late st Contact Info) Description 06/30/1999 Abstract [facility] Surgical Services [address] [place] [address] Henry Ibarra MD [address] [place] [phone] Social History Tobacco Use Types Packs/Day [...]
--- OUTSIDE RECORDS SUMMARY | 2024-07-13 06:14 | XMS_ITS | Encounter Summary ---
Author Organization [facility] Address [facility]6 [facility] [place] [address] [place] [address] Care Team Providers Care Bench Shear Operator Name Role Phone Unavailable Primary Care Provider Unavailabl e Encounter Details Date Type Department Care Team (Late st Contact Info) Description 04/19/2000 Abstract [facility] CONVERSION [address] [place] [address] Henry Ibarra MD 0 [place] [phone] Social History Tobacco Use Types [...]
--- OUTSIDE RECORDS SUMMARY | 2024-07-13 06:14 | XMS_ITS | Encounter Summary ---
Author Organization [facility] Address [facility]6 [facility] [place] [address] [place] [address] Care Team Providers Care Emergency Worker Name Role Phone Unavailable Primary Care Provider Unavailabl e Encounter Details Date Type Department Care Team (Late st Contact Info) Description 09/01/1999 Abstract [facility] CONVERSION [address] [place] [address] [place] [phone] Social History Tobacco Use Types [...]
--- OUTSIDE RECORDS SUMMARY | 2024-07-13 06:19 | XMS_ITS | Data Portability ---
Author Organization [facility] [place] Address [address] [place] [address] [place] [address] Assessment Encounter Date Assessment Date Assessment LastModified by Organization Details LastModified Time 06/17/2024 06/17/2024 Patient is ___weeks . Discussed plan. Not available 06/17/2024 10:26:07 Plan of Treatment Reminders Order Date Submit Date Provider Last Modified By Organization Details Last Modified Time Details Appointments SURG POST OP 2024 11:45A Reji ESTRADA MD Not available Not available Not available Lab None recorded. Referral None recorded. Procedures None recorded. Surgeries section (SURG) 2023 024 [facility], [facility] [address], [place], [address], 06/18/2024 09:48:49 Imaging US, obstetric , follow-up 2023 024 [email or web address] [place], [facility] [address], [place], [address], 05/18/2024 17:52:16 Medication Orders None recorded. Patient [...] t Abnor mal: No Resul ting Lab: [facility] [address] [facility] [address] Tel: CULTU RE ----- ----- ----- --- No Group B strep isola danelle at 2 days (anjali ctive broth enhan cemen t) Not Available [facility] (Lab) [address], [place], [address], 06/20/2024 15:13:33 04/23/20 24 04/23/2024 US, obste tric, follo w-up No observ ation record ed. [email or web address] [place] [address], [place], [address], 04/23/2024 12:39:24 04/23/20 24 04/23/2024 US, obste tric, follo w-up No observ ation record ed. JOHNNIE Kate [address], [place], [address], 04/24/2024 11:29:28 05/18/20 24 05/18/2024 US, obste tric, follo w-up No observ ation record ed. [email or web address] [place] [address], [place], [address], 05/18/2024 10:41:38 05/18/20 24 05/18/2024 US, obste tric, follo w-up No observ ation record ed. [email or web address] Kate [address], [place], [address], 05/18/2024 13:10:19 Result Notes None recorded. Problems Name Problem SNOMED Code Status Onset Date Resolution Date Notes Provider Name and Address Organization Details Recorded Time Normal pregnanc y in nikolaygra bautista [id number] 58144 Completed 201908/24/2020 Encounte r for suprvsn of normal pregnanc y, third trimeste r;Record ed Elsewher e: No [facility] EHR Applications Architect yulia: N Benedictoti ce ID: [id number] Olaf lable Time: 10:45:00 AM Tamra Malik jennings [facility] 17:20:59 Antenata l screenin g Completed 201808/24/2020 Encounte r for antenata l screenin g for nuchal transluc ency;Rec orded Elsewher e: No Locat ion: [facility] S ource: EHR Applications Architect yulia: N Benedictoti ce ID: [id number] Olaf lable Time: 10:30:00 AM Tamra Malik jennings, [facility] 17:20:51 Pregnanc y, childbir th and puerperi um finding Completed 201908/24/2020 Encounte r for supervis ion of normal 1st pregnanc y;Record ed Elsewher e: No Locat ion: [facility] S ource: EHR Applications Architect yulia: N Benedictoti ce ID: [id number] Olaf lable Time: 09:30:00 AM Tamra Malik jennings, [facility] 17:21:03 Gestatio n period, 9 weeks 401593 Completed 201808/24/2020 9 weeks gestatio n of pregnanc y;Record ed Elsewher e: No Locat ion: [facility] S ource: EHR Applications Architect yulia: N Practi ce ID: [id number] Olaf lable Time: 11:00:00 AM Tamra Malik jennings [facility] 17:20:57 Malforma tion of central nervous system of fetus [id number] 107 Completed 01/07/ 2020 08/24/2020 Maternal care for (suspect ed) cnsl malform in fetus, unsp;Rec orded Elsewher e: No Locat ion: [facility] S ource: EHR Applications Architect yulia: N Practi ce ID: [id number] Olaf lable Time: 09:15:00 AM Tamra jennings, [facility] 17:20:58 Pregnanc y detectio n examinat ion Completed 201808/24/2020 Encounte r for pregnanc y test, result positive ;Recorde d Elsewher e: No Locat ion: [facility] S ource: EHR Applications Architect yulia: N Practi ce ID: [id number] Olaf lable Time: 11:00:00 [facility] 17:21:01 Gestatio n period, 25 weeks 18342617 Completed 201908/24/2020 25 weeks gestatio n of pregnanc y;Record ed Elsewher e: No Locat ion: [facility] S ource: EHR Applications Architect yulia: N Practi ce ID: [id number] Olaf lable Time: 09:15:00 AM Tamra jennings, [facility] 17:20:55 Antenata l screenin g for malforma tion Completed 201808/24/2020 Encounte r for antenata l screenin g for malforma tions;Re corded Elsewher e: No Locat ion: [facility] S ource: EHR Applications Architect yulia: N Practi ce ID: [id number] Olaf lable Time: 10:45:00 AM Tamra Gan [facility], [facility] 17:20:53 Bipolar disorder 60038471 Active 2018 lexapro and abikyra ok per M Ayana brambila [facility], [facility] [address] 14:23:[address] Concept Completed 201808/24/2020 Encntr for obstetrician and gynaecologist exam (general ) (routine ) w/o abn findings ;Recorde d Elsewher e: No Locat ion: [facility] S ource: EHR Applications Architect yulia: N Practi ce ID: [id number] Olaf lable Time: 03:00:00 PM Tamra jennings, [facility] 1 17:21:08 Pregnanc y, childbir th and puerperi um finding Completed 201908/24/2020 Encntr for suprvsn of normal first preg, third trimeste r;Record ed Elsewher e: No Locat ion: Sylvia payne [facility] S ource: EHR Applications Architect yulia: N Practi ce ID: [id number] Olaf lable Time: 09:35:53 AM Tamra Gan michaela, [facility] 1 17:21:05 Pregnanc y 91893327 Completed 201905/27/2020 Lisa Rahul jennings, [facility] 4 17:32:23 Pregnanc y 01386534 Completed 202008/24/2020 Lisa jennings, [facility] 4 17:32:23 Corpus luteum cyst 541655128 Completed 2019 RIGHT Ayana jennings [facility] 1 12:38:16 Chlamydi al infectio n 063000235 Completed 2020 + - tx'd sent on 07/21 . Neg TREY 08/25/20 Ayana jennings, [facility] 1 12:38:16 Pregnanc y 96195681 Completed 202012/23/2020 Lias jennings, [facility] 4 17:32:23 Depressi ve disorder 32418867 Completed Restarte d Abilify & Lexapro 3/1/21. 11/01/20 RPT EPDS 4 Ayana brambila null, [facility] 1 12:38:16 Pregnanc y 46075381 Completed 202103/02/2022 Lisa Abner null, [facility] 4 17:32:23 Bipolar disorder 96123821 Completed 2018 lexapro and abilify ok per [facility] Ayana brambila null, [facility] 2 14:23:05 Asthma 356941615 Completed Ayana brambila null, [facility] 2 14:23:05 Gastroes ophageal reflux disease 984738510 Completed Ayana brambila null, [facility] 2 14:23:05 RhD negative 774338648 Completed ok with Rhogam? Ayana brambila null, [facility] 2 14:23:05 Mixed anxiety and depressi ve disorder 876642334 Active 2023 Dalila Noyoal null, [facility] 4 13:06:17 Pregnanc y 85168823 Active 2023 Lisa Rahul null, [facility] 4 17:32:23 Shoulder girdle dystocia 97051198 Active With injury to the baby, to perform Shanta Samayoa null, [facility] 4 17:53:31 section Active to do for previous shoulder dystocia with injury Rhett Rivers MD [address], [place], [address], [facility] 4 12:21:16 Blood group O Rh(D) negative 607598998 Active Rhogam received 04/18/24 Sanaz jennings [facility] 13:19:07 Problem Notes None recorded. Procedures Surgical History Date Name Laterality Status Provider Name and Address Organization Details Recorded Time 12/11/19 24 Date of [facility] 12/11/2023 13:10:59 07/15/19 06 tonsilectomy/ad enoids completed [facility] 09/22/2021 16:07:20 07/15/19 05 adenoid excision completed [facility] 09/22/2021 16:07:11 07/15/19 02 myringotomy and insertion of tympanic ventilation tube completed [facility] 09/22/2021 16:07:37 Imaging Results Imaging Date Name Status LastModified by Organiz ation Details LastModified Time 04/23/2024 US, obstetric, follow-up completed [email or web address] [place] [address], [place], [address], 04/23/2024 12:39:24 04/23/2024 US, obstetric, follow-up completed JOHNNIE Kate [address], [place], [address], 04/24/2024 11:29:28 05/18/2024 US, obstetric, follow-up completed [email or web address] [place] [address], [place], [address], 05/18/2024 10:41:38 05/18/2024 US, obstetric, follow-up completed [email or web address] [address], [place], [address], 05/18/2024 13:10:19 Procedure Notes None recorded. Medical Equipment None Reported. Allergies Allergen ID Allergen Name Allergen Category Reaction Reaction Severity Criticality Documentation Date Start Date Code Code System Note Provider Name and Address Organization Details Recorded Time 106 Substance with sulfonami de structure and antibacte rial mechanism of action (substanc e) medicatio n Not available Not available Not available 10/27/2019 04813 8003 SNOMED Dalila Noyola [facility], [facility] 0 12:37:04 2772 Medicinal product containin g penicilli n and acting as antibacte rial agent (product) medicatio n Not available Not available Not available 06/01/2020 40298 05 SNOMED Celine Barney [facility], [facility] 0 12:54:54 2773 amoxicill in medicatio n Not available Not available Not available 06/01/2020 723 RxNorm Celine Barney [facility] 0 12:54:59 Medications Name [...] Enriquez e: Yes Loca tion: Mitchellpao kerry [facility] Reji odfredo By: [email or web address] Encounte r DateTime [...] Updated DateTime 06/02/2024 170.82 cm 31.6 kg/m2 64295.25 g 115 mm[Hg] 64 mm[Hg] [facility] 4 10:53:25 Date Recorded Body height Body mass index (BMI) Body weight Systolic blood pressure Diastolic blood pressure Provider Name and Address Organization Details Last Updated DateTime 06/17/2024 170.82 cm 32.2 kg/m2 48700.62 g 98 mm[Hg] 64 mm[Hg] [facility] 4 10:27:03 Date Recorded Body height Body mass index (BMI) Body weight Systolic blood pressure Diastolic blood pressure Provider Name and Address Organization Details Last Updated DateTime 06/23/2024 170.82 cm 32.5 kg/m2 65013.81 g 103 mm[Hg] 63 mm[Hg] [facility] 4 11:01:08 Date Recorded Body height Body mass index (BMI) Body weight Systolic blood pressure Diastolic blood pressure Provider Name and Address Organization Details Last Updated DateTime 07/01/2024 170.82 cm 32.8 kg/m2 48524.99 g 107 mm[Hg] 71 mm[Hg] [facility] 4 10:50:37 Social History Question Answer Notes LastModified by Organizat ion Details LastModified Time Tobacco Smoking Status Former Smoker Dalila jennings, [facility] 10/27/2019 12:41:22 What Is Your Level Of Alcohol Consumption? None [email or web address] Information not available 12/14/2021 If You Are , What Was Your Level Of Alcohol Consumption Prior To ? Occasional phewitt Information not available 06/27/2020 Are You Blind Or Do You Have Difficulty Seeing? No [email or web address] Information not available 11/16/2021 What Is Your Level Of Caffeine Consumption? Occasional [email or web address] Information not available 11/16/2021 In The 14 Days Before Symptom Onset, Have You Had Close Contact With A Laboratory-confir med COVID-19 While That Case Was Ill? No [email or web address] Information not available 11/16/2021 In The 14 Days Before Symptom Onset, Have You Had Close Contact With A Person Who Is Under Investigation For COVID-19 While That Person Was Ill? No [email or web address] Information not available 11/16/2021 Have You Been To An Area Known To Be High Risk For COVID-19? No [email or web address] Information not available 11/16/2021 Are You Deaf Or Do You Have Serious Difficulty Hearing? No [email or web address] Information not available 11/16/2021 What Type Of Diet Are You Following? REGULAR [email or web address] Information not available 11/16/2021 Which Illicit Or Recreational Drugs Have You Used? Lubec [email or web address] Information not available 10/27/2019 Do You Use Your Seat Belt Or Car Seat Routinely? Yes [email or web address] Information not available 11/16/2021 Do You Have Smoke And Carbon Monoxide Detectors In Your Home? Yes Information not available 11/16/2021 Do You Feel Stressed (tense, Restless, Nervous, Or Anxious, Or Unable To Sleep At Night)? [id number] [email or web address] Information not available 11/16/2021 Do You Use Sunscreen Routinely? Yes Information not available 11/16/2021 Has Tobacco Cessation Counseling Been Provided? No [email or web address] Information not available 11/16/2021 Do You Or Have You Ever Used Any Other Forms Of Tobacco Or Nicotine? No [email or web address] Information not available 11/16/2021 Sex: Unknown Functional Status Question Answer Note LastModified by Organizat ion Details LastModified Time Do you have difficulty walking or climbing stairs? No [email or web address] Information not available 11/16/2021 Are you able to walk? [email or web address] Information not available 11/16/2021 Are you able to care for yourself? Yes [email or web address] Information not available 11/16/2021 Do you have difficulty dressing or bathing? No [email or web address] Information not available 11/16/2021 What is your [...] Diagnosis SNOMED-CT Code Diagnosis ICD10 Code 656 Jsoee Vazquez CNM [place] [address] [address] 10/27/2019 10:51:33 10/28/2019 15:18:53 39680 Tiff Alvarez [place] [address] [address] 06/01/2020 11:58:26 06/01/2020 17:05:51 test positive 924301158 Z32.01 Gynecologi c examination 23166045 Z01.419 Amenorrhea 64978770 N91. 2 Mixed anxi ety and depressive disorder 759041414 F41.8 53429 [facility] [address],[place] [address] 06/01/2020 11:58:59 06/02/2020 10:32:51 03438 Vidhya Kaufman [place] [address] [address] 06/27/2020 14:02:09 06/27/2020 14:39:03 screening 483463712 Z36.82 Z36.89 Z36.0 28014 Shelley Alva [place] [address],[place] [address] 07/18/2020 09:37:43 07/19/2020 10:03:28 37604 Rhett Rivers MD [place] [address] [address] 07/18/2020 09:38:14 07/18/2020 14:23:42 Routine care 138781211 Z34.92 31717 [facility] [address],[place] [address] 08/25/2020 12:29:16 08/29/2020 15:05:17 59096672 Z33.1 Mixed anxi ety and depressive disorder 538213014 F41.8 93095 [facility] [address],[place] [address] 09/08/2020 09:26:35 09/09/2020 15:33:11 Routine care 136484491 Z34.92 88885 [facility] [address],[place] [address] 09/08/2020 09:27:14 09/08/2020 10:52:26 screening for malformation 241828258 Z36.3 30336 [facility] [address] [address] 10/17/2020 16:25:47 10/17/2020 16:55:56 Routine care 344415710 Z34.92 87757 [facility] [address] [address] 11/01/2020 12:55:01 11/01/2020 13:48:37 Routine care 980337987 Z34.92 11725 [facility] [address] [address] 11/01/2020 14:18:06 11/01/2020 15:02:48 Uterine size for dates discrepancy 924446699 O26.843 O40.3XX0 Z3A.31 59277 [facility] [address],[place] [address] 11/10/2020 14:53:14 11/10/2020 16:08:28 Routine care 989615052 Z34.92 07267 [facility] [address],[place] [address] 11/10/2020 14:52:49 11/10/2020 15:30:17 Polyhydramnios 02582721 O40.3XX0 Z3A.33 02970 [facility] [address],[place] [address] 11/17/2020 10:04:14 11/17/2020 11:04:48 Polyhydramnios 49705792 O40.3XX0 Z3A.34 37676 [facility] [address],[place] [address] 11/24/2020 15:58:53 11/24/2020 16:51:03 Polyhydramnios 20404738 O40.3XX0 O36.63X0 Z3A.35 24793 Rhett Rivers MD [place] [address] [address] 11/24/2020 15:59:32 11/25/2020 10:54:01 Routine care 710994532 Z34.92 46784 Glendy Aiken MD [place] [address] [address] 12/02/2020 14:34:02 12/02/2020 15:19:47 Routine care 455773580 Z34.83 Depressive disorder 3548 9007 F32.9 05822 [facility] [address],[place] [address] 12/15/2020 12:06:30 12/15/2020 12:46:02 Routine care 900170482 Z34.92 13125 [facility] [address],[place] [address] 07/04/2021 13:53:20 07/05/2021 19:08:38 Acid reflux 324798035 K21.9 Gynecologi c examination 96552828 Z01.419 Z11.3 Z11.8 test positive 399161737 Z32.01 Mixed anxi ety and depressive disorder 415831784 F41.8 23829 [facility] [address],[place] [address] 07/04/2021 13:52:52 07/04/2021 14:14:14 13510 Gifty Irving [facility] [address] [address] 08/01/2021 14:45:26 08/01/2021 15:38:53 screening 593467115 Z36.82 32362 Glendy Aiken MD [place] [address] [address] 08/01/2021 14:45:54 08/02/2021 16:09:18 Routine care 942639198 Z34.83 37238 [facility] [address] [address] 09/22/2021 15:00:10 09/26/2021 20:03:12 Routine care 859621530 Z34.92 02601 [facility] [address],[place] [address] 09/22/2021 14:59:12 09/22/2021 16:07:07 screening for malformation 316771175 Z36.3 12122 Glendy Aiken MD [place] [address] [address] 10/24/2021 15:04:55 10/24/2021 17:20:45 Routine care 045512212 Z34.83 RhD negative 368349794 Z 01.83 40096 Vidhya Kaufman [place] [address] [address] 10/24/2021 15:05:47 10/24/2021 15:34:01 screening 153363095 Z36.2 63764 [facility] [address] [address] 11/16/2021 14:56:50 11/17/2021 16:00:25 Routine care 339612649 Z34.92 053249 [facility] [address] [address] 11/28/2021 11:47:15 11/29/2021 17:11:16 425534 [facility] [address] [address] 12/14/2021 13:41:35 12/15/2021 16:38:44 Routine care 065754742 Z34.92 097013 [facility] [address] [address] 12/25/2021 11:39:07 12/25/2021 12:40:22 Routine care 897855947 Z34.92 [id number] Josee Vazquez CNM [place] [address] [address] 01/10/2022 11:52:29 01/10/2022 12:54:00 Routine care 352963153 Z34.92 [id number] Josee Vazquez CNM [place] [address] [address] 01/26/2022 09:24:00 01/26/2022 10:08:04 Routine care 915881447 Z34.92 [id number] Ciera Leslie [facility] [address] [address] 01/26/2022 10:24:23 01/26/2022 11:07:13 Reduced movement 581734758 O36.8199 498577 [facility] [address],[place] [address] 11/22/2023 12:06:11 11/22/2023 12:32:07 Uterine size for dates discrepancy 187105305 O26.841 Z3A.01 819183 [facility] [address],[place] [address] 12/11/2023 12:10:47 12/11/2023 13:54:35 [id number] [facility] [address],[place] [address] 12/11/2023 12:11:12 12/11/2023 13:30:30 Amenorrhea 71134767 N91.2 Venereal d isease screening 155064122 Z11.3 225021 Vidhya [facility] [address],[place] [address] 01/02/2024 16:59:34 01/02/2024 17:28:02 screening 508102560 Z36.82 Z3A.12 [id number] Rhett Rivers MD [place] [address],[place] [address] 01/02/2024 17:00:54 01/02/2024 18:00:33 screening 113534198 Z36.89 Routine an tenatal care 036610509 Z34.92 989171 Rhett Rivers MD [facility] [address] [address] 02/10/2024 16:52:54 02/10/2024 17:26:06 Urinary symptoms 852406185 R39.9 Spasm 56761352 R25.2 Low back pain 149142346 M54.50 058224 [facility] [address] [address] 02/27/2024 10:02:50 02/27/2024 11:16:10 screening for malformation 417769278 Z36.3 Z3A.20 218287 Rhett Rivers MD [facility] [address] [address] 02/27/2024 10:03:09 02/27/2024 12:14:28 Routine care 812974061 Z34.92 [id number] [facility] [address],[place] [address] 03/26/2024 11:28:44 03/26/2024 13:45:56 screening 731216628 Z36.2 Z3A.24 [id number] Rhett Rivers MD [facility] [address] [address] 03/26/2024 11:26:32 03/26/2024 13:45:39 Routine care 245429058 Z34.92 [id number] [facility] [address] [address] 04/23/2024 12:09:12 04/23/2024 12:41:35 condition affecting obstetrical care of mother 008758181 O35.00X0 Z3A.28 207804 Rhett Rivers MD [facility] [address] [address] 04/23/2024 12:09:28 04/23/2024 14:54:09 Routine care 785376628 Z34.92 [id number] [facility] [address] [address] 05/18/2024 09:41:39 05/18/2024 10:10:12 Medical examination for suspected condition 647860923 Z03.74 Z3A.32 [id number] MD Yudith OSCAR [address] [address] 06/02/2024 10:41:46 06/02/2024 11:29:38 Bipolar disorder 04701442 F31.9 Deliveries by [id number] O82 Shoulder g irdle dystocia 38145426 O66.0 Gestation period, 34 weeks 66074620 Z3A.34 904853 LINDSEY ESTRADA MD [facility] [address] [address] 06/17/2024 10:19:34 06/18/2024 11:31:11 Shoulder girdle dystocia 99308079 O66.0 Gestation period, 36 weeks 43227103 Z3A.36 056352 MD Yudith OSCAR [address] [address] 06/23/2024 10:52:40 06/23/2024 11:27:25 Shoulder girdle dystocia 61995188 O66.0 Gestation period, 37 weeks 37968599 Z3A.37 298803 LINDSEY ESTRADA MD [facility] [address] [address] 07/01/2024 10:45:04 07/01/2024 11:10:41 Shoulder girdle dystocia 29403548 O66.0 Bipolar disorder 2864996 4 F31.9 Gestation period, 38 weeks 39741075 Z3A.38 Health Concerns Section Related Observation LastModified by Organization Detai ls LastModified Time None Recorded Concern Status LastModified by Organization Details LastModified Time None Recorded Advance Directives Directive None Recorded Payers Encounter Date Sequence Insurance Name Policy Number Policy Kwok Covered Member ID Kwok Member ID Guarantor Name 05/18/2024 1 [facility] (MEDICAID HMO) [id number] Lashanda James [id number] Lashanda James 06/02/2024 1 [facility] (MEDICAID HMO) [id number] Adamason James [id number] Lashanda James 06/17/2024 1 [facility] (MEDICAID HMO) [id number] Lashanda James [id number] Lashanda James 06/23/2024 1 [facility] (MEDICAID HMO) [id number] Lashanda James [id number] Lashanda James 07/01/2024 1 [facility] (MEDICAID HMO) [id number] 0003 Lashanda James [id number] Lashanda James OBGyn Episode Ob Episode Information Episode Created Date Number of Fetuses Patient Bloodtype Patient rh Status Prepregnancy Weight lbs Domestic Partner Domestic Partner Phone Father Name Glass Glazier Status 10/27/19 20 1 208 CLOSED Fetus [...] Date Ultra Sound Latest Days Gestation 0 [email or web address] 10/27/2019 11/02/19 20 0 Pre- Flowsheet Flowsheet Date 10/27/2019 Springer Score Blood Edema Fundus Height Fundus Units Glucose Ketones Leukocytes Nitrite Labor Signs Protein Cervic Dilation Cervic Effacement Cervic Station trace trace Type Weight in lbs Pre/Post Dialysis Refused Weight [id number] BP Diastolic BP Location Tested BP Systolic [...] Tubal Sterilization Discharge Date Comments 0 39.6 [email or web address] Discharge Information Feeding Method Contraceptive Method Maternal HG B and HCT Levels Ob Episode Information Episode Created Date Number of Fetuses Patient Bloodtype Patient rh Status Prepregnancy Weight lbs Domestic Partner Domestic Partner Phone Father Name Glass Glazier Status 12/10/19 20 1 DELETED Balaji Calculation [...] Domestic Partner Domestic Partner Phone Father Name Glass Glazier Status 07/18/19 21 1 O Negative 202 CLOSED Fetus Data First Name Last Name Admitted to NICU Weight (g) Sex Living Outcome Pediatric Complications Fetus ID Race Codes Race Delivery Type 4309.12 4 M true Full Term 6797 Vaginal Delivery Problems Problem Notes Problem Name Start Date End Date Resolution Snomed Code Not e Corpus luteum cyst 06/01/2020 886763891 RIGHT Chlamydial infection 07/18/2020 24382547 0 + - tx'd sent on 07/21 . Neg TREY 08/25/20 Depressive disorder 66368534 Restarted Abilify & Lexapro 09/12/20. 11/01/20 RPT [...] Weight in lbs Pre/Post Dialysis Refused Weight 204.133102716759 BP Diastolic BP Location Tested BP Systolic [...] Weight in lbs Pre/Post Dialysis Refused Weight 208.465077214294 BP Diastolic BP Location Tested BP Systolic BP Type 72 136 Fetus Heart Rate Present Fetus Movement A Yes Comments Flowsheet Date 09/08/2020 Springer Score Blood Edema Fundus Height Fundus Units Glucose Ketones Leukocytes Nitrite Labor Signs Protein Cervic Dilation Cervic Effacement Cervic Station trace Type Weight in lbs Pre/Post Dialysis Refused Weight 211.446199630787 BP Diastolic BP Location Tested BP Systolic BP Type 67 108 Fetus Heart Rate Present Fetus Movement A Yes Comments Pt did not go to [facility] for p sych evaluation as she had [...] I have still strongly encouraged going to [facility]. Flowsheet Date 09/08/2020 Springer Score Blood Edema [...] Weight in lbs Pre/Post Dialysis Refused Weight 217.497715789456 BP Diastolic BP Location Tested BP Systolic [...] Weight in lbs Pre/Post Dialysis Refused Weight 224.079197832474 BP Diastolic BP Location Tested BP Systolic [...] Weight in lbs Pre/Post Dialysis Refused Weight 229.147847857527 BP Diastolic BP Location Tested BP Systolic BP Type 66 110 Fetus Heart Rate Present A 146 Fetus Movement A Yes Comments Doing well. Considering 39 w gambell induction. Labor precautions discussed. Flowsheet Date 11/17/2020 [...] Weight in lbs Pre/Post Dialysis Refused Weight 228.020631242173 BP Diastolic BP Location Tested BP Systolic [...] Weight in lbs Pre/Post Dialysis Refused Weight 224.010189368892 BP Diastolic BP Location Tested BP Systolic [...] Weight in lbs Pre/Post Dialysis Refused Weight 228.987546002196 BP Diastolic BP Location Tested BP Systolic [...] Estim ated Date of Delivery false Thalassemia (Venezuelan, Turkish, Mediterranean, Or Background): MCV < 80 false Neural Tube Defect (Meningomyelocele, Spina Bifi da, Or Anencephaly) false Congenital Heart Defect false Down Syndrome false Dane-Sachs (eg, Gnosticism, Cajun, Cymro-Moroccan) f alse Juancarlos Disease false Sickle Cell [...] Post Complications Tubal Sterilization Discharge Date Comments [facility] idural 38.4 false Tiff Alvarez [facility] Discharge Information Feeding Method Contraceptive Method Maternal HG B and HCT Levels Ob Episode Information Episode Created Date Number of Fetuses Patient Bloodtype Patient rh Status Prepregnancy Weight lbs Domestic Partner Domestic Partner Phone Father Name Glass Glazier Status 08/01/19 22 1 O Negative 194 CLOSED Fetus Data First Name Last Name Admitted to NICU Weight (g) Sex Living Outcome Pediatric Complications Fetus ID Race Codes Race Delivery Type 3883.88 15 F true Full Term terminal meconium 59139 Vaginal Delivery Problems Problem Notes CF/SMA - Negative Jul 2020no blood products Problem Name Start Date End Date Resolution Snomed Code Not e Bipolar disorder 03/30/2019 32454514 le xapro and abilify ok per [facility] Asthma 135751610 Gastroesophageal reflux disease 779521428 RhD negative 789280229 ok with Rhogam? Balaji Calculation BALAJI Calculation [...] Date Ultra Sound Latest Days Gestation 0 [email or web address] 08/02/2021 02/04/20 22 0 Pre-zoë Flowsheet Flowsheet Date 08/01/2021 Springer Score Blood Edema Fundus Height Fundus Units Glucose Ketones Leukocytes Nitrite Labor Signs Protein Cervic Dilation Cervic Effacement Cervic Station neg none none trace Type Weight in lbs Pre/Post Dialysis Refused Weight 195.982655176399 BP Diastolic BP Location Tested BP Systolic [...] Weight in lbs Pre/Post Dialysis Refused Weight 201.312122648308 BP Diastolic BP Location Tested BP Systolic [...] Weight in lbs Pre/Post Dialysis Refused Weight 209.212580843996 BP Diastolic BP Location Tested BP Systolic [...] Weight in lbs Pre/Post Dialysis Refused Weight 216.045390647924 BP Diastolic BP Location Tested BP Systolic [...] Weight in lbs Pre/Post Dialysis Refused Weight 219.999376765612 BP Diastolic BP Location Tested BP Systolic [...] Weight in lbs Pre/Post Dialysis Refused Weight 218.514425221350 BP Diastolic BP Location Tested BP Systolic [...] Weight in lbs Pre/Post Dialysis Refused Weight 220.528118149662 BP Diastolic BP Location Tested BP Systolic [...] Weight in lbs Pre/Post Dialysis Refused Weight 222.71194503657 BP Diastolic BP Location Tested BP Systolic [...] Weight in lbs Pre/Post Dialysis Refused Weight 225.394664924634 BP Diastolic BP Location Tested BP Systolic [...] Estim ated Date of Delivery false Thalassemia (Venezuelan, Turkish, Mediterranean, Or Background): MCV < 80 false Neural Tube Defect (Meningomyelocele, Spina Bifi da, Or Anencephaly) false Congenital Heart Defect false Down Syndrome false Dane-Sachs (eg, Gnosticism, Cajun, Cymro-Moroccan) f alse Juancarlos Disease false Sickle Cell [...] Domestic Partner Domestic Partner Phone Father Name Glass Glazier Status 01/02/20 24 1 O Negative 164 OPEN Fetus Data First Name Last Name Admitted to NICU Weight (g) Sex Living Outcome Pediatric Complications Fetus ID Race Codes Race Delivery Type 25047 Problems Problem Notes Problem Name Start Date End Date Resolution Snomed Code Not e Blood group O Rh(D) negative 570698854 Rhogam received 04/18/24 Shoulder girdle dystocia 03367896 With injury to the baby, to perform section 71969584 to do for previous shoulder dystocia with [...] Weight in lbs Pre/Post Dialysis Refused Weight 164.60277557816 BP Diastolic BP Location Tested BP Systolic [...] Type Weight in lbs Pre/Post Dialysis Refused 179.629055071567 BP Diastolic BP Location Tested BP Systolic [...] Type Weight in lbs Pre/Post Dialysis Refused 182.657987065423 BP Diastolic BP Location Tested BP Systolic [...] Type Weight in lbs Pre/Post Dialysis Refused 188.210435993084 BP Diastolic BP Location Tested BP Systolic [...] Type Weight in lbs Pre/Post Dialysis Refused 195.734314200672 BP Diastolic BP Location Tested BP Systolic [...] Weight in lbs Pre/Post Dialysis Refused Weight 203.195431823302 BP Diastolic BP Location Tested BP Systolic [...] Weight in lbs Pre/Post Dialysis Refused Weight 207.976692882882 BP Diastolic BP Location Tested BP Systolic [...] Weight in lbs Pre/Post Dialysis Refused Weight 209.386524530961 BP Diastolic BP Location Tested BP Systolic [...] Weight in lbs Pre/Post Dialysis Refused Weight 211.640418303196 BP Diastolic BP Location Tested BP Systolic [...] Estim ated Date of Delivery false Thalassemia (Venezuelan, Turkish, Mediterranean, Or Background): MCV < 80 false Neural Tube Defect (Meningomyelocele, Spina Bifi da, Or Anencephaly) false Congenital Heart Defect false Down Syndrome false Dane-Sachs (eg, Gnosticism, Cajun, Cymro-Moroccan) f alse Juancarlos Disease false Sickle Cell Disease Or Trait () false Hemophilia Or Other Blood Disorders false Muscular Dystrophy false Cystic Fibrosis false Fillmore's Chorea false Intellectual Disability/Autism false If Yes, [...]
--- OUTSIDE RECORDS SUMMARY | 2024-07-13 06:19 | XMS_ITS | Continuity of Care Document ---
Author Organization [facility] [place] Address [address] [place] [address] Assessment No assessment recorded. Plan of Treatment [...] lucen cy No observ ation record ed. [facility] [address], [place], [address], 01/02/2024 17:39:14 01/02/20 24 01/02/2024 US, obste tric, nucha l trans lucen cy No observ ation record ed. [email or web address] [address], [place], [address], 01/02/2024 19:40:21 02/27/20 24 02/27/2024 US, obste tric, 2nd or 3rd trime ster No observ ation record ed. [facility] [address], [place], [address], 02/27/2024 18:06:05 02/27/20 24 02/27/2024 US, obste tric, follo w-up No observ ation record ed. [email or web address] [address], [place], [address], 02/28/2024 13:07:39 03/26/20 24 03/26/2024 US, obste tric, follo w-up No observ ation record ed. [email or web address] [facility] [address], [place], [address], 03/26/2024 13:46:07 03/26/20 24 03/26/2024 US, obste tric, follo w-up No observ ation record ed. JOHNNIE [address], [place], [address], 04/03/2024 14:52:29 04/23/20 24 04/23/2024 US, obste tric, follo w-up No observ ation record ed. [email or web address] [place] [address], [place], [address], 04/23/2024 12:39:24 04/23/20 24 04/23/2024 US, obste tric, follo w-up No observ ation record ed. JOHNNIE [address], [place], [address], 04/24/2024 11:29:28 05/18/20 24 05/18/2024 US, obste tric, follo w-up No observ ation record ed. [email or web address] [place] [address], [place], [address], 05/18/2024 10:41:38 05/18/20 24 05/18/2024 US, obste tric, follo w-up No observ ation record ed. [email or web address] [address], [place], [address], 05/18/2024 13:10:19 Result Notes None recorded. Problems Name Problem SNOMED Code Status Onset Date Resolution Date Notes Provider Name and Address Organization Details Recorded Time Normal pregnanc y in multigra bautista 0563262175 06640 Completed 201908/24/2020 Encounte r for suprvsn of normal pregnanc y, third trimeste r;Record ed Elsewher e: No Locat ion: [facility] S ource: EHR Tile Classifier yulia: N Benedictoti ce ID: 0001 Olaf lable Time: 10:45:00 AM Tamra jennings, [facility] 17:20:59 Antenata l screenin g Completed 201808/24/2020 Encounte r for antenata l screenin g for nuchal transluc ency;Rec orded Elsewher e: No Locat ion: [facility] S ource: EHR Tile Classifier yulia: N Benedictoti ce ID: 0001 Olaf lable Time: 10:30:00 AM Tamra Malik jennings, [facility] 17:20:51 Pregnanc y, childbir th and puerperi um finding Completed 201908/24/2020 Encounte r for supervis ion of normal 1st pregnanc y;Record ed Elsewher e: No Locat ion: [facility] S ource: EHR Tile Classifier yulia: N Benedictoti ce ID: 0001 Olaf lable Time: 09:30:00 AM Tamra jennings, [facility] 17:21:03 Gestatio n period, 9 weeks 035953 Completed 201808/24/2020 9 weeks gestatio n of pregnanc y;Record ed Elsewher e: No Locat ion: [facility] S ource: EHR Tile Classifier yulia: N Benedictoti ce ID: 0001 Olaf lable Time: 11:00:00 AM Tamra jennings [facility] 17:20:57 Malforma tion of central nervous system of fetus 8974936523 107 Completed 201908/24/2020 Maternal care for (suspect ed) cnsl malform in fetus, unsp;Rec orded Elsewher e: No Locat ion: [facility] S ource: EHR Tile Classifier yulia: Tom Roe ce ID: 0001 Olaf lable Time: 09:15:00 AM Tamra Gan [facility], [facility] 17:20:58 Pregnanc y detectio n examinat ion Completed 201808/24/2020 Encounte r for pregnanc y test, result positive ;Recorde d Elsewher e: No Locat ion: [facility] S ource: EHR Tile Classifier yulia: Tom Roe ce ID: 0001 Olaf lable Time: 11:00:00 AM Tamra Gan [facility], [facility] 17:21:01 Gestatio n period, 25 weeks 44705813 Completed 201908/24/2020 25 weeks gestatio n of pregnanc y;Record ed Elsewher e: No Locat ion: [facility] S ource: EHR Tile Classifier yulia: Tom Roe ce ID: 0001 Olaf lable Time: 09:15:00 AM Tamra Gan [facility], [facility] 17:20:55 Antenata l screenin g for malforma tion Completed 201808/24/2020 Encounte r for antenata l screenin g for malforma tions;Re corded Elsewher e: No Locat ion: [facility] S ource: EHR Tile Classifier yulia: Tom Roe ce ID: 0001 Olaf lable Time: 10:45:00 AM Tamra Gan [facility], [facility] 17:20:53 Bipolar disorder 09429847 Active 2018 lexapro and abilify ok per [facility] Ayana brambila [facility], [facility] 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 1 17:21:08 Pregnanc y, childbir th and puerperi um finding Completed 201908/24/2020 Encntr for suprvsn of normal first preg, third trimeste r;Record ed Elsewher e: No Locat ion: [facility] S ource: EHR Tile Classifier yulia: N Practi ce ID: 0001 Olaf lable Time: 09:35:53 AM Tamra jennings, [facility] 1 17:21:05 Pregnanc y 39272666 Completed 201905/27/2020 Lisa jennings, [facility] 4 17:32:23 Pregnanc y 35512303 Completed 202008/24/2020 Lisa jennings, [facility] 4 17:32:23 Corpus luteum cyst 847366677 Completed 2019 RIGHT Ayana jennings [facility] 1 12:38:16 Chlamydi al infectio n 051147448 Completed 2020 + - tx'd sent on 07/21 . Neg TREY 08/25/20 Ayana jennings [facility] 1 12:38:16 Pregnanc y 10367059 Completed 202012/23/2020 Lisa jennings [facility] 4 17:32:23 Depressi ve disorder 83110542 Completed Restarte d Abilify & Lexapro 09/12/20. 11/01/20 RPT EPDS 4 Ayana brambila null, [facility] 1 12:38:16 Pregnanc y 14413369 Completed 202103/02/2022 Lisa Rahul [facility], [facility] 4 17:32:23 Bipolar disorder 86753825 Completed 2018 lexapro and abilify ok per [facility] Ayana brambila [facility], [facility] 2 14:23:05 Asthma 606330286 Completed Ayana brambila [facility], [facility] 2 14:23:05 Gastroes ophageal reflux disease 762128889 Completed Ayana brambila [facility], [facility] 2 14:23:05 RhD negative 769723304 Completed ok with Rhogam? Ayana brambila null, [facility] 2 14:23:05 Mixed anxiety and depressi ve disorder 510765035 Active 2023 Dalila Noyola null, [facility] 4 13:06:17 Pregnanc y 75515944 Active 2023 Lisa Rahul [facility], [facility] 4 17:32:23 Shoulder girdle dystocia 39985172 Active With injury to the baby, to perform Shanta Samayoa [facility], [facility] 4 17:53:31 section Active to do for previous shoulder dystocia with injury Rhett Rivers MD [address], [place], [address], [facility] 4 12:21:16 Blood group O Rh(D) negative 878234281 Active Rhogam received 04/18/24 Sanaz Infante [facility] 4 13:19:07 Problem Notes None recorded. Procedures Surgical History Date Name Laterality Status Provider Name and Address Organization Details Recorded Time 12/11/19 24 Date of Last Pap Smear completed [facility] 12/11/2023 13:10:59 07/15/19 06 tonsilectomy/ad enoids completed [facility] 09/22/2021 16:07:20 07/15/19 05 adenoid excision completed [facility] 09/22/2021 16:07:11 07/15/19 02 myringotomy and insertion of tympanic ventilation tube completed [facility] 09/22/2021 16:07:37 Imaging Results None [...] Not available Not available Not available 10/27/2019 65346 8003 SNOMED Dalilamitali Noyola [facility] 0 12:37:04 2772 Medicinal product containin g penicilli n and acting as antibacte rial agent (product) medicatio n Not available Not available Not available 06/01/2020 10450 05 SNOMED Celine Barney [facility] 0 12:54:54 2773 amoxicill in medicatio n Not available Not available Not available 06/01/2020 723 RxNorm Celine Barney [facility] 0 12:54:59 Medications Name [...] Prescrib ed Elsewher e: Yes Loca tion: [facility] M odify By: hansa zhao DateTime [...] Updated DateTime 06/23/2024 170.82 cm 32.5 kg/m2 49024.81 g 103 mm[Hg] 63 mm[Hg] Anu Thompson [facility] 4 11:01:08 Social History Question Answer Notes LastModified by Organizat ion Details LastModified Time Tobacco Smoking Status Former Smoker Dalila jennings, [facility] 10/27/2019 12:41:22 What Is Your Level Of Alcohol Consumption? None [email or web address] Information not available 12/14/2021 If You Are , What Was Your Level Of Alcohol Consumption Prior To ? Occasional [email or web address] Information not available 06/27/2020 Are You Blind Or Do You Have Difficulty Seeing? No [email or web address] Information not available 11/16/2021 What Is Your Level Of Caffeine Consumption? Occasional [email or web address] Information not available 11/16/2021 In The 14 Days Before Symptom Onset, Have You Had Close Contact With A Laboratory-confir med COVID-19 While That Case Was Ill? No [email or web address] Information not available 11/16/2021 In The 14 Days Before Symptom Onset, Have You Had Close Contact With A Person Who Is Under Investigation For COVID-19 While That Person Was Ill? No [email or web address] Information not available 11/16/2021 Have You Been To An Area Known To Be High Risk For COVID-19? No Information not available 11/16/2021 Are You Deaf Or Do You Have Serious Difficulty Hearing? No Information not available 11/16/2021 What Type Of Diet Are You Following? REGULAR Information not available 11/16/2021 Which Illicit Or Recreational Drugs Have You Used? Harrington [email or web address] Information not available 10/27/2019 Do You Use Your Seat Belt Or Car Seat Routinely? Yes [email or web address] Information not available 11/16/2021 Do You Have Smoke And Carbon Monoxide Detectors In Your Home? Yes Information not available 11/16/2021 Do You Feel Stressed (tense, Restless, Nervous, Or Anxious, Or Unable To Sleep At Night)? [id number] Information not available 11/16/2021 Do You Use Sunscreen Routinely? Yes [email or web address] Information not available 11/16/2021 Has Tobacco Cessation Counseling Been Provided? No [email or web address] Information not available 11/16/2021 Do You Or Have You Ever Used Any Other Forms Of Tobacco Or Nicotine? No Information not available 11/16/2021 Sex: Unknown Functional Status Question Answer Note LastModified by Organizat ion Details LastModified Time Do you have difficulty walking or climbing stairs? No Information not available 11/16/2021 Are you able to walk? YESWOREST [email or web address] Information not available 11/16/2021 Are you able to care for yourself? Yes [email or web address] Information not available 11/16/2021 Do you have difficulty dressing or bathing? No [email or web address] Information not available 11/16/2021 What is your exercise level? Occasional [email or web address] Information not available 10/27/2019 Mental Status None [...] Diagnosis/Indication Diagnosis SNOMED-CT Code Diagnosis ICD10 Code 402883 LINDSEY ESTRADA MD [facility] [address] [address] 06/02/2024 10:41:46 06/02/2024 11:29:38 Bipolar disorder 62355965 F31.9 Deliveries by [id number] O82 Shoulder g irdle dystocia 47691355 O66.0 Gestation period, 34 weeks 86317047 Z3A.34 [id number] LINDSEY ESTRADA MD [place] [address] [address] 06/17/2024 10:19:34 06/18/2024 11:31:11 Shoulder girdle dystocia 53904154 O66.0 Gestation period, 36 weeks 85470808 Z3A.36 [id number] LINDSEY ESTRADA MD [place] [address] [address] 06/23/2024 10:52:40 06/23/2024 11:27:25 Shoulder girdle dystocia 37546114 O66.0 Gestation period, 37 weeks 95316516 Z3A.37 Health Concerns Section Related Observation LastModified by Organization Detai ls LastModified Time None Recorded Concern Status LastModified by Organization Details LastModified Time None Recorded Payers Encounter Date Sequence Insurance Name Policy Number Policy Kwok Covered Member ID Kwok Member ID Guarantor Name 06/23/2024 1 [facility] (MEDICAID HMO) [id number] Lashanda James [id number] Lashanda James OBGyn Episode Ob Episode Information Episode Created Date Number of Fetuses Patient Bloodtype Patient rh Status Prepregnancy Weight lbs Domestic Partner Domestic Partner Phone Father Name Lead Android Developer Status 01/02/20 24 1 O Negative 164 OPEN Fetus Data First Name Last Name Admitted to NICU Weight (g) Sex Living Outcome Pediatric Complications Fetus ID Race Codes Race Delivery Type 20133 Problems Problem Notes Problem Name Start Date End Date Resolution Snomed Code Not e Blood group O Rh(D) negative 590392524 Rhogam received 04/18/24 Shoulder girdle dystocia 88924953 With injury to the baby, to perform section 40642966 to do for previous shoulder dystocia with [...] Weight in lbs Pre/Post Dialysis Refused Weight 164.14121149740 BP Diastolic BP Location Tested BP Systolic [...] Type Weight in lbs Pre/Post Dialysis Refused 179.229832665922 BP Diastolic BP Location Tested BP Systolic [...] Type Weight in lbs Pre/Post Dialysis Refused 182.325540068334 BP Diastolic BP Location Tested BP Systolic [...] Type Weight in lbs Pre/Post Dialysis Refused 188.318552177767 BP Diastolic BP Location Tested BP Systolic [...] Type Weight in lbs Pre/Post Dialysis Refused 195.682631702700 BP Diastolic BP Location Tested BP Systolic [...] Weight in lbs Pre/Post Dialysis Refused Weight 203.706214640074 BP Diastolic BP Location Tested BP Systolic [...] Weight in lbs Pre/Post Dialysis Refused Weight 207.644691892583 BP Diastolic BP Location Tested BP Systolic [...] Weight in lbs Pre/Post Dialysis Refused Weight 209.609071776507 BP Diastolic BP Location Tested BP Systolic [...] Weight in lbs Pre/Post Dialysis Refused Weight 211.748986256613 BP Diastolic BP Location Tested BP Systolic [...] Estim ated Date of Delivery false Thalassemia (Greenlandic, Malay, Mediterranean, Or Background): MCV < 80 false Neural Tube Defect (Meningomyelocele, Spina Bifi da, Or Anencephaly) false Congenital Heart Defect false Down Syndrome false Dane-Sachs (eg, Gnosticist, Cajun, Barbadian-[place]) f alse Juancarlos Disease false Sickle Cell Disease Or Trait () false Hemophilia Or Other Blood Disorders false Muscular Dystrophy false Cystic Fibrosis false [place]ola's Chorea false Intellectual Disability/Autism false If Yes, [...]
--- OUTSIDE RECORDS SUMMARY | 2024-07-13 06:19 | XMS_ITS | Continuity of Care Document ---
Author Organization [facility] Address [address] [address] Assessment Encounter Date Assessment Date Assessment LastModified by Organization Details LastModified Time 06/17/2024 06/17/2024 Patient is ___weeks . Discussed plan. [email or web address] Not available 06/17/2024 10:26:07 Plan of Treatment Reminders Order Date Submit Date Provider Last Modified By Organization Details Last Modified Time Details Appointments SURG POST OP 2024 11:45A M LINDSEY ESTRADA MD Not available Not available Not available Lab None recorded. Referral None recorded. Procedures None recorded. Surgeries section (SURG) [address] [address], [place], [address], 06/18/2024 09:48:49 Imaging None recorded. Medication Orders None recorded. Patient TargetsNo targets recorded. Patient InstructionsNo instructions recorded. Reason for Referral None Reported. Results Created Date Observation Date Name Description Value Unit Range Abnormal Flag Note LastModifiedBy Organization Detail LastModifiedTime 01/02/2001/02/2024 US, obste tric, nucha l trans lucen cy No observ ation record ed. [facility] [address], [place], [address], 01/02/2024 17:39:14 01/02/20 24 01/02/2024 US, obste tric, nucha l trans lucen cy No observ ation record ed. [email or web address] [address], [place], [address], 01/02/2024 19:40:21 02/27/20 24 02/27/2024 US, obste tric, 2nd or 3rd trime ster No observ ation record ed. [email or web address] [address], [place], [address], 02/27/2024 18:06:05 02/27/20 24 02/27/2024 US, obste tric, follo w-up No observ ation record ed. [email or web address] [address], [place], [address], 02/28/2024 13:07:39 03/26/20 24 03/26/2024 US, obste tric, follo w-up No observ ation record ed. [email or web address] [facility] [address], [place], [address], 03/26/2024 13:46:07 03/26/20 24 03/26/2024 US, obste tric, follo w-up No observ ation record ed. JOHNNIE [address], [place], [address], 04/03/2024 14:52:29 04/23/20 24 04/23/2024 US, obste tric, follo w-up No observ ation record ed. [email or web address] [facility] [address], [place], [address], 04/23/2024 12:39:24 04/23/20 24 04/23/2024 US, obste tric, follo w-up No observ ation record ed. JOHNNIE [address], [place], [address], 04/24/2024 11:29:28 05/18/20 24 05/18/2024 US, obste tric, follo w-up No observ ation record ed. [email or web address] [facility] [address], [place], [address], 05/18/2024 10:41:38 05/18/20 24 05/18/2024 US, obste tric, follo w-up No observ ation record ed. [email or web address] [address], [place], [address], 05/18/2024 13:10:19 Result Notes None recorded. Problems Name Problem SNOMED Code Status Onset Date Resolution Date Notes Provider Name and Address Organization Details Recorded Time Normal pregnanc y in multigra bauitsta [id number] 65830 Completed 201908/24/2020 Encounte r for suprvsn of normal pregnanc y, third trimeste r;Record ed Elsewher e: No Locat ion: [facility] S ource: EHR Housing Coordinator yulia: N Jyothi ce ID: 0001 Olaf lable Time: 10:45:00 AM Tamra jennings, [facility] 17:20:59 Antenata l screenin g Completed 201808/24/2020 Encounte r for antenata l screenin g for nuchal transluc ency;Rec orded Elsewher e: No Locat ion: [facility] S ource: EHR Housing Coordinator yulia: N Benedictoti ce ID: 0001 Olaf lable Time: 10:30:00 AM Tamra jennings, [facility] 17:20:51 Pregnanc y, childbir th and puerperi um finding Completed 201908/24/2020 Encounte r for supervis ion of normal 1st pregnanc y;Record ed Elsewher e: No Locat ion: [facility] S ource: EHR Housing Coordinator yulia: N Benedictoti ce ID: 0001 Olaf lable Time: 09:30:00 AM Tamra jennings [facility] 17:21:03 Gestatio n period, 9 weeks 395021 Completed 201808/24/2020 9 weeks gestatio n of pregnanc y;Record ed Elsewher e: No Locat ion: [facility] S ource: EHR Housing Coordinator yulia: N Jyothi ce ID: 0001 Olaf lable Time: 11:00:00 AM Tamra jennings, [facility] 17:20:57 Malforma tion of central nervous system of fetus 5803470709 107 Completed 201908/24/2020 Maternal care for (suspect ed) cnsl malform in fetus, unsp;Rec orded Elsewher e: No Locat ion: [facility] S ource: EHR Housing Coordinator yulia: N Benedictoti ce ID: 0001 Olaf lable Time: 09:15:00 AM Tamra Gan [facility] 17:20:58 Pregnanc y detectio n examinat ion Completed 201808/24/2020 Encounte r for pregnanc y test, result positive ;Recorde d Elsewher e: No Locat ion: [facility] S ource: EHR Housing Coordinator yulia: Tom Roe ce ID: 0001 Olaf lable Time: 11:00:00 AM Tamra jennings, [facility] 17:21:01 Gestatio n period, 25 weeks 09588398 Completed 201908/24/2020 25 weeks gestatio n of pregnanc y;Record ed Elsewher e: No Locat ion: [facility] S ource: EHR Housing Coordinator yulia: N Benedictoti ce ID: 0001 Olaf lable Time: 09:15:00 AM Tamra jennings, [facility] 17:20:55 Antenata l screenin g for malforma tion Completed 201808/24/2020 Encounte r for antenata l screenin g for malforma tions;Re corded Elsewher e: No Locat ion: [facility] S ource: EHR Housing Coordinator yulia: N Jyothi ce ID: 0001 Olaf lable Time: 10:45:00 AM Tamra jennings, [facility] 17:20:53 Bipolar disorder 51785963 Active 2018 lexapro and abilify ok per MFM Ayana Sethjen brambila michaela, [facility] 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 1 17:21:08 Pregnanc y, childbir th and puerperi um finding Completed 201908/24/2020 Encntr for suprvsn of normal first preg, third trimeste r;Record ed Elsewher e: No Locat ion: [facility] S ource: EHR Housing Coordinator yulia: N Jyothi ce ID: 0001 Olaf lable Time: 09:35:53 AM Tamra jennings, [facility] 1 17:21:05 Pregnanc y 08032700 Completed 201905/27/2020 Lisa Rahul jennings, [facility] 4 17:32:23 Pregnanc y 20948888 Completed 202008/24/2020 Lisa jennings, [facility] 4 17:32:23 Corpus luteum cyst 773228231 Completed 2019 RIGHT Ayana Jai jennings, [facility] 1 12:38:16 Chlamydi al infectio n 227537156 Completed 2020 + - tx'd sent on 07/21 . Neg TREY 08/25/20 Ayana jennings, [facility] 1 12:38:16 Pregnanc y 22072426 Completed 202012/23/2020 Lisa Kay [facility], [facility] 4 17:32:23 Depressi ve disorder 87635206 Completed Restarte d Abilify & Lexapro 09/12/20. 11/01/20 RPT EPDS 4 Ayana brambila null, [facility] 1 12:38:16 Pregnanc y 15945015 Completed 202103/02/2022 Lisa Kay [facility], [facility] 4 17:32:23 Bipolar disorder 15496932 Completed 2018 lexapro and abilify ok per [facility] Ayana brambila null, [facility] 2 14:23:05 Asthma 896875964 Completed Ayana brambila null, [facility] 2 14:23:05 Gastroes ophageal reflux disease 846665734 Completed Aynaa brambila null, [facility] 2 14:23:05 RhD negative 632528764 Completed ok with Rhogam? Ayana brambila null, [facility] 2 14:23:05 Mixed anxiety and depressi ve disorder 066003260 Active 2023 Dalila Noyola null, [facility] 4 13:06:17 Pregnanc y 55961185 Active 2023 Lisa Kay [facility], [facility] 4 17:32:23 Shoulder girdle dystocia 09087056 Active With injury to the baby, to perform Shanta Quintana [facility], [facility] 4 17:53:31 section Active to do for previous shoulder dystocia with injury Rhett Rivers MD [address], [place], [address], [facility] 4 12:21:16 Blood group O Rh(D) negative 560150482 Active Rhogam received 04/18/24 Sanaz Infante [facility] 4 13:19:07 Problem Notes None recorded. Procedures Surgical History Date Name Laterality Status Provider Name and Address Organization Details Recorded Time 12/11/19 24 Date of Last Pap Smear completed Dalilamitali Noyola [facility] 12/11/2023 13:10:59 07/15/19 06 tonsilectomy/ad enoids completed [facility] 09/22/2021 16:07:20 07/15/19 05 adenoid excision completed [facility] 09/22/2021 16:07:11 07/15/19 02 myringotomy and insertion of tympanic ventilation tube completed [facility] 09/22/2021 16:07:37 Imaging Results None [...] Not available Not available Not available 10/27/2019 65487 8003 SNOMED Dalila Noyola [facility], [facility] 0 12:37:04 2772 Medicinal product containin g penicilli n and acting as antibacte rial agent (product) medicatio n Not available Not available Not available 06/01/2020 88650 05 SNOMED Celine jennings, [facility] 0 12:54:54 2773 amoxicill in medicatio n Not available Not available Not available 06/01/2020 723 RxNorm Celine jennings, [facility] 0 12:54:59 Medications Name Sig [...] ed Elsewher e: Yes Loca tion: [facility] M odify By: [email or web address] [...] Updated DateTime 06/17/2024 170.82 cm 32.2 kg/m2 24133.62 g 98 mm[Hg] 64 mm[Hg] Anu Thompson [facility] 10:27:03 Social History Question Answer Notes LastModified by Organizat ion Details LastModified Time Tobacco Smoking Status Former Smoker Dalila jennings, [facility] 10/27/2019 12:41:22 What Is Your Level Of Alcohol Consumption? None [email or web address] Information not available 12/14/2021 If You Are , What Was Your Level Of Alcohol Consumption Prior To ? Occasional phewitt Information not available 06/27/2020 Are You Blind Or Do You Have Difficulty Seeing? No [email or web address] Information not available 11/16/2021 What Is Your Level Of Caffeine Consumption? Occasional [email or web address] Information not available 11/16/2021 In The 14 Days Before Symptom Onset, Have You Had Close Contact With A Laboratory-confir med COVID-19 While That Case Was Ill? No [email or web address] Information not available 11/16/2021 In The 14 Days Before Symptom Onset, Have You Had Close Contact With A Person Who Is Under Investigation For COVID-19 While That Person Was Ill? No [email or web address] Information not available 11/16/2021 Have You Been To An Area Known To Be High Risk For COVID-19? No [email or web address] Information not available 11/16/2021 Are You Deaf Or Do You Have Serious Difficulty Hearing? No [email or web address] Information not available 11/16/2021 What Type Of Diet Are You Following? REGULAR [email or web address] Information not available 11/16/2021 Which Illicit Or Recreational Drugs Have You Used? [place] [email or web address] Information not available 10/27/2019 Do You Use Your Seat Belt Or Car Seat Routinely? Yes Information not available 11/16/2021 Do You Have Smoke And Carbon Monoxide Detectors In Your Home? Yes [email or web address] Information not available 11/16/2021 Do You Feel Stressed (tense, Restless, Nervous, Or Anxious, Or Unable To Sleep At Night)? [id number] [email or web address] Information not available 11/16/2021 Do You Use Sunscreen Routinely? Yes [email or web address] Information not available 11/16/2021 Has Tobacco Cessation Counseling Been Provided? No [email or web address] Information not available 11/16/2021 Do You Or Have You Ever Used Any Other Forms Of Tobacco Or Nicotine? No [email or web address] Information not available 11/16/2021 Sex: Unknown Functional Status Question Answer Note LastModified by Organizat ion Details LastModified Time Do you have difficulty walking or climbing stairs? No [email or web address] Information not available 11/16/2021 Are you able to walk? YESWOREST [email or web address] Information not available 11/16/2021 Are you able to care for yourself? Yes Information not available 11/16/2021 Do you have difficulty dressing or bathing? No [email or web address] Information not available 11/16/2021 What is your exercise level? Occasional [email or web address] Information not available 10/27/2019 Mental Status None [...] Diagnosis/Indication Diagnosis SNOMED-CT Code Diagnosis ICD10 Code 210498 Cherelle Quiroz [facility] [address] [address] 05/18/2024 09:41:39 05/18/2024 10:10:12 Medical examination for suspected condition 573790900 Z03.74 Z3A.32 [id number] LINDSEY ESTRADA MD [facility] [address] [address] 06/02/2024 10:41:46 06/02/2024 11:29:38 Bipolar disorder 35616381 F31.9 Deliveries by [id number] O82 Shoulder g irdle dystocia 34213187 O66.0 Gestation period, 34 weeks 07072324 Z3A.34 [id number] LINDSEY ESTRADA MD [facility] [address] [address] 06/17/2024 10:19:34 06/18/2024 11:31:11 Shoulder girdle dystocia 39617480 O66.0 Gestation period, 36 weeks 21585597 Z3A.36 Health Concerns Section Related Observation LastModified by Organization Detai ls LastModified Time None Recorded Concern Status LastModified by Organization Details LastModified Time None Recorded Payers Encounter Date Sequence Insurance Name Policy Number Policy Kwok Covered Member ID Kwok Member ID Guarantor Name 06/17/2024 1 [facility] (MEDICAID HMO) [id number] Lashanda James [id number] Lashanda James OBGyn Episode Ob Episode Information Episode Created Date Number of Fetuses Patient Bloodtype Patient rh Status Prepregnancy Weight lbs Domestic Partner Domestic Partner Phone Father Name [employer] Status 01/02/20 24 1 O Negative 164 OPEN Fetus Data First Name Last Name Admitted to NICU Weight (g) Sex Living Outcome Pediatric Complications Fetus ID Race Codes Race Delivery Type [id number] Problems Problem Notes Problem Name Start Date End Date Resolution Snomed Code Not e Blood group O Rh(D) negative 619566194 Rhogam received 04/18/24 Shoulder girdle dystocia 62037870 With injury to the baby, to perform section 47593053 to do for previous shoulder dystocia with [...] Weight in lbs Pre/Post Dialysis Refused Weight 164.13128111875 BP Diastolic BP Location Tested BP Systolic [...] Type Weight in lbs Pre/Post Dialysis Refused 179.643400339069 BP Diastolic BP Location Tested BP Systolic [...] Type Weight in lbs Pre/Post Dialysis Refused 182.243687112972 BP Diastolic BP Location Tested BP Systolic [...] Type Weight in lbs Pre/Post Dialysis Refused 188.347119072855 BP Diastolic BP Location Tested BP Systolic [...] Type Weight in lbs Pre/Post Dialysis Refused 195.753282752611 BP Diastolic BP Location Tested BP Systolic [...] Weight in lbs Pre/Post Dialysis Refused Weight 203.396654345874 BP Diastolic BP Location Tested BP Systolic [...] Weight in lbs Pre/Post Dialysis Refused Weight 207.441860296216 BP Diastolic BP Location Tested BP Systolic [...] Weight in lbs Pre/Post Dialysis Refused Weight 209.076060444639 BP Diastolic BP Location Tested BP Systolic [...] Weight in lbs Pre/Post Dialysis Refused Weight 211.755073123942 BP Diastolic BP Location Tested BP Systolic [...] Estim ated Date of Delivery false Thalassemia (Liberian, Kazakh, Mediterranean, Or Background): MCV < 80 false Neural Tube Defect (Meningomyelocele, Spina Bifi da, Or Anencephaly) false Congenital Heart Defect false Down Syndrome false Dane-Sachs (eg, Worship, Cajun, [place]) f alse Juancarlos Disease false Sickle Cell [...]
--- OUTSIDE RECORDS SUMMARY | 2024-07-13 06:19 | XMS_ITS | Continuity of Care Document ---
Author Organization [facility] [place] Address [address] [place] [address] Assessment No assessment recorded. Plan of Treatment [...] lucen cy No observ ation record ed. [facility] [address], [place], [address], 01/02/2024 17:39:14 01/02/20 24 01/02/2024 US, obste tric, nucha l trans lucen cy No observ ation record ed. [email or web address] [address], [place], [address], 01/02/2024 19:40:21 02/27/20 24 02/27/2024 US, obste tric, 2nd or 3rd trime ster No observ ation record ed. [facility] [address], [place], [address], 02/27/2024 18:06:05 02/27/20 24 02/27/2024 US, obste tric, follo w-up No observ ation record ed. [email or web address] [address], [place], [address], 02/28/2024 13:07:39 03/26/20 24 03/26/2024 US, obste tric, follo w-up No observ ation record ed. [email or web address] [place] [address], [place], [address], 03/26/2024 13:46:07 03/26/20 24 03/26/2024 US, obste tric, follo w-up No observ ation record ed. JOHNNIE [address], [place], [address], 04/03/2024 14:52:29 04/23/20 24 04/23/2024 US, obste tric, follo w-up No observ ation record ed. [email or web address] [place] [address], [place], [address], 04/23/2024 12:39:24 04/23/20 24 04/23/2024 US, obste tric, follo w-up No observ ation record ed. JOHNNIE [address], [place], [address], 04/24/2024 11:29:28 05/18/20 24 05/18/2024 US, obste tric, follo w-up No observ ation record ed. [email or web address] [place] [address], [place], [address], 05/18/2024 10:41:38 05/18/20 24 05/18/2024 US, obste tric, follo w-up No observ ation record ed. [email or web address] [address], [place], [address], 05/18/2024 13:10:19 Result Notes None recorded. Problems Name Problem SNOMED Code Status Onset Date Resolution Date Notes Provider Name and Address Organization Details Recorded Time Normal pregnanc y in multigra bautista 7529601683 89595 Completed 201908/24/2020 Encounte r for suprvsn of normal pregnanc y, third trimeste r;Record ed Elsewher e: No Locat ion: [facility] S ource: EHR Wharfmaster yulia: N Benedictoti ce ID: 0001 Olaf lable Time: 10:45:00 AM Tamra jennings, [facility] 17:20:59 Antenata l screenin g Completed 201808/24/2020 Encounte r for antenata l screenin g for nuchal transluc ency;Rec orded Elsewher e: No Locat ion: [facility] S ource: EHR Wharfmaster yulia: N Benedictoti ce ID: 0001 Olaf lable Time: 10:30:00 AM Tamra Malik jennings, [facility] 17:20:51 Pregnanc y, childbir th and puerperi um finding Completed 201908/24/2020 Encounte r for supervis ion of normal 1st pregnanc y;Record ed Elsewher e: No Locat ion: [facility] S ource: EHR Wharfmaster yulia: N Benedictoti ce ID: 0001 Olaf lable Time: 09:30:00 AM Tamra jennings, [facility] 17:21:03 Gestatio n period, 9 weeks 460366 Completed 201808/24/2020 9 weeks gestatio n of pregnanc y;Record ed Elsewher e: No Locat ion: [facility] S ource: EHR Wharfmaster yulia: N Benedictoti ce ID: 0001 Olaf lable Time: 11:00:00 AM Tamra jennings [facility] 17:20:57 Malforma tion of central nervous system of fetus 5918878184 107 Completed 201908/24/2020 Maternal care for (suspect ed) cnsl malform in fetus, unsp;Rec orded Elsewher e: No Locat ion: [facility] S ource: EHR Wharfmaster yulia: Tom Roe ce ID: 0001 Olaf lable Time: 09:15:00 AM Tamra Gan [facility], [facility] 17:20:58 Pregnanc y detectio n examinat ion Completed 201808/24/2020 Encounte r for pregnanc y test, result positive ;Recorde d Elsewher e: No Locat ion: [facility] S ource: EHR Wharfmaster yulia: Tom Roe ce ID: 0001 Olaf lable Time: 11:00:00 AM Tamra Gan [facility], [facility] 17:21:01 Gestatio n period, 25 weeks 85627786 Completed 201908/24/2020 25 weeks gestatio n of pregnanc y;Record ed Elsewher e: No Locat ion: [facility] S ource: EHR Wharfmaster yulia: Tom Roe ce ID: 0001 Olaf lable Time: 09:15:00 AM Tamra Gan [facility], [facility] 17:20:55 Antenata l screenin g for malforma tion Completed 201808/24/2020 Encounte r for antenata l screenin g for malforma tions;Re corded Elsewher e: No Locat ion: [facility] S ource: EHR Wharfmaster yulia: Tom Roe ce ID: 0001 Olaf lable Time: 10:45:00 AM Tamra Gan [facility], [facility] 17:20:53 Bipolar disorder 77019578 Active 2018 lexapro and abilify ok per [facility] Ayana brambila [facility], [facility] [address] 14:23:[address] Concept Completed 201808/24/2020 Encntr for care management coordinator exam (general ) (routine ) w/o abn findings ;Recorde d Elsewher e: No [facility] Wharfmaster yulia: N Practi ce ID: 0001 Olaf lable Time: 03:00:00 PM Tamra jennings, [facility] 1 17:21:08 Pregnanc y, childbir th and puerperi um finding Completed 201908/24/2020 Encntr for suprvsn of normal first preg, third trimeste r;Record ed Elsewher e: No Locat ion: [facility] S ource: EHR Wharfmaster yulia: N Practi ce ID: 0001 Olaf lable Time: 09:35:53 AM Tamra jennings, [facility] 1 17:21:05 Pregnanc y 45713003 Completed 201905/27/2020 Lisa jennings, [facility] 4 17:32:23 Pregnanc y 26831233 Completed 202008/24/2020 Lisa jennings, [facility] 4 17:32:23 Corpus luteum cyst 958508918 Completed 2019 RIGHT Ayana jennings [facility] 1 12:38:16 Chlamydi al infectio n 033054488 Completed 2020 + - tx'd sent on 07/21 . Neg TREY 08/25/20 Ayana jennings [facility] 1 12:38:16 Pregnanc y 71411710 Completed 202012/23/2020 Lisa jennings [facility] 4 17:32:23 Depressi ve disorder 26436117 Completed Restarte d Abilify & Lexapro 09/12/20. 11/01/20 RPT EPDS 4 Ayana brambila null, [facility] 1 12:38:16 Pregnanc y 99970657 Completed 202103/02/2022 Lisa Rahul [facility], [facility] 4 17:32:23 Bipolar disorder 11000895 Completed 2018 lexapro and abilify ok per [facility] Ayana brambila [facility], [facility] 2 14:23:05 Asthma 450004606 Completed Ayana brambila [facility], [facility] 2 14:23:05 Gastroes ophageal reflux disease 938134907 Completed Ayana brambila [facility], [facility] 2 14:23:05 RhD negative 884734801 Completed ok with Rhogam? Ayana brambila null, [facility] 2 14:23:05 Mixed anxiety and depressi ve disorder 918858681 Active 2023 Dalila Noyola null, [facility] 4 13:06:17 Pregnanc y 29376542 Active 2023 Lisa Rahul [facility], [facility] 4 17:32:23 Shoulder girdle dystocia 25044493 Active With injury to the baby, to perform Shanta Samayoa [facility], [facility] 4 17:53:31 section Active to do for previous shoulder dystocia with injury Rhett Rivers MD [address], [place], [address], [facility] 4 12:21:16 Blood group O Rh(D) negative 743859340 Active Rhogam received 04/18/24 Sanaz Infante [facility] 4 13:19:07 Problem Notes None recorded. Procedures Surgical History Date Name Laterality Status Provider Name and Address Organization Details Recorded Time 12/11/19 24 Date of Last Pap Smear completed [facility] 12/11/2023 13:10:59 07/15/19 06 tonsilectomy/ad enoids completed [facility] 09/22/2021 16:07:20 07/15/19 05 adenoid excision completed [facility] 09/22/2021 16:07:11 07/15/19 02 myringotomy and insertion of tympanic ventilation tube completed [facility] 09/22/2021 16:07:37 Imaging Results None [...] Not available Not available Not available 10/27/2019 97175 8003 SNOMED Dalilamitali Noyola [facility] 0 12:37:04 2772 Medicinal product containin g penicilli n and acting as antibacte rial agent (product) medicatio n Not available Not available Not available 06/01/2020 41309 05 SNOMED [facility]eline Barney [facility] [...] Prescrib ed Elsewher e: Yes Loca tion: [facility] M odify By: hansa zhao DateTime : [...] Updated DateTime 07/01/2024 170.82 cm 32.8 kg/m2 43858.99 g 107 mm[Hg] 71 mm[Hg] Anu Thompson [facility] 4 10:50:37 Social History Question Answer Notes LastModified by Organizat ion Details LastModified Time Tobacco Smoking Status Former Smoker Dalila jennings, [facility] 10/27/2019 12:41:22 What Is Your Level Of Alcohol Consumption? None [email or web address] Information not available 12/14/2021 If You Are , What Was Your Level Of Alcohol Consumption Prior To ? Occasional phewitt Information not available 06/27/2020 Are You Blind Or Do You Have Difficulty Seeing? No [email or web address] Information not available 11/16/2021 What Is Your Level Of Caffeine Consumption? Occasional Information not available 11/16/2021 In The 14 Days Before Symptom Onset, Have You Had Close Contact With A Laboratory-confir med COVID-19 While That Case Was Ill? No [email or web address] Information not available 11/16/2021 In The 14 Days Before Symptom Onset, Have You Had Close Contact With A Person Who Is Under Investigation For COVID-19 While That Person Was Ill? No [email or web address] Information not available 11/16/2021 Have You Been To An Area Known To Be High Risk For COVID-19? No [email or web address] Information not available 11/16/2021 Are You Deaf Or Do You Have Serious Difficulty Hearing? No [email or web address] Information not available 11/16/2021 What Type Of Diet Are You Following? REGULAR [email or web address] Information not available 11/16/2021 Which Illicit Or Recreational Drugs Have You Used? [place] [email or web address] Information not available 10/27/2019 Do You Use Your Seat Belt Or Car Seat Routinely? Yes [email or web address] Information not available 11/16/2021 Do You Have Smoke And Carbon Monoxide Detectors In Your Home? Yes [email or web address] Information not available 11/16/2021 Do You Feel Stressed (tense, Restless, Nervous, Or Anxious, Or Unable To Sleep At Night)? [id number] [email or web address] Information not available 11/16/2021 Do You Use Sunscreen Routinely? Yes [email or web address] Information not available 11/16/2021 Has Tobacco Cessation Counseling Been Provided? No [email or web address] Information not available 11/16/2021 Do You Or Have You Ever Used Any Other Forms Of Tobacco Or Nicotine? No [email or web address] Information not available 11/16/2021 Sex: Unknown Functional Status Question Answer Note LastModified by Organizat ion Details LastModified Time Do you have difficulty walking or climbing stairs? No [email or web address] Information not available 11/16/2021 Are you able to walk? YESWOREST [email or web address] Information not available 11/16/2021 Are you able to care for yourself? Yes [email or web address] Information not available 11/16/2021 Do you have difficulty dressing or bathing? No [email or web address] Information not available 11/16/2021 What is your exercise level? Occasional [email or web address] Information not available 10/27/2019 Mental Status None [...] ) N Other Y Drug/Latex Allergies/Reactions Y Blood Transfusion N Breast Cancer N Dermatologic Disorders N Lung [...] Diagnosis/Indication Diagnosis SNOMED-CT Code Diagnosis ICD10 Code 817080 MD Yudith OSCAR [address] [address] 06/02/2024 10:41:46 06/02/2024 11:29:38 Bipolar disorder 27693803 F31.9 Deliveries by [id number] O82 Shoulder g irdle dystocia 26064678 O66.0 Gestation period, 34 weeks 83233253 Z3A.34 [id number] LINDSEY ESTRADA MD [place] [address],[place] [address] 06/17/2024 10:19:34 06/18/2024 11:31:11 Shoulder girdle dystocia 62090292 O66.0 Gestation period, 36 weeks 49340170 Z3A.36 [id number] LINDSEY ESTRADA MD [place] [address],[place] [address] 06/23/2024 10:52:40 06/23/2024 11:27:25 Shoulder girdle dystocia 07103719 O66.0 Gestation period, 37 weeks 68557307 Z3A.37 [id number] LINDSEY ESTRADA MD [place] [address],[place] [address] 07/01/2024 10:45:04 07/01/2024 11:10:41 Shoulder girdle dystocia 82267972 O66.0 Bipolar disorder 1341550 4 F31.9 Gestation period, 38 weeks 73305034 Z3A.38 Health Concerns Section Related Observation LastModified by Organization Detai ls LastModified Time None Recorded Concern Status LastModified by Organization Details LastModified Time None Recorded Payers Encounter Date Sequence Insurance Name Policy Number Policy Kwok Covered Member ID Kwok Member ID Guarantor Name 07/01/2024 1 [employer] (MEDICAID HMO) [id number] Lashanda James [id number] Lashanda James OBGyn Episode Ob Episode Information Episode Created Date Number of Fetuses Patient Bloodtype Patient rh Status Prepregnancy Weight lbs Domestic Partner Domestic Partner Phone Father Name School Janitor Status 01/02/20 24 1 O Negative 164 OPEN Fetus Data First Name Last Name Admitted to NICU Weight (g) Sex Living Outcome Pediatric Complications Fetus ID Race Codes Race Delivery Type [id number] Problems Problem Notes Problem Name Start Date End Date Resolution Snomed Code Not e Blood group O Rh(D) negative 841130573 Rhogam received 04/18/24 Shoulder girdle dystocia 35758207 With injury to the baby, to perform section 07181115 to do for previous shoulder dystocia with [...] Weight in lbs Pre/Post Dialysis Refused Weight 164.27074710063 BP Diastolic BP Location Tested BP Systolic [...] Type Weight in lbs Pre/Post Dialysis Refused 179.039979790502 BP Diastolic BP Location Tested BP Systolic [...] Type Weight in lbs Pre/Post Dialysis Refused 182.296422461517 BP Diastolic BP Location Tested BP Systolic [...] Type Weight in lbs Pre/Post Dialysis Refused 188.073714074457 BP Diastolic BP Location Tested BP Systolic [...] Type Weight in lbs Pre/Post Dialysis Refused 195.218126202146 BP Diastolic BP Location Tested BP Systolic [...] Weight in lbs Pre/Post Dialysis Refused Weight 203.337339330136 BP Diastolic BP Location Tested BP Systolic [...] Weight in lbs Pre/Post Dialysis Refused Weight 207.514717149254 BP Diastolic BP Location Tested BP Systolic [...] Weight in lbs Pre/Post Dialysis Refused Weight 209.026751149684 BP Diastolic BP Location Tested BP Systolic [...] Weight in lbs Pre/Post Dialysis Refused Weight 211.304229753919 BP Diastolic BP Location Tested BP Systolic [...] Estim ated Date of Delivery false Thalassemia (Austrian, Thai, Mediterranean, Or Background): MCV < 80 false Neural Tube Defect (Meningomyelocele, Spina Bifi da, Or Anencephaly) false Congenital Heart Defect false Down Syndrome false Dane-Sachs (eg, Jainism, Cajun, Syriac-Adams) f alse Juancarlos Disease false Sickle Cell [...]
--- OUTSIDE RECORDS SUMMARY | 2024-07-13 06:20 | XMS_ITS | Continuity of Care Document ---
Author Organization [facility] Address [address] [place] [address] Assessment Encounter Date Assessment Date Assessment LastModified [...] record ed. [facility] [address], [place], [address], 01/02/2024 17:39:14 01/02/20 24 01/02/2024 US, obste tric, nucha l trans lucen cy No observ ation record ed. [email or web address] [address], [place], [address], 01/02/2024 19:40:21 02/27/20 24 02/27/2024 US, obste tric, 2nd or 3rd trime ster No observ ation record ed. [email or web address] [place] [address], [place], [address], 02/27/2024 18:06:05 02/27/20 24 02/27/2024 US, obste tric, follo w-up No observ ation record ed. [email or web address] [address], [place], [address], 02/28/2024 13:07:39 03/26/20 24 03/26/2024 US, obste tric, follo w-up No observ ation record ed. [email or web address] [place] [address], [place], [address], 03/26/2024 13:46:07 03/26/20 24 03/26/2024 US, obste tric, follo w-up No observ ation record ed. JOHNNIE [address], [place], [address], 04/03/2024 14:52:29 04/23/20 24 04/23/2024 US, obste tric, follo w-up No observ ation record ed. [email or web address] [place] [address], [place], [address], 04/23/2024 12:39:24 04/23/20 24 04/23/2024 US, obste tric, follo w-up No observ ation record ed. JOHNNIE [address], [place], [address], 04/24/2024 11:29:28 05/18/20 24 05/18/2024 US, obste tric, follo w-up No observ ation record ed. [email or web address] [place] [address], [place], [address], 05/18/2024 10:41:38 11/0405/18/2024 US, obste tric, follo w-up No observ ation record ed. [email or web address] [address], [place], [address], 05/18/2024 13:10:19 Result Notes None recorded. Problems Name Problem SNOMED Code Status Onset Date Resolution Date Notes Provider Name and Address Organization Details Recorded Time Normal pregnanc y in multigra bautista 6105303670 09202 Completed 201908/24/2020 Encounte r for suprvsn of normal pregnanc y, third trimeste r;Record ed Elsewher e: No Locat ion: [facility] S ource: EHR Evp General Counsel yulia: Tom Roe ce ID: 0001 Olaf lable Time: 10:45:00 AM Tamra jennings [facility] 17:20:59 Antenata l screenin g Completed 201808/24/2020 Encounte r for antenata l screenin g for nuchal transluc ency;Rec orded Elsewher e: No Locat ion: [facility] S ource: EHR Evp General Counsel yulia: N Jyothi ce ID: 0001 Olaf lable Time: 10:30:00 AM Tamra jennings [facility] 17:20:51 Pregnanc y, childbir th and puerperi um finding Completed 201908/24/2020 Encounte r for supervis ion of normal 1st pregnanc y;Record ed Elsewher e: No Locat ion: [facility] S ource: EHR Evp General Counsel yulia: N Jyothi ce ID: 0001 Olaf lable Time: 09:30:00 AM Tamra jennings [facility] 17:21:03 Gestatio n period, 9 weeks 669046 Completed 201808/24/2020 9 weeks gestatio n of pregnanc y;Record ed Elsewher e: No Locat ion: [facility] S ource: EHR Evp General Counsel yulia: N Practi ce ID: 0001 Olaf lable Time: 11:00:00 AM Tamra jennings [facility] 17:20:57 Malforma tion of central nervous system of fetus 2769573477 107 Completed 201908/24/2020 Maternal care for (suspect ed) cnsl malform in fetus, unsp;Rec orded Elsewher e: No Locat ion: [facility] S ource: EHR Evp General Counsel yulia: N Benedictoti ce ID: 0001 Olaf lable Time: 09:15:00 AM Tamra jennings, [facility] 17:20:58 Pregnanc y detectio n examinat ion Completed 201808/24/2020 Encounte r for pregnanc y test, result positive ;Recorde d Elsewher e: No Locat ion: [facility] S ource: EHR Evp General Counsel yulia: N Benedictoti ce ID: 0001 Olaf lable Time: 11:00:00 AM Tamra jennings, [facility] 17:21:01 Gestatio n period, 25 weeks 28511821 Completed 201908/24/2020 25 weeks gestatio n of pregnanc y;Record ed Elsewher e: No Locat ion: [facility] S ource: EHR Evp General Counsel yulia: N Benedictoti ce ID: 0001 Olaf lable Time: 09:15:00 AM Tamra jennings, [facility] 17:20:55 Antenata l screenin g for malforma tion Completed 201808/24/2020 Encounte r for antenata l screenin g for malforma tions;Re corded Elsewher e: No Locat ion: [facility] S ource: EHR Evp General Counsel yulia: N Benedictoti ce ID: 0001 Olaf lable Time: 10:45:00 AM Tamra jennings [facility] 02/10/202 1 17:20:53 Bipolar disorder 71634564 Active 2018 lexapro and abilify ok per MFM Ayana jennings [facility] [address] 14:23:[address] Concept Completed 201808/24/2020 Encntr for family services worker exam (general ) (routine ) w/o abn findings ;Recorde d Elsewher e: No Locat ion: Mariangelcarlos albertopao [facility] S ource: EHR Evp General Counsel yulia: N Practi ce ID: 0001 Olaf lable Time: 03:00:00 PM Tamragavin jennings [facility] 1 17:21:08 Pregnanc y, childbir th and puerperi um finding Completed 201908/24/2020 Encntr for suprvsn of normal first preg, third trimeste r;Record ed Elsewher e: No Locat ion: Sylvia payne [facility] S ource: EHR Evp General Counsel yulia: N Practi ce ID: 0001 Olaf lable Time: 09:35:53 AM Tamra jennings [facility] 1 17:21:05 Pregnanc y 72435558 Completed 201905/27/2020 Lisa jennings, [facility] 4 17:32:23 Pregnanc y 63716009 Completed 202008/24/2020 Lisa jennings, [facility] 4 17:32:23 Corpus luteum cyst 514157908 Completed 2019 RIGHT Ayana jennings [facility] 1 12:38:16 Chlamydi al infectio n 796358364 Completed 2020 + - tx'd sent on 07/21 . Neg TREY 08/25/20 Ayana jennings [facility] 1 12:38:16 Pregnanc y 28758380 Completed 202012/23/2020 Lisa Rahul null, [facility] 4 17:32:23 Depressi ve disorder 46413708 Completed Restarte d Abilify & Lexapro 09/12/20. 11/01/20 RPT EPDS 4 Ayana brambila null, [facility] 1 12:38:16 Pregnanc y 82247650 Completed 202103/02/2022 Lisa Rahul null, [facility] 4 17:32:23 Bipolar disorder 67679245 Completed 2018 lexapro and abilify ok per [facility] Ayana brambila null, [facility] 2 14:23:05 Asthma 285766304 Completed Ayana brambila null, [facility] 2 14:23:05 Gastroes ophageal reflux disease 005019611 Completed Ayana barmbila null, [facility] 2 14:23:05 RhD negative 972512944 Completed ok with Rhogam? Ayana brambila null, [facility] 2 14:23:05 Mixed anxiety and depressi ve disorder 354847371 Active 2023 Dalila Noyola null, [facility] 4 13:06:17 Pregnanc y 25510955 Active 2023 Lisa Rahul null, [facility] 4 17:32:23 Shoulder girdle dystocia 21084927 Active With injury to the baby, to perform Shanta Samayoa null, [facility] 4 17:53:31 section Active to do for previous shoulder dystocia with injury Rhett Rivers MD [address], [place], [address], [place] [facility] 4 12:21:16 Blood group O Rh(D) negative 365441930 Active Rhogam received 04/18/24 Sanaz Infante [facility], [facility] 4 13:19:07 Problem Notes None recorded. Procedures Surgical History Date Name Laterality Status Provider Name and Address Organization Details Recorded Time 12/11/19 24 Date of Last Pap Smear completed [facility] 12/11/2023 13:10:59 07/15/19 06 tonsilectomy/ad enoids completed [facility] 09/22/2021 16:07:20 07/15/19 05 adenoid excision completed [facility] 09/22/2021 16:07:11 07/15/19 02 myringotomy and insertion of tympanic ventilation tube completed [facility] 09/22/2021 16:07:37 Imaging Results [...] Not available Not available Not available 10/27/2019 73910 8003 SNOMED Dalila Noyola [facility] 0 12:37:04 2772 Medicinal product containin g penicilli n and acting as antibacte rial agent (product) medicatio n Not available Not available Not available 06/01/2020 90148 05 SNOMED Celine Barney [facility] 0 12:54:54 2773 amoxicill in medicatio n Not available Not available Not available 06/01/2020 723 RxNorm Celine Savita [facility], [place] - [facility] 0 12:54:59 Medications Name Sig Start [...] Prescrib ed Elsewher e: Yes Loca tion: [facility] M odify By: [email or web address] Encounte r DateTime [...] Updated DateTime 04/23/2024 170.82 cm 30.3 kg/m2 04226.51 215 g 113 mm[Hg] 72 mm[Hg] Lisa Kay [facility] 12:59:40 Social History Question Answer Notes LastModified by Organizat ion Details LastModified Time Tobacco Smoking Status Former Smoker Dalila jennings, [facility] 10/27/2019 12:41:22 What Is Your Level Of Alcohol Consumption? None Information not available 12/14/2021 If You Are , What Was Your Level Of Alcohol Consumption Prior To ? Occasional [email or web address] Information not available 06/27/2020 Are You Blind Or Do You Have Difficulty Seeing? No [email or web address] Information not available 11/16/2021 What Is Your Level Of Caffeine Consumption? Occasional Information not available 11/16/2021 In The 14 Days Before Symptom Onset, Have You Had Close Contact With A Laboratory-confir med COVID-19 While That Case Was Ill? No [email or web address] Information not available 11/16/2021 In The 14 Days Before Symptom Onset, Have You Had Close Contact With A Person Who Is Under Investigation For COVID-19 While That Person Was Ill? No [email or web address] Information not available 11/16/2021 Have You Been To An Area Known To Be High Risk For COVID-19? No [email or web address] Information not available 11/16/2021 Are You Deaf Or Do You Have Serious Difficulty Hearing? No Information not available 11/16/2021 What Type Of Diet Are You Following? REGULAR [email or web address] Information not available 11/16/2021 Which Illicit Or Recreational Drugs Have You Used? [place] [email or web address] Information not available 10/27/2019 Do You Use Your Seat Belt Or Car Seat Routinely? Yes [email or web address] Information not available 11/16/2021 Do You Have Smoke And Carbon Monoxide Detectors In Your Home? Yes Information not available 11/16/2021 Do You Feel Stressed (tense, Restless, Nervous, Or Anxious, Or Unable To Sleep At Night)? PM50612-3 [email or web address] Information not available 11/16/2021 Do You Use Sunscreen Routinely? Yes [email or web address] Information not available 11/16/2021 Has Tobacco Cessation Counseling Been Provided? No [email or web address] Information not available 11/16/2021 Do You Or Have You Ever Used Any Other Forms Of Tobacco Or Nicotine? No Information not available 11/16/2021 Sex: Unknown Functional Status Question Answer Note LastModified by Organizat ion Details LastModified Time Do you have difficulty walking or climbing stairs? No [email or web address] Information not available 11/16/2021 Are you able to walk? YESWOREST [email or web address] Information not available 11/16/2021 Are you able to care for yourself? Yes [email or web address] Information not available 11/16/2021 Do you have difficulty dressing or bathing? No [email or web address] Information not available 11/16/2021 What is your [...] N Arthritis N Polyps N Infertility N History of abnormal pap N Acid Reflux (GERD) N Cancer N [...] Diagnosis/Indication Diagnosis SNOMED-CT Code Diagnosis ICD10 Code 384114 Vidhya [facility] [address] [address] 03/26/2024 11:28:44 03/26/2024 13:45:56 screening 867267568 Z36.2 Z3A.24 [id number] Rhett Rivers MD [place] [address] [address] 03/26/2024 11:26:32 03/26/2024 13:45:39 Routine care 668247528 Z34.92 [id number] Vidhya Kaufman [place] [address] [address] 04/23/2024 12:09:12 04/23/2024 12:41:35 condition affecting obstetrical care of mother 402459560 O35.00X0 Z3A.28 [id number] Rhett Rivers MD [place] [address] [address] 04/23/2024 12:09:28 04/23/2024 14:54:09 Routine care 322126904 Z34.92 Health Concerns Section Related Observation LastModified by Organization Detai ls LastModified Time None Recorded Concern Status LastModified by Organization Details LastModified Time None Recorded Payers Encounter Date Sequence Insurance Name Policy Number Policy Kwok Covered Member ID Kwok Member ID Guarantor Name 04/23/2024 1 [facility] (MEDICAID HMO) [id number] Lashanda James [id number] Lashanda James OBGyn Episode Ob Episode Information Episode Created Date Number of Fetuses Patient Bloodtype Patient rh Status Prepregnancy Weight lbs Domestic Partner Domestic Partner Phone Father Name 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 Operator Status 01/02/20 24 1 O Negative 164 OPEN Fetus Data First Name Last Name Admitted to NICU Weight (g) Sex Living Outcome Pediatric Complications Fetus ID Race Codes Race Delivery Type [id number] Problems Problem Notes Problem Name Start Date End Date Resolution Snomed Code Not e Blood group O Rh(D) negative 604738949 Rhogam received 04/18/24 Shoulder girdle dystocia 60907769 With injury to the baby, to perform section 62906045 to do for previous shoulder dystocia with [...] Weight in lbs Pre/Post Dialysis Refused Weight 164.09586276520 BP Diastolic BP Location Tested BP Systolic [...] Type Weight in lbs Pre/Post Dialysis Refused 179.814282975931 BP Diastolic BP Location Tested BP Systolic [...] Type Weight in lbs Pre/Post Dialysis Refused 182.424335132111 BP Diastolic BP Location Tested BP Systolic [...] Type Weight in lbs Pre/Post Dialysis Refused 188.299017163145 BP Diastolic BP Location Tested BP Systolic [...] Type Weight in lbs Pre/Post Dialysis Refused 195.430531475060 BP Diastolic BP Location Tested BP Systolic [...] Weight in lbs Pre/Post Dialysis Refused Weight 203.622219453937 BP Diastolic BP Location Tested BP Systolic [...] Weight in lbs Pre/Post Dialysis Refused Weight 207.312039319319 BP Diastolic BP Location Tested BP Systolic [...] Weight in lbs Pre/Post Dialysis Refused Weight 209.758213056519 BP Diastolic BP Location Tested BP Systolic [...] Weight in lbs Pre/Post Dialysis Refused Weight 211.097955220921 BP Diastolic BP Location Tested BP Systolic [...] Estim ated Date of Delivery false Thalassemia (Hebrew, Burundian, Mediterranean, Or Background): MCV < 80 false Neural Tube Defect (Meningomyelocele, Spina Bifi da, Or Anencephaly) false Congenital Heart Defect false Down Syndrome false Dane-Sachs (eg, Episcopalian, Cajun, Nepali-Pocahontas) f alse Juancarlos Disease false Sickle Cell [...]
--- OUTSIDE RECORDS SUMMARY | 2024-07-13 06:20 | XMS_ITS | Continuity of Care Document ---
Author Organization [facility] Address [address] [place] [address] Assessment No assessment recorded. Plan of Treatment [...] lucen cy No observ ation record ed. [facility] [address], [place], [address], 01/02/2024 17:39:14 01/02/20 24 01/02/2024 US, obste tric, nucha l trans lucen cy No observ ation record ed. [email or web address] [address], [place], [address], 01/02/2024 19:40:21 02/27/20 24 02/27/2024 US, obste tric, 2nd or 3rd trime ster No observ ation record ed. [facility] [address], [place], [address], 02/27/2024 18:06:05 02/27/20 24 02/27/2024 US, obste tric, follo w-up No observ ation record ed. [email or web address] [address], [place], [address], 02/28/2024 13:07:39 03/26/20 24 03/26/2024 US, obste tric, follo w-up No observ ation record ed. [email or web address] [facility] [address], [place], [address], 03/26/2024 13:46:07 03/26/20 24 03/26/2024 US, obste tric, follo w-up No observ ation record ed. JOHNNIE [address], [place], [address], 04/03/2024 14:52:29 04/23/20 24 04/23/2024 US, obste tric, follo w-up No observ ation record ed. [email or web address] [facility] [address], [place], [address], 04/23/2024 12:39:24 04/23/20 24 04/23/2024 US, obste tric, follo w-up No observ ation record ed. JOHNNIE [address], [place], [address], 04/24/2024 11:29:28 05/18/20 24 05/18/2024 US, obste tric, follo w-up No observ ation record ed. [email or web address] [facility] [address], [place], [address], 05/18/2024 10:41:38 05/18/20 24 05/18/2024 US, obste tric, follo w-up No observ ation record ed. [email or web address] [address], [place], [address], 05/18/2024 13:10:19 Result Notes None recorded. Problems Name Problem SNOMED Code Status Onset Date Resolution Date Notes Provider Name and Address Organization Details Recorded Time Normal pregnanc y in multigra bautista 7433706460 89259 Completed 201908/24/2020 Encounte r for suprvsn of normal pregnanc y, third trimeste r;Record ed Elsewher e: No Locat ion: [facility] S ource: EHR Real Estate Transaction Coordinator yulia: N Benedictoti ce ID: 0001 Olaf lable Time: 10:45:00 AM Tamra jennings, [facility] 17:20:59 Antenata l screenin g Completed 201808/24/2020 Encounte r for antenata l screenin g for nuchal transluc ency;Rec orded Elsewher e: No Locat ion: [facility] S ource: EHR Real Estate Transaction Coordinator yulia: N Benedictoti ce ID: 0001 Olaf lable Time: 10:30:00 AM Tamra Malik jennings, [facility] 17:20:51 Pregnanc y, childbir th and puerperi um finding Completed 201908/24/2020 Encounte r for supervis ion of normal 1st pregnanc y;Record ed Elsewher e: No Locat ion: [facility] S ource: EHR Real Estate Transaction Coordinator yulia: N Benedictoti ce ID: 0001 Olaf lable Time: 09:30:00 AM Tamra jennings, [facility] 17:21:03 Gestatio n period, 9 weeks 882595 Completed 201808/24/2020 9 weeks gestatio n of pregnanc y;Record ed Elsewher e: No Locat ion: [facility] S ource: EHR Real Estate Transaction Coordinator yulia: N Benedictoti ce ID: 0001 Olaf lable Time: 11:00:00 AM Tamra jennings [facility] 17:20:57 Malforma tion of central nervous system of fetus 0957243731 107 Completed 201908/24/2020 Maternal care for (suspect ed) cnsl malform in fetus, unsp;Rec orded Elsewher e: No Locat ion: [facility] S ource: EHR Real Estate Transaction Coordinator yulia: Tom Roe ce ID: 0001 Olaf lable Time: 09:15:00 AM Tamra Gan [facility], [facility] 17:20:58 Pregnanc y detectio n examinat ion Completed 201808/24/2020 Encounte r for pregnanc y test, result positive ;Recorde d Elsewher e: No Locat ion: [facility] S ource: EHR Real Estate Transaction Coordinator yulia: Tom Roe ce ID: 0001 Olaf lable Time: 11:00:00 AM Tamra Gan [facility], [facility] 17:21:01 Gestatio n period, 25 weeks 92180739 Completed 201908/24/2020 25 weeks gestatio n of pregnanc y;Record ed Elsewher e: No Locat ion: [facility] S ource: EHR Real Estate Transaction Coordinator yulia: Tom Roe ce ID: 0001 Olaf lable Time: 09:15:00 AM Tamra Gan [facility], [facility] 17:20:55 Antenata l screenin g for malforma tion Completed 201808/24/2020 Encounte r for antenata l screenin g for malforma tions;Re corded Elsewher e: No Locat ion: [facility] S ource: EHR Real Estate Transaction Coordinator yulia: Tom Roe ce ID: 0001 Olaf lable Time: 10:45:00 AM Tamra Gan [facility], [facility] 17:20:53 Bipolar disorder 00166692 Active 2018 lexapro and abilify ok per [facility] Ayana brambila [facility], [facility] 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 1 17:21:08 Pregnanc y, childbir th and puerperi um finding Completed 201908/24/2020 Encntr for suprvsn of normal first preg, third trimeste r;Record ed Elsewher e: No Locat ion: [facility] S ource: EHR Real Estate Transaction Coordinator yulia: N Practi ce ID: 0001 Olaf lable Time: 09:35:53 AM Tamra jennings, [facility] 1 17:21:05 Pregnanc y 68769963 Completed 201905/27/2020 Lisa jennings, [facility] 4 17:32:23 Pregnanc y 04222191 Completed 202008/24/2020 Lisa jennings, [facility] 4 17:32:23 Corpus luteum cyst 971047988 Completed 2019 RIGHT Ayana jennings [facility] 1 12:38:16 Chlamydi al infectio n 385868930 Completed 2020 + - tx'd sent on 07/21 . Neg TREY 08/25/20 Ayana jennings [facility] 1 12:38:16 Pregnanc y 04530318 Completed 202012/23/2020 Lisa jennings [facility] 4 17:32:23 Depressi ve disorder 64485279 Completed Restarte d Abilify & Lexapro 09/12/20. 11/01/20 RPT EPDS 4 Ayana brambila null, [facility] 1 12:38:16 Pregnanc y 97491717 Completed 202103/02/2022 Lisa Rahul [facility], [facility] 4 17:32:23 Bipolar disorder 66098024 Completed 2018 lexapro and abilify ok per [facility] Ayana brambila [facility], [facility] 2 14:23:05 Asthma 530113558 Completed Ayana brambila [facility], [facility] 2 14:23:05 Gastroes ophageal reflux disease 348397613 Completed Ayana brambila [facility], [facility] 2 14:23:05 RhD negative 632243725 Completed ok with Rhogam? Ayana brambila null, [facility] 2 14:23:05 Mixed anxiety and depressi ve disorder 268371224 Active 2023 Dalila Noyola null, [facility] 4 13:06:17 Pregnanc y 53368043 Active 2023 Lisa Rahul [facility], [facility] 4 17:32:23 Shoulder girdle dystocia 65628695 Active With injury to the baby, to perform Shanta Samayoa [facility], [facility] 4 17:53:31 section Active to do for previous shoulder dystocia with injury Rhett Rivers MD [address], [place], [address], [facility] 4 12:21:16 Blood group O Rh(D) negative 643176996 Active Rhogam received 04/18/24 Sanaz Infante [facility] 4 13:19:07 Problem Notes None recorded. Procedures Surgical History Date Name Laterality Status Provider Name and Address Organization Details Recorded Time 12/11/19 24 Date of Last Pap Smear completed [facility] 12/11/2023 13:10:59 07/15/19 06 tonsilectomy/ad enoids completed [facility] 09/22/2021 16:07:20 07/15/19 05 adenoid excision completed [facility] 09/22/2021 16:07:11 07/15/19 02 myringotomy and insertion of tympanic ventilation tube completed [facility] 09/22/2021 16:07:37 Imaging Results [...] Not available Not available Not available 10/27/2019 70169 8003 SNOMED Dalilamitali Noyola [facility] 0 12:37:04 2772 Medicinal product containin g penicilli n and acting as antibacte rial agent (product) medicatio n Not available Not available Not available 06/01/2020 91647 05 SNOMED Celine Barney [facility] 0 12:54:54 2773 amoxicill in medicatio n Not available Not available Not available 06/01/2020 723 RxNorm Celine Barney [facility] 0 12:54:59 Medications Name Sig Start [...] Prescrib ed Elsewher e: Yes Loca tion: [facility] M odify By: hansa zhao DateTime [...] Updated DateTime 06/02/2024 170.82 cm 31.6 kg/m2 14557.25 g 115 mm[Hg] 64 mm[Hg] Anu Thompson [facility] 4 10:53:25 Social History Question Answer Notes LastModified by Organizat ion Details LastModified Time Tobacco Smoking Status Former Smoker Dalila jennings, [facility] 10/27/2019 12:41:22 What Is Your Level Of Alcohol Consumption? None [email or web address] Information not available 12/14/2021 If You Are , What Was Your Level Of Alcohol Consumption Prior To ? Occasional [email or web address] Information not available 06/27/2020 Are You Blind Or Do You Have Difficulty Seeing? No [email or web address] Information not available 11/16/2021 What Is Your Level Of Caffeine Consumption? Occasional [email or web address] Information not available 11/16/2021 In The 14 Days Before Symptom Onset, Have You Had Close Contact With A Laboratory-confir med COVID-19 While That Case Was Ill? No [email or web address] Information not available 11/16/2021 In The 14 Days Before Symptom Onset, Have You Had Close Contact With A Person Who Is Under Investigation For COVID-19 While That Person Was Ill? No [email or web address] Information not available 11/16/2021 Have You Been To An Area Known To Be High Risk For COVID-19? No [email or web address] Information not available 11/16/2021 Are You Deaf Or Do You Have Serious Difficulty Hearing? No [email or web address] Information not available 11/16/2021 What Type Of Diet Are You Following? REGULAR [email or web address] Information not available 11/16/2021 Which Illicit Or Recreational Drugs Have You Used? Hubbard [email or web address] Information not available 10/27/2019 Do You Use Your Seat Belt Or Car Seat Routinely? Yes [email or web address] Information not available 11/16/2021 Do You Have Smoke And Carbon Monoxide Detectors In Your Home? Yes [email or web address] Information not available 11/16/2021 Do You Feel Stressed (tense, Restless, Nervous, Or Anxious, Or Unable To Sleep At Night)? [id number] [email or web address] Information not available 11/16/2021 Do You Use Sunscreen Routinely? Yes [email or web address] Information not available 11/16/2021 Has Tobacco Cessation Counseling Been Provided? No [email or web address] Information not available 11/16/2021 Do You Or Have You Ever Used Any Other Forms Of Tobacco Or Nicotine? No [email or web address] Information not available 11/16/2021 Sex: Unknown Functional Status Question Answer Note LastModified by Organizat ion Details LastModified Time Do you have difficulty walking or climbing stairs? No [email or web address] Information not available 11/16/2021 Are you able to walk? YESWOREST [email or web address] Information not available 11/16/2021 Are you able to care for yourself? Yes [email or web address] Information not available 11/16/2021 Do you have difficulty dressing or bathing? No [email or web address] Information not available 11/16/2021 What is your exercise level? Occasional [email or web address] Information not available 10/27/2019 Mental Status None [...] Diagnosis/Indication Diagnosis SNOMED-CT Code Diagnosis ICD10 Code 617146 Cherelle Quiroz [facility] [address] [address] 05/18/2024 09:41:39 05/18/2024 10:10:12 Medical examination for suspected condition 759870090 Z03.74 Z3A.32 [id number] LINDSEY ESTRADA MD [facility] [address] [address] 06/02/2024 10:41:46 06/02/2024 11:29:38 Bipolar disorder 02006152 F31.9 Deliveries by [id number] O82 Shoulder g irdle dystocia 97354107 O66.0 Gestation period, 34 weeks 50863238 Z3A.34 Health Concerns Section Related Observation LastModified by Organization Detai ls LastModified Time None Recorded Concern Status LastModified by Organization Details LastModified Time None Recorded Payers Encounter Date Sequence Insurance Name Policy Number Policy Kwok Covered Member ID Kwok Member ID Guarantor Name 06/02/2024 1 [facility] (MEDICAID HMO) [id number] Lashanda James [id number] Lashanda James OBGyn Episode Ob Episode Information Episode Created Date Number of Fetuses Patient Bloodtype Patient rh Status Prepregnancy Weight lbs Domestic Partner Domestic Partner Phone Father Name Physician Scribe Status 01/02/20 24 1 O Negative 164 OPEN Fetus Data First Name Last Name Admitted to NICU Weight (g) Sex Living Outcome Pediatric Complications Fetus ID Race Codes Race Delivery Type [id number] Problems Problem Notes Problem Name Start Date End Date Resolution Snomed Code Not e Blood group O Rh(D) negative 245047927 Rhogam received 04/18/24 Shoulder girdle dystocia 64863497 With injury to the baby, to perform section 52197768 to do for previous shoulder dystocia with [...] Weight in lbs Pre/Post Dialysis Refused Weight 164.08621232857 BP Diastolic BP Location Tested BP Systolic [...] Type Weight in lbs Pre/Post Dialysis Refused 179.017463695786 BP Diastolic BP Location Tested BP Systolic [...] Type Weight in lbs Pre/Post Dialysis Refused 182.252390275669 BP Diastolic BP Location Tested BP Systolic [...] Type Weight in lbs Pre/Post Dialysis Refused 188.328847419195 BP Diastolic BP Location Tested BP Systolic [...] Type Weight in lbs Pre/Post Dialysis Refused 195.502286361708 BP Diastolic BP Location Tested BP Systolic [...] Weight in lbs Pre/Post Dialysis Refused Weight 203.799520840102 BP Diastolic BP Location Tested BP Systolic [...] Weight in lbs Pre/Post Dialysis Refused Weight 207.352074767780 BP Diastolic BP Location Tested BP Systolic [...] Weight in lbs Pre/Post Dialysis Refused Weight 209.969708578568 BP Diastolic BP Location Tested BP Systolic [...] Weight in lbs Pre/Post Dialysis Refused Weight 211.815932634228 BP Diastolic BP Location Tested BP Systolic [...] Estim ated Date of Delivery false Thalassemia (Kazakh, Serbian, Mediterranean, Or Background): MCV < 80 false Neural Tube Defect (Meningomyelocele, Spina Bifi da, Or Anencephaly) false Congenital Heart Defect false Down Syndrome false Dane-Sachs (eg, Sikh, Cajun, Filipino-[place]) f alse Juancarlos Disease false Sickle Cell [...]
--- OUTSIDE RECORDS SUMMARY | 2024-07-13 06:20 | XMS_ITS | Continuity of Care Document ---
Author Organization [facility] [place] Address [address] [place] [address] [place] [address] Assessment No assessment recorded. Plan of Treatment Reminders Order Date Submit Date Provider Last Modified By Organization Details Last Modified Time Details Appointments SURG POST OP 025 11:45AM LINDSEY ESTRADA MD Not available Not available Not available Lab None record ed. Referral None record ed. Procedures None record ed. Surgeries None record ed. Imaging US, obstet gabriela, follow -up 024 05/18/20 24 [email or web address] [place], [address], [place], [address], 05/18/2024 17:52:16 Medication Orders None record ed. Patient TargetsNo targets recorded. Patient InstructionsNo instructions recorded. Reason for Referral None Reported. Results Created Date Observation Date Name Description Value Unit Range Abnormal Flag Note LastModifiedBy Organization Detail LastModifiedTime 01/02/20 24 01/02/2024 US, obste tric, nucha l trans lucen cy No observ ation record ed. [facility] [address], [place], [address], 01/02/2024 17:39:14 01/02/20 24 01/02/2024 US, obste tric, nucha l trans lucen cy No observ ation record ed. [email or web address] [address], [place], [address], 01/02/2024 19:40:21 02/27/20 24 02/27/2024 US, obste tric, 2nd or 3rd trime ster No observ ation record ed. [facility] [address], [place], [address], 02/27/2024 18:06:05 02/27/20 24 02/27/2024 US, obste tric, follo w-up No observ ation record ed. [email or web address] [address], [place], [address], 02/28/2024 13:07:39 03/26/20 24 03/26/2024 US, obste tric, follo w-up No observ ation record ed. [email or web address] [place] [address], [place], [address], 03/26/2024 13:46:07 03/26/20 24 03/26/2024 US, obste tric, follo w-up No observ ation record ed. JOHNNIE [address], [place], [address], 04/03/2024 14:52:29 04/23/2004/23/2024 US, obste tric, follo w-up No observ ation record ed. [email or web address] [place] [address], [place], [address], 04/23/2024 12:39:24 04/23/2004/23/2024 US, obste tric, follo w-up No observ ation record ed. JOHNNIE [address], [place], [address], 04/24/2024 11:29:28 05/18/20 24 05/18/2024 US, obste tric, follo w-up No observ ation record ed. [email or web address] [place] [address], [place], [address], 05/18/2024 10:41:38 05/18/20 24 05/18/2024 US, obste tric, follo w-up No observ ation record ed. [email or web address] [address], [place], [address], 05/18/2024 13:10:19 Result Notes None recorded. Problems Name Problem SNOMED Code Status Onset Date Resolution Date Notes Provider Name and Address Organization Details Recorded Time Normal pregnanc y in multigra bautista [id number] 36900 Completed 201908/24/2020 Encounte r for suprvsn of normal pregnanc y, third trimeste r;Record ed Elsewher e: No Locat ion: [facility] S ource: [employer] yulia: N Jyothi ce ID: 0001 Olaf lable Time: 10:45:00 AM Tamra Gan [facility] 17:20:59 Antenata l screenin g Completed 201808/24/2020 Encounte r for antenata l screenin g for nuchal transluc ency;Rec orded Elsewher e: No Locat ion: [facility] S ource: [facility] [employer] [facility] yulia: N Jyothi ce ID: 0001 Olaf lable Time: 10:30:00 AM Tamra Malik [facility] 17:20:51 Pregnanc y, childbir th and puerperi um finding Completed 201908/24/2020 Encounte r for supervis ion of normal 1st pregnanc y;Record ed Elsewher e: No Locat ion: [facility] S ource: [facility] yulia: N Benedictoti ce ID: 0001 Olaf lable Time: 09:30:00 AM Tamra Malik [facility] 17:21:03 Gestatio n period, 9 weeks 767501 Completed 201808/24/2020 9 weeks gestatio n of pregnanc y;Record ed Elsewher e: No Locat ion: [facility] S ource: [facility] [employer] [facility] yulia: N Practi ce ID: 0001 Olaf lable Time: 11:00:00 AM Tamra jennings, [facility] 17:20:57 Malforma tion of central nervous system of fetus [id number] 107 Completed 201908/24/2020 Maternal care for (suspect ed) cnsl malform in fetus, unsp;Rec orded Elsewher e: No [facility] yulia: N Practi ce ID: 0001 Olaf lable Time: 09:15:00 AM Tamra Gan [facility], [facility] 17:20:58 Pregnanc y detectio n examinat ion Completed 201808/24/2020 Encounte r for pregnanc y test, result positive ;Recorde d Elsewher e: No Locat ion: [facility] S ource: [facility] yulia: N Benedictoti ce ID: 0001 Olaf lable Time: 11:00:00 AM Tamra Gan [facility], [facility] 17:21:01 Gestatio n period, 25 weeks 84942988 Completed 201908/24/2020 25 weeks gestatio n of pregnanc y;Record ed Elsewher e: No [facility] yulia: N Practi ce ID: 0001 Olaf lable Time: 09:15:00 AM Tamra jennings, [facility] 17:20:55 Antenata l screenin g for malforma tion Completed 201808/24/2020 Encounte r for antenata l screenin g for malforma tions;Re corded Elsewher e: No [facility] yulia: N Practi ce ID: 0001 Olaf lable Time: 10:45:00 AM Tamra jennings [facility] 1 17:20:53 Bipolar disorder 37767861 Active 2018 lexapro and abikyra ok per MFM Ayana brambila [facility], [facility] 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 1 17:21:08 Pregnanc y, childbir th and puerperi um finding Completed 201908/24/2020 Encntr for suprvsn of normal first preg, third trimeste r;Record ed Elsewher e: No Locat ion: [facility] S ource: [facility] yulia: N Practi ce ID: 0001 Olaf lable Time: 09:35:53 AM Tamra jennings, [facility] 1 17:21:05 Pregnanc y 74071574 Completed 201905/27/2020 Lisa Rahul [facility], [facility] 4 17:32:23 Pregnanc y 43972956 Completed 202008/24/2020 Lisa jennings, [facility] 4 17:32:23 Corpus luteum cyst 942354611 Completed 2019 RIGHT Ayana brambila [facility] 1 12:38:16 Chlamydi al infectio n [id number] Completed 2020 + - tx'd sent on 07/21 . Neg TREY 08/25/20 Ayana jennings [facility] 1 12:38:16 Pregnanc y 45878947 Completed 202012/23/2020 Lisa Kay null, [facility] 4 17:32:23 Depressi ve disorder 82322973 Completed Restarte d Abilify & Lexapro 09/12/20. 11/01/20 RPT EPDS 4 Ayana brambila null, [facility] 1 12:38:16 Pregnanc y 53519895 Completed 202103/02/2022 Lisa Kay null, [facility] 4 17:32:23 Bipolar disorder 99596295 Completed 2018 lexapro and abilify ok per [facility] Ayana brambila null, [facility] 2 14:23:05 Asthma 835400499 Completed Ayana brambila null, [facility] 2 14:23:05 Gastroes ophageal reflux disease 818461426 Completed Ayana brambila null, [facility] 2 14:23:05 RhD negative 243758479 Completed ok with Rhogam? Ayana brambila null, [facility] 2 14:23:05 Mixed anxiety and depressi ve disorder 122989200 Active 2023 Dalila Noyola null, [facility] 4 13:06:17 Pregnanc y 02464762 Active 2023 Lisaelvin Kay null, [facility] 4 17:32:23 Shoulder girdle dystocia 34511525 Active With injury to the baby, to perform Shanta jennings, [facility] 4 17:53:31 section Active to do for previous shoulder dystocia with injury Rhett Rivers MD [address], [place], [address], [facility] 4 12:21:16 Blood group O Rh(D) negative 016641148 Active Rhogam received 04/18/24 Sanaz Infante null, [facility] 4 13:19:07 Problem Notes None recorded. Procedures Surgical History Date Name Laterality Status Provider Name and Address Organization Details Recorded Time 12/11/19 24 Date of Last Pap Smear completed [facility] 12/11/2023 13:10:59 07/15/19 06 tonsilectomy/ad enoids completed [facility] 09/22/2021 16:07:20 07/15/19 05 adenoid excision completed [facility] 09/22/2021 16:07:11 07/15/19 02 myringotomy and insertion of tympanic ventilation tube completed [facility] 09/22/2021 16:07:37 Imaging Results Imaging Date Name Status LastModified by Organiz ation Details LastModified Time 05/18/2024 US, obstetric, follow-up completed [email or web address] [place] [address], [place], [address], 05/18/2024 10:41:38 05/18/2024 US, obstetric, follow-up completed [email or web address], [place], [address], 05/18/2024 13:10:19 Procedure Notes None recorded. Medical Equipment None Reported. Allergies Allergen ID Allergen Name Allergen Category Reaction Reaction Severity Criticality Documentation Date Start Date Code Code System Note Provider Name and Address Organization Details Recorded Time 106 Substance with sulfonami de structure and antibacte rial mechanism of action (substanc e) medicatio n Not available Not available Not available 10/27/2019 36538 8003 SNOMED Dalila Noyola [facility] 0 12:37:04 2772 Medicinal product containin g penicilli n and acting as antibacte rial agent (product) medicatio n Not available Not available Not available 06/01/2020 86062 05 SNOMED Celine Barney [facility] 0 12:54:54 2773 amoxicill in medicatio n Not available Not available Not available 06/01/2020 723 RxNorm Celine Barney [facility] 0 12:54:59 Medications Name Sig [...] Prescrib ed Elsewher e: Yes Loca tion: [facility] M odify By: hansa Bains r DateTime [...] Tobacco Smoking Status Former Smoker Dalila Noyola [facility], [place] - [facility] 10/27/2019 12:41:22 What Is Your Level Of Alcohol Consumption? None Information not available 12/14/2021 If You Are , What Was Your Level Of Alcohol Consumption Prior To ? Occasional [email or web address] Information not available 06/27/2020 Are You Blind Or Do You Have Difficulty Seeing? No [email or web address] Information not available 11/16/2021 What Is Your Level Of Caffeine Consumption? Occasional [email or web address] Information not available 11/16/2021 In The 14 Days Before Symptom Onset, Have You Had Close Contact With A Laboratory-confir med COVID-19 While That Case Was Ill? No [email or web address] Information not available 11/16/2021 In The 14 Days Before Symptom Onset, Have You Had Close Contact With A Person Who Is Under Investigation For COVID-19 While That Person Was Ill? No [email or web address] Information not available 11/16/2021 Have You Been To An Area Known To Be High Risk For COVID-19? No [email or web address] Information not available 11/16/2021 Are You Deaf Or Do You Have Serious Difficulty Hearing? No [email or web address] Information not available 11/16/2021 What Type Of Diet Are You Following? REGULAR [email or web address] Information not available 11/16/2021 Which Illicit Or Recreational Drugs Have You Used? [place] [email or web address] Information not available 10/27/2019 Do You Use Your Seat Belt Or Car Seat Routinely? Yes [email or web address] Information not available 11/16/2021 Do You Have Smoke And Carbon Monoxide Detectors In Your Home? Yes Information not available 11/16/2021 Do You Feel Stressed (tense, Restless, Nervous, Or Anxious, Or Unable To Sleep At Night)? [id number] [email or web address] Information not available 11/16/2021 Do You Use Sunscreen Routinely? Yes [email or web address] Information not available 11/16/2021 Has Tobacco Cessation Counseling Been Provided? No Information not available 11/16/2021 Do You Or Have You Ever Used Any Other Forms Of Tobacco Or Nicotine? No [email or web address] Information not available 11/16/2021 Sex: Unknown Functional Status Question Answer Note LastModified by Organizat ion Details LastModified Time Do you have difficulty walking or climbing stairs? No [email or web address] Information not available 11/16/2021 Are you able to walk? [email or web address] Information not available 11/16/2021 Are you able to care for yourself? Yes [email or web address] Information not available 11/16/2021 Do you have [...] Diagnosis/Indication Diagnosis SNOMED-CT Code Diagnosis ICD10 Code 366118 Vidhya Kaufman [place] [address],[facility] [place] [address] 04/23/2024 12:09:12 04/23/2024 12:41:35 condition affecting obstetrical care of mother 703072035 O35.00X0 Z3A.28 [id number] Rhett Rivers MD [place] [address],[facility] [place] [address] 04/23/2024 12:09:28 04/23/2024 14:54:09 Routine care 966288685 Z34.92 [id number] Cherelle Quiroz [place] [address],[facility] [place] [address] 05/18/2024 09:41:39 05/18/2024 10:10:12 Medical examination for suspected condition 444590109 Z03.74 Z3A.32 Health Concerns Section Related Observation LastModified by Organization Detai ls LastModified Time None Recorded Concern Status LastModified by Organization Details LastModified Time None Recorded Payers Encounter Date Sequence Insurance Name Policy Number Policy Kwok Covered Member ID Kwok Member ID Guarantor Name 05/18/2024 1 [facility] (MEDICAID HMO) [id number] Lashanda James [id number] Lashanda James OBGyn Episode Ob Episode Information Episode Created Date Number of Fetuses Patient Bloodtype Patient rh Status Prepregnancy Weight lbs Domestic Partner Domestic Partner Phone Father Name Health Insurance Assessor Status 01/02/20 24 1 O Negative 164 OPEN Fetus Data First Name Last Name Admitted to NICU Weight (g) Sex Living Outcome Pediatric Complications Fetus ID Race Codes Race Delivery Type [id number] Problems Problem Notes Problem Name Start Date End Date Resolution Snomed Code Not e Blood group O Rh(D) negative 384533994 Rhogam received 04/18/24 Shoulder girdle dystocia 94256357 With injury to the baby, to perform section 24408722 to do for previous shoulder dystocia with [...] Weight in lbs Pre/Post Dialysis Refused Weight 164.95090536557 BP Diastolic BP Location Tested BP Systolic [...] Type Weight in lbs Pre/Post Dialysis Refused 179.872585160218 BP Diastolic BP Location Tested BP Systolic [...] Type Weight in lbs Pre/Post Dialysis Refused 182.735753170371 BP Diastolic BP Location Tested BP Systolic [...] Type Weight in lbs Pre/Post Dialysis Refused 188.212699903294 BP Diastolic BP Location Tested BP Systolic [...] Type Weight in lbs Pre/Post Dialysis Refused 195.117959395004 BP Diastolic BP Location Tested BP Systolic [...] Weight in lbs Pre/Post Dialysis Refused Weight 203.855478966708 BP Diastolic BP Location Tested BP Systolic [...] Weight in lbs Pre/Post Dialysis Refused Weight 207.910231104790 BP Diastolic BP Location Tested BP Systolic [...] Weight in lbs Pre/Post Dialysis Refused Weight 209.576317073793 BP Diastolic BP Location Tested BP Systolic [...] Weight in lbs Pre/Post Dialysis Refused Weight 211.500385174190 BP Diastolic BP Location Tested BP Systolic [...] Estim ated Date of Delivery false Thalassemia (Croatian, Slovak, Mediterranean, Or Background): MCV < 80 false Neural Tube Defect (Meningomyelocele, Spina Bifi da, Or Anencephaly) false Congenital Heart Defect false Down Syndrome false Dane-Sachs (eg, Adventism, Cajun, [place]er-Guyanese) f alse Juancarlos Disease false Sickle Cell Disease Or Trait () false Hemophilia Or Other Blood Disorders false Muscular Dystrophy false Cystic Fibrosis false [place]'s Chorea false Intellectual Disability/Autism false If Yes, [...]
--- OUTSIDE RECORDS SUMMARY | 2024-07-13 06:21 | XMS_ITS | Continuity of Care Document ---
Author Organization [facility] [place] Address [address] [place] [address] Assessment No assessment recorded. Plan of Treatment Reminders Order Date Submit Date Provider Last Modified By Organization Details Last Modified Time Details Appointments SURG POST OP 025 11:45AM LINDSEY ESTRADA MD Not available Not available Not available Lab None record ed. Referral None record ed. Procedures None record ed. Surgeries None record ed. Imaging US, obstet gabriela, follow -up 024 04/23/20 [email or web address] [place] [facility] [address], [place], [address], 04/23/2024 14:34:58 Medication Orders None record ed. Patient TargetsNo targets recorded. Patient InstructionsNo instructions recorded. Reason for Referral None Reported. Results Created Date Observation Date Name Description Value Unit Range Abnormal Flag Note LastModifiedBy Organization Detail LastModifiedTime 01/02/20 24 01/02/2024 US, obste tric, nucha l trans lucen cy No observ ation [facility] ed[facility] [address], [place], [address], 01/02/2024 17:39:14 01/02/20 24 01/02/2024 US, obste tric, nucha l trans lucen cy No observ ation record ed. [email or web address] [address], [place], [address], 01/02/2024 19:40:21 08/15/02/27/2024 US, obste tric, 2nd or 3rd trime ster No observ ation record ed. [facility] [address], [place], [address], 02/27/2024 18:06:05 02/27/20 24 02/27/2024 US, obste tric, follo w-up No observ ation record ed. [email or web address] [address], [place], [address], 02/28/2024 13:07:39 03/26/20 24 03/26/2024 US, obste tric, follo w-up No observ ation record ed. [email or web address] [place] [address], [place], [address], 03/26/2024 13:46:07 03/26/20 24 03/26/2024 US, obste tric, follo w-up No observ ation record ed. JOHNNIE [address], [place], [address], 04/03/2024 14:52:29 04/23/20 24 04/23/2024 US, obste tric, follo w-up No observ ation record ed. [email or web address] [place] [address], [place], [address], 04/23/2024 12:39:24 04/23/20 24 04/23/2024 US, obste tric, follo w-up No observ ation record ed. JOHNNIE [address], [place], [address], 04/24/2024 11:29:28 05/18/20 24 05/18/2024 US, obste tric, follo w-up No observ ation record ed. [email or web address] [place] [address], [place], [address], 05/18/2024 10:41:38 05/18/20 24 05/18/2024 US, obste tric, follo w-up No observ ation record ed. [email or web address] [address], [place], [address], 05/18/2024 13:10:19 Result Notes None recorded. Problems Name Problem SNOMED Code Status Onset Date Resolution Date Notes Provider Name and Address Organization Details Recorded Time Normal pregnanc y in multigra bautista [id number] 53666 Completed 201908/24/2020 Encounte r for suprvsn of normal pregnanc y, third trimeste r;Record ed Elsewher e: No Locat ion: [facility] S ource: EHR Rug Hooker yulia: N Jyothi ce ID: 0001 Olaf lable Time: 10:45:00 AM Tamra Gan [facility] 17:20:59 Antenata l screenin g Completed 201808/24/2020 Encounte r for antenata l screenin g for nuchal transluc ency;Rec orded Elsewher e: No Locat ion: [facility] S ource: EHR Rug Hooker yulia: Tom Roe ce ID: 0001 Olaf lable Time: 10:30:00 AM Tamra Gan [facility] 17:20:51 Pregnanc y, childbir th and puerperi um finding Completed 201908/24/2020 Encounte r for supervis ion of normal 1st pregnanc y;Record ed Elsewher e: No Locat ion: [facility] S ource: EHR Rug Hooker yulia: N Jyothi ce ID: 0001 Olaf lable Time: 09:30:00 AM Tamra Gan [facility] 17:21:03 Gestatio n period, 9 weeks 083171 Completed 201808/24/2020 9 weeks gestatio n of pregnanc y;Record ed Elsewher e: No Locat ion: [facility] S ource: EHR Rug Hooker yulia: N Practi ce ID: 0001 Olaf lable Time: 11:00:00 AM Tamra jennings, [facility] 17:20:57 Malforma tion of central nervous system of fetus [id number] 107 Completed 201908/24/2020 Maternal care for (suspect ed) cnsl malform in fetus, unsp;Rec orded Elsewher e: No Locat ion: [facility] S ource: EHR Rug Hooker yulia: N Practi ce ID: 0001 Olaf lable Time: 09:15:00 AM Tamra Gan [facility], [facility] 17:20:58 Pregnanc y detectio n examinat ion Completed 201808/24/2020 Encounte r for pregnanc y test, result positive ;Recorde d Elsewher e: No Locat ion: [facility] S ource: EHR Rug Hooker yulia: N Practi ce ID: 0001 Olaf lable Time: 11:00:00 AM Tamra Gan [facility], [facility] 17:21:01 Gestatio n period, 25 weeks 78365145 Completed 201908/24/2020 25 weeks gestatio n of pregnanc y;Record ed Elsewher e: No Locat ion: [facility] S ource: EHR Rug Hooker yulia: N Practi ce ID: 0001 Olaf lable Time: 09:15:00 AM Tamra jennings, [facility] 17:20:55 Antenata l screenin g for malforma tion Completed 201808/24/2020 Encounte r for antenata l screenin g for malforma tions;Re corded Elsewher e: No Locat ion: [facility] S ource: EHR Rug Hooker yulia: N Practi ce ID: 0001 Olaf lable Time: 10:45:00 AM Tamra jennings, [facility] 1 17:20:53 Bipolar disorder 82171032 Active 2018 lexapro and trevin ok per M Ayana jennings, [facility] [address] 14:23:[address] Concept Completed 201808/24/2020 Encntr for manager gyn exam (general ) (routine ) w/o abn findings ;Recorde d Elsewher e: No Locat ion: [facility] S ource: EHR Rug Hooker yulia: N Practi ce ID: 0001 Olaf lable Time: 03:00:00 PM Tamra jennings, [facility] 1 17:21:08 Pregnanc y, childbir th and puerperi um finding Completed 201908/24/2020 Encntr for suprvsn of normal first preg, third trimeste r;Record ed Elsewher e: No Locat ion: [facility] S ource: EHR Rug Hooker yulia: N Practi ce ID: 0001 Olaf lable Time: 09:35:53 AM Tamra Barnum michaela, [facility] 1 17:21:05 Pregnanc y 74969389 Completed 201905/27/2020 Lisa jennings, [facility] 4 17:32:23 Pregnanc y 06366001 Completed 202008/24/2020 Lisa jennings, [facility] 4 17:32:23 Corpus luteum cyst 327524763 Completed 2019 RIGHT Ayana jennings, [facility] 1 12:38:16 Chlamydi al infectio n 544615954 Completed 2020 + - tx'd sent on 07/21 . Neg TREY 08/25/20 Ayana jennings, [facility] 1 12:38:16 Pregnanc y 97730064 Completed 202012/23/2020 Lisa Kay null, [facility] 4 17:32:23 Depressi ve disorder 86837514 Completed Restarte d Abilify & Lexapro 09/12/20. 11/01/20 RPT EPDS 4 Ayana brambila null, [facility] 1 12:38:16 Pregnanc y 76029086 Completed 202103/02/2022 Lisa Kay [facility], [facility] 4 17:32:23 Bipolar disorder 75474755 Completed 2018 lexapro and abilify ok per [facility] Ayana brambila null, [facility] 2 14:23:05 Asthma 036117078 Completed Ayana brambila null, [facility] 2 14:23:05 Gastroes ophageal reflux disease 930045045 [facility] 14:23:05 RhD negative 325739833 Completed ok with Rhogam? Ayana brambila null, [facility] 2 14:23:05 Mixed anxiety and depressi ve disorder 265680383 Active 2023 Dalila Noyola null, [facility] 4 13:06:17 Pregnanc y 62134888 Active 2023 Lisaelvin Kay [facility], [facility] 4 17:32:23 Shoulder girdle dystocia 23193806 Active With injury to the baby, to perform Shanta Samayoa null, [facility] 4 17:53:31 section Active to do for previous shoulder dystocia with injury Rhett Rivers MD [address], [place], [address], , [facility] 4 12:21:16 Blood group O Rh(D) negative 322663422 Active Rhogam received 04/18/24 Sanaz Infante null, [facility] 4 13:19:07 Problem Notes None recorded. Procedures Surgical History Date Name Laterality Status Provider Name and Address Organization Details Recorded Time 12/11/19 24 Date of Last Pap Smear completed [facility] 12/11/2023 13:10:59 07/15/19 06 tonsilectomy/ad enoids completed [facility] 09/22/2021 16:07:20 07/15/19 05 adenoid excision completed [facility] 09/22/2021 16:07:11 07/15/19 02 myringotomy and insertion of tympanic ventilation tube completed [facility] 09/22/2021 16:07:37 Imaging Results Imaging Date Name Status LastModified by Organiz ation Details LastModified Time 04/23/2024 US, obstetric, follow-up completed [email or web address] [place] [address], [place], [address], 04/23/2024 12:39:24 04/23/2024 US, obstetric, follow-up completed JOHNNIE [address], [place], [address], 04/24/2024 11:29:28 Procedure Notes None recorded. Medical Equipment None Reported. Allergies Allergen ID Allergen Name Allergen Category Reaction Reaction Severity Criticality Documentation Date Start Date Code Code System Note Provider Name and Address Organization Details Recorded Time 106 Substance with sulfonami de structure and antibacte rial mechanism of action (substanc e) medicatio n Not available Not available Not available 10/27/2019 51987 8003 SNOMED Dalila Noyola [facility] 0 12:37:04 2772 Medicinal product containin g penicilli n and acting as antibacte rial agent (product) medicatio n Not available Not available Not available 06/01/2020 54791 05 SNOMED Celine Barney [facility] 0 12:54:54 2773 amoxicill in medicatio n Not available Not available Not available 06/01/2020 723 RxNorm Celine Barney [facility] 0 12:54:59 Medications Name Sig Start [...] Prescrib ed Elsewher e: Yes [facility] By: hansa Bains r [...] Updated DateTime 04/23/2024 170.82 cm 30.3 kg/m2 41209.51 215 g 113 mm[Hg] 72 mm[Hg] Lisa Rahul [facility] 4 12:59:40 Social History Question Answer Notes LastModified by Organizat ion Details LastModified Time Tobacco Smoking Status Former Smoker Dalila Noyola michaela, [facility] 10/27/2019 12:41:22 What Is Your Level Of Alcohol Consumption? None [email or web address] Information not available 12/14/2021 If You Are , What Was Your Level Of Alcohol Consumption Prior To ? Occasional [email or web address] Information not available 06/27/2020 Are You Blind Or Do You Have Difficulty Seeing? No [email or web address] Information not available 11/16/2021 What Is Your Level Of Caffeine Consumption? Occasional [email or web address] Information not available 11/16/2021 In The 14 Days Before Symptom Onset, Have You Had Close Contact With A Laboratory-confir med COVID-19 While That Case Was Ill? No [email or web address] Information not available 11/16/2021 In The 14 Days Before Symptom Onset, Have You Had Close Contact With A Person Who Is Under Investigation For COVID-19 While That Person Was Ill? No [email or web address] Information not available 11/16/2021 Have You Been To An Area Known To Be High Risk For COVID-19? No [email or web address] Information not available 11/16/2021 Are You Deaf Or Do You Have Serious Difficulty Hearing? No [email or web address] Information not available 11/16/2021 What Type Of Diet Are You Following? REGULAR [email or web address] Information not available 11/16/2021 Which Illicit Or Recreational Drugs Have You Used? Powell [email or web address] Information not available 10/27/2019 Do You Use Your Seat Belt Or Car Seat Routinely? Yes [email or web address] Information not available 11/16/2021 Do You Have Smoke And Carbon Monoxide Detectors In Your Home? Yes [email or web address] Information not available 11/16/2021 Do You Feel Stressed (tense, Restless, Nervous, Or Anxious, Or Unable To Sleep At Night)? [id number] [email or web address] Information not available 11/16/2021 Do You Use Sunscreen Routinely? Yes [email or web address] Information not available 11/16/2021 Has Tobacco Cessation Counseling Been Provided? No [email or web address] Information not available 11/16/2021 Do You Or Have You Ever Used Any Other Forms Of Tobacco Or Nicotine? No [email or web address] Information not available 11/16/2021 Sex: Unknown Functional Status Question Answer Note LastModified by Organizat ion Details LastModified Time Do you have difficulty walking or climbing stairs? No [email or web address] Information not available 11/16/2021 Are you able to walk? YESWOREST [email or web address] Information not available 11/16/2021 Are you able to care for yourself? Yes [email or web address] Information not available 11/16/2021 Do you have difficulty dressing or bathing? No [email or web address] Information not available 11/16/2021 What is your [...] Diagnosis/Indication Diagnosis SNOMED-CT Code Diagnosis ICD10 Code [id number] [facility] [address],[place] [address] 03/26/2024 11:28:44 03/26/2024 13:45:56 screening 477821828 Z36.2 Z3A.24 [id number] Rhett Rivers MD [place] [address],[place] [address] 03/26/2024 11:26:32 03/26/2024 13:45:39 Routine care 706756465 Z34.92 [id number] [facility] [address],[place] [address] 04/23/2024 12:09:12 04/23/2024 12:41:35 condition affecting obstetrical care of mother 323201738 O35.00X0 Z3A.28 [id number] Rhett Rivers MD [place] [address],[place] [address] 04/23/2024 12:09:28 04/23/2024 14:54:09 Routine care 104398021 Z34.92 Health Concerns Section Related Observation LastModified by Organization Detai ls LastModified Time None Recorded Concern Status LastModified by Organization Details LastModified Time None Recorded Payers Encounter Date Sequence Insurance Name Policy Number Policy Kwok Covered Member ID Kwok Member ID Guarantor Name 04/23/2024 1 [facility] (MEDICAID HMO) [id number] Lashanda James [id number] Lashanda James OBGyn Episode Ob Episode Information Episode Created Date Number of Fetuses Patient Bloodtype Patient rh Status Prepregnancy Weight lbs Domestic Partner Domestic Partner Phone Father Name Reading Specialist Status 01/02/20 24 1 O Negative 164 OPEN Fetus Data First Name Last Name Admitted to NICU Weight (g) Sex Living Outcome Pediatric Complications Fetus ID Race Codes Race Delivery Type [id number] Problems Problem Notes Problem Name Start Date End Date Resolution Snomed Code Not e Blood group O Rh(D) negative 277561946 Rhogam received 04/18/24 Shoulder girdle dystocia 50562049 With injury to the baby, to perform section 15984653 to do for previous shoulder dystocia with [...] Weight in lbs Pre/Post Dialysis Refused Weight 164.99220805634 BP Diastolic BP Location Tested BP Systolic [...] Type Weight in lbs Pre/Post Dialysis Refused 179.346431492578 BP Diastolic BP Location Tested BP Systolic [...] Type Weight in lbs Pre/Post Dialysis Refused 182.728711789010 BP Diastolic BP Location Tested BP Systolic [...] Type Weight in lbs Pre/Post Dialysis Refused 188.309634240799 BP Diastolic BP Location Tested BP Systolic [...] Type Weight in lbs Pre/Post Dialysis Refused 195.194543134096 BP Diastolic BP Location Tested BP Systolic [...] Weight in lbs Pre/Post Dialysis Refused Weight 203.415532737543 BP Diastolic BP Location Tested BP Systolic [...] Weight in lbs Pre/Post Dialysis Refused Weight 207.254106271174 BP Diastolic BP Location Tested BP Systolic [...] Weight in lbs Pre/Post Dialysis Refused Weight 209.918305964410 BP Diastolic BP Location Tested BP Systolic [...] Weight in lbs Pre/Post Dialysis Refused Weight 211.757759916612 BP Diastolic BP Location Tested BP Systolic [...] Estim ated Date of Delivery false Thalassemia (Lao, Chadian, Mediterranean, Or Background): MCV < 80 false Neural Tube Defect (Meningomyelocele, Spina Bifi da, Or Anencephaly) false Congenital Heart Defect false Down Syndrome false Dane-Sachs (eg, Taoism, Cajun, Turkmen-[place]) f alse Juancarlos Disease false Sickle Cell Disease Or Trait () false Hemophilia Or Other Blood Disorders false Muscular Dystrophy false Cystic Fibrosis false Kinney's Chorea false Intellectual Disability/Autism false If Yes, [...]
== END 2024-07-08 09:50 | disposition home or self-care (01) | DRG 540 ==
LOC: ANHLDR 05:23 → ANHOB2 11:03
PROVIDERS: Admitting Provider Obstetrics & Gynecology; Visit Provider Obstetrics & Gynecology
PROC: 10D00Z1 Extraction of Products of Conception, Low, Open Approach (ICD-10-PCS; CPT 59514; principal; 2024-07-06 07:30)
DX: O99.892 Other specified diseases and conditions complicating childbirth (principal); Z37.0 Single live birth; Z3A.39 39 weeks gestation of pregnancy; Z87.59 Personal history of other complications of pregnancy, childbirth and the puerperium
CPT/HCPCS: 36415; 85025; 85461; 86703; 86850; 86900; 86901; 90384; A9270; G0432; J1171; J1580; J1885; J2175; J2274; J2371; J2405; J2590; J2790; J7120